=== PATIENT | female | born 1950 | race Caucasian/White ===

== ENCOUNTER 2023-05-02 12:32 | Outpatient (OUT) | payer MEDICARE, OTHER, SELFPAY ==
--- NOTE | 2023-05-02 13:10 | XR_ITS ---
[facility] [id number] Patient Name: KINDRA HUNTER MRN: [id number] date: 1950 Sex: F Assigned Patient Location: [facility] Current Patient Location: [facility] Accession/Order Number: [id number] Exam Date: 05/02/2023 12:55 Report Date: 05/02/2023 16:41 At the request of: NON-STAFF PHYSICIAN Procedure: XR lumbar spine min 4V EXAMINATION: XR lumbar spine min 4V HISTORY: M54.40 LUMBAGO WITH SCIATICA, UNSPECIFIED SIDE COMPARISON: No relevant comparison available. FINDINGS: BONES: Minimal grade 1 anterolisthesis of L3 on 4 and of L4 on 5. Developmental variant partial lumbarization of S1. Moderate degenerative facet arthropathy L3-4 through L5-S1. DISC SPACES: Moderate narrowing T10-11, T11 and T12, T12-L1 lung with sclerotic degenerative endplate changes. Mild narrowing L4-5. Moderate narrowing L5-S1. PARASPINOUS: Negative. No paraspinous abnormality is seen. OTHER: Negative. IMPRESSION: 1. Mild to moderate degenerative changes of lower thoracic and lower lumbar spine. Electronically authenticated by: HECTOR LING Date: 05/02/2023 16:41
--- NOTE | 2023-05-02 13:10 | XR_ITS ---
[address] [address] Patient Name: KINDRA HUNTER MRN: [id number] date: 1950 Sex: F Assigned Patient Location: [facility] Current Patient Location: Accession/Order Number: [id number] Exam Date: 05/02/2023 12:55 Report Date: 05/02/2023 16:38 At the request of: NON-STAFF PHYSICIAN Procedure: XR knee standing BI EXAMINATION: XR knee standing BI HISTORY: M25.561, M25.562 PAIN IN BILATERAL KNEES COMPARISON: No relevant comparison available. FINDINGS: RIGHT FINDINGS: BONES: Mild narrowing of the medial joint space and tiny periarticular degenerative osteophytes. SOFT TISSUES: No visible soft tissue swelling. OTHER: Negative. LEFT FINDINGS: BONES: Mild narrowing of the medial joint space and tiny periarticular degenerative osteophytes. SOFT TISSUES: No visible soft tissue swelling. OTHER: Negative. IMPRESSION: RIGHT CONCLUSION: Single frontal view of the right knee suggests mild degenerative joint disease. LEFT CONCLUSION: Single frontal view of the left knee suggests mild degenerative joint disease. Electronically authenticated by: HECTOR LING Date: 05/02/2023 16:38
== END 2023-05-02 12:33 ==
LOC: RAD 12:38
PROVIDERS: PCP Family Medicine
DX: M25.561 Pain in right knee (principal); M25.562 Pain in left knee; M54.40 Lumbago with sciatica, unspecified side; G89.29 Other chronic pain
CPT/HCPCS: 72110; 73565

== ENCOUNTER 2023-05-03 14:49 | Outpatient (RCR) | payer MEDICARE, OTHER, SELFPAY | END 2023-06-01 16:39 | disposition home or self-care (01) | LOC: PT 14:49 | PROVIDERS: PCP Family Medicine | DX: M25.551 Pain in right hip (principal); U09.9 Post COVID-19 condition, unspecified; M25.562 Pain in left knee; Z91.81 History of falling | CPT/HCPCS: 97110; 97112; 97161 ==

== ENCOUNTER 2023-09-05 16:47 | Outpatient (OUT) | payer MEDICARE, OTHER, SELFPAY ==
[2023-09-05 17:14] LABS: Bilirubin Urine NEGATIVE (NEGATIVE); Blood Urine NEGATIVE (NEGATIVE); Color Urine LT. YELLOW (YELLOW); Glucose Urine UA NEGATIVE (NEGATIVE); Ketones Urine NEGATIVE (NEGATIVE); Leukocyte Esterase Urine SMALL (NEGATIVE); Nitrite Urine POSITIVE (NEGATIVE); Protein Urine NEGATIVE (NEG/TRACE); Specific Gravity Urine 1.025 (1.005-1.025); Urobilinogen Urine 0.2 EU/dL (0.2-1.0)
[2023-09-05 17:19] LABS: Clarity Urine SLIGHTLY CLOUDY (CLEAR)
[2023-09-05 17:22] LABS: Bacteria Urine MODERATE #/HPF (NONE SEEN); Cast Seen? NONE SEEN #/LPF (NONE SEEN); Crystals Seen? None Seen #/HPF (None Seen); Mucus Urine NONE SEEN (NONE SEEN); RBC Urine 0-2 #/HPF (0-2); Squamous Epithelial Cell Urine RARE #/LPF (NONE/RARE)
== END 2023-09-05 16:48 | disposition home or self-care (01) ==
PROVIDERS: PCP Family Medicine; Visit Provider Family Medicine
DX: R30.0 Dysuria (principal)
CPT/HCPCS: 81001; 87086; 87150; 87186

== ENCOUNTER 2023-11-08 08:50 | Outpatient (OUT) | payer MEDICARE, OTHER, SELFPAY ==
--- OUTSIDE RECORDS SUMMARY | 2023-11-08 08:54 | XMS_ITS | CCD ---
Author Name Unknown Address [address] [place] [address] Organization [facility] Care Team Providers Care Bb Shot Packer Name Role Phone Dorita Bashir Primary Care Unavailable Amber Acharya Admitting Unavailable Amber Acharya Attending Unavailable Dorita Bsahir MD Primary Care Provider [phone] Amber Acharya MD Unavailable Dorita Bashir MD Primary Care Provider [phone] Amber Acharya MD Unavailable [phone] Bethany VELÁSQUEZ [facility] Unavailable [phone] DR DORITA BASHIR Admitting Unavailable KATHYY, DR KEVIN Attending Unavailable FRANK, DR KEVIN Primary Care Unavailable ACHARYA, DR AMBER Alonzo Referring Unavailable KATHYY, DR KEVIN Consulting Unavailable ASHLEY DAVIS Consulting Unavailable KATHYY, DR KEVIN Admitting Unavailable HOY, DR KEVIN Attending Unavailable HOMaría, DR KEVIN Primary Care Unavailable HOMaría, DR KEVIN Consulting Unavailable FRANK, DR KEVIN Admitting Unavailable FRANK, DR KEVIN Attending Unavailable FRANK, DR KEVIN Primary Care Unavailable KATHYY, DR KEVIN Consulting Unavailable FRANCI BUSTOS Consulting Unavailable KATHYY, DR KEVIN Admitting Unavailable HOY, DR KEVIN Attending Unavailable FRANK, DR KEVIN Primary Care Unavailable FRANK, DR KEVIN Consulting Unavailable SUSHIL, DR HECTOR Goldsmith Consulting Unavailable FRANK, DR KEVIN Admitting Unavailable FRANK, DR KEVIN Attending Unavailable FRANK, DR KEVIN Primary Care Unavailable HOY, DR KEVIN Consulting Unavailable VLAD, DR ASHLEY Grayson Consulting Unavailable FRANK, DR KEVIN Admitting Unavailable FRANK, DR KEVIN Attending Unavailable FRANK, DR KEVIN Primary Care Unavailable FRANK, DR KEVIN Consulting Unavailable ZIBERNA, DR HECTOR Goldsmith Consulting Unavailable KATHYYDR KEVIN Admitting Unavailable HOY, DR DORITA Attending Unavailable DR DORITA BASHIR Primary Care Unavailable FRANK, DR KEVIN Consulting Unavailable DR DORITA BASHIR Admitting Unavailable FRANK, DR KEVIN Attending Unavailable FRANK, DR KEVIN Primary Care Unavailable FRANK, DR KEVIN Consulting Unavailable Dorita Bashir MD Primary Care Provider [phone] Amber Acharya MD Unavailable Alfredito Young MD Unavailable IFRAH CHRISTIANSEN Attending Unavailable DORITA BASHIR MMini Primary Care Unavailable PROVIDER, UNKNOWN Admitting Unavailable ELSKHRISY, ALFREDITO Referring Unavailable PROVIDER, UNKNOWN Attending Unavailable PROVIDER, UNKNOWN Admitting Unavailable KEOY, ALFREDITO Referring Unavailable DORITA BASHIR MMini Primary Care Unavailable PROVIDER, UNKNOWN Attending Unavailable PROVIDER, UNKNOWN Admitting Unavailable DORITA BASHIR MMiin Primary Care Unavailable PROVIDER, UNKNOWN Attending Unavailable PROVIDER, UNKNOWN Admitting Unavailable DORITA BASHIR MMini Primary Care Unavailable PROVIDER, UNKNOWN Attending Unavailable PROVIDER, UNKNOWN Admitting Unavailable DORITA BASHIR MMini Primary Care Unavailable PROVIDER, UNKNOWN Attending Unavailable PROVIDER, UNKNOWN Attending Unavailable DORITA BASHIR MMini Primary Care Unavailable PROVIDER, UNKNOWN Admitting Unavailable AMBER ACHARYA Referring Unavailable PROVIDER, UNKNOWN Attending Unavailable DORITA BASHIR MMini Primary Care Unavailable PROVIDER, UNKNOWN Admitting Unavailable ELSVALARIEKASekouY, ALFREDITO Referring Unavailable DORITA BASHIR MMini Primary Care Unavailable PROVIDER, UNKNOWN Admitting Unavailable ELSRON, ALFREDITO Referring Unavailable PROVIDER, UNKNOWN Attending Unavailable Medications Current Medications Medication Drug Class(es) Dates Sig (Normalized) Sig (Original) amLODIPine 10 mg oral tablet (20 sources) Dihydropyridine Calcium Channel Con Start: 01-28-2020 amLODIPine (NORVASC) 10 MG tablet aspirin 81 mg delayed release oral tablet (20 sources) Platelet Aggregation Inhibitor, Nonsteroidal Anti-inflammatory Drug take 1 tablet by mouth once daily aspirin 81 MG enteric coated tablet Take 81 mg by mouth daily. 0 Active take 1 tablet by mouth once juju y aspirin 81 MG tablet Take 81 mg by mouth daily. 0 Active atorvastatin 80 mg oral tablet (20 sources) HMG-CoA Reductase Inhibitor Start: 01-28-2020 atorvastatin (LIPITOR) 80 mg tablet celecoxib 200 mg oral capsule (20 sources) Nonsteroidal Anti-inflammatory Drug Start: 03-02-2022 celecoxib (CeleBREX) 200 MG capsule cholecalciferol 0.025 mg oral capsule (20 sources) Vitamin D Start: 04-18-2017 take 1 capsule by mouth once daily Cholecalciferol (VITAMIN D3) 1000 UNITS CAPS Take 1 Capsule by mouth daily. 90 Capsule 1 04/18/2017 Active colestipol hydrochloride 1000 mg oral tablet (20 sources) Bile Acid Sequestrant Start: 05-10-2022 take 1 tablet by mouth once daily colestipol (COLESTID) 1 GM tablet colestipol 1 gram tablet Take 1 tablet every day by oral route for 90 days. 0 05/10/2022 Active Start: 09-07-2021 End: 06-07-2022 take 1 tablet by mouth twice daily as needed colestipol (COLESTID) 1 GM tablet Take 1 Tablet by mouth 2 times daily as needed. 180 Tablet 3 09/07/2021 06/07/2022 Discontinued hydroxychloroquine sulfate 200 mg oral tablet (20 sources) Antimalarial, Antirheumatic Agent Start: 06-03-2020 take 2 tablets by mouth once daily hydroxychloroquine (PLAQUENIL) 200 MG tablet TAKE 2 TABLETS BY MOUTH DAILY 180 Tablet 1 06/03/2020 Active levoFLOXacin 500 mg oral tablet (3 sources) Quinolone Antimicrobial Start: 01-02-2022 take 1 tablet by mouth once daily levoFLOXacin (LEVAQUIN) 500 MG tablet Take 500 mg by mouth daily. 0 01/02/2022 Active levothyroxine sodium 0.088 mg oral tablet (20 sources) l-Thyroxine Start: 05-16-2022 levothyroxine (SYNTHROID) 88 MCG tablet Start: 01-28-2020 take 1 tablet by rosa elena th once daily 30 minutes before breakfast Levothyroxine Sodium 88 MCG CAPS Take 1 Tablet by mouth daily (30 minutes before breakfast). 0 01/28/2020 Active liothyronine sodium 0.005 mg oral tablet (20 sources) l-Triiodothyronine Start: 02-28-2021 liothyronine (CYTOMEL) 5 MCG tablet 24 hr metoprolol succinate 100 mg extended release oral tablet (20 sources) beta-Adrenergic Con take 1 tablet by mouth twice daily metoprolol XL (TOPROL-XL) 100 MG XL tablet Take 100 mg by mouth 2 times daily. 0 Active Multiple Vitamins-Minerals (EYE VITAMINS ORAL) (5 sources) Multiple Vitamins-Minerals (EYE VITAMINS ORAL) Take by mouth. 0 Active pantoprazole 40 mg delayed release oral tablet (20 sources) Proton Pump Inhibitor take 1 tablet by mouth once daily pantoprazole (PROTONIX) 40 MG tablet Take 40 mg by mouth daily. 0 Active pregabalin 50 mg oral capsule (12 sources) Start: 09-06-2022 End: 10-06-2022 take 1 capsule by mouth twice daily pregabalin (Lyrica) 50 MG capsule Indications: Intercostal neuritis Take 1 Capsule by mouth 2 times daily for 30 days. 60 Capsule 0 09/06/2022 Active traMADol hydrochloride 50 mg oral tablet (20 sources) Opioid Agonist Start: 09-07-2021 take 1 tablet by mouth every eight hours as needed tramadol (ULTRAM) 50 MG tablet Indications: Fibromyalgia Take 1 Tablet by mouth every 8 hours as needed for up to 90 days. 30 Tablet 1 09/07/2021 Active Completed/Discontinued Medications Medication Drug Class(es) Dates Sig (Normalized) Sig (Original) alendronic acid 70 mg oral tablet (20 sources) Bisphosphonate Start: 03-08-2022 End: 04-30-2023 take 1 tablet by mouth every week alendronate (Fosamax) 70 MG tablet Take 1 Tablet by mouth once weekly. 4 Tablet 3 03/08/2022 04/30/2023 Discontinued (Therapy completed) 5 ml bupivacaine hydrochloride 5 mg/ml injection (6 sources) Amide Local Anesthetic Start: 08-09-2022 End: 08-09-2022 bupivacaine (MARCAINE) 0.5 % injection Start: 08-09-2022 End: 08-09-2022 bupivacaine (MARCAINE) 0.5 % injection Start: 08-09-2022 End: 08-09-2022 bupivacaine (MARCAINE) 0.5 % injection Start: 08-09-2022 End: 08-09-2022 bupivacaine (MARCAINE) 0.5 % injection Start: 08-09-2022 End: 08-09-2022 bupivacaine (MARCAINE) 0.5 % injection Start: 08-09-2022 End: 08-09-2022 bupivacaine (MARCAINE) 0.5 % injection 1 ml dexamethasone phosphate 10 mg/ml injection (6 sources) Corticosteroid Start: 08-09-2022 End: 08-09-2022 dexamethasone sod phosphate PF (DECADRON) 10 MG/ML injection Start: 08-09-2022 End: 08-09-2022 dexamethasone sod phosphate PF (DECADRON) 10 MG/ML injection Start: 08-09-2022 End: 08-09-2022 dexamethasone sod phosphate PF (DECADRON) 10 MG/ML injection Start: 08-09-2022 End: 08-09-2022 dexamethasone sod phosphate PF (DECADRON) 10 MG/ML injection Start: 08-09-2022 End: 08-09-2022 dexamethasone sod phosphate PF (DECADRON) 10 MG/ML injection Start: 08-09-2022 End: 08-09-2022 dexamethasone sod phosphate PF (DECADRON) 10 MG/ML injection furosemide 20 mg oral tablet (3 sources) Loop Diuretic Start: 03-29-2021 End: 06-07-2022 take 1 tablet by mouth once daily furosemide (LASIX) 20 MG tablet TAKE 1 TABLET BY MOUTH EVERY DAY 30 Tablet 0 03/29/2021 06/07/2022 Discontinued 10 ml lidocaine hydrochloride 10 mg/ml injection (6 sources) Antiarrhythmic, Amide Local Anesthetic Start: 08-09-2022 End: 08-09-2022 lidocaine (XYLOCAINE) 1 % injection Start: 08-09-2022 End: 08-09-2022 lidocaine (XYLOCAINE) 1 % in jection Start: 08-09-2022 End: 08-09-2022 lidocaine (XYLOCAINE) 1 % in jection Start: 08-09-2022 End: 08-09-2022 lidocaine (XYLOCAINE) 1 % in jection Start: 08-09-2022 End: 08-09-2022 lidocaine (XYLOCAINE) 1 % in jection Start: 08-09-2022 End: 08-09-2022 lidocaine (XYLOCAINE) 1 % in jection Problems Active Problems Problem Classification Problem Date Documented Da te Episodic/Chronic Acute bronchitis (4 sources) Acute bronchitis, unspecified; Translations: [ACUTE BRONCHITIS UNSPECIFIED] Onset: Episodic Adjustment disorders (1 source) Grief finding; Translations: [Adjustment disorder with depressed mood] 04-30-2023 Chronic Conditions associated with dizziness or vertigo (1 source) Dizziness; Translations: [Dizziness and giddiness] Episodic Congestive heart failure; nonhypertensive (1 source) Unspecified diastolic (congestive) heart failure; Translations: [UNSPECIFIED DIASTOLIC HEART FAILURE] Onset: 2 Chronic Coronary atherosclerosis and other heart disease (20 sources) Coronary atherosclerosis; Translations: [Atherosclerotic heart disease of [place] coronary artery without angina pectoris] Onset: 2 09-07-2021 Chronic Disorders of lipid metabolism (20 sources) Hyperlipidemia; Translations: [Hyperlipidemia, unspecified] Onset: 2 09-07-2021 Chronic Essential hypertension (20 sources) Essential hypertension; Translations: [Essential (primary) hypertension] Onset: 2 09-07-2021 Chronic Fever of unknown origin (4 sources) Fever, unspecified; Translations: [FEVER UNSPECIFIED] Onset: 2 Episodic Fracture of upper limb (1 source) Displaced fracture of distal phalanx of left index finger, initial encounter for closed fracture; Translations: [DSPL FX DIST PHAL LT IF INIT BARI FX] Onset: 2 Episodic Genitourinary symptoms and ill-defined conditions (1 source) Dysuria; Translations: [Dysuria] 04-30-2023 Episodic Hypertension with complications and secondary hypertension (1 source) Hypertensive heart disease with heart failure; Translations: [HTN HEART DISEASE W/HEART FAIL] Onset: 2 Chronic Nonspecific chest pain (1 source) Chest wall pain; Translations: [Other chest pain] Episodic Nutritional deficiencies (1 source) Vitamin D deficiency; Translations: [Vitamin D deficiency, unspecified] 04-25-2023 Chronic Nutritional deficiencies (1 source) Cobalamin deficiency; Translations: [Deficiency of other specified B group vitamins] 04-30-2023 Episodic Other connective tissue disease (4 sources) Pain in left hand; Translations: [PAIN IN LEFT HAND] Onset: 2 Episodic Other infections; including parasitic (1 source) Post-viral disorder; 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] 04-25-2023 Chronic Other nervous system disorders (20 sources) Inflammatory and toxic neuropathy; Translations: [Polyneuropathy due to other toxic agents] Onset: 2 09-07-2021 Chronic Other nervous system disorders (1 source) Intercostal neuralgia; 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 Other nervous system disorders (20 sources) Peripheral neuritis; Translations: [Other specified mononeuropathies] Onset: 2 07-28-2022 Chronic Other nervous system disorders (1 source) Other specified mononeuropathies; Translations: [Other specified mononeuropathies] Onset: 2 Chronic Other nervous system disorders (1 source) Carpopedal spasm; Translations: [Tetany] Episodic Other nervous system disorders (1 source) Numbness of lower limb ; Translations: [Anesthesia of skin] 04-25-2023 Episodic Other non-traumatic joint disorders (1 source) Pain in left wrist; Translations: [PAIN IN LEFT WRIST] Onset: 2 Episodic Other non-traumatic joint disorders (1 source) Pain in right knee; Translations: [Pain in joint, lower leg] 04-25-2023 Episodic Other nutritional; endocrine; and metabolic disorders (3 sources) Body mass index 30+ - obesity; Translations: [Body mass index (BMI) 33.0-33.9, adult] Chronic Other skin disorders (1 source) Localized swelling, mass and lump, left lower limb; Translations: [LOC SWELL MASS LUMP LT LOWER LIMB] Onset: 2 Episodic Phlebitis; thrombophlebitis and thromboembolism (1 source) Phlebitis and thrombophlebitis of superficial vessels of left lower extremity; Translations: [PHLEBITIS AND TP SUP VES LT LOW EXT] Onset: 2 Episodic Pulmonary heart disease (20 sources) Chronic cor pulmonale; Translations: [Pulmonary heart disease, unspecified] Onset: 3 09-07-2021 Chronic Residual codes; unclassified (4 sources) Edema, unspecified; Translations: [EDEMA UNSPECIFIED] Onset: 2 Episodic Residual codes; unclassified (1 source) Localized edema; Translations: [LOCALIZED EDEMA] Onset: 2 Episodic Spondylosis; intervertebral disc disorders; other back problems (20 sources) Degeneration of intervertebral disc; Translations: [Degeneration of intervertebral disc] Onset: 2 09-07-2021 Chronic Spondylosis; intervertebral disc disorders; other back problems (2 sources) Chronic low back pain; Translations: [Chronic midline low back pain without sciatica] 04-25-2023 Episodic Systemic lupus erythematosus and connective tissue disorders (20 sources) Disorder of connective tissue; Translations: [Systemic involvement of connective tissue, unspecified] Onset: 4 04-04-2014 Chronic Thyroid disorders (20 sources) Hypothyroidism; Translations: [Hypothyroidism, unspecified] Onset: 2 09-07-2021 Chronic Unclassified (3 sources) CONTACT W/AND (SUSP) EXPOS COVID-19; Translations: [CONTACT W/AND (SUSP) EXPOS COVID-19] Onset: 2 Unclassified (1 source) COUGH, UNSPECIFIED; Translations: [COUGH, UNSPECIFIED] Onset: 2 Viral infection (1 source) COVID-19; Translations: [COVID-19] Onset: 2 Past or Other Problems Problem Classification Problem Date Documented Da te Episodic/Chronic Abdominal pain (4 sources) Right upper quadrant pain; Translations: [RIGHT UPPER QUADRANT PAIN] Onset: 03-23-2022 Episodic Deficiency and other anemia (1 source) Anemia, unspecified; Translations: [ANEMIA UNSPECIFIED] Onset: 03-29-2022 Episodic Diabetes mellitus without complication (1 source) Other abnormal glucose; Translations: [OTHER ABNORMAL GLUCOSE] Onset: 03-29-2022 Episodic Other connective tissue disease (20 sources) Fibromyositis; Translations: [Fibromyalgia] Onset: 07-05-2012 09-07-2021 Episodic Other connective tissue disease (1 source) Fibromyalgia; Translations: [FIBROMYALGIA] Onset: 03-29-2022 Episodic Other non-traumatic joint disorders (1 source) Pain in unspecified hip; Translations: [Pain in unspecified hip] Onset: 08-04-2022 Episodic Other screening for suspected conditions (not mental disorders or infectious disease) (1 source) Encounter for screening for malignant neoplasm of rectum; Translations: [ENC SCREEN MALIG NEOPLASM RECTUM] Onset: 03-29-2022 Episodic Unclassified (1 source) CONTACT W/AND (SUSP) EXPOS COVID-19; Translations: [CONTACT W/AND (SUSP) EXPOS COVID-19] Onset: 08-22-2022 Results Test Name Value Interpretation Reference Range Facility Telephone Encounteron 2022 Bolting Machine Operator Authentication Interface Message Text [facility] external x-ray results added to media folder. Normal [facility] Telephone Encounteron 2022 Bolting Machine Operator Authentication Interface Message Text [facility] signed discharge form faxed to [phone]. Confirmation received. Normal [facility] Telephone Encounteron 2022 Bolting Machine Operator Authentication Interface Message Text [facility] discharge form, pending provider signature added to media folder. Copy also placed on provider desk. Normal [facility] Telephone Encounteron 2022 Bolting Machine Operator Authentication Interface Message Text [facility] Physical Therapy Initial Examination notes added to media folder. Normal [facility] Telephone Encounteron 2022 Bolting Machine Operator Authentication Interface Message Text From the [facility] XR of the knee Added to media folder. Normal [facility] ELECTROPHORESIS, SERUM PROTE INOrdered By: Dane Anaya on 04-27-2023 Albumin [Mass fraction] 53.8 % 52.0 - 72.0 % [facility] Work Phone: Albumin [Mass/Vol] 3.55 g/dL Low 3.90 - 5. 10 g/dL [facility] Work Phone: Alpha 1 globulin Elph (CSF) [Mass fraction] 0.29 g/dL 0.10 - 0.45 g/dL [facility] Work Phone: Alpha 1 globulin Unsp time Elph (U) [Mass fraction] 4.3 % 2.0 - 9.6 % [facility] Work Phone: Alpha 2 globulin Elph (CSF) [Mass fraction] 0.66 g/dL 0.40 - 0.90 g/dL [facility] Work Phone: Alpha 2 globulin Unsp time Elph (U) [Mass fraction] 10.0 % 5.0 - 16.0 % [facility] Work Phone: Beta globulin Elph (CSF) [Mass fraction] 1.23 g/dL High 0.50 - 1.00 g/dL [facility] Work Phone: Beta globulin Unsp time Elph (U) [Mass fraction] 18.6 % High 5.0 - 17.0 % [facility] Work Phone: Gamma globulin Elph (CSF) [Mass fraction] 0.88 g/dL 0.60 - 1.30 g/dL [facility] Work Phone: Gamma globulin Unsp time Elph (U) [Mass fraction] 13.3 % 8.0 - 21.0 % [facility] Work Phone: Interpretation Patient has increased beta-globulins and decreased albumin. No paraprotein band was observed in the serum. Maged Whiting, Ph.D [facility] Work Phone: Interpretation and review of laboratory results Abnormal [facility] Work Phone: Protein.monoclonal Elph [Mass fraction] 6.6 g/dL 5.7 - 8.1 g/dL [facility] Work Phone: . I certify that I personally conducted the diagnostic evaluation of the above specimen(s) and have rendered the final diagnosis(es). [facility] Work Phone: [facility] Work Phone: URINE CULTUREOrdered By: Rome Wynn on 04-26-2023 Bacteria identified Cx Nom (U) 1,000 - 10,000 CFU/ml Multiple bacteria present suggesting contamination. [facility] Interpretation and review of laboratory results Normal [facility] IF clinically indicated, suggest appropriate recollection with timely delivery to the laboratory. For additional information, call ext [phone]. [facility] VITAMIN B12 (CYANOCOBALAMIN) on 04-26-2023 Cobalamin (Vitamin B12) [Moles/Vol] 277 pg/mL Low 300 - PINF pg/mL [facility] Interpretation and review of laboratory results Abnormal [facility] <152 pg/mL - Deficient 152 - 300 pg/mL- Insufficient >300 pg/mL - Sufficient [facility] VITAMIN D, 25-HYDROXYon 04-12 25-hydroxyvitamin D IA [Mass/Vol] 24.7 ng/mL Low 30 - 100 ng/mL [facility] Interpretation and review of laboratory results Abnormal [facility] BASIC METABOLIC PANELon 06- Anion gap [Moles/Vol] 20 mmol/L Normal 10-20 [facility] Comment on above: Performed By: #### V ITB12, CH8, C3, C4 #### [facility] [address] [place] [address], Calcium [Mass/Vol] 9.3 mg/dL Normal 8.4-10.4 [facility] Comment on above: Performed By: #### V ITB12, CH8, C3, C4 #### [facility] [address] [place] [address], Chloride [Moles/Vol] 107 mmol/L Normal 97-111 [facility] Comment on above: Performed By: #### V ITB12, CH8, C3, C4 #### [facility] [address] [place] [address], CO2 [Moles/Vol] 22 mmol/L Normal 21-30 [facility] Comment on above: Performed By: #### V ITB12, CH8, C3, C4 #### [facility] [address] [place] [address], Creatinine [Mass/Vol] 1.09 mg/dL Normal 0.50-1.10 [facility] Comment on above: Performed By: #### V ITB12, CH8, C3, C4 #### [facility] [address] [place] [address], ESTIMATED GFR (CKD-EPI) 54 mL/min/1.73sqm Low >=60 [facility] Comment on above: Result Comment: 2020 CKD EPI Equation using Creatinine without Race Comment: Estimated glomerular filtration rate (eGFR) is calculated without a race coefficient. Values should be interpreted in the context of the patient's full clinical presentation. Reference: 1. Toi Durand, Nhi M, Lucio FRAZIER, et al.. A Unifying Approach for GFR Estimation: Recommendations of the NKF-ASN Task Force on Reassessing the Inclusion of Race in Diagnosing Kidney Disease. P[place] Journal of Kidney Diseases 2021;79(2):268-88.e1. 2. N Engl J Med 1 Vol. 385 Issue 19 Pages [phone] Performed By: #### V ITB12, CH8, C3, C4 #### [facility] [address], [place], Glucose [Mass/Vol] 90 mg/dL Normal 80-116 [facility] Comment on above: Performed By: #### V ITB12, CH8, C3, C4 #### [facility] [address], [place], Potassium [Moles/Vol] 4.7 mmol/L Normal 3.3-5.3 [facility] Comment on above: Performed By: #### V ITB12, CH8, C3, C4 #### [facility] [address], [place], Sodium [Moles/Vol] 144 mmol/L Normal 135-148 [facility] Comment on above: Performed By: #### V ITB12, CH8, C3, C4 #### [facility] [address], [place], Urea nitrogen [Mass/Vol] 16 mg/dL Normal 8-22 [facility] Comment on above: Performed By: #### V ITB12, CH8, C3, C4 #### [facility] [address], [place], Basic metabolic 2000 panelon 04-25-2023 Anion gap [Moles/Vol] 20 mmol/L 10 - 20 [facility] Calcium [Mass/Vol] 9.3 mg/dL 8.4 - 10. 4 mg/dL [facility] Chloride [Moles/Vol] 107 mmol/L 97 - 111 mmol/L [facility] CO2 [Moles/Vol] 22 mmol/L 21 - 30 mmol/L [facility] Creatinine [Mass/Vol] 1.09 mg/dL 0.50 - 1.10 mg/dL [facility] GFR/1.73 sq M.predicted MDRD (S/P/Bld) [Vol rate/Area] 54 mL/min/{1.73_m2} Low - PINF [facility] Comment on above: 2020 CKD EPI Equatio n using Creatinine without Race Comment: Estimated glomerular filtration rate (eGFR) is calculated without a race coefficient. Values should be interpreted in the context of the patient's full clinical presentation. Reference: 1. Toi Durand, Nhi M, Lucio FRAZIER, et al.. A Unifying Approach for GFR Estimation: Recommendations of the NKF-ASN Task Force on Reassessing the Inclusion of Race in Diagnosing Kidney Disease. Pry[place] Journal of Kidney Diseases 2021;79(2):268-88.e1. 2. N Engl J Med 2020 Vol. 385 Issue 19 Pages [id number] Glucose [Mass/Vol] 90 mg/dL 80 - 116 mg/dL [facility] Interpretation and review of laboratory results Abnormal [facility] Potassium [Moles/Vol] 4.7 mmol/L 3.3 - 5.3 mmol/L [facility] Sodium [Moles/Vol] 144 mmol/L 135 - 148 mmol/L [facility] Urea nitrogen [Mass/Vol] 16 mg/dL 8 - 22 mg/dL [facility] C3 COMPLEMENTon 04-25-2023 Complement C3 [Mass/Vol] 160 mg/dL 81 - 163 mg/dL [facility] C3 160 mg/dL Normal 81-163 [facility] Comment on above: Performed By: #### V ITB12, CH8, C3, C4 #### [facility] [address], [place], C4 COMPLEMENTon 04-25-2023 Complement C4 [Mass/Vol] 34 mg/dL 14 - 46 mg/dL [facility] C4 34 mg/dL Normal 14-46 [facility] Comment on above: Performed By: #### V ITB12, CH8, C3, C4 ####S PATHOLOGY [id number] [place], [place], CBC WITH DIFFERENTIALon 04-12 Basophils (Bld) [#/Vol] 0.03 10*3/uL 0.00 - 0.20 K/uL [facility] Basophils/100 WBC (Bld) 0.6 % NINF - 1.9 % [facility] Eosinophils (Bld) [#/Vol] 0.07 10*3/uL 0.00 - 0.70 K/uL [facility] Eosinophils/100 WBC (Bld) 1.5 % 0.1 - 4.0 % [facility] Erythrocyte distribution width (RBC) [Ratio] 13.2 % 11.5 - 14.5 % [facility] Hematocrit (Bld) [Volume fraction] 42.8 % 36.0 - 46.0 % [facility] Hemoglobin (Bld) [Mass/Vol] 14.5 g/dL 12.0 - 15.0 g/dL [facility] Lymphocytes (Bld) [#/Vol] 1.19 10*3/uL 1.00 - 4.80 K/uL [facility] Lymphocytes/100 WBC (Bld) 25.8 % 24.0 - 44.0 % [facility] MCH (RBC) [Entitic mass] 31.7 pg 26.0 - 34.0 pg [facility] MCHC (RBC) [Mass/Vol] 34.0 g/dL 32.0 - 35.9 g/dL [facility] MCV (RBC) [Entitic vol] 93 fL 80 - 100 fL [facility] Monocyte distribution width Auto (Bld) [Entitic vol] [facility] Monocytes (Bld) [#/Vol] 0.37 10*3/uL 0.20 - 1.00 K/uL [facility] Monocytes/100 WBC (Bld) 8.1 % 2.0 - 11.0 % [facility] Neutrophils (Bld) [#/Vol] 2.95 10*3/uL 1.50 - 8.00 K/uL [facility] Neutrophils/100 WBC (Bld) 64.1 % 31.0 - 76.0 % [facility] Platelet mean volume (Bld) [Entitic vol] 9.0 fL 7.5 - 11.2 fL [facility] Platelets (Bld) [#/Vol] 158 10*3/uL 150 - 400 K/uL [facility] RBC (Bld) [#/Vol] 4.60 10*6/uL [facility] WBC (Bld) [#/Vol] 4.6 10*3/uL 4.5 - 11.5 K/uL [facility] Basophils (Bld) [#/Vol] 0.03 10*3/uL Normal 0.00-0.20 The [facility] Comment on above: Performed By: #### C BCDSAT ####[facility] PATHOLOG[facility] [id number] [place], [place], Basophils/100 WBC (Bld) 0.6 % Normal <=1.9 [facility] Comment on above: Performed By: #### C BCDSAT ####[facility] PATH[facility]Y [id number] [place] [address], Eosinophils (Bld) [#/Vol] 0.07 10*3/uL Normal 0.00-0.70 [facility] Comment on above: Performed By: #### C BCDSAT ####[facility] PATH[facility]Y [id number] [place] [address], Eosinophils/100 WBC (Bld) 1.5 % Normal 0.1-4.0 [facility] Comment on above: Performed By: #### C BCDSAT ####[facility] PATHOLOGY [id number] [place] [address], Erythrocyte distribution width (RBC) [Ratio] 13.2 % Normal 11.5-14.5 [facility] Comment on above: Performed By: #### C BCDSAT ####[facility] PATHOLOGY [address] [place] [address], Hematocrit (Bld) [Volume fraction] 42.8 % Normal 36.0-46.0 The [facility] Comment on above: Performed By: #### C BCDSAT ####S PATHOLOGY [id number] [place] [address], Hemoglobin (Bld) [Mass/Vol] 14.5 g/dL Normal 12.0-15.0 The [facility] Comment on above: Performed By: #### C BCDSAT ####S PATHOLOGY SIDEZRYRNE[address] [place] [address], Lymphocytes (Bld) [#/Vol] 1.19 10*3/uL Normal 1.00-4.80 [facility] Comment on above: Performed By: #### C BCDSAT ####S PATHOLOGY JJOOUBUMKA[address] [place] [address], Lymphocytes/100 WBC (Bld) 25.8 % Normal 24.0-44.0 The [facility] Comment on above: Performed By: #### Kizzy PARSONSAT ####[facility] PATHOLOGY [id number] [place] [address], MCH (RBC) [Entitic mass] 31.7 pg Normal 26.0-34.0 [facility] Comment on above: Performed By: #### Kizzy PARSONSAT ####[facility] PATHOLOGY [id number] [place] [address], MCHC (RBC) [Mass/Vol] 34.0 g/dL Normal 32.0-35.9 The [facility] Comment on above: Performed By: #### Kizzy PARSONSAT ####[facility] PATHOLOGY [id number] [place] [address], MCV (RBC) [Entitic vol] 93 fL Normal 80-100 The [facility] Comment on above: Performed By: #### Kizzy PARSONSAT ####[facility] PATHOLOGY [id number] [place] [address], MONOCYTE DISTRIBUTION WIDTH Normal The [facility] Comment on above: Performed By: #### Kizzy PARSONSAT ####[facility] PATHOLOGY [id number] [place] [address], Monocytes (Bld) [#/Vol] 0.37 10*3/uL Normal 0.20-1.00 The [facility] Comment on above: Performed By: #### Kizzy PARSONSAT ####[facility] PATHOLOGY [id number] [place] [address], Monocytes/100 WBC (Bld) 8.1 % Normal 2.0-11.0 The [facility] Comment on above: Performed By: #### Kizzy PARSONSAT ####[facility] PATHOLOGY [id number] [place] [address], Neutrophils (Bld) [#/Vol] 2.95 10*3/uL Normal 1.50-8.00 The [facility] Comment on above: Performed By: #### Kizzy PARSONSAT ####[facility] PATHOLOGY [id number] [place] [address] [place], Neutrophils/100 WBC (Bld) 64.1 % Normal 31.0-76.0 The [facility] Comment on above: Performed By: #### C BCDSAT ####S PATHOLOGY [id number] [place], [place], Platelet mean volume (Bld) [Entitic vol] 9.0 fL Normal 7.5-11.2 The [facility] Comment on above: Performed By: #### C BCDSAT ####[facility] [id number] [place], [place], Platelets (Bld) [#/Vol] 158 10*3/uL Normal 150-400 The [facility] Comment on above: Performed By: #### C BCDSAT ####[facility] [id number] [place], [place], RBC (Bld) [#/Vol] 4.60 10*6/uL Normal 4.00-5.20 The [facility] Comment on above: Performed By: #### C BCDSAT ####[facility] [id number] [place], [place], WBC (Bld) [#/Vol] 4.6 10*3/uL Normal 4.5-11.5 The [facility] Comment on above: Performed By: #### C BCDSAT ####[facility] PATHOLOGY [id number] [place], [place], DS DNAon 04-25-2023 DNA double strand Ab Qn (S) Negative Negative [facility] DNA double strand Ab Qn (S) See Below [facility] ds DNA Reference Range: < or = to 4 IU/mL-Negative 5-9 IU/mL-Indeterminate > or = to 10 IU/mL-Positive [facility] DS DNA Negative Normal Negative The [facility] Comment on above: Order Comment: ds DNA Reference Range: < or = to 4 IU/mL-Negative 5-9 IU/mL-Indeterminate > or = to 10 IU/mL-Positive Performed By: #### d s DNA #### S PATHOLOGY LABORATORY [address] [place], [place], DS DNA ANTIBODY < 1 Normal See Below The [facility] Comment on above: Order Comment: ds DNA Reference Range: < or = to 4 IU/mL-Negative 5-9 IU/mL-Indeterminate > or = to 10 IU/mL-Positive Performed By: #### d s DNA #### [facility] LABORATORY [address] [place], [place], ELECTROPHORESIS, SERUM PROTE INon 04-25-2023 % ALBUMIN 53.8 % Normal 52.0-72.0 The [facility] Comment on above: Order Comment: Kyle biggs Signed Out by Dane Anaya MD on 04/27/2023.I certify that I personally conducted the diagnostic evaluation of the above specimen(s) and have rendered the final diagnosis(es). Performed By: #### E P PROT ####[facility] PATHOLOGY [id number] [place], [place], % ALPHA-1 GLOBULIN 4.3 % Normal 2.0-9.6 The [facility] Comment on above: Order Comment: Kyle biggs Signed Out by Dane Anaya MD on 04/27/2023.I certify that I personally conducted the diagnostic evaluation of the above specimen(s) and have rendered the final diagnosis(es). Performed By: #### E P PROT ####[facility] PATHOLOGY [id number] [place], [place], % ALPHA-2 GLOBULIN 10.0 % Normal 5.0-16.0 The [facility] Comment on above: Order Comment: Kyle biggs Signed Out by Dane Anaya MD on 04/27/2023.I certify that I personally conducted the diagnostic evaluation of the above specimen(s) and have rendered the final diagnosis(es). Performed By: #### E P PROT ####[facility] PATHOLOGY [id number] [place], [place], % BETA GLOBULIN 18.6 % High 5.0-17.0 The [facility] Comment on above: Order Comment: Kyle biggs Signed Out by Dane Anaya MD on 04/27/2023.I certify that I personally conducted the diagnostic evaluation of the above specimen(s) and have rendered the final diagnosis(es). Performed By: #### E P PROT ####[facility] PATHOLOGY [id number] [place], [place], % GAMMA GLOBULIN 13.3 % Normal 8.0-21.0 The [facility] Comment on above: Order Comment: Kyle biggs Signed Out by Dane Anaya MD on 04/27/2023.I certify that I personally conducted the diagnostic evaluation of the above specimen(s) and have rendered the final diagnosis(es). Performed By: #### E P PROT ####[facility] PATHOLOGY [id number] [place], [place], Albumin [Mass/Vol] 3.55 g/dL Low 3.90-5.10 The [facility] Comment on above: Order Comment: Kyle biggs Signed Out by Dane Anaya MD on 04/27/2023.I certify that I personally conducted the diagnostic evaluation of the above specimen(s) and have rendered the final diagnosis(es). Performed By: #### E P PROT ####[facility] PATHOLOGY [id number] [place], [place], ALPHA-1 GLOBULIN 0.29 g/dL Normal 0.10-0.45 The [facility] Comment on above: Order Comment: Kyle biggs Signed Out by Dane Anaya MD on 04/27/2023.I certify that I personally conducted the diagnostic evaluation of the above specimen(s) and have rendered the final diagnosis(es). Performed By: #### E P PROT ####[facility] PATHOLOGY [id number] [place], [place], ALPHA-2 GLOBULIN 0.66 g/dL Normal 0.40-0.90 The [facility] Comment on above: Order Comment: Kyle biggs Signed Out by Dane Anaya MD on 04/27/2023.I certify that I personally conducted the diagnostic evaluation of the above specimen(s) and have rendered the final diagnosis(es). Performed By: #### E P PROT ####[facility] PATHOLOGY [id number] [place], [place], BETA GLOBULIN 1.23 g/dL High 0.50-1.00 The [facility] Comment on above: Order Comment: Kyle biggs Signed Out by Dane Anaya MD on 04/27/2023.I certify that I personally conducted the diagnostic evaluation of the above specimen(s) and have rendered the final diagnosis(es). Performed By: #### E P PROT ####S PATHOLOGY [id number] [place], [place], GAMMA GLOBULIN 0.88 g/dL Normal 0.60-1.30 The [facility] Comment on above: Order Comment: Kyle biggs Signed Out by Dane Anaya MD on 04/27/2023.I certify that I personally conducted the diagnostic evaluation of the above specimen(s) and have rendered the final diagnosis(es). Performed By: #### E P PROT ####S PATHOLOGY [id number] [place], [place], INTERPRETATION Maged Whiting, Ph.D Normal The [facility] Comment on above: Order Comment: Kyle biggs Signed Out by Dane Anaya MD on 04/27/2023.I certify that I personally conducted the diagnostic evaluation of the above specimen(s) and have rendered the final diagnosis(es). Performed By: #### E P PROT ####S PATHOLOGY [id number] [place], [place], Protein [Mass/Vol] 6.6 g/dL Normal 5.7-8.1 The [facility] Comment on above: Order Comment: Kyle biggs Signed Out by Dane Anaya MD on 04/27/2023.I certify that I personally conducted the diagnostic evaluation of the above specimen(s) and have rendered the final diagnosis(es). Performed By: #### E P PROT ####[facility] [id number] [place], [place], No Panel Informationon 04-25 Interpretation and review of laboratory results Normal [facility] Patient Instructionson 04-25 Bolting Machine Operator Authentication Interface Message Text Please tell your frog or oyster farmworker that we would like an ECHO to estimate pulmonary pressures given possible Obstructive sleep apnea and history of lupus Normal [facility] Progress Noteson 04-25-2023 Bolting Machine Operator Authentication Interface Message Text Patient was identified by name and date of . Romelia Dunn Venipuncture performed patient tolerated well Romelia Dunn MPA Patient leaving urine sample Normal [facility] Bolting Machine Operator Authentication Interface Message Text CC h/o SLE HPI Linnea Culp is 72 year old with a h/o COVID in October, treated with Paxlovid. Having pain in her legs, has left knee giveway. Tearied today, had not cried before. Wonders if the racial rash is related to lupus. Needs to use sunscreen daily. No hair loss. Has some right arm numbness when sitting too long, predates covid, get myelopathic looking hand l>r. Not usually foot and hand at same time. Has cramps in legs. No chest pain or SOB. Per eye md has some dry eyes. Except face no rash, slightly pink on arms, got bumbes. No epistaxis or hemoptysis. Had green post nasal drip. Takes colestipol With COVID fever, headache, achy, did not lose smell or taste. Fatigue still persists. Sleep lies down no later 10 unless has meetings. Sometimes lays awake. Sometimes naps during the day. 2 PM. 1/2 -2 hours. Pretty much feels well rested in am. says she snores at night. 2 pillow orthopnea Brother Sep 01 Son almost after that, police man Sister in law 6 months before that Left adopted son in his 20's Outpatient Medications Marked as Taking for the 04/25/23 encounter (Office Visit) with Amber Acharya MD Medication Sig Dispense Refill colestipol (COLESTID) 1 GM tablet in the morning. colestipol (COLESTID) 1 GM tablet colestipol 1 gram tablet Take 1 tablet every day by oral route for 90 days. levothyroxine (SYNTHROID) 88 MCG tablet celecoxib (CeleBREX) 200 MG capsule liothyronine (CYTOMEL) 5 MCG tablet hydroxychloroquine (PLAQUENIL) 200 MG tablet TAKE 2 TABLETS BY MOUTH DAILY 180 Tablet 1 aspirin 81 MG enteric coated tablet Take 81 mg by mouth daily. atorvastatin (LIPITOR) 80 mg tablet amLODIPine (NORVASC) 10 MG tablet Cholecalciferol (VITAMIN D3) 1000 UNITS CAPS Take 1 Capsule by mouth daily. 90 Capsule 1 pantoprazole (PROTONIX) 40 MG tablet Take 40 mg by mouth daily. metoprolol XL (TOPROL-XL) 100 MG XL tablet Take 100 mg by mouth 2 times daily. BP 134/66 Pulse 59 Temp 98 ???F (36.7 ???C) (Temporal) Ht 5' 4.57 (1.64 m) Wt 211 lb 4.8 oz (95.8 kg) SpO2 97% BMI 35.64 kg/m??? Skin No rash HEENT Naso and oropharynx clear Neck No LAD Lungs CTA Breasts Not done Heart S1S2 RRR no m or g Abdomen Soft no HSM Musculoskeletal/Extr emities Neck ROM mildly reduced, shoulders, elbows, wrists, MCPs, PIPs, DIPs full ROM no synovitis, hips FROM, no irritability, knees no effusion, FROM, no warmth, ankles non-tender, FROM, achilles non-tender, metatarsal squeeze test negative Neurologic Alert and interactive Pelvic/Genital Not done Rectal Not done Component 04/25/2023 WBC 4.6 RBC 4.60 Hemoglobin 14.5 Hematocrit 42.8 MCV 93 MCH 31.7 MCHC 34.0 Platelet 158 RDW-CV% 13.2 MPV 9.0 Neutrophils 64.1 Neutrophil # 2.95 Lymphocytes 25.8 Lymph Absolute 1.19 Monocytes 8.1 Monocyte Absolute 0.37 Eosinophil 1.5 Eosinophil Absolute 0.07 Basophils 0.6 Basophil # 0.03 Color Yellow Appearance Clear pH 5.5 Spec [place] 1.019 Protein 30 (A) Blood Negative Bilirubin Negative Urobilinogen Negative Ketones Negative Leuk. Esterase Positive (A) Nitrite Negative Glucose Negative WBC 3-5 (A) RBC 0-2 Mucous Threads Present Squamous Epitheleal 0-2 Protein, Total 6.6 Albumin 3.55 (L) Alpha 1 Glob Fract 0.29 Alpha 2 Glob Fract 0.66 Beta Glob Frac, Tot 1.23 (H) Gamma Glob Frac, Tot 0.88 %ALBUMIN 53.8 %ALPHA1 4.3 %ALPHA2 10.0 %BETA 18.6 (H) %GAMMA 13.3 Interpretation Patient has increased beta-globulins and decreased albumin. No paraprotein band was observed in the serum. . . . Glucose 90 Sodium 144 Potassium 4.7 Carbon Dioxide 22 Chloride 107 BUN 16 Creatinine 1.09 Calcium 9.3 Anion Gap 20 Estimated GFR 54 (L) Anti-DNA Screen Negative ds DNA Antibody <1 C3 Complement 160 C4 Complement 34 Vitamin D, 25-OH 24.7 (L) Vitamin B12 277 (L) Culture 1,000 - 10,000 CFU/ml Multiple bacteria present suggesting contamination. 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 Plan: EXTERNAL SERVICE REQUEST FOR CARE OUTSIDE [facility] She is to see Physical therapy for endurance training. (I27.20) Pulmonary hypertension, mild (HCC) Comment: I reviewed the record and previously she did have some mild pulmonary hypertension noted on echo. Plan: ADULT SLEEP CLINIC (NOT LYLE/PSG) SERVICE REQUEST The patient should be evaluated in Sleep Clinic for sleep apnea. (M54.50, G89.29) Chronic midline low back pain without sciatica Comment: Plan: CANCELED: XR L-SPINE AP,LAT,FLEX,EXT 4 VIEWS (M32.9) History of systemic lupus erythematosus (HCC) Comment: Concurrently SLE does not appear to be clinically or serologically active. Plan: COMPLETE BLOOD COUNT W/DIFF, BASIC METABOLIC PANEL, C3 COMPLEMENT, C4 COMPLEMENT, ELECTROPHORESIS, SERUM PROTEIN, (more content not included)... Normal [facility] URINALYSIS WITH REFLEX CULTU RE PERFORMABLEon 04-25-2023 Appearance (U) Clear Clear [facility] Bilirubin Ql (U) Negative Negative [facility] Color (U) Yellow Colorless [facility] Epithelial cells.squamous LM.HPF (Urine sed) [#/Area] 0-2 [facility] Glucose Auto test strip (U) [Mass/Vol] Negative Negative mg/dL [facility] Hemoglobin Ql (U) Negative Negative [facility] Interpretation and review of laboratory results Abnormal [facility] Ketones Ql (U) Negative Negative mg/dL [facility] Leukocyte esterase Test strip Ql (U) Positive Abnormal Negative [facility] Comment on above: Normal urine specime ns will not produce a positive reaction. Small amounts of leukocyte esterase, causing a positive reaction should be repeated, using a fresh urine specimen, from the same patient. Positive results require further testing for pyuria. Mucus Ql (Urine sed) Present [facility] Nitrite [facility]l (U) [facility] 5.5 [pH] 5.0 - 8.0 [facility] Protein (U) [Mass/Vol] 30 mg/dL Abnormal Negative [facility] Specific gravity (U) [Rel density] 1.019 NINF - 1.030 [facility] Urobilinogen Qn (U) Negative Negative mg/dL [facility] WBC (U) [#/Vol] 0-2 [facility] WBC LM.HPF (Urine sed) [#/Area] 3-5 Abnormal [facility] A negative leukocyte esterase AND negative nitrite test or absence of pyuria (urine WBC count <= 5-10) make a UTI (urinary tract infection) very unlikely in a non-neutropenic adult (<=5% likelihood in many studies). A positive leukocyte esterase, nitrite and/or pyuria is a nonspecific result. This can be seen in conditions other than a UTI e.g. asymptomatic bacteriuria, gynecologic infections, sexually transmitted infections, and noninfectious conditions (positive predictive value for UTI around 50%) [facility] Glucose Ql (U) Negative Normal Negative [facility] Comment on above: Order Comment: A neg ative leukocyte esterase AND negative nitrite test or absence of pyuria (urine WBC count <= 5-10) make a UTI (urinary tract infection) very unlikely in a non-neutropenic adult (<=5% likelihood in many studies). A positive leukocyte esterase, nitrite and/or pyuria is a nonspecific result. This can be seen in conditions other than a UTI e.g. asymptomatic bacteriuria, gynecologic infections, sexually transmitted infections, and noninfectious conditions (positive predictive value for UTI around 50%) Performed By: #### C URINE #### [facility] [address] [place], [place] #### urinalysiswcul #### [facility]ORY [address] [place] [address], Protein (U) [Mass/Vol] 30 mg/dL Abnormal Negative [facility] Comment on above: Order Comment: A neg ative leukocyte esterase AND negative nitrite test or absence of pyuria (urine WBC count <= 5-10) make a UTI (urinary tract infection) very unlikely in a non-neutropenic adult (<=5% likelihood in many studies). A positive leukocyte esterase, nitrite and/or pyuria is a nonspecific result. This can be seen in conditions other than a UTI e.g. asymptomatic bacteriuria, gynecologic infections, sexually transmitted infections, and noninfectious conditions (positive predictive value for UTI around 50%) Performed By: #### C URINE #### [facility] [address] [place] [address] #### urinalysiswcul #### S PATHOLOGY LABORATORY [address] [place] [address], SQUAMOUS EPITHELIAL 0-2 Normal 0-10 The [facility] Comment on above: Order Comment: A neg ative leukocyte esterase AND negative nitrite test or absence of pyuria (urine WBC count <= 5-10) make a UTI (urinary tract infection) very unlikely in a non-neutropenic adult (<=5% likelihood in many studies). A positive leukocyte esterase, nitrite and/or pyuria is a nonspecific result. This can be seen in conditions other than a UTI e.g. asymptomatic bacteriuria, gynecologic infections, sexually transmitted infections, and noninfectious conditions (positive predictive value for UTI around 50%) Performed By: #### C URINE #### [facility] [address] [place] [address] #### urinalysiswcul #### S PATHOLOGY LABORATORY [address] [place] [address], U APPEAR Clear Normal Clear [facility] Comment on above: Order Comment: A neg ative leukocyte esterase AND negative nitrite test or absence of pyuria (urine WBC count <= 5-10) make a UTI (urinary tract infection) very unlikely in a non-neutropenic adult (<=5% likelihood in many studies). A positive leukocyte esterase, nitrite and/or pyuria is a nonspecific result. This can be seen in conditions other than a UTI e.g. asymptomatic bacteriuria, gynecologic infections, sexually transmitted infections, and noninfectious conditions (positive predictive value for UTI around 50%) Performed By: #### C URINE #### [facility] [address] [place] [address] #### urinalysiswcul #### [facility] [address] [place] [address], U BILI Negative Normal Negative [facility] Comment on above: Order Comment: A neg ative leukocyte esterase AND negative nitrite test or absence of pyuria (urine WBC count <= 5-10) make a UTI (urinary tract infection) very unlikely in a non-neutropenic adult (<=5% likelihood in many studies). A positive leukocyte esterase, nitrite and/or pyuria is a nonspecific result. This can be seen in conditions other than a UTI e.g. asymptomatic bacteriuria, gynecologic infections, sexually transmitted infections, and noninfectious conditions (positive predictive value for UTI around 50%) Performed By: #### C URINE #### [facility] Pathology [address] [place] [address] #### urinalysiswcul #### S PATHOLOGY LABORATORY [address] [place] [address], U BLOOD Negative Normal Negative [facility] Comment on above: Order Comment: A neg ative leukocyte esterase AND negative nitrite test or absence of pyuria (urine WBC count <= 5-10) make a UTI (urinary tract infection) very unlikely in a non-neutropenic adult (<=5% likelihood in many studies). A positive leukocyte esterase, nitrite and/or pyuria is a nonspecific result. This can be seen in conditions other than a UTI e.g. asymptomatic bacteriuria, gynecologic infections, sexually transmitted infections, and noninfectious conditions (positive predictive value for UTI around 50%) Performed By: #### C URINE #### [facility] [address] [place] [address] [place], [place] #### urinalysiswcul #### S PATHOLOGY LABORATORY [address] [place] [address], U COLOR Yellow Normal Colorless [facility] Comment on above: Order Comment: A neg ative leukocyte esterase AND negative nitrite test or absence of pyuria (urine WBC count <= 5-10) make a UTI (urinary tract infection) very unlikely in a non-neutropenic adult (<=5% likelihood in many studies). A positive leukocyte esterase, nitrite and/or pyuria is a nonspecific result. This can be seen in conditions other than a UTI e.g. asymptomatic bacteriuria, gynecologic infections, sexually transmitted infections, and noninfectious conditions (positive predictive value for UTI around 50%) Performed By: #### C URINE #### [facility] [address] [place] [address] #### urinalysiswcul #### [facility] [address] [place] [address], U KETONE Negative Normal Negative [facility] System Comment on above: Order Comment: A neg ative leukocyte esterase AND negative nitrite test or absence of pyuria (urine WBC count <= 5-10) make a UTI (urinary tract infection) very unlikely in a non-neutropenic adult (<=5% likelihood in many studies). A positive leukocyte esterase, nitrite and/or pyuria is a nonspecific result. This can be seen in conditions other than a UTI e.g. asymptomatic bacteriuria, gynecologic infections, sexually transmitted infections, and noninfectious conditions (positive predictive value for UTI around 50%) Performed By: #### C URINE #### [facility] [address] [place] [address] #### urinalysiswcul #### [facility] [address] [place] [address], U LEUK Positive Abnormal Negative [facility] Comment on above: Order Comment: A neg ative leukocyte esterase AND negative nitrite test or absence of pyuria (urine WBC count <= 5-10) make a UTI (urinary tract infection) very unlikely in a non-neutropenic adult (<=5% likelihood in many studies). A positive leukocyte esterase, nitrite and/or pyuria is a nonspecific result. This can be seen in conditions other than a UTI e.g. asymptomatic bacteriuria, gynecologic infections, sexually transmitted infections, and noninfectious conditions (positive predictive value for UTI around 50%) Result Comment: Norm al urine specimens will not produce a positive reaction. Small amounts of leukocyte esterase, causing a positive reaction should be repeated, using a fresh urine specimen, from the same patient. Positive results require further testing for pyuria. Performed By: #### C URINE #### [facility] [address] [place] [address] #### urinalysiswcul #### [facility] [address] [place] [address], U MUCOUS Present Normal [facility] Comment on above: Order Comment: A neg ative leukocyte esterase AND negative nitrite test or absence of pyuria (urine WBC count <= 5-10) make a UTI (urinary tract infection) very unlikely in a non-neutropenic adult (<=5% likelihood in many studies). A positive leukocyte esterase, nitrite and/or pyuria is a nonspecific result. This can be seen in conditions other than a UTI e.g. asymptomatic bacteriuria, gynecologic infections, sexually transmitted infections, and noninfectious conditions (positive predictive value for UTI around 50%) Performed By: #### C URINE #### [facility] [address] [place] [address] #### urinalysiswcul #### [facility] [address] [place] [address], U NITRITE Negative Normal Negative [facility] [facility] Comment on above: Order Comment: A neg ative leukocyte esterase AND negative nitrite test or absence of pyuria (urine WBC count <= 5-10) make a UTI (urinary tract infection) very unlikely in a non-neutropenic adult (<=5% likelihood in many studies). A positive leukocyte esterase, nitrite and/or pyuria is a nonspecific result. This can be seen in conditions other than a UTI e.g. asymptomatic bacteriuria, gynecologic infections, sexually transmitted infections, and noninfectious conditions (positive predictive value for UTI around 50%) Performed By: #### C URINE #### [facility] [address] [place] [address] #### urinalysiswcul #### [facility] [address] [place] [address], U PH 5.5 Normal 5.0-8.0 [facility] Comment on above: Order Comment: A neg ative leukocyte esterase AND negative nitrite test or absence of pyuria (urine WBC count <= 5-10) make a UTI (urinary tract infection) very unlikely in a non-neutropenic adult (<=5% likelihood in many studies). A positive leukocyte esterase, nitrite and/or pyuria is a nonspecific result. This can be seen in conditions other than a UTI e.g. asymptomatic bacteriuria, gynecologic infections, sexually transmitted infections, and noninfectious conditions (positive predictive value for UTI around 50%) Performed By: #### C URINE #### [facility] [address] [place] [address] [place], [place] #### urinalysiswcul #### [facility] [address] [place] [address], U RBC 0-2 Normal 0-2 [facility] Comment on above: Order Comment: A neg ative leukocyte esterase AND negative nitrite test or absence of pyuria (urine WBC count <= 5-10) make a UTI (urinary tract infection) very unlikely in a non-neutropenic adult (<=5% likelihood in many studies). A positive leukocyte esterase, nitrite and/or pyuria is a nonspecific result. This can be seen in conditions other than a UTI e.g. asymptomatic bacteriuria, gynecologic infections, sexually transmitted infections, and noninfectious conditions (positive predictive value for UTI around 50%) Performed By: #### C URINE #### [facility] [address] [place] [address] #### urinalysiswcul #### [facility] [address] [place] [address], U SG 1.019 Normal <=1.030 [facility] Comment on above: Order Comment: A neg ative leukocyte esterase AND negative nitrite test or absence of pyuria (urine WBC count <= 5-10) make a UTI (urinary tract infection) very unlikely in a non-neutropenic adult (<=5% likelihood in many studies). A positive leukocyte esterase, nitrite and/or pyuria is a nonspecific result. This can be seen in conditions other than a UTI e.g. asymptomatic bacteriuria, gynecologic infections, sexually transmitted infections, and noninfectious conditions (positive predictive value for UTI around 50%) Performed By: #### C URINE #### [facility] [address] [place] [address] [place], [place] #### urinalysiswcul #### [facility] [address] [place] [address] U UROBILI Negative Normal Negative [facility] Comment on above: Order Comment: A neg ative leukocyte esterase AND negative nitrite test or absence of pyuria (urine WBC count <= 5-10) make a UTI (urinary tract infection) very unlikely in a non-neutropenic adult (<=5% likelihood in many studies). A positive leukocyte esterase, nitrite and/or pyuria is a nonspecific result. This can be seen in conditions other than a UTI e.g. asymptomatic bacteriuria, gynecologic infections, sexually transmitted infections, and noninfectious conditions (positive predictive value for UTI around 50%) Performed By: #### C URINE #### [facility] [address] [place] [address] [place], [place] #### urinalysiswcul #### [facility] [address] [place] [address], U WBC 3-5 Abnormal 0-2 [facility] Comment on above: Order Comment: A neg ative leukocyte esterase AND negative nitrite test or absence of pyuria (urine WBC count <= 5-10) make a UTI (urinary tract infection) very unlikely in a non-neutropenic adult (<=5% likelihood in many studies). A positive leukocyte esterase, nitrite and/or pyuria is a nonspecific result. This can be seen in conditions other than a UTI e.g. asymptomatic bacteriuria, gynecologic infections, sexually transmitted infections, and noninfectious conditions (positive predictive value for UTI around 50%) Performed By: #### C URINE #### [facility] [address] [place] [address] [place], [place] #### urinalysiswcul #### [facility] [address] [place] [address], URINE CULTUREon 04-25-2023 Bacteria identified Cx Nom (U) C URINE: 1,000 - 10,000 CFU/ml Multiple bacteria present suggesting contamination. Normal [facility] Comment on above: Order Comment: IF cl inically indicated, suggest appropriate recollection with timely delivery to the laboratory. For additional information, call ext [phone]. Performed By: #### C URINE #### [facility] [address] [place] [address] [place], [place] #### urinalysiswcul #### [facility] [address], [place], VITAMIN B12 (CYANOCOBALAMIN) on 04-25-2023 Cobalamin (Vitamin B12) [Mass/Vol] 277 pg/mL Low >300 [facility] Comment on above: Order Comment: <152 pg/mL - [id number] - 300 pg/mL- Insufficient>300 pg/mL - Sufficient Performed By: #### V ITB12, CH8, C3, C4 ####[facility] [id number] [place], [place], VITAMIN D, 25-HYDROXYon 04-12 VITD25 24.7 ng/mL Low 30-100 [facility] Comment on above: Performed By: #### V ITD25 #### [facility] [address] [place], [place], Office Visiton 04-20-2023 Follow-up visit [id number] Linnea Culp 1950 F Date Provider Department Center 04/20/2023 IFRAH THAPA [facility] Family History Problem Relation Age of Onset Stroke Brother Stroke Paternal Grandmother Family Status - Relation Status Age at Brother Paternal Grandmother Level of Service:60833 DC OFFICE/OUTPATIENT ESTABLISHED MOD MDM 30-39 MIN Normal [facility] Covid-19 PCR (CVDTB)on SARS-CoV-2 (COVID-19) RNA CRISTIAN+probe Ql (Unsp spec) Detected Critically abnormal NOT DETECTED [facility] Comment on above: Result Comment: This test is not yet approved or cleared by the [place] FDA. When there are no FDA-approved or cleared tests available, and other criteria are met, FDA can make tests available under an emergency access mechanism called an Emergency Use Authorization (EUA). The EUA for this test is supported by the [employer] Operator of Health and Human Service's declaration that circumstances exist to justify the emergency use of in vitro diagnostics for the detection and/or diagnosis of the virus that causes COVID-19. This EUA will remain in effect for the duration of the COVID-19 declaration justifying emergency of IVDs, unless it is terminated or revoked by the FDA (after which the test may no longer be used). Performed By: #### C VDTBH #### [facility] [address] [place] [address] Dr. Ella Mathis INFLUENZA A AND B AGon 10-16 [facility] SEE BELOW Normal [facility] Comment on above: Result Comment: Nega tive for Flu A protein angiten. Infection due to Flu A cannot be ruled out. Flu A angiten in the sample may be below the detection limit of the test. Performed By: #### C VDTBH #### [facility] [address] [place] [address] Dr. Ella Mathis [facility] SEE BELOW Normal [facility] Comment on above: Result Comment: Nega tive for Flu B protein antigen. Infection due to Flu B cannot be ruled out. Flu B antigen in the sample may be below the detection limit of the test. Performed By: #### C VDTBH #### [facility] [address] [place] [address] Dr. Ella Mathis INFLUENZA A AG Negative Normal NEGATIVE SEE COMMENT [facility] Comment on above: Performed By: #### C VDTBH #### [facility] [address] [place] [address] Dr. Ella Mathis INFLUENZA B AG Negative Normal NEGATIVE SEE COMMENT [facility] Comment on above: Performed By: #### C VDTBH #### [facility] [address] [place] [address] Dr. Ella Mathis INTERNAL CONTROLS Within Normal Limits Normal Wi thin Normal Limits [facility] Comment on above: Performed By: #### C VDTBH #### [facility] [address] [place] [address] Dr. Ella Mathis PROF CHEM 8 (BAS METB)on Anion gap [Moles/Vol] 10.5 mmol/L Normal [facility] Comment on above: Performed By: #### B MP #### [facility] [address] [place] [address] Dr. Ella Mathis Calcium [Mass/Vol] 8.7 mg/dL Normal 8.5-10.1 The [facility] Comment on above: Performed By: #### B MP #### [facility] [address] [address] [address] Ella Mathis Chloride [Moles/Vol] 107 mmol/L Normal 98-107 [facility] Comment on above: Performed By: #### B MP #### [facility] [address] [address] [address] Ella Mathis CO2 [Moles/Vol] 29.9 mmol/L Normal 21.0-32.0 [facility] Comment on above: Performed By: #### B MP #### [facility] [address] [address] [address] Ella Mathis Creatinine [Mass/Vol] 1.02 mg/dL Normal 0.55-1.02 [facility] Comment on above: Performed By: #### B MP #### [facility] [address] [address] [address] Ella Mathis EGFR-AF FILIPINO >60 Normal >=60 [facility] Comment on above: Performed By: #### B MP #### [facility] [address] [address] [address] Ella Mathis EGFR-NON AF FILIPINO 54 mL/min/1.73m2 Critically low >=60 [facility] Comment on above: Performed By: #### B MP #### [facility] [address] [address] [address] Ella Mathis Glucose [Mass/Vol] 91 mg/dL Normal 74-106 [facility] Comment on above: Performed By: #### B MP #### [facility] [address] [address] [address] Ella Mathis Potassium [Moles/Vol] 4.4 mmol/L Normal 3.5-5.1 [facility] Comment on above: Performed By: #### B MP #### [facility] [address] [address] [address] Ella Mathis Sodium [Moles/Vol] 143 mmol/L Normal 136-145 The [facility] Comment on above: Performed By: #### B MP #### [facility] [address] [address] [address] Ella Mathis Urea nitrogen [Mass/Vol] 20.0 mg/dL Critically high 7.0-18.0 [facility] Comment on above: Performed By: #### B MP #### [facility] [address] [address] [address] Ella Mathis Urea nitrogen/Creatinine [Mass ratio] 19.6 mg/mg Normal [facility] Comment on above: Performed By: #### B MP #### [facility] [address] [address] [address] lEla Mathis US BOBBI DOP LEG LTon 10-03-20 US BOBBI DOP LEG LT EXAMINATION: US BOBBI DOP LEG LT HISTORY: Edema of left lower leg ; left calf swelling COMPARISON: Ultrasound venous Doppler leg left 09/08/2022 FINDINGS: REGION: Left lower extremity THROMBI: None in deep system. COMPRESSIBILITY: Normal compressibility of deep system. FLOW: Normal waveform and antegrade flow between 5 and 20 cm/s. OTHER: Short segment of thrombus within mid calf small saphenous vein. IMPRESSION: 1. No deep vein thrombus within the left lower extremity. 2. Small, short segment of superficial thrombophlebitis involving the mid calf small saphenous vein. Electronically authenticated by: HECTRO LING Date: 2022-10-03 10:59 Normal [facility] US BOBBI DOP LEG LTon 09-08-20 US BOBBI DOP LEG LT EXAMINATION: US BOBBI DOP LEG LT HISTORY: Edema COMPARISON: No relevant comparison available. TECHNIQUE: Grayscale, color and Doppler ultrasound FINDINGS: Region: Left leg Thrombus: None Flow: Normal Augmentation: Normal Compressibility: Normal Other: The peroneal veins are not visualized. Anechoic area in the popliteal fossa likely a popliteal cyst IMPRESSION: No deep or superficial vein thrombus in the left leg *Exam performed in accordance with [employer] practice guidelines- Peripheral venous ultrasound, February 05, 2010. Electronically authenticated by: ASHLEY CHU Date: 2022-09-08 17:28 Normal [facility] Progress Noteson 09-06-2022 [employer] Authentication Interface Message Text PAIN MANAGEMENT FOLLOW-UP Documentation: Mode: Telephone Patient Patient Work Phone: Patient Cell Preferred phone: [phone] Consent: I confirmed patient understanding of the risks and benefits of telehealth visits and obtained consent to proceed with the telehealth visit. Location of Patient: Home of patient SUBJECTIVE: We are seeing this patient in our pain management clinic for post procedure follow up. History was provided by patient. Since the visit for Intercostal neuritis, patient has had gradually improving course. Pain is currently described as shooting without radiation to arms, legs, or buttocks, and is made worse by walking and nothing. PRIOR MEDICAL HISTORY: Past Medical History: Diagnosis Date DJD (degenerative joint disease), cervical DJD (degenerative joint disease), lumbar Fibromyalgia HTN (hypertension) Hypercholesteremia Hypothyroid PRIOR SURGICAL HISTORY: Past Surgical History: Procedure Laterality Date APPENDECTOMY; choly DILATATION AND CURETTAGE right knee surgery arthrocopy repair meniscus SHOULDER SURGERY right vitamin d def MEDICATIONS: Current Outpatient Medications on File Prior to Visit Medication Sig Dispense Refill colestipol (COLESTID) 1 GM tablet colestipol 1 gram tablet Take 1 tablet every day by oral route for 90 days. levothyroxine (SYNTHROID) 88 MCG tablet alendronate (Fosamax) 70 MG tablet Take 1 Tablet by mouth once weekly. 4 Tablet 3 celecoxib (CeleBREX) 200 MG capsule tramadol (ULTRAM) 50 MG tablet Take 1 Tablet by mouth every 8 hours as needed for up to 90 days. 30 Tablet 1 liothyronine (CYTOMEL) 5 MCG tablet hydroxychloroquine (PLAQUENIL) 200 MG tablet TAKE 2 TABLETS BY MOUTH DAILY 180 Tablet 1 aspirin 81 MG enteric coated tablet Take 81 mg by mouth daily. atorvastatin (LIPITOR) 80 mg tablet amLODIPine (NORVASC) 10 MG tablet Cholecalciferol (VITAMIN D3) 1000 UNITS CAPS Take 1 Capsule by mouth daily. 90 Capsule 1 pantoprazole (PROTONIX) 40 MG tablet Take 40 mg by mouth daily. metoprolol XL (TOPROL-XL) 100 MG XL tablet Take 100 mg by mouth 2 times daily. No current facility-administere d medications on file prior to visit. SOCIAL HISTORY: Social History Tobacco Use Smoking status: Never Smokeless tobacco: Never Substance Use Topics Alcohol use: No Drug use: No REVIEW OF SYSTEMS: Respiratory: negative symptoms (no cough, hemoptysis, SOB, CHAPA, PND, wheezing) Cardiovascular: negative symptoms (No CP/Pressure/Tightnes s, palpitations, orthopnea, PND, SOB, CHAPA, edema, GOMEZ or vision change) Gastrointestinal: negative symptoms (no abdominal pain, anorexia, n/v, indigestion, constipation, or diarrhea) Neuro: Denies numbness or tingling in right hand, left hand, right foot, and left foot. Portions of record reviewed for pertinent issues: active problem list, medication list, allergies, family history, and notes from last encounter. OBJECTIVE: No physical exam, telemedicine visit today as follow up to recent procedure ASSESSMENT: Patient in for hospital follow up. Patient had Thoracic Paravertebral block at the T 6 level. on 08-09-[address] Young. Patient report 60% improvement from procedure. Patient states she still get the shooting stinging pain but less frequent. Fall on 09/02/22 after tripping over some brush causing injury to left hand with bruising and swelling, chest bruising. Patient states she did not seek medical treatment. Patient states she will call PCP today to get Xray due to symptoms not getting better. PLAN: 1) OARRS was reviewed today and, since last office visit, is appropriate 2) Follow up PRN 3) Started pain on Lyrica 50 mg BID, 30 day supply Jasiel Selby APRN-TANIA Normal [facility] BNPon 08-28-2022 Natriuretic peptide B (Bld) [Mass/Vol] 346.0 pg/mL Normal <=900.0 [facility] Comment on above: Performed By: #### P TT, PT #### [facility] [address] [place] [address] Dr. Ella Mathis CBC AUTO DIFFon 08-28-2022 BASO # 0.0 103/ul Normal 0.0-0.1 [facility] Comment on above: Performed By: #### C BC #### [facility] [address] [place] [address] Dr. Ella Mathis Basophils/100 WBC (Bld) 0.4 % Normal 0.2-2.0 [facility] Comment on above: Performed By: #### C BC #### [facility] [address] [place] [address] Dr. Ella Mathis EO # 0.0 103/ul Normal 0.0-0.7 [facility] Comment on above: Performed By: #### C BC #### [facility] [address] [place] [address] Dr. Ella Mathis Eosinophils/100 WBC (Bld) 0.6 % Critically low 0.9-7.0 [facility] Comment on above: Performed By: #### C BC #### [facility] [address] [place] [address] Dr. Ella Mathis Erythrocyte distribution width (RBC) [Ratio] 12.5 % Normal 11.0-15.0 [facility] Comment on above: Performed By: #### C BC #### [facility] [address] [place] [address] Dr. Ella Mathis Hematocrit (Bld) [Volume fraction] 38.9 % Normal 36.0-48.0 [facility] Comment on above: Performed By: #### C BC #### [facility] [address] [place] [address] Dr. Ella Mathis Hemoglobin (Bld) [Mass/Vol] 13.0 g/dL Normal 12.0-16.0 [facility] Comment on above: Performed By: #### C BC #### [facility] [address] [place] [address] Dr. Ella Mathis IG # 0.04 10e3/ul Critically high 0.00-0.03 [facility] Comment on above: Performed By: #### C BC #### [facility] [address] [place] [address] Dr. Ella Mathis IG % 0.6 % Critically high 0.0-0.5 [facility] Comment on above: Performed By: #### C BC #### [facility] [address] [place] [address] Dr. Ella Mathis LYMPH # 1.8 103/ul Normal 1.2-3.8 [facility] Comment on above: Performed By: #### C BC #### [facility] [address] [place] [address] Dr. Ella Mathis Lymphocytes/100 WBC (Bld) 25.2 % Normal 20.5-60.0 [facility] Comment on above: Performed By: #### C BC #### [facility] [address] [place] [address] Dr. Ella Mathis MANUAL DIFF REQ NO Normal [facility] Comment on above: Performed By: #### C BC #### [facility] [address] [place] [address] Dr. Ella Mathis MCH (RBC) [Entitic mass] 31.9 pg Normal 26.7-34.0 [facility] Comment on above: Performed By: #### C BC #### [facility] [address] [place] [address] Dr. Ella Mathis MCHC (RBC) [Mass/Vol] 33.4 g/dL Normal 29.9-35.2 [facility] Comment on above: Performed By: #### C BC #### [facility] [address] [place] [address] Dr. Ella Mathis MCV (RBC) [Entitic vol] 95.3 fL Normal 81.0-99.0 [facility] Comment on above: Performed By: #### C BC #### [facility] [address] [place] [address] Dr. Ella Mathis MONO # 0.8 103/ul Normal 0.3-0.8 [facility] Comment on above: Performed By: #### C BC #### [facility] [address] [place] [address] Dr. Ella Mathis Monocytes/100 WBC (Bld) 10.5 % Normal 1.7-12.0 [facility] Comment on above: Performed By: #### C BC #### [facility] [address] [place] [address] Dr. Ella Mathis NEUT # 4.5 103/ul Normal 1.4-6.5 [facility] Comment on above: Performed By: #### C BC #### [facility] [address] [place] [address] Dr. Ella Mathis Neutrophils/100 WBC (Bld) 62.7 % Normal 43.0-75.0 [facility] Comment on above: Performed By: #### C BC #### [facility] [address] [address] [address] Ella Mathis Platelet mean volume (Bld) [Entitic vol] 10.2 fL Normal 9.5-13.5 [facility] Comment on above: Performed By: #### C BC #### [facility] [address] [place] [address] Dr. Ella Mathis PLT 184 103/ul Normal 150-450 [facility] Comment on above: Performed By: #### C BC #### [facility] [address] [place] [address] Dr. Ella Mathis RBC 4.08 106/ul Critically low 4.20-5.40 [facility] Comment on above: Performed By: #### C BC #### [facility] Laboratory [address] [place] [address] Dr. Ella Mathis WBC 7.2 103/ul Normal 4.0-11.0 [facility] Comment on above: Performed By: #### C BC #### [facility] Laboratory [address] [place] [address] Dr. Ella Mathis PROF 14(COMP METB)on 08-28- 022 Albumin [Mass/Vol] 3.3 g/dL Critically low 3.4-5.0 [facility] Comment on above: Performed By: #### P TT, PT #### [facility] [address] [place] [address] Dr. Ella Mathis Albumin/Globulin [Mass ratio] 1.1 {ratio} Normal [facility] Comment on above: Performed By: #### P TT, PT #### [facility] [address] [place] [address] Dr. Ella Mathis ALP [Catalytic activity/Vol] 72 U/L Normal 46-116 [facility] Comment on above: Performed By: #### P TT, PT #### [facility] [address] [place] [address] Dr. Ella Mathis ALT [Catalytic activity/Vol] 20 U/L Normal 14-59 [facility] Comment on above: Performed By: #### P TT, PT #### [facility] [address] [address] [address] Ella Mathis Anion gap [Moles/Vol] 8.8 mmol/L Normal [facility] Comment on above: Performed By: #### P TT, PT #### [facility] [address] [address] [address] Ella Mathis AST [Catalytic activity/Vol] 11 U/L Critically low 15-37 [facility] Comment on above: Performed By: #### P TT, PT #### [facility] [address] [address] [address] Ella Mathis Bilirubin [Mass/Vol] 0.6 mg/dL Normal 0.2-1.0 [facility] Comment on above: Performed By: #### P TT, PT #### [facility] [address] [place] [address] Dr. Ella Mathis Calcium [Mass/Vol] 8.6 mg/dL Normal 8.5-10.1 [facility] Comment on above: Performed By: #### P TT, PT #### [facility] [address] [place] [address] Dr. Ella Mathis Chloride [Moles/Vol] 106 mmol/L Normal 98-107 [facility] Comment on above: Performed By: #### P TT, PT #### [facility] [address] [address] [address] Ella Mathis CO2 [Moles/Vol] 31.9 mmol/L Normal 21.0-32.0 [facility] Comment on above: Performed By: #### P TT, PT #### [facility] [address] [address] [address] Ella Mathis Creatinine [Mass/Vol] 1.03 mg/dL Critically high 0.55-1.02 [facility] Comment on above: Performed By: #### P TT, PT #### [facility] [address] [address] [address] Ella Mathis EGFR-AF FILIPINO >60 Normal >=60 [facility] Comment on above: Performed By: #### P TT, PT #### [facility] [address] [address] [address] Ella Mathis EGFR-NON AF FILIPINO 53 mL/min/1.73m2 Critically low >=60 [facility] Comment on above: Performed By: #### P TT, PT #### [facility] [address] [address] [address] Ella Mathis Globulin (S) [Mass/Vol] 3.0 g/dL Normal [facility] Comment on above: Performed By: #### P TT, PT #### [facility] [address] [address] [address] Ella Mathis Glucose [Mass/Vol] 85 mg/dL Normal 74-106 [facility] Comment on above: Performed By: #### P TT, PT #### [facility] [address] [address] [address] Ella Mathis Potassium [Moles/Vol] 3.7 mmol/L Normal 3.5-5.1 [facility] Comment on above: Performed By: #### P TT, PT #### [facility] [address] [address] [address] Ella Mathis Protein [Mass/Vol] 6.3 g/dL Critically low 6.4-8.2 [facility] Comment on above: Performed By: #### P TT, PT #### [facility] [address] [address] [address] Ella Mathis Sodium [Moles/Vol] 143 mmol/L Normal 136-145 [facility] Comment on above: Performed By: #### P TT, PT #### [facility] [address] [address] [address] Ella Mathis Urea nitrogen [Mass/Vol] 20.0 mg/dL Critically high 7.0-18.0 [facility] Comment on above: Performed By: #### P TT, PT #### [facility] [address] [address] [address] Ella Mathis Urea nitrogen/Creatinine [Mass ratio] 19.4 mg/mg Normal [facility] Comment on above: Performed By: #### P TT, PT #### [facility] [id number] Ella Mathis XR CHEST 2 Von 08-28-2022 XR CHEST 2 V EXAM: XR CHEST 2 V HISTORY: Acute bronchitis , chest pain and cough for 2 weeks. COMPARISON: 12/31/2019 TECHNIQUE: Upright PA and lateral chest x-ray FINDINGS: The study is bit limited by shallow inspiration. Slight chronic changes are suggested at the left lung base. No acute infiltrate, effusion or pneumothorax is readily identified. The heart is borderline enlarged without overt cardiac decompensation. The osseous structures are grossly intact. IMPRESSION: No apparent acute infiltrate or evidence of cardiac decompensation. Slight chronic changes are suggested the left lung base. The overall appearance of the chest is unchanged. Electronically authenticated by: FRANCI BUSTOS Date: 2022-08-28 20:20 Normal [facility] Covid-19 PCR (CVDTB)on 08-12 SARS-CoV-2 (COVID-19) RNA CRISTIAN+probe Ql (Unsp spec) Not detected Normal NOT DETECTED [facility] Comment on above: Result Comment: When diagnostic testing is negative, the possibility of a false negative should be considered in the context of a patient's recent exposures and the presence of clinical signs and symptoms consistent with SARS-CoV-2. This test is not yet approved or cleared by the [place] FDA. When there are no FDA-approved or cleared tests available, and other criteria are met, FDA can make tests available under an emergency access mechanism called an Emergency Use Authorization (EUA). The EUA for this test is supported by the B[employer] Operator of Health and Human Service's declaration that circumstances exist to justify the emergency use of in vitro diagnostics for the detection and/or diagnosis of the virus that causes COVID-19. This EUA will remain in effect for the duration of the COVID-19 declaration justifying emergency of IVDs, unless it is terminated or revoked by the FDA (after which the test may no longer be used). Performed By: #### C VDTBH #### [facility] [address], [place] [address] Dr. Ella Mathis Patient Instructionson 08-09 [employer] Authentication Interface Message Text Pain Management Post-Injection Discharge Instructions Activity: Rest at home today/tonight. Keep a responsible adult with you today/tonight if possible. Do not drive a car or operate machinery for the next 12 hours while your arms/legs may feel weak or numb. You may experience numbness and/or pain relief for up to 6 hours after the injection. Hygiene/Dressing: you may use an ice pack to the injection site (for 20 minutes every 1-2 hours) - do NOT use heating pad to the area for the first 24 hours after injection. You may remove your dressing when you get home - you may shower but do NOT submerge yourself in water for the first 24 hours (no tub baths, hot tubs, swimming). Watch for signs of infection: redness, swelling, pus-like drainage at injection site or fever and chills. Diet: Drink plenty of fluids and avoid any alcoholic beverages. Eat your regular diet. If you are diabetic, monitor your blood sugar levels. An increase may be seen if you received a steroid with your injection. Avoid carbohydrates and sugar for the next few days. Be alert to symptoms of increased blood sugars and notify your physician of significant increases. Medications: Continue all your prescribed medications. You may take your regular medications for pain following your injection. You may experience an increase in pain the following day after injection - do not get discouraged as the steroid medication (if received) can take 1-3 days to start working and for pain to subside. If you take aspirin and/or blood-thinning medications, restart as directed by your physician. Follow up: If not already scheduled, please make follow up appointment with your ordering physician as directed. Pain Management office: [phone] You may call [phone] and ask for the chronic pain fellow eviction specialist after office hours with any questions or concerns. Normal [facility] XR HIP RIGHT AP+LATon 2021 XR HIP RIGHT AP+LAT EXAMINATION: XR HIP RIGHT AP+LATPRO/RT 08/04/2022 01:17 PM CLINICAL HISTORY: Reason for Exam: Hip bursitis; Pain ASSOCIATED DIAGNOSIS: Hip pain ORDERING PROVIDER: [employer] NOTE: COMPARISON: 11/20/2018 FINDINGS: There is no evidence of acute fracture or dislocation. Small enthesophytes are noted involving the lesser and greater trochanters. Joint space is intact. Articular surfaces are smooth. No significant interval change. IMPRESSION: Small enthesophytes are noted involving the greater and lesser trochanters. Exam is otherwise unremarkable. Right hip MACRO: None Normal [facility] XR T-SPINE 2 VIEWSon 022 XR T-SPINE 2 VIEWS EXAMINATION: XR T-SPINE 2 VIEWS 08/04/2022 01:16 PM CLINICAL HISTORY: Reason for Exam: pain ASSOCIATED DIAGNOSIS: 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 ORDERING PROVIDER: [employer] NOTE: COMPARISON: 03/08/2022 FINDINGS: Mild to moderate degenerative changes are noted. No evidence of compression or malalignment. Small osteophytes are noted. No significant change. IMPRESSION: Mild to moderate degenerative changes involving the thoracic spine. No significant change. MACRO: None Normal [facility] Progress Noteson 07-28-2022 [employer] Authentication Interface Message Text Patient was identified by name and date of . Edwin Tabares Patient at risk for falls:No Falls Risk protocol implemented: No Normal [facility] [employer] Authentication Interface Message Text Office Note First Office Visit: None Today' Date: 07/27/2022 Last Office Visit: None Chief complaint: HPI: Pt is a pleasent 71 years old , who presents for evaluation. Referred by .Pt complains of neck pain right side for years worsen , burning radiate to he shoulder area Also Right upper thoracic area pain radiate to the lower anterior and upper abdominal area , sharp aching , no certain position No upper extremities or lower symptoms Righh lateral hip area pain sever shap can not sleep over it Imaging: L xray No compression deformity. Mild to moderate multilevel degenerative changes C X ray [id number] multilevel degenerative changes, slightly progressed from prior. Procedures: None Date of board of pharmacy review: None Date of opioid risk screening/ pain psych: None Date of opioid agreement and consent: None Date of urine drug screen: None Date of random pill count: None Prescribed medications: None Past Medical History: Diagnosis Date DJD (degenerative joint disease), cervical DJD (degenerative joint disease), lumbar Fibromyalgia HTN (hypertension) Hypercholesteremia Hypothyroid Past Surgical History: Procedure Laterality Date APPENDECTOMY; choly DILATATION AND CURETTAGE right knee surgery arthrocopy repair meniscus SHOULDER SURGERY right vitamin d def Family History Problem Relation Age of Onset Breast Cancer Mother Myocardial Infarction Father following incarcerated gb Arthritis Father ?RA Hypertension Father Other (no psoriasis [Other]) Unknown Other (bowl perf [Other]) Sister diverticulitis Diabetes Mellitus Father Diabetes Mellitus Sister x2 Stroke Brother Other (cerebral ane [Other]) Sister had mult tia Social History Socioeconomic History Marital status: Occupational History Occupation: speech path Employer: [employer] Tobacco Use Smoking status: Never Smokeless tobacco: Never Substance and Sexual Activity Alcohol use: No Drug use: No Sexual activity: Yes Partners: Male Social History Narrative Lives with , has one granddaughter and one grand child on the way. Speech pathologist. Current Outpatient Medications: colestipol (COLESTID) 1 GM tablet, colestipol 1 gram tablet Take 1 tablet every day by oral route for 90 days., Disp: , Rfl: levothyroxine (SYNTHROID) 88 MCG tablet, , Disp: , Rfl: alendronate (Fosamax) 70 MG tablet, Take 1 Tablet by mouth once weekly., Disp: 4 Tablet, Rfl: 3 celecoxib (CeleBREX) 200 MG capsule, , Disp: , Rfl: tramadol (ULTRAM) 50 MG tablet, Take 1 Tablet by mouth every 8 hours as needed for up to 90 days., Disp: 30 Tablet, Rfl: 1 liothyronine (CYTOMEL) 5 MCG tablet, , Disp: , Rfl: hydroxychloroquine (PLAQUENIL) 200 MG tablet, TAKE 2 TABLETS BY MOUTH DAILY, Disp: 180 Tablet, Rfl: 1 aspirin 81 MG enteric coated tablet, Take 81 mg by mouth daily., Disp: , Rfl: atorvastatin (LIPITOR) 80 mg tablet, , Disp: , Rfl: amLODIPine (NORVASC) 10 MG tablet, , Disp: , Rfl: Cholecalciferol (VITAMIN D3) 1000 UNITS CAPS, Take 1 Capsule by mouth daily., Disp: 90 Capsule, Rfl: 1 pantoprazole (PROTONIX) 40 MG tablet, Take 40 mg by mouth daily., Disp: , Rfl: metoprolol XL (TOPROL-XL) 100 MG XL tablet, Take 100 mg by mouth 2 times daily., Disp: , Rfl: No Known Allergies ROS: Positive for pain, weakness, numbness, balance Negative for Fever/ chills Changes in weight, energy No bleeding, changes in bruising No chest pain No changes in breathing No changes in mood No changes in vision No changes in appetite No changes in bowel No changes in bladder No changes is allergies PE: There were no vitals filed for this visit. General: Pleasant, no distress HEENT: NC/ AT. PERRLA CV: Radial pulses intact Pulm: No distress Ext: No edema Neuromusculoskeletal : Head: NC, AT. PERRLA. No occipital tenderness Neck: Limited Range of motions, extension, flexion, rotation. Right Pos Facet loading. Neg Spurling. Min Tenderness. 5/5 Strength, normal tone Shoulder: normal Range of motion. Min Bicep groove tenderness. 5/5 Strength Thoracic: sever Tenderness,around C 6 to T 6-7 areas no step off Lumbar: Limited Range of motion. Facet loading. Min Tenderness. Neg SL Hip ssver pain over trochenter Reflexes: normal Bicep. Brachiradialis. Knee. Ankles Strength: 5/5 globally except Sensory: Grossly intact Skin: No bruising, erythema Gait: Normal Impression: 71 years old with cervical facet pain , no clear radiculitis , thoracic neuritis and facet pain from C 6 to T 7 area Right Trochanteric pain H.O connective tissue disease Plan: 1. Discussed options OARRS reviewed T Spine X ray Right T 5 Thoracic paravertebral block May benefit form right Trochanteric injection Dicussed further options , RFA , PNS Prescribed medications: 1. None The impression and plan were discussed and explained in detail. All the questi (more content not included)... Normal [facility] INSULINon 03-24-2022 Insulin 10.0 uIU/mL Normal 2.6-24.9 [facility] Comment on above: Performed By: #### I NSULIN #### [facility] [address] [address] [address] Ella Mathis AMMONIAon 03-23-2022 Ammonia (P) [Moles/Vol] 18 umol/L Normal 11-32 [facility] Comment on above: Performed By: #### A MM #### [facility] [address] [address] [address] Ella Mathis AMYLASEon 03-23-2022 Amylase [Catalytic activity/Vol] 69 U/L Normal 25-115 [facility] Comment on above: Performed By: #### P TT, PT #### [facility] [address] [place] [address] Dr. Ella Mathis CBC AUTO DIFFon 03-23-2022 BASO # 0.0 103/ul Normal 0.0-0.1 [facility] Comment on above: Performed By: #### P TT, PT #### [facility] [address] [place] [address] Dr. Ella Mathis Basophils/100 WBC (Bld) 1.0 % Normal 0.2-2.0 [facility] Comment on above: Performed By: #### P TT, PT #### [facility] [address] [place] [address] Dr. Ella Mathis EO # 0.1 103/ul Normal 0.0-0.7 [facility] Comment on above: Performed By: #### P TT, PT #### [facility] [address] [place] [address] Dr. Ella Mathis Eosinophils/100 WBC (Bld) 1.4 % Normal 0.9-7.0 [facility] Comment on above: Performed By: #### P TT, PT #### [facility] [address] [place] [address] Dr. Ella Mathis Erythrocyte distribution width (RBC) [Ratio] 12.5 % Normal 11.0-15.0 [facility] Comment on above: Performed By: #### P TT, PT #### [facility] [address] [place] [address] Dr. Ella Mathis Hematocrit (Bld) [Volume fraction] 39.8 % Normal 36.0-48.0 [facility] Comment on above: Performed By: #### P TT, PT #### [facility] [address] [place] [address] Dr. Ella Mathis Hemoglobin (Bld) [Mass/Vol] 13.5 g/dL Normal 12.0-16.0 [facility] Comment on above: Performed By: #### P TT, PT #### [facility] [address] [place] [address] Dr. Ella Mathis IG # 0.01 10e3/ul Normal 0.00-0.03 [facility] Comment on above: Performed By: #### P TT, PT #### [facility] [address] [place] [address] Dr. Ella Mathis IG % 0.2 % Normal 0.0-0.5 [facility] Comment on above: Performed By: #### P TT, PT #### [facility] [address] [place] [address] Dr. Ella Mathis LYMPH # 1.1 103/ul Critically low 1.2-3.8 [facility] Comment on above: Performed By: #### P TT, PT #### [facility] [address] [place] [address] Dr. Ella Mathis Lymphocytes/100 WBC (Bld) 26.7 % Normal 20.5-60.0 [facility] Comment on above: Performed By: #### P TT, PT #### [facility] [address] [place] [address] Dr. Ella Mathis MANUAL DIFF REQ NO Normal [facility] Comment on above: Performed By: #### P TT, PT #### [facility] [address] [place] [address] Dr. Ella Mathis MCH (RBC) [Entitic mass] 32.4 pg Normal 26.7-34.0 [facility] Comment on above: Performed By: #### P TT, PT #### [facility] [address] [place] [address] Dr. Ella Mathis MCHC (RBC) [Mass/Vol] 33.9 g/dL Normal 29.9-35.2 [facility] Comment on above: Performed By: #### P TT, PT #### [facility] [address] [place] [address] Dr. Ella Mathis MCV (RBC) [Entitic vol] 95.4 fL Normal 81.0-99.0 [facility] Comment on above: Performed By: #### P TT, PT #### [facility] [address] [place] [address] Dr. Ella Mathis MONO # 0.3 103/ul Normal 0.3-0.8 [facility] Comment on above: Performed By: #### P TT, PT #### [facility] [address] [place] [address] Dr. Ella Mathis Monocytes/100 WBC (Bld) 8.2 % Normal 1.7-12.0 [facility] Comment on above: Performed By: #### P TT, PT #### [facility] [address] [place] [address] Dr. Ella Mathis NEUT # 2.6 103/ul Normal 1.4-6.5 [facility] Comment on above: Performed By: #### P TT, PT #### [facility] [address] [place] [address] Dr. Ella Mathis Neutrophils/100 WBC (Bld) 62.5 % Normal 43.0-75.0 [facility] Comment on above: Performed By: #### P TT, PT #### [facility] [address] [place] [address] Dr. Ella Mathis Platelet mean volume (Bld) [Entitic vol] 9.7 fL Normal 9.5-13.5 [facility] Comment on above: Performed By: #### P TT, PT #### [facility] [address] [place] [address] Dr. Ella Mathis PLT 166 103/ul Normal 150-450 [facility] Comment on above: Performed By: #### P TT, PT #### [facility] [address] [place] [address] Dr. Ella Mathis RBC 4.17 106/ul Critically low 4.20-5.40 [facility] Comment on above: Performed By: #### P TT, PT #### [facility] [address] [place] [address] Dr. Ella Mathis WBC 4.2 103/ul Normal 4.0-11.0 [facility] Comment on above: Performed By: #### P TT, PT #### [facility] [address] [place] [address] Dr. Ella Mathis FREE THYROXINE INDEX T7on 0 5-12-2022 FTI 2.42 Normal 1.30-4.50 [facility] Comment on above: Performed By: #### P TT, PT #### [facility] [address] [address] [address] Ella Mathis T3U 35.0 % Normal 30.0-39.0 [facility] Comment on above: Performed By: #### P TT, PT #### [facility] [address] [address] [address] Ella Mathis T4 [Mass/Vol] 6.90 ug/dL Normal 4.80-13.[address] [facility] Comment on above: Performed By: #### P TT, PT #### [facility] [address] [place] [address] Dr. Ella Mathis GLYCOHEMOGLOBIN A1Con 2021 ADA RECOMMENDATION SEE BELOW Normal [facility] Comment on above: Result Comment: ADA RECOMMENDED LIMIT 4.0 - 6.0 ADA THERAPEUTIC TARGET < 7.0 ACTION SUGGESTED > 7.0 Performed By: #### P TT, PT #### [facility] [address] [place] [address] Dr. Ella Mathis Glucose [Mass/Vol] 100 mg/dL Normal [facility] Comment on above: Performed By: #### P TT, PT #### [facility] [address] [place] [address] Dr. Ella Mathis HbA1c (Bld) [Mass fraction] 5.1 % Normal 4.5-6.2 [facility] Comment on above: Performed By: #### P TT, PT #### [facility] [address] [place] [address] Dr. Ella Mathis IRONon 03-23-2022 Iron [Mass/Vol] 97.0 ug/dL Normal 50.0-170.0 [facility] Comment on above: Performed By: #### I ABRAN #### [facility] [address] [place] [address] Dr. Ella Mathis LIPASEon 03-23-2022 Lipase [Catalytic activity/Vol] 132.0 U/L Normal 73.0-393.0 [facility] Comment on above: Performed By: #### P TT, PT #### [facility] [address] [address] [address] Ella Mathis LIPID PROFILEon 03-23-2022 CHOL-HDL RATIO NORM SEE BELOW Normal [facility] Comment on above: Result Comment: 3.3 - 4.4 LOW RISK 4.4 - 7.1 AVERAGE RISK 7.1 - 11.0 MODERATE RISK >11.0 HIGH RISK Performed By: #### P TT, PT #### [facility] [address] [address] [address] Ella Mathis Cholesterol [Mass/Vol] 125 mg/dL Normal <=200 [facility] Comment on above: Performed By: #### P TT, PT #### [facility] [address] [address] [address] Ella Mathis Cholesterol in HDL [Mass/Vol] 79 mg/dL Critically high 40-60 [facility] Comment on above: Performed By: #### P TT, PT #### [facility] [address] [address] [address] Ella Mathis Cholesterol in LDL [Mass/Vol] 33.8 mg/dL Normal [facility] Comment on above: Performed By: #### P TT, PT #### [facility] [address], [place] [address] Dr. Ella Mathis Cholesterol.total/C holesterol in HDL [Mass ratio] 1.6 {ratio} Normal [facility] Comment on above: Performed By: #### P TT, PT #### [facility] [address], [place] [address] Dr. Ella Mathis HDL NORMAL > or = 60 mg/dl - LOW CARDIOVASCULAR RISK <40 mg/dl - HIGH CARDIOVASCULAR RISK Normal [facility] Comment on above: Performed By: #### P TT, PT #### [facility] [facility] [address], [place] [address] Dr. Ella Mathis LDL CALC NORMAL SEE BELOW Normal [facility] Comment on above: Result Comment: <100 mg/dl OPTIMAL 100 - 129 mg/dl NEAR OR ABOVE OPTIMAL 130 - 159 mg/dl BORDERLINE HIGH 160 - 189 mg/dl HIGH >190 mg/dl VERY HIGH Performed By: #### P TT, PT #### [facility] [address] [place] [address] Dr. Ella Mathis Triglyceride [Mass/Vol] 61 mg/dL Normal <=150 [facility] Comment on above: Performed By: #### P TT, PT #### [facility] [address] [place] [address] Dr. Ella Mathis VLDL CALC 12.2 mg/dL Normal [facility] Comment on above: Performed By: #### P TT, PT #### [facility] [address] [place] [address] Dr. Ella Mathis PROF 14(COMP METB)on 022 Albumin [Mass/Vol] 3.4 g/dL Normal 3.4-5.0 [facility] Comment on above: Performed By: #### L IPID, TSH, LIPA, T7, CMP, KARRIE #### [facility] [address] [place] [address] Dr. Ella Mathis Albumin/Globulin [Mass ratio] 1.1 {ratio} Normal [facility] Comment on above: Performed By: #### L IPID, TSH, LIPA, T7, CMP, KARRIE #### [facility] [address] [place] [address] Dr. Ella Mathis ALP [Catalytic activity/Vol] 66 U/L Normal 46-116 [facility] Comment on above: Performed By: #### L IPID, TSH, LIPA, T7, CMP, KARRIE #### [facility] [address] [place] [address] Dr. Ella Mathis ALT [Catalytic activity/Vol] 27 U/L Normal 14-59 [facility] Comment on above: Performed By: #### L IPID, TSH, LIPA, T7, CMP, KARRIE #### [facility] [address] [place] [address] Dr. Ella Mathis Anion gap [Moles/Vol] 8.8 mmol/L Normal [facility] Comment on above: Performed By: #### L IPID, TSH, LIPA, T7, CMP, KARRIE #### [facility] [address] [place] [address] Dr. Ella Mathis AST [Catalytic activity/Vol] 19 U/L Normal 15-37 [facility] Comment on above: Performed By: #### L IPID, TSH, LIPA, T7, CMP, KARRIE #### [facility] [address] [place] [address] Dr. Ella Mathis Bilirubin [Mass/Vol] 0.8 mg/dL Normal 0.2-1.0 [facility] Comment on above: Performed By: #### L IPID, TSH, LIPA, T7, CMP, KARRIE #### [facility] [address] [place] [address] Dr. Ella Mathis Calcium [Mass/Vol] 8.4 mg/dL Critically low 8.5-10.1 [facility] e [facility] Comment on above: Performed By: #### L IPID, TSH, LIPA, T7, CMP, KARRIE #### [facility] [address] [place] [address] Dr. Ella Mathis Chloride [Moles/Vol] 107 mmol/L Normal 98-107 [facility] Comment on above: Performed By: #### L IPID, TSH, LIPA, T7, CMP, KARRIE #### [facility] [address] [place] [address] Dr. Ella Mathis CO2 [Moles/Vol] 28.0 mmol/L Normal 21.0-32.0 [facility] Comment on above: Performed By: #### L IPID, TSH, LIPA, T7, CMP, KARRIE #### [facility] [address] [place] [address] Dr. Ella Mathis Creatinine [Mass/Vol] 1.02 mg/dL Normal 0.55-1.02 [facility] Comment on above: Performed By: #### L IPID, TSH, LIPA, T7, CMP, KARRIE #### [facility] [address] [place] [address] Dr. Ella Mathis EGFR-AF FILIPINO >60 Normal >=60 [facility] Comment on above: Performed By: #### L IPID, TSH, LIPA, T7, CMP, KARRIE #### [facility] [address] [address] [address] Ella Mathis EGFR-NON AF FILIPINO 54 mL/min/1.73m2 Critically low >=60 [facility] Comment on above: Performed By: #### L IPID, TSH, LIPA, T7, CMP, KARRIE #### [facility] [address] [place] [address] Dr. Ella Mathis Globulin (S) [Mass/Vol] 3.0 g/dL Normal [facility] Comment on above: Performed By: #### L IPID, TSH, LIPA, T7, CMP, KARRIE #### [facility] [address] [place] [address] Dr. Ella Mathis Glucose [Mass/Vol] 86 mg/dL Normal 74-106 [facility] Comment on above: Performed By: #### L IPID, TSH, LIPA, T7, CMP, KARRIE #### [facility] [address] [place] [address] Dr. Ella Mathis Potassium [Moles/Vol] 3.8 mmol/L Normal 3.5-5.1 [facility] Comment on above: Performed By: #### L IPID, TSH, LIPA, T7, CMP, KARRIE #### [facility] [address] [place] [address] Dr. Ella Mathis Protein [Mass/Vol] 6.4 g/dL Normal 6.4-8.2 [facility] Comment on above: Performed By: #### L IPID, TSH, LIPA, T7, CMP, KARRIE #### [facility] [address] [place] [address] Dr. Ella Mathis Sodium [Moles/Vol] 140 mmol/L Normal 136-145 [facility] Comment on above: Performed By: #### L IPID, TSH, LIPA, T7, CMP, KARRIE #### [facility] [address] [place] [address] Dr. Ella Mathis Urea nitrogen [Mass/Vol] 21.0 mg/dL Critically high 7.0-18.0 [facility] Comment on above: Performed By: #### L IPID, TSH, LIPA, T7, CMP, KARRIE #### [facility] [address] [place] [address] Dr. Ella Mathis Urea nitrogen/Creatinine [Mass ratio] 20.6 mg/mg Normal [facility] Comment on above: Performed By: #### L IPID, TSH, LIPA, T7, CMP, KARRIE #### [facility] [address] [place] [address] Dr. Ella Mathis PROTIMEon 03-23-2022 INR Coag (PPP) [Relative time] 0.94 {INR} Normal [facility] Comment on above: Performed By: #### P TT, PT #### [facility] [address] [place] [address] Dr. Ella Mathis INR GUIDELINES SEE BELOW Normal [facility] Comment on above: Result Comment: BERNA RED INR: 2.0 - 3.0 CONDITIONS NOT LISTED BELOW 2.5 - 3.5 FOR PROSTHETIC HEART VALVE REPLACEMENT 2.5 - 3.5 RECURRENT THROMBOSIS Performed By: #### P TT, PT #### [facility] [address] [place] [address] Dr. Ella Mathis PT Coag (PPP) [Time] 10.2 s Normal 9.0-11.6 [facility] Comment on above: Performed By: #### P TT, PT #### [facility] [address] [place] [address] Dr. Ella Mathis PTTon 03-23-2022 aPTT Coag (Bld) [Time] 26.2 s Normal 22.3-36.2 [facility] Comment on above: Performed By: #### P TT, PT #### [facility] [address] [place] [address] Dr. Ella Mathis TSHon 03-23-2022 TSH 3.098 uIU/mL Normal 0.358-3.740 [facility] Comment on above: Performed By: #### P TT, PT #### [facility] [address] [place] [address] Dr. Ella Mathis TSH RANGE SEE BELOW Normal [facility] Comment on above: Result Comment: <0.3 4 UIU/ml HYPERTHYROID 0.34-5.60 UIU/ml EUTHYROID >5.60 UIU/ml HYPOTHYROID Performed By: #### P TT, PT #### [facility] [address], [place] [address] Dr. Ella Mathis US SINGLE QUAD RT UPPERon US SINGLE QUAD RT UPPER EXAM: US SINGLE QUAD RT UPPER HISTORY: . Right upper quadrant pain . COMPARISON: None. TECHNIQUE: Grayscale and color imaging was performed FINDINGS: The pancreas appears normal. The gallbladder is absent. The liver is normal in size. There is mild increased echogenicity of liver consistent with fatty infiltration of the liver. Color-flow is noted in the portal and hepatic veins. Right kidney measures 9.2 x 5.5 x 5.3 cm. Color-flow is noted. No solid renal cortical masses or hydronephrosis is noted. No fluid is noted in the right upper quadrant. IMPRESSION: 1 absent gallbladder. 2. Mild increased echogenicity of liver consistent with fatty infiltration of the liver. 3. The remainder the right upper quadrant was unremarkable. Electronically authenticated by: ASHLEY DAVIS Date: 2022-03-23 10:08 Normal [facility] COVID 19 IGG ANTIBODY, NUCLE OCAPSIDon 03-10-2022 SARS-CoV-2 (COVID-19) IgG IA Ql Negative [facility] Comment on above: Reference range: Negative This test is intended for use as an aid in identifying individuals with an adaptive immune response to SARS-CoV-2, indicating recent or prior infection. Results are for the detection of SARS-CoV-2 antibodies. IgG antibodies to SARS-CoV-2 are generally detectable in blood several days after initial infection, although the duration of time antibodies are present post-infection is not well characterized. At this time, it is unknown for how long antibodies persist following infection and if the presence of antibodies confers protective immunity. Individuals may have detectable virus by molecular testing present for several weeks following seroconversion. Negative results do not preclude acute SARS-CoV-2 infection. This test should not be used to diagnose acute SARS-CoV-2 infection. If acute infection is suspected, direct testing by molecular methods for SARS-CoV-2 is necessary. False positive results for the test may occur due to cross-reactivity from pre-existing antibodies or other possible causes. Please review the Fact Sheets available for health care providers and patients using the following websites: [employer]/home/Covid-19/HCP/antibody/fact-sheet2 [employer]/home/Covid-19/Patients/antibody/fact-sheet2 This test has been authorized by the FDA under an Emergency Use Authorization (EUA) for use by authorized laboratories. The FDA authorized labeling is available on the [employer] [facility] website: www.[employer]/Covid19. For additional information please refer to http://education.[employer]/faq/LJT442 (This link is being provided for informational/educational purposes only.) Resulting Agency Address Site ID: QPT Name: [facility] Address: [address] [place] [address], [address] [place] [id number] Director: Victor Manuel Lainez MD [facility] URINE CULTUREOrdered By: Olamide Whelan on 03-09-2022 Bacteria identified Cx Nom (U) 1,000 - 10,000 CFU/ml Multiple bacteria present suggesting contamination. [facility] Interpretation and review of laboratory results Normal [facility] IF clinically indicated, suggest appropriate recollection with timely delivery to the laboratory. For additional information, call ext [phone]. [facility] XR C-SPINE AP/LAT/OBLS/ODOon 03-09-2022 EXAMINATION: XR C-SPINE AP/LAT/OBLS/ODO CLINICAL HISTORY: Reason for Exam: having carpal pedal spasms ASSOCIATED DIAGNOSIS: Carpopedal spasm TECHNOLOGISTS NOTE: COMPARISON: 04/08/2014 FINDINGS: Note that the C7-T1 levels not well evaluated due to overlying soft tissue. Vertebral body heights are maintained. Normal alignment. Mild multilevel degenerative changes. Mild bilateral foraminal narrowing at C3-C4, mild bilateral foraminal narrowing at C4-C5, mild bilateral foraminal narrowing at C5-C6, moderate left and mild right foraminal narrowing at C6-C7; overall the degree of foraminal narrowing is slightly progressed compared to prior. IMPRESSION: [id number] multilevel degenerative changes, slightly progressed from prior. MACRO: None RADIOLOGY Jose Russ MD - 03/09/2022 EXAMINATION: XR C-SPINE AP/LAT/OBLS/ODO CLINICAL HISTORY: Reason for Exam: having carpal pedal spasms ASSOCIATED DIAGNOSIS: Carpopedal spasm TECHNOLOGISTS NOTE: COMPARISON: 04/08/2014 FINDINGS: Note that the C7-T1 levels not well evaluated due to overlying soft tissue. Vertebral body heights are maintained. Normal alignment. Mild multilevel degenerative changes. Mild bilateral foraminal narrowing at C3-C4, mild bilateral foraminal narrowing at C4-C5, mild bilateral foraminal narrowing at C5-C6, moderate left and mild right foraminal narrowing at C6-C7; overall the degree of foraminal narrowing is slightly progressed compared to prior. IMPRESSION: [id number] multilevel degenerative changes, slightly progressed from prior. MACRO: None [facility] XR CHEST 2 VIEW PA+LATon EXAMINATION: XR CHEST 2 VIEW PA+LAT CLINICAL HISTORY: Reason for Exam: RUQ pain ASSOCIATED DIAGNOSIS: Right-sided chest wall pain TECHNOLOGISTS NOTE: COMPARISON: None FINDINGS: Cardiomediastinal silhouette: Normal. Lungs/Pleura: No focal pulmonary consolidation, effusion or pneumothorax. Musculoskeletal: Degenerative spurring within the thoracic spine. IMPRESSION: No acute cardiopulmonary abnormality identified. MACRO: None RADIOLOGY Jose Russ MD - 03/09/2022 EXAMINATION: XR CHEST 2 VIEW PA+LAT CLINICAL HISTORY: Reason for Exam: RUQ pain ASSOCIATED DIAGNOSIS: Right-sided chest wall pain TECHNOLOGISTS NOTE: COMPARISON: None FINDINGS: Cardiomediastinal silhouette: Normal. Lungs/Pleura: No focal pulmonary consolidation, effusion or pneumothorax. Musculoskeletal: Degenerative spurring within the thoracic spine. IMPRESSION: No acute cardiopulmonary abnormality identified. MACRO: None [facility] XR CHEST 2 VIEW PA+LATOrdere d By: Jose Russ on 03-09-2022 [facility] Work Phone: XR L-SPINE AP+LAT+OBL+CDon 0 03-09-2022 EXAMINATION: XR L-SPINE AP+LAT+OBL+CD CLINICAL HISTORY: Reason for Exam: ? spinal stenosis versus facet joint arthritis ASSOCIATED DIAGNOSIS: Carpopedal spasm TECHNOLOGISTS NOTE: COMPARISON: None FINDINGS: Heights of the lumbar vertebral bodies are maintained. No acute fracture or aggressive osseous lesion. Grade 1 anterolisthesis of L4 on L5. There are mild to moderate multilevel degenerative changes. IMPRESSION: No compression deformity. Mild to moderate multilevel degenerative changes. MACRO: None RADIOLOGY Jose Russ MD - 03/09/2022 EXAMINATION: XR L-SPINE AP+LAT+OBL+CD CLINICAL HISTORY: Reason for Exam: ? spinal stenosis versus facet joint arthritis ASSOCIATED DIAGNOSIS: Carpopedal spasm TECHNOLOGISTS NOTE: COMPARISON: None FINDINGS: Heights of the lumbar vertebral bodies are maintained. No acute fracture or aggressive osseous lesion. Grade 1 anterolisthesis of L4 on L5. There are mild to moderate multilevel degenerative changes. IMPRESSION: No compression deformity. Mild to moderate multilevel degenerative changes. MACRO: None [facility] Basic metabolic 2000 panelon 03-08-2022 Anion gap [Moles/Vol] 14 mmol/L [facility] Calcium [Mass/Vol] 9.1 mg/dL 8.4 - 10. 4 mg/dL [facility] Chloride [Moles/Vol] 106 mmol/L 97 - 111 mmol/L [facility] CO2 [Moles/Vol] 26 mmol/L 21 - 30 mmol/L [facility] Creatinine [Mass/Vol] 1.18 mg/dL High 0.50 - 1.10 mg/dL [facility] GFR/1.73 sq M.predicted MDRD (S/P/Bld) [Vol rate/Area] 50 mL/min/{1.73_m2} Low >=60 mL/min/1.73sq m [facility] Comment on above: 2020 CKD EPI Equatio n using Creatinine without Race Comment: Estimated glomerular filtration rate (eGFR) is calculated without a race coefficient. Values should be interpreted in the context of the patient's full clinical presentation. Reference: 1. Toi C, Nhi M, Lucio DC, et al.. A Unifying Approach for GFR Estimation: Recommendations of the NKF-ASN Task Force on Reassessing the Inclusion of Race in Diagnosing Kidney Disease. [place] Journal of Kidney Diseases 202;79(2):268-88.e1. 2. N Engl J Med 2020 Vol. 385 Issue 19 Pages 6531-1211 Glucose [Mass/Vol] 82 mg/dL 80 - 116 mg/dL [facility] Interpretation and review of laboratory results Abnormal [facility] Potassium [Moles/Vol] 5.1 mmol/L 3.3 - 5.3 mmol/L [facility] Sodium [Moles/Vol] 141 mmol/L 135 - 148 mmol/L [facility] Urea nitrogen [Mass/Vol] 24 mg/dL High 8 - 22 mg/dL [facility] C3 COMPLEMENTon 03-08-2022 Complement C3 [Mass/Vol] 131 mg/dL 81 - 163 mg/dL [facility] C4 COMPLEMENTon 03-08-2022 Complement C4 [Mass/Vol] 35 mg/dL 14 - 46 mg/dL [facility] CBC WITH DIFFERENTIALon 02-11 Basophils (Bld) [#/Vol] 0.03 10*3/uL 0.00 - 0.20 K/uL [facility] Basophils/100 WBC (Bld) 0.6 % <=1.9 [facility] Eosinophils (Bld) [#/Vol] 0.07 10*3/uL 0.00 - 0.70 K/uL [facility] Eosinophils/100 WBC (Bld) 1.4 % 0.1 - 4.0 % [facility] Erythrocyte distribution width (RBC) [Ratio] 13.1 % 11.5 - 14.5 % [facility] Hematocrit (Bld) [Volume fraction] 42.0 % 36.0 - 46.0 % [facility] Hemoglobin (Bld) [Mass/Vol] 14.7 g/dL 12.0 - 15.0 g/dL [facility] Lymphocytes (Bld) [#/Vol] 1.21 10*3/uL 1.00 - 4.80 K/uL [facility] Lymphocytes/100 WBC (Bld) 25.8 % 24.0 - 44.0 % [facility] MCH (RBC) [Entitic mass] 32.5 pg 26.0 - 34.0 pg [facility] MCHC (RBC) [Mass/Vol] 34.9 g/dL 32.0 - 35.9 g/dL [facility] MCV (RBC) [Entitic vol] 93 fL 80 - 100 fL [facility] Monocyte distribution width Auto (Bld) [Entitic vol] [facility] Monocytes (Bld) [#/Vol] 0.38 10*3/uL 0.20 - 1.00 K/uL [facility] Monocytes/100 WBC (Bld) 8.1 % 2.0 - 11.0 % [facility] Neutrophils (Bld) [#/Vol] 3.00 10*3/uL 1.50 - 8.00 K/uL [facility] Neutrophils/100 WBC (Bld) 64.1 % 31.0 - 76.0 % [facility] Platelet mean volume (Bld) [Entitic vol] 8.7 fL 7.5 - 11.2 fL [facility] Platelets (Bld) [#/Vol] 159 10*3/uL 150 - 400 K/uL [facility] RBC (Bld) [#/Vol] 4.51 10*6/uL [facility] WBC (Bld) [#/Vol] 4.7 10*3/uL 4.5 - 11.5 K/uL [facility] DS DNAon 03-08-2022 DNA double strand Ab Qn (S) Negative Negative [facility] DNA double strand Ab Qn (S) [IU]/mL See Below [facility] ds DNA Reference Range: < or = to 4 IU/mL-Negative 5-9 IU/mL-Indeterminate > or = to 10 IU/mL-Positive [facility] HEPATIC FUNCTION PANELon Albumin [Mass/Vol] 3.7 g/dL 3.4 - 5.1 g/dL [facility] ALP [Catalytic activity/Vol] 62 U/L [facility] ALT [Catalytic activity/Vol] 22 U/L [facility] AST [Catalytic activity/Vol] 22 U/L [facility] Bilirubin [Mass/Vol] 1.4 mg/dL 0.1 - 1.5 mg/dL [facility] Bilirubin.direct [Mass/Vol] 0.20 mg/dL 0.10 - 0.30 mg/dL [facility] Interpretation and review of laboratory results Normal [facility] Protein [Mass/Vol] 6.0 g/dL 5.7 - 8.1 g/dL [facility] No Panel Informationon 03-08 Interpretation and review of laboratory results Normal [facility] TOTAL PROTEIN WITH CREATININ E, RANDOM URINEon 03-08-2022 Creatinine (U) [Mass/Vol] 74 mg/dL 10 - 300 mg/dL [facility] Interpretation and review of laboratory results Normal [facility] Protein (U) [Mass/Vol] mg/dL <=100 mg/dL [facility] Protein/Creatinine (U) [Mass ratio] mg/g <=164 mg/g [facility] TSHon 03-08-2022 Interpretation and review of laboratory results Normal [facility] TSH Qn 3.256 m[IU]/L [facility] Comment on above: Referance range for women as applicable: First Trimester: 0. 050 to 3.700 uIU/mL Second Trimester: 0. 310 to 4.350 uIU/mL Third Trimester: 0. 410 to 5.180 uIU/mL [facility] URINALYSIS WITH REFLEX CULTU RE PERFORMABLEon 03-08-2022 Appearance (U) Clear Clear [facility] Bacteria LM.HPF (Urine sed) [#/Area] Few /HPF [facility] Bilirubin Ql (U) Negative Negative [facility] Color (U) Light Yellow Yellow [facility] Epithelial cells.squamous LM.HPF (Urine sed) [#/Area] 0-2 0 - 10 /HPF [facility] Glucose Auto test strip (U) [Mass/Vol] Negative Negative mg/dL [facility] Hemoglobin Ql (U) Negative Negative [facility] Interpretation and review of laboratory results Abnormal [facility] Ketones Ql (U) Negative Negative mg/dL [facility] Leukocyte esterase Test strip Ql (U) Trace Abnormal Negative [facility] Nitrite Ql (U) Negative Negative [facility] pH (U) 6.0 [pH] [facility] Protein (U) [Mass/Vol] Negative Negative mg/dL [facility] Specific gravity (U) [Rel density] 1.025 [facility] Urobilinogen Qn (U) 0.2 mg/dL 0.2 - 1.0 [facility] WBC (U) [#/Vol] None Seen 0 - 2 /HPF [facility] WBC LM.HPF (Urine sed) [#/Area] 3-5 Abnormal 0 - 2 /HPF [facility] A negative leukocyte esterase AND negative nitrite test or absence of pyuria (urine WBC count <= 5-10) make a UTI (urinary tract infection) very unlikely in a non-neutropenic adult (<=5% likelihood in many studies). A positive leukocyte esterase, nitrite and/or pyuria is a nonspecific result. This can be seen in conditions other than a UTI e.g. asymptomatic bacteriuria, gynecologic infections, sexually transmitted infections, and noninfectious conditions (positive predictive value for UTI around 50%) [facility] X[facility] C-SPINE AP/LAT/OBLS/ODOon 03-08-2022 Radiology Study observation (narrative) [facility] XR CHEST 2 VIEW PA+LATon Radiology Study observation (narrative) [facility] XR L-SPINE AP+LAT+OBL+CDon 0 03-08-2022 Radiology Study observation (narrative) [facility] US venous duplex LE LTon US venous duplex LE LT [facility] [place] [address] [place] [address] Ultrasound Report Signed Patient: Linnea Culp MR#: [id number] : 1950 Acct:[id number] Age/Sex: 68 / F ADM Date: 02/19/19 Loc: Room: Type: [facility] Attending Dr: Amber Acharya MD Ordering Provider: Amber Acharya MD Date of Service: 02/19/19 US/US venous duplex LE LT: ,79.89 Copies to: Amber Acharya MD LEFT LOWER EXTREMITY VENOUS DUPLEX INDICATION: Left leg pain Unilateral left lower extremity venous duplex Doppler study was obtained utilizing B-mode, color- flow and spectral Doppler. FINDINGS: The left common femoral, femoral, and popliteal veins showed adequate compressibility, color-flow and augmentation. The left posterior tibial were compressible, the peroneal veins are not well visualized. The proximal greater saphenous vein compresses. The contralateral right common femoral vein was compressible with color-flow and augmentation. US/US venous duplex LE LT IMPRESSION: NO EVIDENCE OF DEEP VENOUS THROMBOSIS IN THE LEFT LOWER EXTREMITY. NO SUPERFICIAL THROMBOPHLEBITIS WAS NOTED. Impression dictated by: Jose Velazquez M.D.02/20/2019 11:34 AM Dictation Location: [place] [address] Tech: Cyn Guan Transcribed By: NÉSTOR 02/20/19 1134 Dictated By: Jose Velazquez MD 02/20/19 1133 Signed By: 02/20/19 1134 [facility] Vital Signs Date Time Vital Sign Value Performing Clinician Negini jignesh 04-25-2023 13:45-0400 Body height 164 cm Amber Acharya MD Work Phone: [facility] 04-25-2023 13:45-0400 Body mass index (BMI) [Ratio] 35.64 kg/m2 Amber Acharya MD Work Phone: [facility] 04-25-2023 13:45-0400 Body temperature 98.01 [degF] Amber Acharya MD Work Phone: [facility] 04-25-2023 13:45-0400 Body weight 95.84 kg Amber Acharya MD Work Phone: [facility] 04-25-2023 13:45-0400 Diastolic blood pressure 66 mm[Hg] Amber Acharya MD Work Phone: [facility] 04-25-2023 13:45-0400 Heart rate 59 /min Amber Acharya MD Work Phone: [facility] 04-25-2023 13:45-0400 SaO2% (BldA) [Mass fraction] 97 % Amber Acharya MD Work Phone: [facility] 04-25-2023 13:45-0400 Systolic blood pressure 134 mm[Hg] Amber Acharya MD Work Phone: [facility] 08-09-2022 16:37-0400 Diastolic blood pressure 63 mm[Hg] Alfredito Young MD Work Phone: [facility] 08-09-2022 16:37-0400 Heart rate 66 /min Alfredito Young MD Work Phone: [facility] 08-09-2022 16:37-0400 SaO2% (BldA) [Mass fraction] 99 % Alfredito Young MD Work Phone: [facility] 08-09-2022 16:37-0400 Systolic blood pressure 135 mm[Hg] Alfredito Young MD Work Phone: [facility] 08-09-2022 16:00-0400 Body height 167.6 cm Alfredito Young MD Work Phone: [facility] 08-09-2022 16:00-0400 Body mass index (BMI) [Ratio] 32.44 kg/m2 Alfredito Young MD Work Phone: [facility] 08-09-2022 16:00-0400 Body temperature 96.6 [degF] Alfredito Young MD Work Phone: [facility] 08-09-2022 16:00-0400 Body weight 91.17 kg Alfredito Young MD Work Phone: [facility] 06-07-2022 11:19-0400 Body mass index (BMI) [Ratio] 34.5 kg/m2 Amber Acharya MD Work Phone: [facility] 06-07-2022 11:19-0400 Body weight 94.03 kg Amber Acharya MD Work Phone: [facility] 06-07-2022 11:19-0400 Diastolic blood pressure 61 mm[Hg] Amber Acharya MD Work Phone: [facility] 06-07-2022 11:19-0400 Heart rate 61 /min Amber Acharya MD Work Phone: [facility] [facility] 06-07-2022 11:19-0400 Systolic blood pressure 124 mm[Hg] Amber Acharya MD Work Phone: [facility] 03-08-2022 13:41-0400 Diastolic blood pressure 68 mm[Hg] Amebr Acharya MD Work Phone: [facility] Comment on above: manual 03-08-2022 13:41-0400 Systolic blood pressure 111 mm[Hg] Amber Acharya MD Work Phone: [facility] Comment on above: manual 03-08-2022 13:01-0400 Body height 165.1 cm Amber Acharya MD Work Phone: [facility] 03-08-2022 13:01-0400 Body mass index (BMI) [Ratio] 33.45 kg/m2 Amber Acharya MD Work Phone: [facility] 03-08-2022 13:01-0400 Body weight 91.17 kg Amber Acharya MD Work Phone: [facility] 03-08-2022 13:01-0400 Heart rate 59 /min Amber Acharya MD Work Phone: [facility] Encounters Encounter Date Encounter Type Care Provider Facility Start: 06-04-2023 Telephone encounter Amber yanez MD Work Phone: [facility] Rheumatology (Arthritis) Start: 05-14-2023 Telephone encounter Amber yanez MD Work Phone: [facility] Rheumatology (Arthritis) Start: 05-03-2023 Telephone encounter Amber yanez MD Work Phone: [facility] Rheumatology (Arthritis) Start: 04-25-2023 ambulatory UNKNOWN PROVIDER Facili ty:[facility] Start: 04-25-2023 End: 04-27-2023 ambulatory UNKNOWN PROVIDER Facility:[facility] Start: 04-25-2023 End: 04-25-2023 Nursing evaluation of patient and report Romeliaalexa Hainesley [facility] Comment on above: Routine adult health maintenance (Primary Dx) Start: 04-25-2023 End: 04-25-2023 Patient encounter status Romelia Dunn [facility] Start: 04-25-2023 Letter encounter Dorita Joshi Work Phone: [facility]ology Start: 04-25-2023 End: 04-27-2023 Office outpatient visit 40 minutes Amber Acharya MD Work Phone: [facility] Comment on above: [id number] syndro me (Primary Dx); Pulmonary hypertension, mild (HCC); Chronic midline low back pain without sciatica; History of systemic lupus erythematosus (HCC); Dysuria; Numbness of legs; Vitamin D deficiency; Pain in both knees, unspecified chronicity; Chronic bilateral low back pain without sciatica; Grief reaction; B12 deficiency; Body mass index (BMI) 35.0-35.9, adult Start: 04-20-2023 End: 04-20-2023 ambulatory [facility] Start: 03-25-2023 Letter encounter Dorita Joshi Work Phone: [facility] Start: 10-16-2022 End: 10-16-[address] DORITA BASHIR Facility:[facility] Start: 10-11-2022 End: 10-12-[address] DORITA BASHIR Facility:[facility] Start: 10-03-2022 End: 10-04-[address] DORITA BASHIR Facility:[facility] Start: 09-08-2022 End: 09-09-[address] DORITA BASHIR Facility:[facility] Start: 09-06-2022 End: 09-07-[address] DORITA BASHIR Facility:[facility] Start: 09-06-2022 End: 09-06-2022 Phys/qhp telephone evaluation 21-30 min Jasiel Selby [employer] Work Phone: [facility] Comment on above: Intercostal neuritis (Primary Dx) Start: 09-06-2022 End: 09-11-2022 ambulatory UNKNOWN PROVIDER Facility:[facility] Start: 08-28-2022 End: 08-29-[address] DORITA BASHIR Facility:[facility] Start: 08-22-2022 End: 08-22-[address] DORITA BASHIR Facility:[facility] Start: 08-09-2022 End: 08-10-2022 ambulatory UNKNOWN PROVIDER Facility:[facility] Start: 08-09-2022 End: 08-09-2022 Patient encounter procedure Alfredito Yuong MD Work Phone: [facility] Procedure Room Comment on above: Intercostal neuritis (Primary Dx) Start: 08-09-2022 ambulatory DORITA BASHIR Facility :[facility] Start: 08-04-2022 End: 08-07-2022 ambulatory UNKNOWN PROVIDER Facility:[facility] Start: 07-29-2022 Letter encounter Dorita Joshi Work Phone: [facility] Patient Access Start: 07-28-2022 Letter encounter Dorita Joshi Work Phone: [facility] Start: 07-28-2022 End: 07-28-2022 ambulatory UNKNOWN PROVIDER Facility:[facility] Start: 06-07-2022 Letter encounter Dorita Joshi Work Phone: [facility] Start: 06-07-2022 End: 06-11-2022 Office outpatient visit 25 minutes Amber Acharya MD Work Phone: [facility] Comment on above: 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); Facet joint disease of lumbosacral region; Intercostal neuralgia; Body mass index (BMI) 34.0-34.9, adult Start: 03-23-2022 End: 03-24-[address] DORITA BASHIR Facility: Start: 03-19-2022 Letter encounter Dorita Joshi Work Phone: [facility] Start: 03-08-2022 Letter encounter Dorita Joshi Work Phone: [facility] Start: 03-08-2022 End: 03-15-2022 Office outpatient visit 25 minutes Amber Acharya MD Work Phone: [facility] Comment on above: Carpopedal spasm (Pr imary Dx); Dizziness; SLE (systemic lupus erythematosus related syndrome) (HCC); Hypothyroidism, unspecified type; Right-sided chest wall pain; Body mass index (BMI) 33.0-33.9, adult Start: 02-19-2019 End: 02-19-2019 Patient encounter procedure Dorita Bashir Facility:[facility] Procedures Date Procedure Procedure Detail Performing Clinician Start: 04-25-2023 25 hydroxy includes fractions if performed Amber Acharya MD Work Phone: Start: 04-25-2023 Complement antigen e ach component Amber Acharya MD Work Phone: Start: 04-25-2023 Urine culture Amber vides MD Work Phone: Start: 04-25-2023 Urnls dip stick/tabl et rgnt auto w/o microscopy Amber Acharya MD Work Phone: Start: 08-09-2022 Njx anes&/strd w/img tfrml edrl crv/thrc 1 lvl Alfredito Young MD Work Phone: Start: 08-09-2022 RECOVERY ROOM MINIMAL- [facility] Alfredito Young MD Work Phone: Start: 03-08-2022 Complement antigen e ach component Amber Acharya MD Work Phone: Start: 03-08-2022 Protein total xcpt refractometry urine Amber Acharya MD Work Phone: Start: 03-08-2022 Sars-cov-2 antibody Brit Acharya MD Work Phone: Start: 03-08-2022 Urine culture Amber vides MD Work Phone: Start: 03-08-2022 Urnls dip stick/tabl et rgnt auto w/o microscopy Amber Acharya MD Work Phone: Plan of Treatment Date Care Activity Detail Author Start: 03-23-2027 Cholesterol [Mass/volume] in Serum or Plasma Cholesterol [facility] Start: 04-25-2024 Basic metabolic 2000 panel - Serum or Plasma Basic Metabolic Panel [facility] Start: 08-12-2023 Influenza vaccination Influenza Vacc ine (#1) [facility] Start: 04-25-2023 End: 04-25-2024 XR Knee - bilateral AP and Lateral W standing XR KNEES RIGHT AND LEFT STANDING AP/LAT 2 VIEWS Imaging Routine Pain in both knees, unspecified chronicity Expected: 04/25/2023, Expires: 04/25/2024 [employer] Work Phone: Comment on above: Expected: 04/25/2023 , Expires: 04/25/2024 Start: 04-25-2023 End: 04-25-2023 Patient encounter procedure 04/25/2023 Office Visit Rheumatology Amber Acharya MD [address] [place] [id number] [facility] Start: 03-08-2023 Basic metabolic 2000 panel - Serum or Plasma Basic Metabolic Panel [facility] Start: 03-08-2023 Thyroid stimulating hormone measurement TSH [facility] Start: 10-25-2022 End: 10-25-2022 Patient encounter procedure 10/25/2022 Office Visit Rheumatology Amber Acharya MD [address] [place] [id number] [facility] Start: 09-06-2022 End: 09-06-2022 Telemedicine consultation with patient 09/06/2022 Tele[facility]icine Pain & Healing Jasiel Selby, [employer] ARCH[employer] [address] [place] [address] [place] [address] [facility] Start: 08-12-2022 Influenza vaccination Influenza Vacc ine (#1) [facility] Start: 08-09-2022 End: 08-09-2022 Patient encounter procedure 08/09/2022 Office Visit Outpatient [facility] Alfredito Young MD [address] [place] [address] [place] [address] [facility] Procedure Room Start: 06-12-2022 COVID-19 Vaccine (5 - Booster for Pfizer series) COVID-19 Vaccine (5 - Booster for Pfizer series) [facility] Start: 06-07-2022 End: 06-07-2022 Patient encounter procedure 06/07/2022 Office Visit Rheumatology Amber Acharya MD [address] [place] [id number] [facility] Start: 11-12-2017 Annual wellness visit Annual W ellness Visit ([id number]) [facility] Start: 11-24-2016 [facility] Start: 01-19-2016 Pneumococcal vaccination Pneumococcal Vaccine(s) (65+ yrs) (2 - PPSV23 if available, else PCV20) [facility] Start: 2001 Measurement of occul t blood in single stool specimen FIT [facility] Start: 2001 Screening for malign ant neoplasm of breast Mammography [facility] Start: 2001 Screening for malign ant neoplasm of colon CRC Screening [facility] Start: 2001 Shingles (RZV) Vacci ne (1 of 2) Shingles (RZV) Vaccine (1 of 2) [facility] Start: 1996 Cholesterol [Mass/volume] in Serum or Plasma Cholesterol [facility] Start: 1996 Screening for malign ant neoplasm of colon [facility] Start: 1991 Screening for malign ant neoplasm of breast [facility]amm[facility] Start: 1969 Hepatitis C screening Hepatitis C An tibody [facility] Start: 1969 Tetanus + diphtheria + acellular pertussis vaccine (product) Tdap Booster [facility] Start: 1951 Ejection Fraction Ejection Fraction [facility] Start: 1951 Screening for malign ant neoplasm of colon Colonoscopy [facility] Immunizations Immunization Date Immunization Notes Care Provider [facility] 10-11-2022 Influenza, seasonal vaccine, quadrivalent, adjuvanted, 0.5mL dose, preservative free (KNT=089) Dorita Bashir MD Work Phone: [facility] 10-11-2022 influenza virus vaccine, unspecified formulation Abmer Acharya MD Work Phone: [facility] 04-17-2022 Pfizer Monovalent (12+ yrs) SARS-COV-2 (COVID-19) vaccine, mRNA, spike protein, LNP, pres. free, 30 mcg/0.3mL dose, jordi-sucrose (MYP=111) Dorita Bashir MD Work Phone: [facility] 09-07-2021 Influenza, injectable, high-dose seasonal, quadrivalent, 0.7 mL, preservative free (TLU=046) Dorita Bashir MD Work Phone: [facility] 09-07-2021 influenza virus vaccine, unspecified formulation Dorita Bashir MD Work Phone: [facility] 01-13-2021 Pfizer SARS-COV-2 (COVID-19) vaccine, age 12+ yrs, mRNA, spike protein, LNP, preservative free, 30 mcg/0.3mL dose (QWE=997) Dorita Bashir MD Work Phone: [facility] 12-23-2020 Pfizer SARS-COV-2 (COVID-19) vaccine, age 12+ yrs, mRNA, spike protein, LNP, preservative free, 30 mcg/0.3mL dose (OKT=481) Dorita Bashir MD Work Phone: [facility] 08-25-2020 Seasonal trivalent influenza vaccine, adjuvanted, preservative free Dorita Bashir MD Work Phone: [facility] 08-29-2017 influenza virus vaccine, unspecified formulation Dorita Bashir MD Work Phone: [facility] 12-07-2016 tetanus and diphtheria toxoids, adsorbed, preservative free, for adult use (5 Lf of tetanus toxoid and 2 Lf of diphtheria toxoid) Dorita Bashir MD Work Phone: [facility] 11-24-2015 influenza, injectable, quadrivalent, preservative free Dorita Bashir MD Work Phone: [facility] Work Phone: 11-24-2015 pneumococcal conjugate vaccine, 13 valent Dorita Bashir MD Work Phone: [facility] NEGATED: Highlighted row has not occurred!11-27-2018 Seasonal trivalent influenza vaccine, adjuvanted, preservative free Dorita Bashir MD Work Phone: [facility] Work Phone: Comment on above: Deferred: Patient De cision - ptto get it at her PCP Payers Date Payer Category Payer Self-pay 2016 Medicare MEDICARE MEDICAR E PART A & B [id number] 2016-Present [address] [place] [address] Medicare [id number] 2016 Unknown COMMERCIAL INSUR ANCE - OTHER COMMERCIAL INSURANCE OTHER [id number] 2016-Present [phone] [address] [place] [address] Indemnity [id number] 1959 Medicare [id number] 1959 Unknown [id number] 1951 Unknown [id number] 1951 Unknown [id number] [id number] 1951 Unknown [id number] [id number] 1951 Unknown [id number] [id number] 1951 Unknown [id number] 2.16.840.1.214676.3.579.2.593 1951 Unknown [id number] 2.16.840.1.838037.3.579.2.593 1951 Unknown [id number] 2.16.840.1.726019.3.579.2.593 1951 Unknown [id number] 2.16.840.1.543217.3.579.2.593 1951 Unknown [id number] [id number] 1951 Unknown [id number] [id number] 1951 Unknown [id number] [id number] 1951 Unknown [id number] [id number] 1951 Unknown [id number] [id number] 1951 Unknown [id number] [id number] 1951 Unknown [id number] [id number] 1951 Unknown [id number] [id number] Unknown [id number] [id number] Social History Date Type Detail Facility Start: 02-23-2016 Tobacco smoking status CTIS Never sm oked tobacco [facility] Start: 02-23-2016 Tobacco use and exposure Smokeless t obacco non-user [facility] Start: 03-08-2022 End: 04-25-2023 Alcohol intake Current non-drinker of alcohol (finding) [facility] Start: 1950 [facility] Start: 04-14-2020 Gender identity Identifies as female gender (finding) [facility] Start: 04-14-2020 Sexual orientation Bisexual (finding ) [facility] 03-08-2022 to 06-04-2023 Telephone Encounter - Letty Cardoza - 06/04/2023 9:40 AM EDTTelephone Encounter - Letty Cardoza - 06/04/2023 9:40 AM EDTTelephone Encounter - Letty Cardoza - 05/14/2023 10:52 AM EDT Note Date & Type Note Facility 06-04-2023 Telephone encounter Note [facility] Services discharge form, pending provider signature added to media folder. Copy also placed on provider desk. [facility] 06-04-2023 Miscellaneous Notes The [facility] discharge form, pending provider signature added to media folder. Copy also placed on provider desk. documented in this encounter [facility] 06-01-2023 Note [facility] Physical Therapy Discharge summary added to media folder. [facility] 05-14-2023 Telephone encounter [facility] Initial Examination notes added to media folder. [facility] 05-14-2023 Miscellaneous Notes [facility] Initial Examination notes added to media folder. documented in this encounter [facility] 05-03-2023 Telephone encounter Note From the [facility] XR of the knee Added to media folder. [facility] 05-03-2023 Miscellaneous Notes From the [facility] XR of the knee Added to media folder. documented in this encounter [facility] 04-25-2023 History of Present illness Narrative Patient was identified by name and date of . Romelia Dunn Venipuncture performed patient tolerated well Romelia Dunn MPA Patient leaving urine sample documented in this encounter [facility] 04-25-2023 Instructions Amber Acharya MD - 04/25/2023 2:07 PM EDT Please tell your frog or oyster farmworker that we would like an ECHO to estimate pulmonary pressures given possible Obstructive sleep apnea and history of lupus documented in this encounter [facility] 04-25-2023 History of Present illness Narrative CC h/o SLE HPI Linnea Culp is 72 year old with a h/o COVID in October, treated with Paxlovid. Having pain in her legs, has left knee giveway. Tearied today, had not cried before. Wonders if the racial rash is related to lupus. Needs to use sunscreen daily. No hair loss. Has some right arm numbness when sitting too long, predates covid, get myelopathic looking hand l>r. Not usually foot and hand at same time. Has cramps in legs. No chest pain or SOB. Per eye md has some dry eyes. Except face no rash, slightly pink on arms, got bumbes. No epistaxis or hemoptysis. Had green post nasal drip. Takes colestipol With COVID fever, headache, achy, did not lose smell or taste. Fatigue still persists. Sleep lies down no later 10 unless has meetings. Sometimes lays awake. Sometimes naps during the day. 2 PM. 1/2 -2 hours. Pretty much feels well rested in am. says she snores at night. 2 pillow orthopnea Brother Sep 01 Son almost after that, police man Sister in law 6 months before that Left adopted son in his 20's Outpatient Medications Marked as Taking for the 04/25/23 encounter (Office Visit) with Amber Acharya MD Medication Sig Dispense Refill colestipol (COLESTID) 1 GM tablet in the morning. colestipol (COLESTID) 1 GM tablet colestipol 1 gram tablet Take 1 tablet every day by oral route for 90 days. levothyroxine (SYNTHROID) 88 MCG tablet celecoxib (CeleBREX) 200 MG capsule liothyronine (CYTOMEL) 5 MCG tablet hydroxychloroquine (PLAQUENIL) 200 MG tablet TAKE 2 TABLETS BY MOUTH DAILY 180 Tablet 1 aspirin 81 MG enteric coated tablet Take 81 mg by mouth daily. atorvastatin (LIPITOR) 80 mg tablet amLODIPine (NORVASC) 10 MG tablet Cholecalciferol (VITAMIN D3) 1000 UNITS CAPS Take 1 Capsule by mouth daily. 90 Capsule 1 pantoprazole (PROTONIX) 40 MG tablet Take 40 mg by mouth daily. metoprolol XL (TOPROL-XL) 100 MG XL tablet Take 100 mg by mouth 2 times daily. BP 134/66 Pulse 59 Temp 98 F (36.7 C) (Temporal) Ht 5' 4.57 (1.64 m) Wt 211 lb 4.8 oz (95.8 kg) SpO2 97% BMI 35.64 kg/m Skin No rash HEENT Naso and oropharynx clear Neck No LAD Lungs CTA Breasts Not done Heart S1S2 RRR no m or g Abdomen Soft no HSM Musculoskeletal/Extremities Neck ROM mildly reduced, shoulders, elbows, wrists, MCPs, PIPs, DIPs full ROM no synovitis, hips FROM, no irritability, knees no effusion, FROM, no warmth, ankles non-tender, FROM, achilles non-tender, metatarsal squeeze test negative Neurologic Alert and interactive Pelvic/Genital Not done Rectal Not done Component 04/25/2023 WBC 4.6 RBC 4.60 Hemoglobin 14.5 Hematocrit 42.8 MCV 93 MCH 31.7 MCHC 34.0 Platelet 158 RDW-CV% 13.2 MPV 9.0 Neutrophils 64.1 Neutrophil # 2.95 Lymphocytes 25.8 Lymph Absolute 1.19 Monocytes 8.1 Monocyte Absolute 0.37 Eosinophil 1.5 Eosinophil Absolute 0.07 Basophils 0.6 Basophil # 0.03 Color Yellow Appearance Clear pH 5.5 Spec [place] 1.019 Protein 30 (A) Blood Negative Bilirubin Negative Urobilinogen Negative Ketones Negative Leuk. Esterase Positive (A) Nitrite Negative Glucose Negative WBC 3-5 (A) RBC 0-2 Mucous Threads Present Squamous Epitheleal 0-2 Protein, Total 6.6 Albumin 3.55 (L) Alpha 1 Glob Fract 0.29 Alpha 2 Glob Fract 0.66 Beta Glob Frac, Tot 1.23 (H) Gamma Glob Frac, Tot 0.88 %ALBUMIN 53.8 %ALPHA1 4.3 %ALPHA2 10.0 %BETA 18.6 (H) %GAMMA 13.3 Interpretation Patient has increased beta-globulins and decreased albumin. No paraprotein band was observed in the serum. . . . Glucose 90 Sodium 144 Potassium 4.7 Carbon Dioxide 22 Chloride 107 BUN 16 Creatinine 1.09 Calcium 9.3 Anion Gap 20 Estimated GFR 54 (L) Anti-DNA Screen Negative ds DNA Antibody <1 C3 Complement 160 C4 Complement 34 Vitamin D, 25-OH 24.7 (L) Vitamin B12 277 (L) Culture 1,000 - 10,000 CFU/ml Multiple bacteria present suggesting contamination. 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 Plan: [facility] She is to see Physical therapy for endurance training. (I27.20) Pulmonary hypertension, mild (HCC) Comment: I reviewed the record and previously she did have some mild pulmonary hypertension noted on echo. Plan: ADULT SLEEP CLINIC (NOT LYLE/PSG) SERVICE REQUEST The patient should be evaluated in Sleep Clinic for sleep apnea. (M54.50, G89.29) Chronic midline low back pain without sciatica Comment: Plan: CANCELED: XR L-SPINE AP,LAT,FLEX,EXT 4 VIEWS (M32.9) History of systemic lupus erythematosus (HCC) Comment: Concurrently SLE does not appear to be clinically or serologically active. Plan: COMPLETE BLOOD COUNT W/DIFF, BASIC METABOLIC PANEL, C3 COMPLEMENT, C4 COMPLEMENT, ELECTROPHORESIS, SERUM PROTEIN, DS DNA (R30.0) Dysuria Comment: Plan: URINALYSIS W/REFLEX CULTURE, URINE CULTURE Urine was not particularly suspicious for infection and culture did not show infection. (R20.0) Numbness of legs Comment: The patient has B12 deficiency Plan: VITAMIN B12 (CYANOCOBALAMIN) The patient should begin on a 1000 units of B12 orally on a daily basis and be rechecked by her primary care physician in 1-2 months to see if she needs parental B12.. (E55.9) Vitamin D deficiency Comment: The patient has evidence of vitamin-D deficiency. Plan: VITAMIN D, 25-HYDROXY Mrs. Taken should be taking at least 2000 IU of vitamin-D per day as well as getting 10 minutes of sun exposure without sunscreen on (M25.561, M25.562) Pain in both knees, unspecified chronicity Comment: Plan: XR KNEES RIGHT AND LEFT STANDING AP/LAT 2 VIEWS The patient plans to complete these closer to home and get them on a disc for me (M54.50, G89.29) Chronic bilateral low back pain without sciatica Comment: Plan: CANCELED: XR L-SPINE AP,LAT,FLEX,EXT 4 VIEWS The patient plans to complete this closer to home and get them on a disc for me to review. (F43.21) Grief reaction Comment: The patient has lost a brother and a [id number] in almost lost her son her brother and her son both had COVID. Plan: The patient herself is vaccinated against COVID. I have recommended that she ask Dr. Bashir about a grief group (E53.8) B12 deficiency Comment: The patient is B12 deficient. Plan: She should be supplemented with a 1000 units of B12 per day and have Dr. Bashir recheck her level in 1-2 months Revisit in 4 months. Amber Acharya MD documented in this encounter [facility] 04-20-2023 Note Patient here for 1 y ear follow up CAD, hypertension, and hyperlipidemia. Had labs and LE venous doppler back in Sep 2022. Denies chest pain and SOB. Doing great from a cardiac standpoint she says. Review of Systems Cardiovascular: Positive for leg swelling (intermittent). Musculoskeletal: Positive for arthritis, joint pain and myalgias. Neurological: Positive for light-headedness. All other systems reviewed and are negative. [facility] 04-20-2023 Note Cardiology Clinic No te Subjective Linnea Culp is a 72 y.o. year old female patient with mild pulmonary hypertension, nonobstructive coronary artery disease, hypothyroidism, hypertension, and systemic lupus erythematosus seen in follow-up. 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 She has history of coronary artery disease diagnosed by cardiac catheterization in May 2012 which was done due to chest pain and a stress test that was positive for anterior wall ischemia. At that time that showed evidence of a 20 to 30% plaque disease in the LAD and a 40 to 50% eccentric lesion in the circumflex. The left main and the right coronary artery were within normal limits. In 2012 she was having shortness of breath and lower extremity edema. Right heart catheterization was performed that showed mildly elevated right and left filling pressures with mild pulmonary hypertension. She was started on Lasix 20 mg every other day. She has hypertension and hyperlipidemia on treatment. Update: 04/26/2021 In December 2020 she was evaluated at the [facility] due to chest pain. Stress test and echocardiogram were nonrevealing. She is currently maintained on aspirin 81 mg daily, atorvastatin 80 mg daily, amlodipine 10 mg daily, furosemide 20 mg every other day PRN, metoprolol succinate 100 mg once daily. She reports no significant shortness of breath. She has mild lower extremity edema. No angina. No palpitations. Additional prior testing: Update: 04/20/2023 She has been doing well no recurrence of chest pain Stable dyspnea on exertion, sedentary lifestyle-thinks may be contributing to her symptoms No palpitations Following rheumatology every 3 months for SLE Taking Lasix PRN, has not taken it in a long time Review of Systems Cardiovascular: Positive for dyspnea on exertion. Negative for chest pain, claudication, irregular heartbeat, leg swelling, near-syncope, orthopnea, palpitations, paroxysmal nocturnal dyspnea and syncope. Objective Visit Vitals BP 122/76 (BP Location: Left arm, Patient Position: Sitting) Pulse 68 Ht 1.676 m (5' 6 ) Wt 97.1 kg (214 lb) SpO2 98% BMI 34.54 kg/m??? Smoking Status Never BSA 2.13 m??? Physical Exam General: Awake, alert, NAD Pulm: Breath sounds clear to ascultation bilaterally with no wheeze, crackles or rhonchi Cards: Regular rate and rhythm, S1, S2. No S3 or S4 gallop. Murmur: none Abd: Soft, Nontender, physiologic bowel sounds are present Extr: Lower extremity edema: Non. DP pulses:2+ Skin: warm, dry, well perfused Neuro: A&Ox3, No gross deficits Allergies No Known Allergies Medications Current Outpatient Medications: amLODIPine (Norvasc) 10 mg tablet, Take by mouth in the morning., Disp: , Rfl: aspirin 81 mg EC tablet, in the morning., Disp: , Rfl: atorvastatin (Lipitor) 80 mg tablet, Take 80 mg by mouth at bedtime., Disp: , Rfl: celecoxib (CeleBREX) 200 mg capsule, celecoxib 200 mg capsule, Disp: , Rfl: colestipol (Colestid) 1 gram tablet, in the morning., Disp: , Rfl: hydroxychloroquine (Plaquenil) 200 mg tablet, hydroxychloroquine 200 mg tablet, Disp: , Rfl: levothyroxine (Synthroid, Levoxyl) 88 mcg tablet, levothyroxine 88 mcg tablet, Disp: , Rfl: liothyronine (Cytomel) 5 mcg tablet, liothyronine 5 mcg tablet, Disp: , Rfl: metoprolol succinate XL (Toprol-XL) 100 mg 24 hr tablet, Take 100 mg by mouth in the morning and at bedtime., Disp: , Rfl: pantoprazole (ProtoNix) 40 mg EC tablet, Take 40 mg by mouth before breakfast., Disp: , Rfl: Recent Labs 08/28/2021 CBC: WBC 7.6, hematocrit 38.9, hemoglobin 13, platelets 184 Sodium 143, potassium 3.7, chloride 106, CO2 31.9, BUN 20, creatinine 1.03, GFR 53% Blood testing 04/25/2021: Potassium 4.1, BUN 15, creatinine 1.07, LFTs normal, hemoglobin 13.2. Imaging and other tests Stress test 01/05/2021: No reversible ischemia, normal exercise stress test. Myocardial perfusion imaging study is normal. Echocardiogram 12/29/2020: Global left ventricular systolic function is normal, ejection fraction is 55- 60%, moderate diastolic dysfunction, biatrial enlargement, right ventricle is normal in size and systolic function, mildly elevated right-sided pressures. No significant valvular abnormalities. Atrial pericardial effusion is seen. Assessment Diagnoses and all orders for this visit: Atherosclerosis of (more content not included)... [facility] 09-07-2022 Note PROCEDURE: XR HAND L T MIN 3V, XR WRIST LT MIN 3 V HISTORY: Pain of left hand and wrist after falling; numbness and tingling left third through fifth digits COMPARISON: None. FINDINGS: BONES:Narrowing and sclerosis of the contiguous articular surfaces of the first carpal-metacarpal joint. Multifocal mild degenerative joint disease. There is suggestion of avulsion fracture at base of first proximal phalanx on image 2 of the hand,. SOFT TISSUES:No visible soft tissue swelling. EFFUSION:None visible. OTHER: Negative. IMPRESSION: 1. Acute versus remote proximal corner fracture of first digit distal phalanx. Correlate for pain in this area. 2. Moderate marked degenerative changes of the first carpal-metacarpal joint. 3. Unremarkable third through fifth digits were patient describes pain. Electronically authenticated by: HECTOR LING Date: 2022-09-07 06:48 [facility] 09-07-2022 Note PROCEDURE: XR HAND L T MIN 3V, XR WRIST LT MIN 3 V HISTORY: Pain of left hand and wrist after falling; numbness and tingling left third through fifth digits COMPARISON: None. FINDINGS: BONES:Narrowing and sclerosis of the contiguous articular surfaces of the first carpal-metacarpal joint. Multifocal mild degenerative joint disease. There is suggestion of avulsion fracture at base of first proximal phalanx on image 2 of the hand,. SOFT TISSUES:No visible soft tissue swelling. EFFUSION:None visible. OTHER: Negative. IMPRESSION: 1. Acute versus remote proximal corner fracture of first digit distal phalanx. Correlate for pain in this area. 2. Moderate marked degenerative changes of the first carpal-metacarpal joint. 3. Unremarkable third through fifth digits were patient describes pain. Electronically authenticated by: HECTOR LING Date: 2022-09-07 06:48 [facility] 09-06-2022 History of Present illness Narrative PAIN MANAGEMENT FOLLOW-UP Documentation: Mode: Telephone Patient Patient Work Phone: Patient Cell Preferred phone: [phone] Consent: I confirmed patient understanding of the risks and benefits of telehealth visits and obtained consent to proceed with the telehealth visit. Location of Patient: Home of patient SUBJECTIVE: We are seeing this patient in our pain management clinic for post procedure follow up. History was provided by patient. Since the visit for Intercostal neuritis, patient has had gradually improving course. Pain is currently described as shooting without radiation to arms, legs, or buttocks, and is made worse by walking and nothing. PRIOR MEDICAL HISTORY: Past Medical History: Diagnosis Date DJD (degenerative joint disease), cervical DJD (degenerative joint disease), lumbar Fibromyalgia HTN (hypertension) Hypercholesteremia Hypothyroid PRIOR SURGICAL HISTORY: Past Surgical History: Procedure Laterality Date APPENDECTOMY; choly DILATATION AND CURETTAGE right knee surgery arthrocopy repair meniscus SHOULDER SURGERY right vitamin d def MEDICATIONS: Current Outpatient Medications on File Prior to Visit Medication Sig Dispense Refill colestipol (COLESTID) 1 GM tablet colestipol 1 gram tablet Take 1 tablet every day by oral route for 90 days. levothyroxine (SYNTHROID) 88 MCG tablet alendronate (Fosamax) 70 MG tablet Take 1 Tablet by mouth once weekly. 4 Tablet 3 celecoxib (CeleBREX) 200 MG capsule tramadol (ULTRAM) 50 MG tablet Take 1 Tablet by mouth every 8 hours as needed for up to 90 days. 30 Tablet 1 liothyronine (CYTOMEL) 5 MCG tablet hydroxychloroquine (PLAQUENIL) 200 MG tablet TAKE 2 TABLETS BY MOUTH DAILY 180 Tablet 1 aspirin 81 MG enteric coated tablet Take 81 mg by mouth daily. atorvastatin (LIPITOR) 80 mg tablet amLODIPine (NORVASC) 10 MG tablet Cholecalciferol (VITAMIN D3) 1000 UNITS CAPS Take 1 Capsule by mouth daily. 90 Capsule 1 pantoprazole (PROTONIX) 40 MG tablet Take 40 mg by mouth daily. metoprolol XL (TOPROL-XL) 100 MG XL tablet Take 100 mg by mouth 2 times daily. No current facility-administered medications on file prior to visit. SOCIAL HISTORY: Social History Tobacco Use Smoking status: Never Smokeless tobacco: Never Substance Use Topics Alcohol use: No Drug use: No REVIEW OF SYSTEMS: Respiratory: negative symptoms (no cough, hemoptysis, SOB, CHAPA, PND, wheezing) Cardiovascular: negative symptoms (No CP/Pressure/Tightness, palpitations, orthopnea, PND, SOB, CHAPA, edema, GOMEZ or vision change) Gastrointestinal: negative symptoms (no abdominal pain, anorexia, n/v, indigestion, constipation, or diarrhea) Neuro: Denies numbness or tingling in right hand, left hand, right foot, and left foot. Portions of record reviewed for pertinent issues: active problem list, medication list, allergies, family history, and notes from last encounter. OBJECTIVE: No physical exam, telemedicine visit today as follow up to recent procedure ASSESSMENT: Patient in for hospital follow up. Patient had Thoracic Paravertebral block at the T 6 level. on 08-09-[address] Young. Patient report 60% improvement from procedure. Patient states she still get the shooting stinging pain but less frequent. Fall on 09/02/22 after tripping over some brush causing injury to left hand with bruising and swelling, chest bruising. Patient states she did not seek medical treatment. Patient states she will call PCP today to get Xray due to symptoms not getting better. PLAN: 1) OARRS was reviewed today and, since last office visit, is appropriate 2) Follow up PRN 3) Started pain on Lyrica 50 mg BID, 30 day supply ALYSSA Ward documented in this encounter [facility] 08-09-2022 Note PROCEDURE: Thoracic Paravertebral block at the T 6 level. SURGEON: Alfredito Young MD TWO PATIENT IDENTIFIERS USED: Name and Medical Record number INDICATION(S): Chest all Neuropathic Pain CONSENT: -METHOD OF CONSENT: written/given verbally by the patient. RISKS DISCUSSED WITH CONSENTING PERSON: The risks including, but not limited to pneumothorax, permanent numbness or tingling, infection, increased pain, no pain relief, bleeding, side effects of steroids were all explained to the patient. The benefits, and alternatives were also explained to the patient and the patient expressed understanding of all this and wishes to proceed. ANTISEPTIC PREPARATION: 2% chlorhexidine (chloraprep) ANESTHESIA: Local COMPLICATIONS: Apparently none. OPERATIVE NOTE: After informed consent was obtained, the patient was brought to the fluoroscopy, placed in the prone. The thoracic area was prepped and draped in usual sterile fashion using chlorhexidine scrub and sterile towels. Using fluoroscopic guidance, the skin and subcutaneous tissues overlying needle trajectory to the T 6 TP was anesthetized with 0.5% lidocaine via a 25 gauge 1 1/2 inch needle. The the rest of the procedure ultrasound used. Then the 22-gauge 3 inch Pajunk needle was then introduced and advanced superficial to the T transverse process Real time ultrasound short axis out of plane , , X ray helped localization , After negative aspiration for blood or air in aliquots of 2mL, a total of 10 mL of 0.5% bupivacaine and 20 mg of dexamethasone were injected. The parietal pleura pushed anteriorly The needle was removed, a bandage was applied. The patient tolerated the procedure well. FOLLOW UP: The patient will participate in physical therapy, continue to take their medication, and update me on their response to this injection. Alfredito Young MD,CHANO [facility] 08-09-2022 History of Present illness Narrative PROCEDURE: Thoracic Paravertebral block at the T 6 level. SURGEON: Alfredito Young MD TWO PATIENT IDENTIFIERS USED: Name and Medical Record number INDICATION(S): Chest all Neuropathic Pain CONSENT: -METHOD OF CONSENT: written/given verbally by the patient. RISKS DISCUSSED WITH CONSENTING PERSON: The risks including, but not limited to pneumothorax, permanent numbness or tingling, infection, increased pain, no pain relief, bleeding, side effects of steroids were all explained to the patient. The benefits, and alternatives were also explained to the patient and the patient expressed understanding of all this and wishes to proceed. ANTISEPTIC PREPARATION: 2% chlorhexidine (chloraprep) ANESTHESIA: Local COMPLICATIONS: Apparently none. OPERATIVE NOTE: After informed consent was obtained, the patient was brought to the fluoroscopy, placed in the prone. The thoracic area was prepped and draped in usual sterile fashion using chlorhexidine scrub and sterile towels. Using fluoroscopic guidance, the skin and subcutaneous tissues overlying needle trajectory to the T 6 TP was anesthetized with 0.5% lidocaine via a 25 gauge 1 1/2 inch needle. The the rest of the procedure ultrasound used. Then the 22-gauge 3 inch Pajunk needle was then introduced and advanced superficial to the T transverse process Real time ultrasound short axis out of plane , , X ray helped localization , After negative aspiration for blood or air in aliquots of 2mL, a total of 10 mL of 0.5% bupivacaine and 20 mg of dexamethasone were injected. The parietal pleura pushed anteriorly The needle was removed, a bandage was applied. The patient tolerated the procedure well. FOLLOW UP: The patient will participate in physical therapy, continue to take their medication, and update me on their response to this injection. Alfredito Young MD,CHANO documented in this encounter [facility] 08-09-2022 Instructions Rose Duff RN - 08/09/2022 4:17 PM EDT Pain Management Post-Injection Discharge Instructions Activity: Rest at home today/tonight. Keep a responsible adult with you today/tonight if possible. Do not drive a car or operate machinery for the next 12 hours while your arms/legs may feel weak or numb. You may experience numbness and/or pain relief for up to 6 hours after the injection. Hygiene/Dressing: you may use an ice pack to the injection site (for 20 minutes every 1-2 hours) - do NOT use heating pad to the area for the first 24 hours after injection. You may remove your dressing when you get home - you may shower but do NOT submerge yourself in water for the first 24 hours (no tub baths, hot tubs, swimming). Watch for signs of infection: redness, swelling, pus-like drainage at injection site or fever and chills. Diet: Drink plenty of fluids and avoid any alcoholic beverages. Eat your regular diet. If you are diabetic, monitor your blood sugar levels. An increase may be seen if you received a steroid with your injection. Avoid carbohydrates and sugar for the next few days. Be alert to symptoms of increased blood sugars and notify your physician of significant increases. Medications: Continue all your prescribed medications. You may take your regular medications for pain following your injection. You may experience an increase in pain the following day after injection - do not get discouraged as the steroid medication (if received) can take 1-3 days to start working and for pain to subside. If you take aspirin and/or blood-thinning medications, restart as directed by your physician. Follow up: If not already scheduled, please make follow up appointment with your ordering physician as directed. Pain Management office: [phone] You may call [phone] and ask for the chronic pain fellow eviction specialist after office hours with any questions or concerns. documented in this encounter [facility] 06-07-2022 Instructions Amber Acharya MD - 06/07/2022 11:55 AM EDT Please fax ultrasound results [phone] Revisit with me in 4 months See pain management documented in this encounter [facility] 06-07-2022 History of Present illness Narrative CC abdominal wall discomfort HPI Linnea Culp is a 71 year old with a h/o SLE Just on vacation Has tingling at base of neck No loss of bowel or bladder When walks get night gets cramping Outpatient Medications Marked as Taking for the 06/07/22 encounter (Office Visit) with Amber Acharya MD Medication Sig Dispense Refill colestipol (COLESTID) 1 GM tablet colestipol 1 gram tablet Take 1 tablet every day by oral route for 90 days. levothyroxine (SYNTHROID) 88 MCG tablet celecoxib (CeleBREX) 200 MG capsule tramadol (ULTRAM) 50 MG tablet Take 1 Tablet by mouth every 8 hours as needed for up to 90 days. 30 Tablet 1 liothyronine (CYTOMEL) 5 MCG tablet hydroxychloroquine (PLAQUENIL) 200 MG tablet TAKE 2 TABLETS BY MOUTH DAILY 180 Tablet 1 aspirin 81 MG enteric coated tablet Take 81 mg by mouth daily. atorvastatin (LIPITOR) 80 mg tablet amLODIPine (NORVASC) 10 MG tablet Cholecalciferol (VITAMIN D3) 1000 UNITS CAPS Take 1 Capsule by mouth daily. 90 Capsule 1 pantoprazole (PROTONIX) 40 MG tablet Take 40 mg by mouth daily. metoprolol XL (TOPROL-XL) 100 MG XL tablet Take 100 mg by mouth 2 times daily. BP 124/61 Pulse 61 Wt 207 lb 4.8 oz (94 kg) BMI 34.50 kg/m Skin No rash HEENT Naso and oropharynx clear Neck No LAD Lungs CTA Breasts Not done Heart S1S2 RRR no m or g Abdomen Soft no HSM,right sided pain pver inferior ribs Musculoskeletal/Extremities No synovitis, neck reduced lat rot and lat flexion, has fat pad base occiput Neurologic Alert and interactive, strength 5/5 all 4 E including EHL, reflexes absent KJ and AJ, biceps 1+ abbey, down going plantars Pelvic/Genital Not done Rectal Not done Imp/Plan: (M4.812) Arthritis of facet joint of cervical spine (primary encounter diagnosis) Comment: Plan: [facility] (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 Amber Acharya MD Patient identified by name and birthdate. Patient informed of blood labs ordered by physician. Blood drawn from Left ac . Patient tolerated well without swelling or bleeding from venipucture site. Labs sent to lab. CC SLE HPI Linnea Culp is 71 year old with SLE Recently she c/o right abdomen tenderness When puts arm up On left gets numb Neck always arm soreness No rash or hair loss No Raynaud's No fevers or chills No SOB or chest pain Lets feel weak going up steps Bowel loose sometimes comes out No sicca Left elbow Some xerostomia BP 111/68 Comment: manual Pulse 59 Ht 5' 5 (1.651 m) Wt 201 lb (91.2 kg) BMI 33.45 kg/m Skin Rash r>l forearm ?SSLE rash from sun HEENT Naso and oropharynx clear, Right disc slightly less sharp than left Neck No LAD Lungs CTA Breasts Not done Heart S1S2 RRR no m or g Abdomen Soft no HSM Musculoskeletal/Extremities Neck reduced lateral ROM and lateral flexion, shoulders, elbows, wrists, MCPs, PIPs, DIPs full ROM no synovitis, hips FROM, no irritability, knees no effusion, FROM, no warmth, ankles non-tender, FROM, achilles non-tender, metatarsal squeeze test negative Neurologic Alert and interactive, No KJ, biceps and triceps 2+ abbey Pelvic/Genital Not done Rectal Not done Component 03/08/2022 WBC 4.7 RBC 4.51 Hemoglobin 14.7 Hematocrit 42.0 MCV 93 MCH 32.5 MCHC 34.9 Platelet 159 RDW-CV% 13.1 MPV 8.7 Neutrophils 64.1 Neutrophil # 3.00 Lymphocytes 25.8 Lymph Absolute 1.21 Monocytes 8.1 Monocyte Absolute 0.38 Eosinophil 1.4 Eosinophil Absolute 0.07 Basophils 0.6 Basophil # 0.03 Color Light Yellow Appearance Clear pH 6.0 Spec [place] 1.025 Protein Negative Blood Negative Bilirubin Negative Urobilinogen 0.2 Ketones Negative Leuk. Esterase Trace (A) Nitrite Negative Glucose Negative WBC 3-5 (A) RBC None Seen Bacteria Few Squamous Epitheleal 0-2 Glucose 82 Sodium 141 Potassium 5.1 Carbon Dioxide 26 Chloride 106 BUN 24 (H) Creatinine 1.18 (H) Calcium 9.1 Anion Gap 14 Estimated GFR 50 (L) Albumin 3.7 Bilirubin, Direct 0.20 Bilirubin, Total 1.4 Alkaline Phosphatase 62 ALT (SGPT) 22 AST (SGOT) 22 Protein, Total 6.0 Total Protein, Urine <6 Creatinine, Urine 74 TP:CR RU <81 Anti-DNA Screen Negative ds DNA Antibody <1 C3 Complement 131 C4 Complement 35 COVID 19 IGG, NUCLEOCAPSID NEGATIVE TSH (high sens.) 3.256 Culture 1,000 - 10,000 CFU/ml Multiple bacteria present suggesting contamination. Imp/Plan: (R29.0) Carpopedal spasm (primary encounter diagnosis) Comment: reviewed on epic viewer Plan: XR C-SPINE AP/LAT/OBLS/ODO, XR L-SPINE AP+LAT+OBL+CD (R42) Dizziness Comment: lab negative Plan: COVID 19 IGG ANTIBODY, NUCLEOCAPSID (M32.9) SLE (systemic lupus erythematosus related syndrome) ([facility]) Comment: labs ok Plan: COMPLETE BLOOD COUNT W/DIFF, BASIC METABOLIC PANEL, HEPATIC FUNCTION PANEL, C3 COMPLEMENT, C4 COMPLEMENT, URINALYSIS W/REFLEX CULTURE, TOTAL PROTEIN WITH CREATININE, RANDOM URINE, DS DNA, URINE CULTURE, CANCELED: URINALYSIS, CANCELED: CREATININE, RANDOM URINE (E03.9) Hypothyroidism, unspecified type Comment: TSH ok Plan: TSH (R07.89) Right-sided chest wall pain Comment: Plan: XR CHEST 2 VIEW PA+LAT Amber Acharya MD Patient was identified by name and date of . Cristopher Muse documented in this encounter [facility] 03-08-2022 Instructions Amber Acharya MD - 03/08/2022 1:05 PM EDT Please talk with Dr. Bashir about imaging for right abdomen tenderness documented in this encounter [facility] Evaluation note Diagnosis Carpopedal spasm- Primary [place] Dizziness Dizziness and giddiness SLE (systemic lupus erythematosus related syndrome) ([facility]) Systemic lupus erythematosus Hypothyroidism, unspecified type Right-sided chest wall pain Painful respiration Body mass index (BMI) 33.0-33.9, adult Right-sided chest wall pain Painful respiration Carpopedal spasm [place] Carpopedal spasm [place] [facility] Diagnosis Arthritis of facet joint of cervical spine- Primary Facet joint disease of lumbosacral 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 Body mass index (BMI) 34.0-34.9, adult [facility] Diagnosis Intercostal neuritis- Primary Other nerve root and plexus disorders [facility] Diagnosis Intercostal neuritis- Primary Other nerve root and plexus disorders [facility]* Diagnosis Routine adult health maintenance- Primary Routine general medical examination at a health care facility [facility]* Diagnosis [id number] syndrome- Primary Pulmonary hypertension, mild (HCC) Other chronic pulmonary heart diseases Chronic midline low back pain without sciatica History of systemic lupus erythematosus (HCC) Personal history of other endocrine, metabolic, and immunity disorders Dysuria Numbness of legs Disturbance of skin sensation Vitamin D deficiency Unspecified vitamin D deficiency Pain in both knees, unspecified chronicity Chronic bilateral low back pain without sciatica Grief reaction Adjustment disorder with depressed mood B12 deficiency Other B-complex deficiencies Body mass index (BMI) 35.0-35.9, adult documented in this encounter [facility] Summary Purpose Family History No Family History Records FoundNo Family History Records FoundNo Family History Records FoundNo Family History Records Found Advance Directives No Advanced Directives Records FoundNo Advanced Directives Records FoundNo Advanced Directives Records FoundNo Advanced Directives Records Found Reason for Referral Specialty Diagnoses / Procedures Referred By Contac t Referred To Contact Radiology Diagnoses Right-sided chest wall pain Procedures XR CHEST 2 VIEW PA+LAT Amber Acharya MD [address] [place] [address] [facility] [address] [place] [address] [place] [address] Referral ID Status Reason Start Date Expiration Date Visits Re quested Visits Authorized [id number] Closed 03/08/2022 03/08/2023 1 1 Specialty Diagnoses / Procedures Referred By Contac t Referred To Contact Radiology Diagnoses Carpopedal spasm Procedures XR L-SPINE AP+LAT+OBL+CD Amber Acharya MD [address] [place] [address] [facility] [address] [place] [address] [place] [address] Referral ID Status Reason Start Date Expiration Date Visits Re quested Visits Authorized [id number] Closed 03/08/2022 03/08/2023 1 1 Specialty Diagnoses / Procedures Referred By Contac t Referred To Contact Radiology Diagnoses Carpopedal spasm Procedures XR C-SPINE AP/LAT/OBLS/ODO Amber Acharya MD [address] [place] [address] [facility] [address] [place] [address] [place] [address] Referral ID Status Reason Start Date Expiration Date Visits Re quested Visits Authorized [id number] Closed 03/08/2022 03/08/2023 1 1 Specialty Diagnoses / Procedures Referred By Contac t Referred To Contact Diagnoses 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 You will be contacted to schedule your appointment within 24 - 48 hours. If you are not contacted within this time frame please call the [facility] at [phone] to schedule your appointment. Question Answer Reason for Referral: Other [26] Comments Has neck and lumbar facet jt arthritis and ? 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, prefers [address] ?procedure helpful for facet joints and intercostal nervew Specialty Diagnoses / Procedures Referred By Contac t Referred To Contact Radiology Diagnoses Pain in both knees, unspecified chronicity Procedures XR KNEES RIGHT AND LEFT STANDING AP/LAT 2 VIEWS Amber Ahcarya MD [address] [place] [address] [facility] [address] [place] [address] [place] [address] Referral ID Status Reason Start Date Expiration Date V isits Requested Visits Authorized [id number] Authorized 04/25/2023 04/24/2024 1 1 Specialty Diagnoses / Procedures Referred By Contac t Referred To Contact Pulmonary Medicine Diagnoses Pulmonary hypertension, mild (HCC) Amber Acharya MD [address] [place] [address] [facility] [address] [place], [place] [id number] Referral ID Status Reason Start Date Expiration Date V isits Requested Visits Authorized [id number] Authorized 04/25/2023 10/22/2023 3 3 Scheduling Instructions Please call sleep medicine at to schedule an appointment with a sleep medicine provider. Comments Indicate patient symptoms:insomnia and other -and snoring Specialty Diagnoses / Procedures Referred By Carrie mock Referred To Contact Diagnoses [id number] syndrome Amber Acharya MD [address] [place] [address] Referral ID Status Reason Start Date Expiration Date Visits Requested Visits Authorized [id number] Authorized Patient Preference 04/25/2023 04/25/2024 3 3 Additional Source Comments INFORMATION SOURCE (unrecogn ized section and content) DATE CREATED AUTHOR 02/21/2019 [facility] DATE CREATED AUTHOR AUTHOR'S ORGANIZ ATION 10/21/2022 [facility] DATE CREATED AUTHOR AUTHOR'S ORGANIZ ATION 04/23/2023 [facility] DATE CREATED AUTHOR AUTHOR'S ORGANIZ ATION 07/13/2023 [facility] Care Teams (unrecognized sec tion and content) Bb Shot Packer Relationship Specialty Start Date End Date Dorita Bashir MD [address] [place] [address] PCP - General Family Medicine 03/30/14 Amber Acharya MD [address] [place], [place] [id number] Physician Rheumatology 08/17/20 Bb Shot Packer Relationship Specialty Start Date End Date Dorita Bashir MD [address] [place] [address] PCP - General Family Medicine 03/30/14 Amber Acharya MD [address] [place] [address] Physician Rheumatology 08/17/20 Bb Shot Packer Relationship Specialty Start Date End Date Dorita Bashir MD [address] [place] [address] PCP - General Family Medicine 03/30/14 Amber Acharya MD [address] [place] [address] Physician Rheumatology 08/17/20 Bb Shot Packer Relationship Specialty [place] [address] [place] [address] PCP - General Family Medicine 03/30/14 Amber Acharya MD [address] [place] [address] Physician Rheumatology 08/17/20 Bb Shot Packer Relationship Specialty [place] [address] [place] [address] PCP - General Family Medicine 03/30/14 Amber Acharya MD [address] [place] [address] Physician Rheumatology 08/17/20 Bb Shot Packer Relationship Specialty Start Date End Date Dorita Bashir MD [address] [place] [address] PCP - General Family Medicine 03/30/14 Amber Acharya MD [address] [place] [address] Physician Rheumatology 08/17/20 Bb Shot Packer Relationship Specialty Start Date End Date Dorita Bashir MD [address] [place] [address] PCP - General Family Medicine 03/30/14 Amber Acharya MD [address] [place] [address] Physician Rheumatology 08/17/20 Alfredito Young MD [address] [place] [address] [place] [address] Physician Anesthesiology 08/12/22 Bb Shot Packer Relationship Specialty Start Date End Date Dorita Bashir MD [address] [place] [id number] PCP - General Family Medicine 03/30/14 Amber Acharya MD [address] [place] [address] Physician Rheumatology 08/17/20 Alfredito Young MD [address] [place] [address] [place] [address] Physician Anesthesiology 08/12/22 Bb Shot Packer Relationship Specialty [place] [address] [place], [place] [phone] PCP - General Family Medicine 03/30/14 Amber Acharya MD [address] [place] [address] Physician Rheumatology 08/17/20 Alfredito Young MD [address] [place] [address] [place] [address] Physician Anesthesiology 08/12/22 Bb Shot Packer Relationship Specialty Start Date End Date Dorita Bashir MD [address] [place] [phone] PCP - General Family Medicine 03/30/14 Amber Acharya MD [address] [place] [address] Physician Rheumatology 08/17/20 Alfredito Young MD [address] [place] [address] [place] [address] Physician Anesthesiology 08/12/22 Bb Shot Packer Relationship Specialty Start Date End Date Dorita Bashir MD [address] [place] [address] PCP - General Family Medicine 03/30/14 Amber Acharya MD [address] [place] [address] Physician Rheumatology 08/17/20 Alfredito Young MD [address] [place] [address] [place] [address] Physician Anesthesiology 08/12/22 Bb Shot Packer Relationship Specialty Start Date End Date Dorita Bashir MD [address] [place], [place] [phone] PCP - General Family Medicine 03/30/14 Amber Acharya MD [address] [place], [place] [phone] Physician Rheumatology 08/17/20 Alfredito Young MD [address] [place] [address] [place] [address] Physician Anesthesiology 08/12/22 Reason for Visit (unrecogniz ed section and content) Reason Comments Monitoring/follow-up Reason Comments Monitoring/follow-up Reason Comments Procedure Specialty Diagnoses / Procedures Referred By Contac t Referred To Contact Pain Management Diagnoses 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 Procedures PVB THORACIC SINGLE INJ SITE Right T 5 Thoracic paravertebral block Alfredito Young MD [address] [place] [address] [facility] [address] [place] [address] Referral ID Status Reason Start Date Expiration Date V isits Requested Visits Authorized [id number] Closed Transfer of Care-[facility] 07/28/2022 10/27/2022 1 1 Reason Comments Discuss results test/procedures Medication Management Reason Comments Blood test Reason Comments Pain In multiple sites Numbness/tingling FOR RECORDS PERTAINING TO PATIENTS WHO ARE OR HAVE BEEN ENROLLED IN A CHEMICAL DEPENDENCY/SUBSTANCEABUSE PROGRAM, SOME INFORMATION MAY BE OMITTED. This clinical summary was aggregated from multiple sources. Caution should be exercised in using it in the provision of clinical care. This summary normalizes information from multiple sources, and as a consequence, information in this document may materially change the coding, format and clinical context of patient data. In addition, data may be omitted in some cases. CLINICAL DECISIONS SHOULD BE BASED ON THE PRIMARY CLINICAL RECORDS. [employer] provides no warranty or guarantee of the accuracy or completeness of information in this document.
--- NOTE | 2023-11-08 08:58 | XR_ITS ---
The [address] [address] Patient Name: KINDRA HUNTER MRN: [id number] date: 1950 Sex: F Assigned Patient Location: [facility] Current Patient Location: Accession/Order Number: [id number] Exam Date: 11/08/2023 09:00 Report Date: 11/09/2023 07:45 At the request of: DORITA MARIE Procedure: XR hand RT min 3V PROCEDURE: XR hand RT min 3V HISTORY: De Quervain Disease M65.4 COMPARISON: None. FINDINGS: BONES:Mild degenerative changes of the interphalangeal joint of the first digit and the distal interphalangeal joints of the second through 5th digits. SOFT TISSUES:No visible soft tissue swelling. EFFUSION:None visible. OTHER: Negative. XR/XR hand RT min 3V IMPRESSION: 1. Multifocal mild degenerative joint disease. No acute or suspicious findings. Electronically authenticated by: HECTOR LING Date: 11/09/2023 07:45
== END 2023-11-08 08:51 | disposition home or self-care (01) ==
LOC: RAD 08:51
PROVIDERS: PCP Family Medicine; Visit Provider Family Medicine
DX: M65.4 Radial styloid tenosynovitis [de Quervain] (principal); M19.041 Primary osteoarthritis, right hand
CPT/HCPCS: 73130

== ENCOUNTER 2024-02-08 08:51 | Outpatient (RCR) | payer MEDICARE, OTHER, SELFPAY | END 2024-03-04 13:56 | disposition home or self-care (01) | LOC: PT 08:51 | PROVIDERS: PCP Family Medicine | DX: R26.89 Other abnormalities of gait and mobility (principal) | CPT/HCPCS: 97110; 97112; 97162 ==

== ENCOUNTER 2024-05-30 10:31 | Outpatient (OUT) | payer MEDICARE, OTHER, SELFPAY ==
--- OUTSIDE RECORDS SUMMARY | 2024-05-30 10:44 | XMS_ITS | CCD ---
Author Organization [facility] CliniSyhi Care Team Providers Care Institutional Commodity Analyst Name Role Phone Dorita Bashir Primary Care Unavailable Amber Acharya Admitting Unavailable Amber Acharya Attending Unavailable Dorita Bashir MD Primary Care Provider [phone] Amber Acharya MD Unavailable Dorita Bashir MD Primary Care Provider [phone] Amber Acharya MD Unavailable [phone] Bethany VELÁSQUEZ, [facility] Unavailable DR DORITA BASHIR Admitting Unavailable HOY, DR KEVIN Attending Unavailable HOMaría, DR KEVIN Primary Care Unavailable ACHARYA, DR AMBER Alonzo Referring Unavailable FRANK, DR KEVIN Consulting Unavailable ASHLEY DAVIS Consulting Unavailable HOY, DR KEVIN Admitting Unavailable HOY, DR KEVIN Attending Unavailable HOY, DR KEVIN Primary Care Unavailable HOY, DR KEVIN Consulting Unavailable FRANK, DR KEVIN Admitting Unavailable HOMaría, DR KEVIN Attending Unavailable FRANK, DR KEVIN Primary Care Unavailable HOY, DR KEVIN Consulting Unavailable FRANCI BUSTOS Consulting Unavailable KATHYY, DR KEVIN Admitting Unavailable HOY, DR KEVIN Attending Unavailable HOY, DR KEVIN Primary Care Unavailable HOY, DR KEVIN Consulting Unavailable ZIBERNA, DR HECTOR Goldsmith Consulting Unavailable FRANK, DR KEVIN Admitting Unavailable HOY, DR KEVIN Attending Unavailable KATHYY, DR KEVIN Primary Care Unavailable HOY, DR KEVIN Consulting Unavailable VLAD, DR ASHLEY Grayson Consulting Unavailable FRANK, DR KEVIN Admitting Unavailable FRANK, DR KEVIN Attending Unavailable FRANK, DR KEVIN Primary Care Unavailable HOY, DR KEVIN Consulting Unavailable ZIEBKWAKU, DR HECTOR Goldsmith Consulting Unavailable HOMaría, DR KEVIN Admitting Unavailable HOY, DR KEVIN Attending Unavailable HOY, DR KEVIN Primary Care Unavailable FRANK, DR KEVIN Consulting Unavailable FRANK, DR KEVIN Admitting Unavailable FRANK, DR KEVIN Attending Unavailable FRANK, DR KEVIN Primary Care Unavailable FRANK, DR KEVIN Consulting Unavailable Dorita Bashir MD Primary Care Provider [phone] Amber Acharya MD Unavailable [phone] Alfredito Sims MD Unavailable IFRAH CHRISTIANSEN Attending Unavailable PROVIDER, UNKNOWN Admitting Unavailable DORITA BASHIR Primary Care Unavailable AMBER ACHARYA Referring Unavailable PROVIDER, UNKNOWN Attending Unavailable DORITA BASHIR Primary Care Unavailable AMBER ACHARYA Attending Unavailable PROVIDER, UNKNOWN Admitting Unavailable PROVIDER, UNKNOWN Attending Unavailable DORITA BASHIR Primary Care Unavailable PROVIDER, UNKNOWN Admitting Unavailable PROVIDER, UNKNOWN Attending Unavailable DORITA BASHIR Primary Care Unavailable AMBER ACHARYA Referring Unavailable PROVIDER, UNKNOWN Admitting Unavailable PROVIDER, UNKNOWN Admitting Unavailable DORITA BASHIR Primary Care Unavailable AMBER ACHAYRA Referring Unavailable PROVIDER, UNKNOWN Attending Unavailable Medications Current Medications Medication Drug Class(es) Dates Sig (Normalized) Sig (Original) amLODIPine 10 mg oral tablet (20 sources) Dihydropyridine Calcium Channel Con Start: 01-28-2020 take 1 tablet by mouth once daily amLODIPine (NORVASC) 10 MG tablet Take 10 mg by mouth daily. 01/28/2020 Active aspirin 81 mg delayed release oral tablet (20 sources) Platelet Aggregation Inhibitor, Nonsteroidal Anti-inflammatory Drug take 1 tablet by mouth once daily aspirin 81 MG enteric coated tablet Take 81 mg by mouth daily. Active take 1 tablet by mouth once juju y aspirin 81 MG tablet Take 81 mg by mouth daily. 0 Active atorvastatin 80 mg oral tablet (20 sources) HMG-CoA Reductase Inhibitor Start: 01-28-2020 atorvastatin (LIPITOR) 80 mg tablet 01/28/2020 Active celecoxib 200 mg oral capsule (20 sources) Nonsteroidal Anti-inflammatory Drug Start: 03-02-2022 celecoxib (CeleBREX) 200 MG capsule 200 mg 2 times daily. 03/02/2022 Active cholecalciferol 0.025 mg oral capsule (20 sources) Vitamin D Start: 04-18-2017 take 1 capsule by mouth once daily Cholecalciferol (VITAMIN D3) 1000 UNITS CAPS Take 1 Capsule by mouth daily. 90 Capsule 1 04/18/2017 Active colestipol hydrochloride 1000 mg oral tablet (20 sources) Bile Acid Sequestrant Start: 05-28-2024 take 1 tablet by mouth twice daily colestipol (COLESTID) 1 GM tablet Take 1 Tablet by mouth 2 times daily. 180 Tablet 3 05/28/2024 Active Start: 05-10-2022 take 1 tablet by rosa elena once daily colestipol (COLESTID) 1 GM tablet colestipol 1 gram tablet Take 1 tablet every day by oral route for 90 days. 05/10/2022 Active Start: 09-07-2021 End: 06-07-2022 take 1 tablet by mouth twice daily as needed colestipol (COLESTID) 1 GM tablet Take 1 Tablet by mouth 2 times daily as needed. 180 Tablet 3 09/07/2021 06/07/2022 Discontinued cranberry preparation 500 mg oral capsule (6 sources) Non-Standardized Food Allergenic Extract, Non-Standardized Plant Allergenic Extract take 1 capsule by mouth once daily Cranberry 500 MG CAPS Take 500 mg by mouth daily. Active gabapentin 100 mg oral capsule (6 sources) Anti-epileptic Agent Start: 05-28-20 End: 05-23-20 25 take 2 capsules by mouth once daily gabapentin (NEURONTIN) 100 MG capsule Take 2 Capsules by mouth daily for 360 days. 180 Capsule 3 05/28/2024 05/23/2025 Active Start: 01-30-2024 End: 04-29-2024 take 1 capsule by mouth once daily, then take 1 capsule by mouth twice daily gabapentin (NEURONTIN) 100 MG capsule Take 1 capsule by mouth daily for 7 days, then 1 capsule 2 times daily for 83 days. 90 Capsule 01/30/2024 04/29/2024 Active hydroxychloroquine sulfate 200 mg oral tablet (20 [...] Start: 05-16-2022 levothyroxine (SYNTHROID) 88 MCG tablet 05/16/2022 Active Start: 01-28-2020 take 1 tablet by rosa elena th once daily 30 minutes before breakfast Levothyroxine Sodium 88 MCG CAPS Take 1 Tablet by mouth daily (30 minutes before breakfast). 0 01/28/2020 Active liothyronine sodium 0.005 mg oral tablet (20 sources) l-Triiodothyronine Start: 02-28-2021 liothyronine (CYTOMEL) 5 MCG tablet 02/28/2021 Active 24 hr metoprolol succinate 100 mg extended release oral tablet (20 sources) beta-Adrenergic Con take 1 tablet by mouth twice daily metoprolol XL (TOPROL-XL) 100 MG XL tablet Take 100 mg by mouth 2 times daily. Active Multiple Vitamins-Minerals (EYE VITAMINS ORAL) (5 sources) Multiple Vitamins-Minerals (EYE VITAMINS ORAL) Take by mouth. 0 Active pantoprazole 40 mg delayed release oral tablet (20 sources) Proton Pump Inhibitor pantoprazo le (PROTONIX) 40 MG tablet Take 40 mg by mouth. Active pregabalin 50 mg oral capsule (16 sources) Start: 09-06-2022 End: 10-06-2022 take 1 capsule by mouth twice daily pregabalin (Lyrica) 50 MG capsule Indications: Intercostal neuritis Take 1 Capsule by mouth 2 times daily for 30 days. 60 Capsule 09/06/2022 Active traMADol hydrochloride 50 mg oral tablet (20 sources) Opioid Agonist Start: 05-28-2024 End: 08-26-2024 take 1 tablet by mouth every eight hours as needed tramadol (ULTRAM) 50 MG tablet Indications: Fibromyalgia Take 1 Tablet by mouth every 8 hours as needed for up to 90 days. 30 Tablet 1 05/28/2024 08/26/2024 Active Start: 09-07-2021 take 1 tablet by rosa elena th every eight hours as needed tramadol (ULTRAM) 50 MG tablet Indications: Fibromyalgia Take 1 Tablet by mouth every 8 hours as needed for up to 90 days. 30 Tablet 1 09/07/2021 Active triamcinolone acetonide 1 mg/ml topical cream (2 sources) Corticosteroid Start: 03-27-2024 triamcinolone 0.1 % cream 1 Application. 03/27/2024 Active vitamin b12 5 mg oral capsule (6 sources) Vitamin B12 take 1 capsule by mouth once daily Cyanocobalamin (B-12) 5000 MCG CAPS Take 5,000 mcg by mouth daily. Active vitamin e 180 mg oral capsule (6 sources) take 1 capsule by mouth once daily vitamin E 180 MG (400 UNIT) CAPS capsule Take 180 mg by mouth daily. Active Completed/Discontinued Medications Medication Drug Class(es) Dates [...] bronchitis, unspecified; Translations: [ACUTE BRONCHITIS UNSPECIFIED] Onset: 2 Episodic Adjustment disorders (1 source) Grief finding; Translations: [Adjustment disorder with depressed mood] 04-30-2023 Chronic Allergic reactions (2 sources) Contact dermatitis; Translations: [Unspecified contact dermatitis, unspecified cause] Onset: 4 05-28-2024 Episodic Conditions associated with dizziness or vertigo (1 source) Dizziness; Translations: [Dizziness and giddiness] Episodic Congestive heart failure; nonhypertensive (1 source) Unspecified diastolic (congestive) heart failure; Translations: [UNSPECIFIED DIASTOLIC HEART FAILURE] Onset: 2 Chronic Coronary atherosclerosis and other heart disease (20 sources) Coronary atherosclerosis; Translations: [Atherosclerotic heart disease of [place] coronary artery without angina pectoris] Onset: 2 [...] including parasitic (1 source) Post-viral disorder; 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 Other nervous system disorders [...] Translations: [Anesthesia of skin] 04-25-2023 Episodic Other nervous system disorders (1 source) Paresthesia of lower extremity; Translations: [Anesthesia of skin] 02-27-2024 Episodic Other nervous system disorders (1 source) Anesthesia of skin; Translations: [Anesthesia of skin] Onset: 4 Episodic Other nervous system disorders (1 source) Paresthesia of skin; Translations: [Paresthesia of skin] Onset: 4 Episodic Other non-traumatic joint disorders (1 source) [...] Fibromyalgia; Translations: [FIBROMYALGIA] Onset: 03-29-2022 Episodic Other screening for suspected conditions (not mental disorders or infectious disease) (1 source) Encounter for screening for malignant neoplasm of rectum; Translations: [ENC SCREEN MALIG NEOPLASM RECTUM] Onset: 03-29-2022 Episodic Unclassified (1 source) CONTACT W/AND (SUSP) EXPOS COVID-19; Translations: [CONTACT W/AND (SUSP) EXPOS COVID-19] Onset: 08-22-2022 Results Test Name Value Interpretation Reference Range Facility Telephone Encounteron 2023 Chemical Unit Operator Authentication Interface Message Text Faxed completed physical therapy forms to [facility] #[phone]. Confirmation received. Added a copy of forms to media folder. Normal [facility] Progress Noteson 03-05-2024 Chemical Unit Operator Authentication Interface Message Text There was a possible minor abnormally in a nerve that causes numbness and tingling in the foot. We can see next time if you have a Razo's cyst that is irritating the nerve that goes to the foot Amber Acharya MD Normal [facility] EMGon 02-27-2024 [facility] observation (narrative) [facility] Notes[facility] 02-04-2024 Chemical Unit Operator Authentication Interface Message Text This is ok Amber Acharya MD Normal [facility] BASIC METABOLIC PANELon 03-2 Anion gap [Moles/Vol] 12 mmol/L Normal 10-20 [facility] Comment on above: Performed By: #### V ITB12, CH8, HEPATIC, C4, C3 #### [facility] [address] [place] [address], Calcium [Mass/Vol] 8.8 mg/dL Normal 8.6-10.3 [facility] Comment on above: Performed By: #### V ITB12, CH8, HEPATIC, C4, C3 #### [facility] [address] [place] [address], Chloride [Moles/Vol] 108 mmol/L High 98-107 [facility] Comment on above: Performed By: #### V ITB12, CH8, HEPATIC, C4, C3 #### [facility] [address] [place] [address], CO2 [Moles/Vol] 27 mmol/L Normal 21-31 [facility] Comment on above: Performed By: #### V ITB12, CH8, HEPATIC, C4, C3 #### [facility] [address] [place] [address], Creatinine [Mass/Vol] 1.08 mg/dL Normal 0.60-1.20 [facility] Comment on above: Performed By: #### V ITB12, CH8, HEPATIC, C4, C3 #### [facility] [address] [place] [address], ESTIMATED GFR (CKD-EPI) 55 mL/min/1.73sqm Low >=60 [facility] Comment on above: Result Comment: 2020 CKD EPI Equation using Creatinine without Race Comment: Estimated glomerular filtration rate (eGFR) is calculated without a race coefficient. Values should be interpreted in the context of the patient's full clinical presentation. Reference: 1. Toi C, Nhi M, Lucio FRAZIER, et al.. A Unifying Approach for GFR Estimation: Recommendations of the NKF-ASN Task Force on Reassessing the Inclusion of Race in Diagnosing Kidney Disease. [place] Journal of Kidney Diseases 202;79(2):268-88.e1. 2. N Engl J Med 2020 Vol. 385 Issue 19 Pages 3780-0760 Performed By: #### V ITB12, CH8, HEPATIC, C4, C3 #### [facility] [address] [place] [address], Glucose [Mass/Vol] 89 mg/dL Normal 74-109 [facility] Comment on above: Performed By: #### V ITB12, CH8, HEPATIC, C4, C3 #### [facility] [address] [place] [address], Potassium [Moles/Vol] 4.3 mmol/L Normal 3.5-5.0 [facility] Comment on above: Performed By: #### V ITB12, CH8, HEPATIC, C4, C3 #### [facility] [address] [place] [address], Sodium [Moles/Vol] 143 mmol/L Normal 136-145 [facility] Comment on above: Performed By: #### V ITB12, CH8, HEPATIC, C4, C3 #### [facility] [address] [place] [address], Urea nitrogen [Mass/Vol] 15 mg/dL Normal 7-25 [facility] Comment on above: Performed By: #### V ITB12, CH8, HEPATIC, C4, C3 #### [facility] [address] [place] [address], C3 COMPLEMENTon 01-30-2024 C3 133 mg/dL Normal 81-163 [facility] Comment on above: Performed By: #### V ITB12, CH8, HEPATIC, C4, C3 #### [facility] [address] [place], [place], C4 COMPLEMENTon 01-30-2024 C4 36 mg/dL Normal 14-46 [facility] Comment on above: Performed By: #### V ITB12, CH8, HEPATIC, C4, C3 ####[facility] [id number] [place], [place], CBC WITH DIFFERENTIALon 01-11 Basophils (Bld) [#/Vol] 0.03 10*3/uL Normal 0.00-0.20 [facility] Comment on above: Performed By: #### C BCDSAT #### [facility] [address] [place], [place], Basophils/100 WBC (Bld) 0.8 % Normal <=1.9 [facility] Comment on above: Performed By: #### C BCDSAT #### [facility] [address] [place], [place], Eosinophils (Bld) [#/Vol] 0.05 10*3/uL Normal 0.00-0.70 [facility] Comment on above: Performed By: #### C BCDSAT #### [facility] [address] [place], [place], Eosinophils/100 WBC (Bld) 1.1 % Normal 0.1-4.0 [facility] Comment on above: Performed By: #### C BCDSAT #### [facility] [address] [place], [place], Erythrocyte distribution width (RBC) [Ratio] 13.2 % Normal 11.5-14.5 [facility] Comment on above: Performed By: #### C BCDSAT #### [facility] [address] [place], [place], Hematocrit (Bld) [Volume fraction] 42.2 % Normal 36.0-46.0 [facility] Comment on above: Performed By: #### C BCDSAT #### [facility] [address] [place], [place], Hemoglobin (Bld) [Mass/Vol] 14.2 g/dL Normal 12.0-15.0 [facility] Comment on above: Performed By: #### C BCDSAT #### [facility] [address] [place] [address], Lymphocytes (Bld) [#/Vol] 1.23 10*3/uL Normal 1.00-4.80 [facility] Comment on above: Performed By: #### C BCDSAT #### [facility] [address] [place] [address], Lymphocytes/100 WBC (Bld) 28.9 % Normal 24.0-44.0 [facility] Comment on above: Performed By: #### C BCDSAT #### [facility] [address] [place] [address], MCH (RBC) [Entitic mass] 32.1 pg Normal 26.0-34.0 [facility] Comment on above: Performed By: #### C BCDSAT #### [facility] [address] [place] [address], MCHC (RBC) [Mass/Vol] 33.7 g/dL Normal 32.0-35.9 [facility] Comment on above: Performed By: #### C BCDSAT #### [facility] [address] [place] [address], MCV (RBC) [Entitic vol] 95 fL Normal 80-100 [facility] Comment on above: Performed By: #### C BCDSAT #### [facility] [address] [place] [address], Monocytes (Bld) [#/Vol] 0.41 10*3/uL Normal 0.20-1.00 [facility] Comment on above: Performed By: #### C BCDSAT #### [facility] [address] [place] [address], Monocytes/100 WBC (Bld) 9.7 % Normal 2.0-11.0 [facility] Comment on above: Performed By: #### C BCDSAT #### [facility] [address] [place] [address], Neutrophils (Bld) [#/Vol] 2.54 10*3/uL Normal 1.50-8.00 [facility] Comment on above: Performed By: #### Kizzy PARSONSAT #### [facility] [address] [place], [place], Neutrophils/100 WBC (Bld) 59.6 % Normal 31.0-76.0 [facility] Comment on above: Performed By: #### Kizzy PARSONSAT #### [facility] [address] [place], [place], Platelet mean volume (Bld) [Entitic vol] 9.2 fL Normal 7.5-11.2 [facility] Comment on above: Performed By: #### Kizzy PARSONSAT #### [facility] [address] [place], [place], Platelets (Bld) [#/Vol] 158 10*3/uL Normal 150-400 [facility] Comment on above: Performed By: #### Kizzy PARSONSAT #### [facility] [address] [place], [place], RBC (Bld) [#/Vol] 4.43 10*6/uL Normal 4.00-5.20 [facility] Comment on above: Performed By: #### Kizzy PARSONSAT #### [facility] [address] [place], [place], WBC (Bld) [#/Vol] 4.3 10*3/uL Low 4.5-11.5 [facility] Comment on above: Performed By: #### Kizzy PARSONSAT #### [facility] [address] [place], [place], HEMOGLOBIN A1Con 01-30-2024 Glucose [Mass/Vol] 97 mg/dL Normal [facility] Comment on above: Performed By: #### H B A1C ####[facility] [address] [place], [address] HbA1c (Bld) [Mass fraction] 5.0 % Normal 4.0-5.6 [facility] Comment on above: Performed By: #### H B A1C ####[facility] [address] [place], [address] HEPATIC FUNCTION PANELon Albumin [Mass/Vol] 4.0 g/dL Normal 3.5-5.7 [facility] Comment on above: Order Comment: Note updated reference ranges. Performed By: #### V ITB12, CH8, HEPATIC, C4, C3 #### [facility] [address] [place] [address], ALK 71 IU/L Normal 34-104 [facility] Comment on above: Order Comment: Note updated reference ranges. Performed By: #### V ITB12, CH8, HEPATIC, C4, C3 #### [facility] [address] [place] [address], ALT [Catalytic activity/Vol] 26 U/L Normal 7-52 [facility] Comment on above: Order Comment: Note updated reference ranges. Performed By: #### V ITB12, CH8, HEPATIC, C4, C3 #### [facility] [address] [place] [address], AST [Catalytic activity/Vol] 32 U/L Normal 13-39 [facility] Comment on above: Order Comment: Note updated reference ranges. Performed By: #### V ITB12, CH8, HEPATIC, C4, C3 #### [facility] [address] [place] [address], Bilirubin [Mass/Vol] 0.9 mg/dL Normal 0.3-1.0 [facility] Comment on above: Order Comment: Note updated reference ranges. Performed By: #### V ITB12, CH8, HEPATIC, C4, C3 #### [facility] [address] [place], [place], Bilirubin.direct [Mass/Vol] 0.25 mg/dL High 0.03-0.18 [facility] Comment on above: Order Comment: Note updated reference ranges. Performed By: #### V ITB12, CH8, HEPATIC, C4, C3 #### [facility] [address] [place] [address], Protein [Mass/Vol] 6.2 g/dL Normal 6.0-8.3 [facility] Comment on above: Order Comment: Note updated reference ranges. Performed By: #### V ITB12, CH8, HEPATIC, C4, C3 #### [facility] [address] [place], [address] Patient Instructionson 01-29 Chemical Unit Operator Authentication Interface Message Text Take folic acid supplemental over the counter Normal [facility] Progress Noteson 01-30-2024 Chemical Unit Operator Authentication Interface Message Text Patient was identified by name and date of . Romelia Dunn Venipuncture performed patient tolerated well Romelia Dunn MPA Patient leaving urine sample Normal [facility] Chemical Unit Operator Authentication Interface Message Text CC h/o SLE HPI Linnea Culp is 73 year old with had left arm tingling. No DM Tingling across shoulders Drops things, hard ot grask Feet and ankles numb, unsteady Tends to veer to right No recent hair loss, Has intermittent numbness in hands Ache hurt Sleeps well until pain and burning No covid recently, had it 18 months ago, not related to COVID No rash Handsget cold but no color change No mouth or nose sores Has used canes Outpatient Medications Marked as Taking for the 01/30/24 encounter (Office Visit) with Amber Acharya MD Medication Sig Dispense Refill gabapentin (NEURONTIN) 100 MG capsule Take 1 capsule by mouth daily for 7 days, then 1 capsule 2 times daily for 83 days. 90 Capsule 0 Cyanocobalamin (B-12) 5000 MCG CAPS Take 5,000 mcg by mouth daily. Cranberry 500 MG CAPS Take 500 mg by mouth daily. vitamin E 180 MG (400 UNIT) CAPS capsule Take 180 mg by mouth daily. aspirin EC 81 MG tablet in the morning. colestipol (COLESTID) 1 GM tablet in the morning. colestipol (COLESTID) 1 GM tablet colestipol 1 gram tablet Take 1 tablet every day by oral route for 90 days. levothyroxine (SYNTHROID) 88 MCG tablet celecoxib (CeleBREX) 200 MG capsule liothyronine (CYTOMEL) 5 MCG tablet hydroxychloroquine (PLAQUENIL) 200 MG tablet TAKE 2 TABLETS BY MOUTH DAILY 180 Tablet 1 atorvastatin (LIPITOR) 80 mg tablet amLODIPine (NORVASC) 10 MG tablet Cholecalciferol (VITAMIN D3) 1000 UNITS CAPS Take 1 Capsule by mouth daily. 90 Capsule 1 metoprolol XL (TOPROL-XL) 100 MG XL tablet Take 100 mg by mouth 2 times daily. BP 135/69 (BP Location: right arm, BP position: sitting) Pulse 61 Ht 5' 5 (1.651 m) Wt 207 lb 6.4 oz (94.1 kg) SpO2 100% BMI 34.51 kg/m??? Skin No rash HEENT Naso and oropharynx clear Neck No LAD Lungs CTA Breasts Not done Heart S1S2 RRR no m or g Abdomen Soft no HSM Musculoskeletal/Extr emities TMJ 4 FB opening, no crepitus, Neck reduced lateral rotation and lateral flexion ROM, shoulders, elbows, wrists, MCPs, PIPs, DIPs full ROM no synovitis, hips FROM, no irritability, knees no effusion, FROM, no warmth, ankles non-tender, FROM, achilles non-tender, metatarsal squeeze test negative Neurologic Alert and interactive, face symmetric, CN 2-7 and 9-12 intact grossly, strength 5/5 including EHL, plantars withdrawal not upgonig Pelvic/Genital Not done Rectal Not done 01/30/2024 11:56 AM WBC 4.3 (L) RBC 4.43 Hemoglobin 14.2 Hematocrit 42.2 MCV 95 MCH 32.1 MCHC 33.7 Platelet 158 RDW-CV% 13.2 MPV 9.2 Neutrophils 59.6 Neutrophil # 2.54 Lymphocytes 28.9 Lymph Absolute 1.23 Monocytes 9.7 Monocyte Absolute 0.41 Eosinophil 1.1 Eosinophil Absolute 0.05 Basophils 0.8 Basophil # 0.03 Color Yellow Appearance Turbid pH 5.5 Spec [place] 1.016 Protein 30 ! Blood Negative Bilirubin Negative Urobilinogen Negative Ketones Negative Leuk. Esterase Positive ! Nitrite Positive ! Glucose Negative WBC 11-30 ! RBC 0-2 Bacteria Few Mucous Threads Present Squamous Epitheleal 6-10 Hyaline Cast 0-2 Glucose 89 Sodium 143 Potassium 4.3 Carbon Dioxide 27 Chloride 108 (H) BUN 15 Creatinine 1.08 Calcium 8.8 Anion Gap 12 Estimated GFR 55 (L) Albumin 4.0 Bilirubin, Direct 0.25 (H) Bilirubin, Total 0.9 Alkaline Phosphatase 71 ALT (SGPT) 26 AST (SGOT) 32 Protein, Total 6.2 Total Protein, Urine 11 Creatinine, Urine 148 TP:CR RU 74 Hemoglobin A1c 5.0 Estimated Avg Glucose 97 Vitamin B12 3,617 C3 Complement 133 C4 Complement 36 Legend: (L) Low ! 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 SANG Sanders Normal [facility] TOTAL PROTEIN WITH CREATININ E, RANDOM URINEon 01-30-2024 CREATININE, URINE 148 mg/dL Normal 10-300 [facility] [employer] Comment on above: Performed By: #### T P RU #### S PATHOLOGY LABORATORY [address] [place] [address], Protein (U) [Mass/Vol] 11 mg/dL Normal <=100 [facility] Comment on above: Performed By: #### T P RU #### [facility] [address] [place], [place], TP/CREAT RATIO 74 mg/g Normal <=164 [facility] Comment on above: Performed By: #### T P RU #### [facility] [address] [place] [address], URINALYSISon 01-30-2024 Glucose Ql (U) Negative Normal Negative The [facility] Comment on above: Order Comment: A [...] for UTI around 50%) Performed By: #### u rinalysis ####S PATHOLOGY [id number] [place], [place], Protein (U) [Mass/Vol] 30 mg/dL Abnormal Negative The [facility] Comment on above: Order Comment: A [...] for UTI around 50%) Performed By: #### u rinalysis ####S PATHOLOGY [id number] [place], [place], SQUAMOUS EPITHELIAL 6-10 Normal 0-10 The [facility] Comment on above: Order Comment: A [...] for UTI around 50%) Performed By: #### u rinalysis ####S PATHOLOGY [id number] [place], [place], [place] APPEAR Turbid Normal Clear [facility] Comment on above: [...] for UTI around 50%) Performed By: #### u rinalysis ####[facility] [id number] [place], [place], [place] BACTERIA Few Normal [facility] Comment on [...] for UTI around 50%) Performed By: #### u rinalysis ####S PATHOLOGY [id number] [place], [place] BILI Negative Normal Negative [facility] [...] for UTI around 50%) Performed By: #### u rinalysis ####S PATHOLOGY [id number] [place], [place] BLOOD Negative Normal Negative [facility] [...] for UTI around 50%) Performed By: #### u rinalysis ####[facility] PATHOLOGY [id number] [place], [place] COLOR Yellow Normal Colorless [facility] [...] for UTI around 50%) Performed By: #### u rinalysis ####[facility] PATHOLOGY [id number] [place], [place] HY CAST 0-2 Normal [facility] Comment on [...] for UTI around 50%) Performed By: #### u rinalysis ####[facility] PATHOLOGY [id number] [place], [place] KETONE Negative Normal Negative [facility] [...] for UTI around 50%) Performed By: #### u rinalysis ####S PATHOLOGY [id number] [place], [place] LEUK Positive Abnormal Negative [facility] [employer] [facility] Comment on above: Order Comment: [...] further testing for pyuria. Performed By: #### u rinalysis ####S PATHOLOGY [id number] [place], [place] MUCOUS Present Normal [facility] [employer] [facility] [facility] Comment on above: Order Comment: [...] for UTI around 50%) Performed By: #### u rinalysis ####S PATHOLOGY [id number] [place], [place] NITRITE Positive Abnormal Negative [facility] Comment on [...] for UTI around 50%) Performed By: #### u rinalysis ####[facility] PATHOLOGY [id number] [place], [place] PH 5.5 Normal 5.0-8.0 The [facility] [employer] [facility] Comment on above: Order Comment: A [...] for UTI around 50%) Performed By: #### u rinalysis ####S PATHOLOGY [id number] [place], [place] RBC 0-2 Normal 0-2 [facility] Comment on above: Order Comment: A [...] for UTI around 50%) Performed By: #### u rinalysis ####S PATHOLOGY [id number] [place], [place] SG 1.016 Normal <=1.030 The [employer] [facility] Comment on above: Order Comment: A [...] for UTI around 50%) Performed By: #### u rinalysis ####[facility] PATHOLOGY [id number] [place], [place] UROBILI Negative Normal Negative The [employer] [facility] Comment on above: Order Comment: A [...] for UTI around 50%) Performed By: #### u rinalysis ####[facility] PATHOLOGY [id number] [place], [place] WBC 11-30 Abnormal 0-2 The [employer] [facility] Comment on above: Order Comment: A [...] for UTI around 50%) Performed By: #### u rinalysis ####S PATHOLOGY [id number] [place], VITAMIN B12 (CYANOCOBALAMIN) on 01-30-2024 Cobalamin (Vitamin B12) [Mass/Vol] 3617 pg/mL Normal >300 [facility] Comment on above: Order Comment: <152 pg/mL - [id number] - 300 pg/mL- Insufficient>300 pg/mL - Sufficient Performed By: #### V ITB12, CH8, HEPATIC, C4, C3 ####[facility] [id number] [facility] [place], [address] XR ARTHRITIS SURVEY HAND/WRI STon 01-30-2024 XR ARTHRITIS SURVEY HAND/WRIST EXAMINATION: XR ARTHRITIS SURVEY HAND/WRIST 01/30/2024 12:42 PM CLINICAL HISTORY: pain hands ?OA ASSOCIATED DIAGNOSIS: Numbness and tingling of both legs below knees Numbness and tingling of both legs below knees ORDERING PROVIDER: AMBER ACHARYA TECHNVERONICA NOTE: COMPARISON: 09/07/2021 FINDINGS: There is evidence of degenerative osteoarthritis of first carpometacarpal joints bilaterally more marked on the left side. Narrowing of joint space is noted with osteophytes. Mild degenerative change noted involving the distal interphalangeal joints. No significant interval change. IMPRESSION: Degenerative osteoarthritis without significant interval change. MACRO: None Normal [facility] XR C-SPINE AP+LATERAL 2 VIEW Son 01-30-2024 XR C-SPINE AP+LATERAL 2 VIEWS EXAMINATION: XR C-SPINE AP+LATERAL 2 VIEWS 01/30/2024 12:42 PM CLINICAL HISTORY: Pain ASSOCIATED DIAGNOSIS: Numbness and tingling of both legs below knees Numbness and tingling of both legs below knees ORDERING PROVIDER: AMBER ACHARYA TECHNVERONICA NOTE: COMPARISON: 03/08/2022 FINDINGS: On the lateral view the C-spine is visible to the C6 level. On the AP view, the tip of the dens, C1 and the atlantooccipital joints are not entirely visible because of overlying bone. Mild degenerative changes are noted with small anterior and posterior osteophytes. Slightly prominent osteophyte at C5 level. No significant interval change. Vascular carotid calcifications noted in relationship to sella turcica. IMPRESSION: Mild cervical spondylosis. No significant interval change. MACRO: None Normal [facility] Number Telephone Encounteron 2023 Chemical Unit Operator Authentication Interface Message Text The [facility] external XR results added to media folder. Normal [facility] Number Telephone Encounteron 2022 Chemical Unit Operator Authentication Interface Message Text The [facility] external x-ray results added to media folder. Normal [facility] Telephone Encounteron 2022 Chemical Unit Operator Authentication Interface Message Text [facility] Rehabilitation Services signed discharge form faxed to [phone]. Confirmation received. Normal [facility] Telephone Encounteron 2022 Chemical Unit Operator Authentication Interface Message Text The [facility] Rehabilitation Services discharge form, pending provider signature added to media folder. Copy also placed on provider desk. Normal [facility] Telephone Encounteron 2022 Chemical Unit Operator Authentication Interface Message Text The [facility] Rehab Services Physical Therapy Initial Examination notes added to media folder. Normal [facility] Telephone Encounteron 2022 Chemical Unit Operator Authentication Interface Message Text From the [facility] XR of the knee Added to media folder. Normal [facility] ELECTROPHORESIS, SERUM PROTE INOrdered By: Dane Anaya on 04-27-2023 Albumin [Mass fraction] 53.8 % 52.0 - 72.0 % [facility] Work Phone: Albumin [Mass/Vol] 3.55 g/dL Low 3.90 - 5. 10 g/dL [facility] Work Phone: Alpha 1 globulin Elph (CSF) [Mass fraction] 0.29 g/dL 0.10 - 0.45 g/dL [facility] Work Phone: Alpha 1 globulin Unsp time Elph (U) [Mass fraction] 4.3 % 2.0 - 9.6 % [facility] Work Phone: Alpha 2 globulin Elph (CSF) [Mass fraction] 0.66 g/dL 0.40 - 0.90 g/dL [facility] Work Phone: Alpha 2 globulin Unsp time Elph (U) [Mass fraction] 10.0 % 5.0 - 16.0 % [facility] Work Phone: Beta globulin Elph (CSF) [Mass fraction] 1.23 g/dL High 0.50 - 1.00 g/dL [facility] Work Phone: Beta globulin Unsp time Elph (U) [Mass fraction] 18.6 % High 5.0 - 17.0 % [facility] Work Phone: Gamma globulin Elph (CSF) [Mass fraction] 0.88 g/dL 0.60 - 1.30 g/dL [facility] Work Phone: Gamma globulin Unsp time Elph (U) [Mass fraction] 13.3 % 8.0 - 21.0 % [employer] [employer] Work Phone: Interpretation Patient has increased beta-globulins and decreased albumin. No paraprotein band was observed in the serum. Maged Whiting, Ph.D [facility] Work Phone: Interpretation and review of laboratory results Abnormal [employer] Work Phone: Protein.monoclonal Elph [Mass fraction] 6.6 g/dL 5.7 - 8.1 g/dL [facility] Work Phone: . I certify that I personally conducted the diagnostic evaluation of the above specimen(s) and have rendered the final diagnosis(es). [employer] Work Phone: [employer] Work Phone: URINE CULTUREOrdered By: Rome Wynn on 04-26-2023 Bacteria identified Cx Nom (U) 1,000 - 10,000 CFU/ml Multiple bacteria present suggesting contamination. [facility] Interpretation and review of laboratory results Normal [facility] IF clinically indicated, suggest appropriate recollection with timely delivery to the laboratory. For additional information, call ext [phone]. [facility] VITAMIN B12 (CYANOCOBALAMIN) on 04-26-2023 Cobalamin (Vitamin B12) [Moles/Vol] 277 pg/mL Low 300 - PINF pg/mL [facility] Interpretation and review of laboratory results Abnormal [facility] <152 pg/mL - Deficient 152 - 300 pg/mL- Insufficient >300 pg/mL - Sufficient [facility] VITAMIN D, 25-HYDROXYon 04-12 25-hydroxyvitamin D IA [Mass/Vol] 24.7 ng/mL Low 30 - 100 ng/mL [facility] Interpretation and review of laboratory results Abnormal [facility] Basic metabolic 2000 panelon 04-25-2023 Anion gap [...] full clinical presentation. Reference: 1. Toi C, Bamindija M, Lucio DC, et al.. A Unifying Approach for GFR Estimation: Recommendations of the NKF-ASN Task Force on Reassessing the Inclusion of Race in Diagnosing Kidney Disease. [place] Journal of Kidney Diseases 202;79(2):268-88.e1. 2. N Engl J Med 2020 Vol. 385 Issue 19 Pages [phone] Glucose [Mass/Vol] 90 mg/dL 80 - 116 mg/dL [facility] Interpretation and review of laboratory results Abnormal [facility] Potassium [Moles/Vol] 4.7 mmol/L 3.3 - 5.3 mmol/L [facility] Sodium [Moles/Vol] 144 mmol/L 135 - 148 mmol/L [facility] Urea nitrogen [Mass/Vol] 16 mg/dL 8 - 22 mg/dL [facility] C3 COMPLEMENTon 04-25-2023 Complement C3 [Mass/Vol] 160 mg/dL 81 - 163 mg/dL [facility] C4 COMPLEMENTon 04-25-2023 Complement C4 [Mass/Vol] 34 mg/dL 14 - 46 mg/dL [facility] CBC WITH DIFFERENTIALon 04-12 Basophils (Bld) [#/Vol] [...] 10*3/uL 4.5 - 11.5 K/uL [facility] DS DNAon 04-25-2023 DNA double strand Ab Qn (S) Negative Negative [facility] DNA double strand Ab Qn (S) See Below [facility] ds DNA Reference Range: < or = to 4 IU/mL-Negative 5-9 IU/mL-Indeterminate > or = to 10 IU/mL-Positive [facility] No Panel Informationon 04-25 Interpretation and review of laboratory results Normal [facility] URINALYSIS WITH REFLEX CULTU RE PERFORMABLEon 04-25-2023 [...] Present [facility] Nitrite Ql (U) Negative Negative [facility] pH (U) 5.5 [pH] 5.0 - [...] (positive predictive value for UTI around 50%) [facility]iton [facility]-20-2023 Follow-up visit [id number] Linnea Culp 1950 F Date Provider Department Center 04/20/2023 [id number] CHRISTIANSEN CARD [facility] Family History Problem Relation Age of Onset Stroke Brother Stroke Paternal Grandmother Family Status - Relation Status Age at Brother Paternal Grandmother Level of Service:79858 [place] OFFICE/OUTPATIENT ESTABLISHED MOD MDM 30-39 MIN Normal [facility] Covid-19 PCR ([facility])on SARS-CoV-2 (COVID-19) RNA CRISTIAN+probe Ql (Unsp spec) Detected Critically abnormal NOT DETECTED The [facility] Comment on above: Result Comment: This test is not yet approved or cleared by the [place] FDA. When there are no FDA-approved or cleared tests available, and other criteria are met, FDA can make tests available under an emergency access mechanism called an Emergency Use Authorization (EUA). The EUA for this test is supported by the [place] of Health and Human Service's declaration that [...] longer be used). Performed By: #### C [facility] #### [facility] Laboratory [address] [place] [address] Dr. Ella Mathis INFLUENZA A AND B AGon 10-16 INFLUANEGH SEE BELOW Normal The [facility] Comment on above: Result Comment: Nega tive for Flu A protein angiten. Infection due to Flu A cannot be ruled out. Flu A angiten in the sample may be below the detection limit of the test. Performed By: #### C VDTBH #### [facility] [address] [place] [address] Dr. Ella Mathis [facility] SEE BELOW Normal [facility] Comment on above: Result Comment: Nega tive for Flu B protein antigen. Infection due to Flu B cannot be ruled out. Flu B antigen in the sample may be below the detection limit of the test. Performed By: #### C VDTBH #### [facility] [address] [place] [address] Dr. Ella Mathis INFLUENZA A AG Negative Normal NEGATIVE SEE COMMENT [facility] Comment on above: Performed By: #### C VDTBH #### [facility] [address] [place] [address] Dr. Ella Mathis INFLUENZA B AG Negative Normal NEGATIVE SEE COMMENT [facility] Comment on above: Performed By: #### C VDTBH #### [facility] [address] [place] [address] Dr. Ella Mathis INTERNAL CONTROLS Within Normal Limits Normal Wi thin Normal Limits [facility] Comment on above: Performed By: #### C VDTBH #### [facility] [address] [place] [address] Dr. Ella Mathis PROF CHEM 8 (BAS METB)on Anion gap [Moles/Vol] 10.5 mmol/L Normal [facility] Comment on above: Performed By: #### B MP #### [facility] [address] [place] [address] Dr. Ella Mathis Calcium [Mass/Vol] 8.7 mg/dL Normal 8.5-10.1 The [facility] Comment on above: Performed By: #### B MP #### [facility] [address] [place] [address] Dr. Ella Mathis Chloride [Moles/Vol] 107 mmol/L Normal 98-107 [facility] Comment on above: Performed By: #### B MP #### [facility] [address] [place] [address] Dr. Ella Mathis CO2 [Moles/Vol] 29.9 mmol/L Normal 21.0-32.0 The [facility] Comment on above: Performed By: #### B MP #### [facility] [address] [address] [address] Ella Mathis Creatinine [Mass/Vol] 1.02 mg/dL Normal 0.55-1.02 [facility] Comment on above: Performed By: #### B MP #### [facility] [address] [address] [address] Ella Mathis EGFR-AF DANISH >60 Normal >=60 The [facility] Comment on above: Performed By: #### B MP #### [facility] [address] [address] [address] Ella Mathis EGFR-NON AF DANISH 54 mL/min/1.73m2 Critically low >=60 [facility] Comment on above: Performed By: #### B MP #### [facility] [address] [address] [address] Ella Mathis Glucose [Mass/Vol] 91 mg/dL Normal 74-106 [facility] Comment on above: Performed By: #### B MP #### [facility] [address] [address] [address] Ella Mathis Potassium [Moles/Vol] 4.4 mmol/L Normal 3.5-5.1 [facility] Comment on above: Performed By: #### B MP #### [facility] [address] [address] [address] Ella Mathis Sodium [Moles/Vol] 143 mmol/L Normal 136-145 The [facility] Comment on above: Performed By: #### B MP #### [facility] [address] [address] [address] Ella Mathis Urea nitrogen [Mass/Vol] 20.0 mg/dL Critically high 7.0-18.0 [facility] Comment on above: Performed By: #### B MP #### [facility] [address] [address] [address] Ella Mathis Urea nitrogen/Creatinine [Mass ratio] 19.6 mg/mg Normal [facility] Comment on above: Performed By: #### B MP #### [facility] [address] [place] [address] Dr. Ella Mathis US BOBBI DOP LEG LTon 10-03-20 [...] calf small saphenous vein. Electronically authenticated by: HECTOR LING Date: 2022-10-03 10:59 Normal [facility] US BOBBI DOP LEG LTon 09-08-20 [...] by: ASHLEY CHU Date: 2022-09-08 17:28 Normal [facility] BNPon 08-28-2022 Natriuretic peptide B (Bld) [Mass/Vol] 346.0 pg/mL Normal <=900.0 [facility] Comment on above: Performed By: #### P TT, PT #### [facility] [address] [place] [address] Dr. Ella Mathis CBC AUTO DIFFon 08-28-2022 BASO # 0.0 103/ul Normal 0.0-0.1 [facility] Comment on above: Performed By: #### C BC #### [facility] [address] [place] [address] Dr. Ella Mathis Basophils/100 WBC (Bld) 0.4 % Normal 0.2-2.0 [facility] Comment on above: Performed By: #### C BC #### [facility] [address] [place] [address] Dr. Ella Mathis EO # 0.0 103/ul Normal 0.0-0.7 [facility] Comment on above: Performed By: #### C BC #### [facility] [address] [place] [address] Dr. Ella Mathis Eosinophils/100 WBC (Bld) 0.6 % Critically low 0.9-7.0 [facility] Comment on above: Performed By: #### C BC #### [facility] [address] [place] [address] Dr. Ella Mathis Erythrocyte distribution width (RBC) [Ratio] 12.5 % Normal 11.0-15.0 [facility] Comment on above: Performed By: #### C BC #### [facility] [address] [place] [address] Dr. Ella Mathis Hematocrit (Bld) [Volume fraction] 38.9 % Normal 36.0-48.0 [facility] Comment on above: Performed By: #### C BC #### [facility] [address] [place] [address] Dr. Ella Mathis Hemoglobin (Bld) [Mass/Vol] 13.0 g/dL Normal 12.0-16.0 [facility] Comment on above: Performed By: #### C BC #### [facility] [address] [place] [address] Dr. Ella Mathis IG # 0.04 10e3/ul Critically high 0.00-0.03 [facility] Comment on above: Performed By: #### C BC #### [facility] [address] [place] [address] Dr. Ella Mathis IG % 0.6 % Critically high 0.0-0.5 [facility] Comment on above: Performed By: #### C BC #### [facility] [address] [place] [address] Dr. Ella Mathis LYMPH # 1.8 103/ul Normal 1.2-3.8 [facility] Comment on above: Performed By: #### C BC #### [facility] [address] [place] [address] Dr. Ella Mathis Lymphocytes/100 WBC (Bld) 25.2 % Normal 20.5-60.0 [facility] Comment on above: Performed By: #### C BC #### [facility] [address] [place] [address] Dr. Ella Mathis MANUAL DIFF REQ NO Normal [facility] Comment on above: Performed By: #### C BC #### [facility] [address] [place] [address] Dr. Ella Mathis MCH (RBC) [Entitic mass] 31.9 pg Normal 26.7-34.0 [facility] Comment on above: Performed By: #### C BC #### [facility] [address] [place] [address] Dr. Ella Mathis MCHC (RBC) [Mass/Vol] 33.4 g/dL Normal 29.9-35.2 [facility] Comment on above: Performed By: #### C BC #### [facility] [address] [place] [address] Dr. Ella Mathis MCV (RBC) [Entitic vol] 95.3 fL Normal 81.0-99.0 [facility] Comment on above: Performed By: #### C BC #### [facility] [address] [place] [address] Dr. Ella Mathis MONO # 0.8 103/ul Normal 0.3-0.8 [facility] Comment on above: Performed By: #### C BC #### [facility] [address] [place] [address] Dr. Ella Mathis Monocytes/100 WBC (Bld) 10.5 % Normal 1.7-12.0 [facility] Comment on above: Performed By: #### C BC #### [facility] [address] [place] [address] Dr. Ella Mathis NEUT # 4.5 103/ul Normal 1.4-6.5 [facility] Comment on above: Performed By: #### C BC #### [facility] [address] [address] [address] Ella Mathis Neutrophils/100 WBC (Bld) 62.7 % Normal 43.0-75.0 [facility] Comment on above: Performed By: #### C BC #### [facility] [address] [address] [address] Ella Mathis Platelet mean volume (Bld) [Entitic vol] 10.2 fL Normal 9.5-13.5 [facility] Comment on above: Performed By: #### C BC #### [facility] [address] [place] [address] Dr. Ella Mathis PLT 184 103/ul Normal 150-450 [facility] Comment on above: Performed By: #### C BC #### [facility] [address] [place] [address] Dr. Ella Mathis RBC 4.08 106/ul Critically low 4.20-5.40 [facility] Comment on above: Performed By: #### C BC #### [facility] [address] [place] [address] Dr. Ella Mathis WBC 7.2 103/ul Normal 4.0-11.0 [facility] Comment on above: Performed By: #### C BC #### [facility] [address] [place] [address] Dr. Ella Mathis PROF 14(COMP METB)on 022 Albumin [Mass/Vol] 3.3 g/dL Critically low 3.4-5.0 [facility] Comment on above: Performed By: #### P TT, PT #### [facility] [address] [place] [address] Dr. Ella Mathis Albumin/Globulin [Mass ratio] 1.1 {ratio} Normal [facility] Comment on above: Performed By: #### P TT, PT #### [facility] [facility] [address] [place] [address] Dr. Ella Mathis ALP [Catalytic activity/Vol] 72 U/L Normal 46-116 [facility] Comment on above: Performed By: #### P TT, PT #### [facility] [address] [address] [address] Ella Mathis ALT [Catalytic activity/Vol] 20 U/L Normal 14-59 [facility] Comment on above: Performed By: #### P TT, PT #### [facility] [address] [address] [address] Ella Mathis Anion gap [Moles/Vol] 8.8 mmol/L Normal [facility] Comment on above: Performed By: #### P TT, PT #### [facility] [address] [address] [address] Ella Mathis AST [Catalytic activity/Vol] 11 U/L Critically low 15-37 [facility] Comment on above: Performed By: #### P TT, PT #### [facility] [address] [address] [address] Ella Mathis Bilirubin [Mass/Vol] 0.6 mg/dL Normal 0.2-1.0 [facility] Comment on above: Performed By: #### P TT, PT #### [facility] [address] [address] [address] Ella Mathis Calcium [Mass/Vol] 8.6 mg/dL Normal 8.5-10.1 [facility] Comment on above: Performed By: #### P TT, PT #### [facility] [address] [address] [address] Ella Mathis Chloride [Moles/Vol] 106 mmol/L Normal 98-107 [facility] Comment on above: Performed By: #### P TT, PT #### [facility] [address] [address] [address] Ella Mathis CO2 [Moles/Vol] 31.9 mmol/L Normal 21.0-32.0 [facility] Comment on above: Performed By: #### P TT, PT #### [facility] [address] [address] [address] Ella Mathis Creatinine [Mass/Vol] 1.03 mg/dL Critically high 0.55-1.02 [facility] Comment on above: Performed By: #### P TT, PT #### [facility] [address] [address] [address] Ella Mathis EGFR-AF DANISH >60 Normal >=60 [facility] Comment on above: Performed By: #### P TT, PT #### [facility] [address] [address] [address] Ella Mathis EGFR-NON AF DANISH 53 mL/min/1.73m2 Critically low >=60 [facility] Comment on above: Performed By: #### P TT, PT #### [facility] [address] [address] [address] Ella Mathis Globulin (S) [Mass/Vol] 3.0 g/dL Normal [facility] Comment on above: Performed By: #### P TT, PT #### [facility] [address] [place] [address] Dr. Ella Mathis Glucose [Mass/Vol] 85 mg/dL Normal 74-106 [facility] Comment on above: Performed By: #### P TT, PT #### [facility] [address] [address] [address] Ella Mathis Potassium [Moles/Vol] 3.7 mmol/L Normal 3.5-5.1 [facility] Comment on above: Performed By: #### P TT, PT #### [facility] [address] [address] [address] Ella Mathis Protein [Mass/Vol] 6.3 g/dL Critically low 6.4-8.2 [facility] Comment on above: Performed By: #### P TT, PT #### [facility] [address] [address] [address] Ella Mathis Sodium [Moles/Vol] 143 mmol/L Normal 136-145 [facility] Comment on above: Performed By: #### P TT, PT #### [facility] [address] [address] [address] Ella Mathis Urea nitrogen [Mass/Vol] 20.0 mg/dL Critically high 7.0-18.0 [facility] Comment on above: Performed By: #### P TT, PT #### [facility] [address] [place], [place] [address] Dr. Ella Mathis Urea nitrogen/Creatinine [Mass ratio] 19.4 mg/mg Normal [facility] Comment on above: Performed By: #### P TT, PT #### [facility] [address] [place], [place] [address] Dr. Ella Mathis XR CHEST 2 Von [...] FRANCI BUSTOS Date: 2022-08-28 20:20 Normal [facility]12 SARS-CoV-2 (COVID-19) RNA CRISTIAN+probe Ql (Unsp spec) Not detected Normal NOT DETECTED [facility] Comment on above: Result Comment: When [...] for this test is supported by the Voice Coach of Health and Human Service's declaration that [...] used). Performed By: #### C VDTBH #### [facility] [address] [place] [address] Dr. Ella Mathis INSULINon 03-24-2022 Insulin 10.0 uIU/mL Normal 2.6-24.9 [facility] Comment on above: Performed By: #### I NSULIN #### [facility] [address] [place] [address] Dr. Ella Mathis AMMONIAon 03-23-2022 Ammonia (P) [Moles/Vol] 18 umol/L Normal 11-32 [facility] Comment on above: Performed By: #### A MM #### [facility] [address] [place] [address] Dr. Ella Mathis AMYLASEon 03-23-2022 Amylase [Catalytic activity/Vol] 69 U/L Normal 25-115 [facility] Comment on above: Performed By: #### P TT, PT #### [facility] [address] [place] [address] Dr. Ella Mathis CBC AUTO DIFFon 03-23-2022 BASO # 0.0 103/ul Normal 0.0-0.1 [facility] Comment on above: Performed By: #### P TT, PT #### [facility] [address] [place] [address] Dr. Ella Mathis Basophils/100 WBC (Bld) 1.0 % Normal 0.2-2.0 [facility] Comment on above: Performed By: #### P TT, PT #### [facility] [address] [place] [address] Dr. Ella Mathis EO # 0.1 103/ul Normal 0.0-0.7 [facility] Comment on above: Performed By: #### P TT, PT #### [facility] [address] [place] [address] Dr. Ella Mathis Eosinophils/100 WBC (Bld) 1.4 % Normal 0.9-7.0 [facility] Comment on above: Performed By: #### P TT, PT #### [facility] [address] [place] [address] Dr. Ella Mathis Erythrocyte distribution width (RBC) [Ratio] 12.5 % Normal 11.0-15.0 [facility] Comment on above: Performed By: #### P TT, PT #### [facility] [address] [place] [address] Dr. Ella Mathis Hematocrit (Bld) [Volume fraction] 39.8 % Normal 36.0-48.0 [facility] Comment on above: Performed By: #### P TT, PT #### [facility] [address] [place] [address] Dr. Ella Mathis Hemoglobin (Bld) [Mass/Vol] 13.5 g/dL Normal 12.0-16.0 [facility] Comment on above: Performed By: #### P TT, PT #### [facility] [address] [place] [address] Dr. Ella Mathis IG # 0.01 10e3/ul Normal 0.00-0.03 [facility] Comment on above: Performed By: #### P TT, PT #### [facility] [address] [place] [address] Dr. Ella Mathis IG % 0.2 % Normal 0.0-0.5 [facility] Comment on above: Performed By: #### P TT, PT #### [facility] [address] [place] [address] Dr. Ella Mathis LYMPH # 1.1 103/ul Critically low 1.2-3.8 [facility] Comment on above: Performed By: #### P TT, PT #### [facility] [address] [place] [address] Dr. Ella Mathis Lymphocytes/100 WBC (Bld) 26.7 % Normal 20.5-60.0 [facility] Comment on above: Performed By: #### P TT, PT #### [facility] [address] [place] [address] Dr. Ella Mathis MANUAL DIFF REQ NO Normal [facility] Comment on above: Performed By: #### P TT, PT #### [facility] [address] [place] [address] Dr. Ella Mathis MCH (RBC) [Entitic mass] 32.4 pg Normal 26.7-34.0 [facility] Comment on above: Performed By: #### P TT, PT #### [facility] [address] [place] [address] Dr. Ella Mathis MCHC (RBC) [Mass/Vol] 33.9 g/dL Normal 29.9-35.2 [facility] Comment on above: Performed By: #### P TT, PT #### [facility] [address] [place] [address] Dr. Ella Mathis MCV (RBC) [Entitic vol] 95.4 fL Normal 81.0-99.0 [facility] Comment on above: Performed By: #### P TT, PT #### [facility] [address] [place] [address] Dr. Ella Mathis MONO # 0.3 103/ul Normal 0.3-0.8 [facility] Comment on above: Performed By: #### P TT, PT #### [facility] [address] [place] [address] Dr. Ella Mathis Monocytes/100 WBC (Bld) 8.2 % Normal 1.7-12.0 [facility] Comment on above: Performed By: #### P TT, PT #### [facility] [address] [place] [address] Dr. Ella Mathis NEUT # 2.6 103/ul Normal 1.4-6.5 [facility] Comment on above: Performed By: #### P TT, PT #### [facility] [address] [place] [address] Dr. Ella Mathis Neutrophils/100 WBC (Bld) 62.5 % Normal 43.0-75.0 [facility] Comment on above: Performed By: #### P TT, PT #### [facility] [address] [place] [address] Dr. Ella Mathis Platelet mean volume (Bld) [Entitic vol] 9.7 fL Normal 9.5-13.5 [facility] Comment on above: Performed By: #### P TT, PT #### [facility] [address] [address] [address] Ella Mathis PLT 166 103/ul Normal 150-450 [facility] Comment on above: Performed By: #### P TT, PT #### [facility] [address] [address] [address] Ella Mathis RBC 4.17 106/ul Critically low 4.20-5.40 [facility] Comment on above: Performed By: #### P TT, PT #### [facility] [address] [address] [address] Ella Mathis WBC 4.2 103/ul Normal 4.0-11.0 [facility] Comment on above: Performed By: #### P TT, PT #### [facility] [address] [place] [address] Dr. Ella Mathis FREE THYROXINE INDEX T7on FTI 2.42 Normal 1.30-4.50 [facility] Comment on above: Performed By: #### P TT, PT #### [facility] [address] [address] [address] Ella Mathis T3U 35.0 % Normal 30.0-39.0 [facility] Comment on above: Performed By: #### P TT, PT #### [facility] [address] [place] [address] Dr. Ella Mathis T4 [Mass/Vol] 6.90 ug/dL Normal 4.80-13.90 [facility] Comment on above: Performed By: #### P TT, PT #### [facility] [address] [address] [address] Ella Mathis GLYCOHEMOGLOBIN A1Con 2021 ADA RECOMMENDATION SEE BELOW Normal [facility] Comment on above: Result Comment: ADA RECOMMENDED LIMIT 4.0 - 6.0 ADA THERAPEUTIC TARGET < 7.0 ACTION SUGGESTED > 7.0 Performed By: #### P TT, PT #### [facility] [address] [place] [address] Dr. Ella Mathis Glucose [Mass/Vol] 100 mg/dL Normal [facility] Comment on above: Performed By: #### P TT, PT #### [facility] [address] [place] [address] Dr. Ella Mathis HbA1c (Bld) [Mass fraction] 5.1 % Normal 4.5-6.2 [facility] Comment on above: Performed By: #### P TT, PT #### [facility] [address] [place] [address] Dr. Ella Mathis IRONon 03-23-2022 Iron [Mass/Vol] 97.0 ug/dL Normal 50.0-170.0 [facility] Comment on above: Performed By: #### I ABRAN #### [facility] [address] [place] [address] Dr. Ella Mathis LIPASEon 03-23-2022 Lipase [Catalytic activity/Vol] 132.0 U/L Normal 73.0-393.0 [facility] Comment on above: Performed By: #### P TT, PT #### [facility] [address] [place] [address] Dr. Ella Mathis LIPID PROFILEon 03-23-2022 CHOL-HDL RATIO NORM SEE BELOW Normal [facility] Comment on above: Result Comment: 3.3 - 4.4 LOW RISK 4.4 - 7.1 AVERAGE RISK 7.1 - 11.0 MODERATE RISK >11.0 HIGH RISK Performed By: #### P TT, PT #### [facility] [address] [place] [address] Dr. Ella Mathis Cholesterol [Mass/Vol] 125 mg/dL Normal <=200 [facility] Comment on above: Performed By: #### P TT, PT #### [facility] [address] [place] [address] Dr. Ella Mathis Cholesterol in HDL [Mass/Vol] 79 mg/dL Critically high 40-60 [facility] Comment on above: Performed By: #### P TT, PT #### [facility] [address] [place] [address] Dr. Ella Mathis Cholesterol in LDL [Mass/Vol] 33.8 mg/dL Normal [facility] Comment on above: Performed By: #### P TT, PT #### [facility] [address] [address] [address] Ella Mathis Cholesterol.total/C holesterol in HDL [Mass ratio] 1.6 {ratio} Normal [facility] Comment on above: Performed By: #### P TT, PT #### [facility] [address] [address] [address] Ella Mathis HDL NORMAL > or = 60 mg/dl - LOW CARDIOVASCULAR RISK <40 mg/dl - HIGH CARDIOVASCULAR RISK Normal [facility] Comment on above: Performed By: #### P TT, PT #### [facility] [address] [address] [address] Ella Mathis LDL CALC NORMAL SEE BELOW Normal [facility] Comment on above: Result Comment: <100 mg/dl OPTIMAL 100 - 129 mg/dl NEAR OR ABOVE OPTIMAL 130 - 159 mg/dl BORDERLINE HIGH 160 - 189 mg/dl HIGH >190 mg/dl VERY HIGH Performed By: #### P TT, PT #### [facility] [address] [address] [address] Ella Mathis Triglyceride [Mass/Vol] 61 mg/dL Normal <=150 [facility] Comment on above: Performed By: #### P TT, PT #### [facility] [address] [place] [address] Dr. Ella Mathis VLDL CALC 12.2 mg/dL Normal [facility] Comment on above: Performed By: #### P TT, PT #### [facility] [address] [address] [address] Ella Mathis PROF 14(COMP METB)on 022 Albumin [Mass/Vol] 3.4 g/dL Normal 3.4-5.0 [facility] Comment on above: Performed By: #### L IPID, TSH, LIPA, T7, CMP, KARRIE #### [facility] [address] [address] [address] Ella Mathis Albumin/Globulin [Mass ratio] 1.1 {ratio} Normal [facility] Comment on above: Performed By: #### L IPID, TSH, LIPA, T7, CMP, KARRIE #### [facility] [address] [place] [address] Dr. Ella Mathis ALP [Catalytic activity/Vol] 66 U/L Normal 46-116 [facility] Comment on above: Performed By: #### L IPID, TSH, LIPA, T7, CMP, KARRIE #### [facility] [address] [place] [address] Dr. Ella Mathis ALT [Catalytic activity/Vol] 27 U/L Normal 14-59 [facility] Comment on above: Performed By: #### L IPID, TSH, LIPA, T7, CMP, KARRIE #### [facility] [address] [place] [address] Dr. Ella Mathis Anion gap [Moles/Vol] 8.8 mmol/L Normal [facility] Comment on above: Performed By: #### L IPID, TSH, LIPA, T7, CMP, KARRIE #### [facility] [address] [place] [address] Dr. Ella Mathis AST [Catalytic activity/Vol] 19 U/L Normal 15-37 [facility] Comment on above: Performed By: #### L IPID, TSH, LIPA, T7, CMP, KARRIE #### [facility] [address] [place] [address] Dr. Ella Mathis Bilirubin [Mass/Vol] 0.8 mg/dL Normal 0.2-1.0 [facility] Comment on above: Performed By: #### L IPID, TSH, LIPA, T7, CMP, KARRIE #### [facility] [address] [place] [address] Dr. Ella Mathis Calcium [Mass/Vol] 8.4 mg/dL Critically low 8.5-10.1 Th [facility] Comment on above: Performed By: #### L IPID, TSH, LIPA, T7, CMP, KARRIE #### [facility] [address] [place] [address] Dr. Ella Mathis Chloride [Moles/Vol] 107 mmol/L Normal 98-107 [facility] Comment on above: Performed By: #### L IPID, TSH, LIPA, T7, CMP, KARRIE #### [facility] [address] [place] [address] Dr. lEla Mathis CO2 [Moles/Vol] 28.0 mmol/L Normal 21.0-32.0 [facility] Comment on above: Performed By: #### L IPID, TSH, LIPA, T7, CMP, KARRIE #### [facility] [address] [address] [address] Ella Mathis Creatinine [Mass/Vol] 1.02 mg/dL Normal 0.55-1.02 [facility] Comment on above: Performed By: #### L IPID, TSH, LIPA, T7, CMP, KARRIE #### [facility] [address] [place] [address] Dr. Ella Mathis EGFR-AF DANISH >60 Normal >=60 [facility] Comment on above: Performed By: #### L IPID, TSH, LIPA, T7, CMP, KARRIE #### [facility] [address] [place] [address] Dr. Ella Mathis EGFR-NON AF DANISH 54 mL/min/1.73m2 Critically low >=60 [facility] Comment on above: Performed By: #### L IPID, TSH, LIPA, T7, CMP, KARRIE #### [facility] [address] [place] [address] Dr. Ella Mathis Globulin (S) [Mass/Vol] 3.0 g/dL Normal [facility] Comment on above: Performed By: #### L IPID, TSH, LIPA, T7, CMP, KARRIE #### [facility] [address] [address] [address] Ella Mathis Glucose [Mass/Vol] 86 mg/dL Normal 74-106 [facility] Comment on above: Performed By: #### L IPID, TSH, LIPA, T7, CMP, KARRIE #### [facility] [address] [address] [address] Ella Mathis Potassium [Moles/Vol] 3.8 mmol/L Normal 3.5-5.1 [facility] Comment on above: Performed By: #### L IPID, TSH, LIPA, T7, CMP, KARRIE #### [facility] [address] [place] [address] Dr. Elal Mathis Protein [Mass/Vol] 6.4 g/dL Normal 6.4-8.2 [facility] Comment on above: Performed By: #### L IPID, TSH, LIPA, T7, CMP, KARRIE #### [facility] [address] [place] [address] Dr. Ella Mathis Sodium [Moles/Vol] 140 mmol/L Normal 136-145 [facility] Comment on above: Performed By: #### L IPID, TSH, LIPA, T7, CMP, KARRIE #### [facility] [address] [place] [address] Dr. Ella Mathis Urea nitrogen [Mass/Vol] 21.0 mg/dL Critically high 7.0-18.0 [facility] Comment on above: Performed By: #### L IPID, TSH, LIPA, T7, CMP, KARRIE #### [facility] [address] [place] [address] Dr. Ella Mathis Urea nitrogen/Creatinine [Mass ratio] 20.6 mg/mg Normal [facility] Comment on above: Performed By: #### L IPID, TSH, LIPA, T7, CMP, KARRIE #### [facility] [address] [place] [address] Dr. Ella Mathis PROTIMEon 03-23-2022 INR Coag (PPP) [Relative time] 0.94 {INR} Normal [facility] Comment on above: Performed By: #### P TT, PT #### [facility] [address] [place] [address] Dr. Ella Mathis INR GUIDELINES SEE BELOW Normal [facility] Comment on above: Result Comment: BERNA RED INR: 2.0 - 3.0 CONDITIONS NOT LISTED BELOW 2.5 - 3.5 FOR PROSTHETIC HEART VALVE REPLACEMENT 2.5 - 3.5 RECURRENT THROMBOSIS Performed By: #### P TT, PT #### [facility] [address] [place] [address] Dr. Ella Mathis PT Coag (PPP) [Time] 10.2 s Normal 9.0-11.6 [facility] Comment on above: Performed By: #### P TT, PT #### [facility] [address] [place] [address] Dr. Ella Mathis PTTon 03-23-2022 aPTT Coag (Bld) [Time] 26.2 s Normal 22.3-36.2 [facility] Comment on above: Performed By: #### P TT, PT #### [facility] [address] [place] [address] Dr. Ella Mathis TSHon 03-23-2022 TSH 3.098 uIU/mL Normal 0.358-3.740 [facility] Comment on above: Performed By: #### P TT, PT #### [facility] [address] [place] [address] Dr. Ella Mathis TSH RANGE SEE BELOW Normal [facility] Comment on above: Result Comment: <0.3 4 UIU/ml HYPERTHYROID 0.34-5.60 UIU/ml EUTHYROID >5.60 UIU/ml HYPOTHYROID Performed By: #### P TT, PT #### [facility] [address] [place] [address] Dr. Ella Mathis US SINGLE QUAD RT [...] by: ASHLEY DAVIS Date: 2022-03-23 10:08 Normal [facility] COVID 19 IGG ANTIBODY, NUCLE OCAPSIDon 03-10-2022 SARS-CoV-2 (COVID-19) IgG IA Ql Negative [facility] Comment on above: Reference range: Negative This [...] providers and patients using the following websites: [employer]/home/Covid-19/HCP/antibody/fact-sheet2 [employer]/home/Covid-19/Patients/antibody/fact-sheet2 This test has been authorized by the FDA under an Emergency Use Authorization (EUA) for use by authorized laboratories. The FDA authorized labeling is available on the [employer] website: www.[employer]/Covid19. For additional information please refer to http://education.[employer]/faq/NWM054 (This link is being provided for informational/educational purposes only.) Resulting Agency Address Site ID: QPT Name: [facility] Address: [address] [place] [address], [address] [place] [id number] Director: Victor Manuel Lainez MD [facility] URINE CULTUREOrdered By: Olamide Whelan on 03-09-2022 Bacteria identified Cx Nom (U) 1,000 - 10,000 CFU/ml Multiple bacteria present suggesting contamination. [facility] Interpretation and review of laboratory results Normal [facility] IF clinically indicated, suggest appropriate recollection with timely delivery to the laboratory. For additional information, call ext [phone]. [facility] XR C-SPINE AP/LAT/OBLS/ODOon 03-09-2022 EXAMINATION: XR C-SPINE [...] is slightly progressed compared to prior. IMPRESSION: Xgqo-nz-olfysbox multilevel degenerative changes, slightly progressed from prior. [...] is slightly progressed compared to prior. IMPRESSION: Dgfu-vm-mgwnpeig multilevel degenerative changes, slightly progressed from prior. MACRO: None [facility] XR CHEST 2 VIEW PA+LATon EXAMINATION: XR [...] No acute cardiopulmonary abnormality identified. MACRO: None [employer] XR CHEST 2 VIEW PA+LATOrdere d By: Jose Russ on 03-09-2022 [employer] Work Phone: XR L-SPINE AP+LAT+OBL+CDon 0 03-09-2022 [...] to moderate multilevel degenerative changes. MACRO: None [employer] Basic metabolic 2000 panelon 03-08-2022 Anion gap [...] Inclusion of Race in Diagnosing Kidney Disease. [place] Journal of Kidney Diseases 202;79(2):268-88.e1. 2. N Engl J Med 2020 Vol. 385 Issue 19 Pages 2921-1237 Glucose [Mass/Vol] 82 mg/dL 80 - 116 [...] [#/Vol] 4.7 10*3/uL 4.5 - 11.5 K/uL [facility] DS DNAon 03-08-2022 DNA double strand Ab Qn (S) Negative Negative [facility] DNA double strand Ab Qn (S) [IU]/mL See Below [facility] ds DNA Reference Range: < or = to 4 IU/mL-Negative 5-9 IU/mL-Indeterminate > or = to 10 IU/mL-Positive [facility] HEPATIC FUNCTION PANELon Albumin [Mass/Vol] 3.7 g/dL 3.4 - 5.1 g/dL [facility] ALP [Catalytic activity/Vol] 62 U/L [facility] ALT [Catalytic activity/Vol] 22 U/L [facility] AST [Catalytic activity/Vol] 22 U/L [facility] Bilirubin [Mass/Vol] 1.4 mg/dL 0.1 - 1.5 mg/dL [facility] Bilirubin.direct [Mass/Vol] 0.20 mg/dL 0.10 - 0.30 mg/dL [facility] Interpretation and review of laboratory results Normal [facility] Protein [Mass/Vol] 6.0 g/dL 5.7 - 8.1 g/dL [facility] No Panel Informationon 03-08 Interpretation and review of laboratory results Normal [facility] TOTAL PROTEIN WITH CREATININ E, RANDOM URINEon 03-08-2022 Creatinine (U) [Mass/Vol] 74 mg/dL 10 - 300 mg/dL [facility] Interpretation and review of laboratory results Normal [facility] Protein (U) [Mass/Vol] mg/dL <=100 mg/dL [facility] Protein/Creatinine (U) [Mass ratio] mg/g <=164 mg/g [facility] TSHon 03-08-2022 Interpretation and review of laboratory results Normal [facility] TSH Qn 3.256 m[IU]/L [facility] Comment on above: Referance range for women as applicable: First Trimester: 0. 050 to 3.700 uIU/mL Second Trimester: 0. 310 to 4.350 uIU/mL Third Trimester: 0. 410 to 5.180 uIU/mL [facility] URINALYSIS WITH REFLEX CULTU RE PERFORMABLEon 03-08-2022 [...] LE LTon US venous duplex LE LT [facility] [place] [address] Ultrasound Report Signed Patient: Linnea Culp MR#: [id number] : 1950 Acct:[id number] Age/Sex: 68 / F ADM Date: 02/19/19 Loc: Room: Type: [facility] Attending Dr: Amber Acharya MD Ordering Provider: [...] Jose Velazquez M.D.02/20/2019 11:34 AM Dictation Location: [place] [address] Tech: Cyn Guan Transcribed By: NÉSTOR 02/20/19 1134 Dictated By: Jose Velazquez MD 02/20/19 1133 Signed By: 02/20/19 1134 [facility] Vital Signs Date Time Vital Sign Value Performing Clinician Faci carmitay 04-25-2023 13:45-0400 Body height 164 cm Amber [facility] MD [facility] 04-25-2023 13:45-0400 Body mass index (BMI) [Ratio] 35.64 kg/m2 Amber Acharya MD [facility] 04-25-2023 13:45-0400 Body temperature 98.01 [degF] Amber Acharya MD [facility] 04-25-2023 13:45-0400 Body weight 95.84 kg Amber Acharya MD Work Phone: [employer] 04-25-2023 13:45-0400 Diastolic blood pressure 66 mm[Hg] Amber Acharya MD [facility] 04-25-2023 13:45-0400 Heart rate 59 /min Amber Acharya MD Work [facility]: [facility] 04-25-2023 13:45-0400 SaO2% (BldA) [Mass fraction] 97 % Amber Acharya MD Work Phone: [employer] 04-25-2023 13:45-0400 Systolic blood pressure 134 mm[Hg] Amber Acharya MD Work Phone: [employer] 08-09-2022 16:37-0400 Diastolic blood pressure 63 mm[Hg] Alfredito Sims MD Work Phone: [employer] 08-09-2022 16:37-0400 Heart rate 66 /min Alfredito Sims MD Work Phone: [employer] 08-09-2022 16:37-0400 SaO2% (BldA) [Mass fraction] 99 % Alfredito Sims MD Work Phone: [employer] 08-09-2022 16:37-0400 Systolic blood pressure 135 mm[Hg] Alfredito Sims MD Work Phone: [employer] 08-09-2022 16:00-0400 Body height 167.6 cm Alfredito Sims MD Work Phone: [employer] 08-09-2022 16:00-0400 Body mass index (BMI) [Ratio] 32.44 kg/m2 Alfredito Sims MD Work Phone: [employer] 08-09-2022 16:00-0400 Body temperature 96.6 [degF] Alfredito Sims MD Work Phone: [employer] 08-09-2022 16:00-0400 Body weight 91.17 kg Alfredito Sims MD Work Phone: [employer] 06-07-2022 11:19-0400 Body mass index (BMI) [Ratio] 34.5 kg/m2 Amber Acharya MD Work Phone: [employer] 06-07-2022 11:19-0400 Body weight 94.03 kg Amber Acharya MD Work Phone: [employer] 06-07-2022 11:19-0400 Diastolic blood pressure 61 mm[Hg] Amber Acharya MD Work Phone: [facility] 06-07-2022 11:19-0400 Heart rate 61 /min Amber Acharya MD Work Phone: [facility] 06-07-2022 11:19-0400 Systolic blood pressure 124 mm[Hg] Amber Acharya MD Work Phone: [employer] 03-08-2022 13:41-0400 Diastolic blood pressure 68 mm[Hg] Amber Acharya MD Work Phone: [employer] Comment on above: manual 03-08-2022 13:41-0400 Systolic blood pressure 111 mm[Hg] Amber Acharya MD Work Phone: [employer] Comment on above: manual 03-08-2022 13:01-0400 Body height 165.1 cm Amber Acharya MD Work Phone: [employer] 03-08-2022 13:01-0400 Body mass index (BMI) [Ratio] 33.45 kg/m2 Amber Acharya MD Work Phone: [employer] 03-08-2022 13:01-0400 Body weight 91.17 kg Amber Acharya MD Work Phone: [employer] 03-08-2022 13:01-0400 Heart rate 59 /min Amber Acharya MD Work Phone: [employer] Encounters Encounter Date Encounter Type Care Provider Facility Start: 05-28-2024 End: 05-28-2024 Clinical Support Romelia Dunn [facility] Comment on above: Arrived Start: 03-16-2024 Letter encounter Dorita Joshi [facility] Phone[facility] Start: 03-05-2024 End: 03-06-2024 Telephone encounter Amber Acharya MD Work Phone: [facility] (Arthritis) Start: 02-27-2024 End: 02-27-2024 Patient encounter procedure Phe Emg Pmr Provider [facility] Comment on above: Numbness and tinglin g of both legs below knees (Primary Dx) Start: 02-27-2024 End: 02-27-2024 ambulatory UNKNOWN PROVIDER Facility:[facility] Start: 01-30-2024 End: 01-31-2024 ambulatory UNKNOWN PROVIDER Facility:[facility] Start: 01-30-2024 End: 02-09-2024 ambulatory DORITA BASHIR Facility:[facility] Start: 06-04-2023 Telephone encounter Amber yanez MD Work Phone: [facility] (Arthritis) Start: 05-14-2023 Telephone encounter Amber yanez MD Work Phone: [facility] (Arthritis) Start: 05-03-2023 Telephone encounter Amber yanez MD Work Phone: [facility] (Arthritis) Start: 04-25-2023 End: 04-25-2023 Nursing evaluation of patient and report Romelia Mona [facility] Comment on above: Routine adult health maintenance (Primary Dx) Start: 04-25-2023 End: 04-25-2023 Patient encounter status Romelia [facility] Start: 04-25-2023 Letter encounter Dorita Joshi Work Phone: [facility] Rheumatology Start: 04-25-2023 End: 04-27-2023 Office outpatient visit 40 minutes Amber Acharya MD Work Phone: [facility] Comment on above: [id number] syndro me (Primary Dx); Pulmonary hypertension, mild (HCC); Chronic midline low back pain without sciatica; History of systemic lupus erythematosus (HCC); Dysuria; Numbness of legs; Vitamin D deficiency; Pain in both knees, unspecified chronicity; Chronic bilateral low back pain without sciatica; Grief reaction; B12 deficiency; Body mass index (BMI) 35.0-35.9, adult Start: 04-20-2023 End: 04-20-2023 ambulatory [facility] Start: 03-25-2023 Letter encounter Dorita Joshi Work Phone: [facility] Start: 10-16-2022 End: 10-16-[address] DORITA BASHIR Facility:[facility] Start: 10-11-2022 End: 10-12-[address] DORITA BASHIR Facility:[facility] Start: 10-03-2022 End: 10-04-[address] DORITA BASHIR Facility:[facility] Start: 09-08-2022 End: 09-09-[address] DORITA BASHIR Facility:[facility] Start: 09-06-2022 End: 09-07-[address] DORITA BASHIR Facility:[facility] Start: 09-06-2022 End: 09-06-2022 Phys/qhp telephone evaluation 21-30 min Jasiel Selby RADIOGRAPHER ANGIOGRAM-AUTOMATIC TIRE TESTER Work Phone: [address] [facility] Comment on above: Intercostal neuritis (Primary Dx) Start: 08-28-2022 End: 08-29-[address] DORITA BASHIR Facility:[facility] Start: 08-22-2022 End: 08-22-[address] DOIRTA BASHIR Facility:[facility] Start: 08-09-2022 End: 08-09-2022 Patient encounter procedure Alfredito Sims MD Work Phone: [facility] Comment on above: Intercostal neuritis (Primary Dx) Start: 07-29-2022 Letter encounter Dorita Joshi Work Phone: [facility] Start: 07-28-2022 Letter encounter Dorita Joshi Work Phone: [facility] Start: 06-07-2022 Letter encounter Dorita Joshi Work Phone: [facility] Start: 06-07-2022 End: 06-11-2022 Office outpatient visit 25 minutes Amber Acharya MD Work Phone: [facility] Comment on above: 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); Facet joint disease of lumbosacral region; Intercostal neuralgia; Body mass index (BMI) 34.0-34.9, adult Start: 03-23-2022 End: 03-24-[address] DORITA BASHIR Facility: Start: 03-19-2022 Letter encounter Dorita Joshi Work Phone: [facility] Start: 03-08-2022 Letter encounter Dorita Joshi Work Phone: [facility] Start: 03-08-2022 End: 03-15-2022 Office outpatient visit 25 minutes Amber Acharya MD Work Phone: [facility] Comment on above: Carpopedal spasm (Pr imary Dx); Dizziness; SLE (systemic lupus erythematosus related syndrome) (HCC); Hypothyroidism, unspecified type; Right-sided chest wall pain; Body mass index (BMI) 33.0-33.9, adult Start: 02-19-2019 End: 02-19-2019 Patient encounter procedure Dorita Bashir Facility:[facility] Procedures Date Procedure Procedure Detail Performing Clinician Start: 02-27-2024 Needle emg ea extrem ty w/paraspinl area complete King Najma VELÁSQUEZ Work Phone: Start: 02-27-2024 Electromyography Amber Acharya MD Work Phone: Start: 04-25-2023 25 hydroxy includes fractions if performed Amber Acharya MD Work Phone: Start: 04-25-2023 Complement antigen e ach component Amber Acharya MD Work Phone: Start: 04-25-2023 Urine culture Amber vides MD Work Phone: Start: 04-25-2023 Urnls dip stick/tabl et rgnt auto w/o microscopy Amber Acharya MD Work Phone: Start: 08-09-2022 Njx anes&/strd w/img tfrml edrl crv/thrc 1 lvl Alfredito Sims MD Work Phone: Start: 08-09-2022 RECOVERY ROOM MINIMAL- [facility] Alfredito Sims MD Work Phone: Start: 03-08-2022 Complement antigen [...] Cholesterol [Mass/volume] in Serum or Plasma [facility] Start: 01-29-2025 Creatinine measurement Basic Metabol ic Panel [facility] Start: 09-17-2024 End: 09-17-2024 Patient encounter procedure 09/17/2024 11:00 AM EST Office Visit [facility] [address] [place] [address] Amber Acharya MD [address] [place], [place] [id number] [facility] Start: 08-12-2024 Influenza vaccination Influenza Vacc ine (#1) [facility] Start: 05-28-2024 End: 05-28-2024 Patient encounter procedure 05/28/2024 9:40 AM EDT Office Visit [facility] [address] [place] [id number] Amber Acharya MD [address] [place] [address] [facility] Start: 04-25-2024 Basic metabolic 2000 panel - Serum or Plasma Basic Metabolic Panel [facility] Start: 03-01-2024 COVID Vaccine 2022-2 024 Additional Dose (65+ years) COVID Vaccine 4916-0259 Additional Dose (65+ years) [facility] Start: 03-01-2024 COVID-19 Vaccine (2022- season) COVID-19 Vaccine ( season) [facility] Start: 08-12-2023 Influenza vaccination Influenza Vacc ine (#1) [facility] Start: 04-25-2023 End: 04-25-2024 XR Knee - bilateral AP and Lateral W standing XR KNEES RIGHT AND LEFT STANDING AP/LAT 2 VIEWS Imaging Routine Pain in both knees, unspecified chronicity Expected: 04/25/2023, Expires: 04/25/2024 [facility] Work Phone: Comment on above: Expected: 04/25/2023 , Expires: 04/25/2024 Start: 04-25-2023 End: 04-25-2023 Patient encounter procedure 04/25/2023 Office Visit Rheumatology Amber Acharya MD [address] [place] [address] [facility] Start: 03-08-2023 Basic metabolic 2000 panel - Serum or Plasma Basic Metabolic Panel [facility] Start: 03-08-2023 Thyroid stimulating hormone measurement TSH [facility] Start: 10-25-2022 End: 10-25-2022 Patient encounter procedure 10/25/2022 Office Visit Rheumatology Amber Acharya MD [address] [place] [address] [facility] Start: 09-06-2022 End: 09-06-2022 Telemedicine consultation with patient 09/06/2022 Tele[facility] Jasiel Selby, RADIOGRAPHER ANGIOGRAM-AUTOMATIC TIRE TESTER [address] [facility] [place] [place] [address] [facility] Start: 08-12-2022 Influenza vaccination Influenza Vacc ine (#1) [facility] Start: 08-09-2022 End: 08-09-2022 Patient encounter procedure 08/09/2022 Office Visit Outpatient [facility] Alfredito Sims MD [address] [place] [address] [facility] Start: 06-12-2022 COVID-19 Vaccine (5 - Booster for Pfizer series) COVID-19 Vaccine (5 - Booster for Pfizer series) [facility] Start: 06-07-2022 End: 06-07-2022 Patient encounter procedure 06/07/2022 Office Visit Rheumatology Amber Acharya MD [address] [facility] [place] [address] [facility] Start: 11-12-2017 Annual wellness visit Annual W ellness Visit ([id number]) [facility] Start: 11-24-2016 [facility]neumococcal [facility] Start: 01-19-2016 Pneumococcal vaccination [facility] Start: 2011 Hepatitis B (HBV) Vaccine (optional start 60+ years) Hepatitis B (HBV) Vaccine (optional start 60+ years) [facility] Start: 2011 RSV vaccine (optiona l 60+ years) RSV vaccine (optional 60+ years) [facility] Start: 2001 Measurement of occul t blood in single stool specimen FIT [facility] Start: 2001 Screening for malign ant neoplasm of breast Mammography [facility] Start: 2001 Screening for malign ant neoplasm of colon CRC Screening [facility] Start: 2001 Shingles (RZV) Vacci ne (1 of 2) Shingles (RZV) Vaccine (1 of 2) [facility] Start: 1996 Cholesterol [Mass/volume] in Serum or Plasma Cholesterol [facility] Start: 1996 Screening for malign ant neoplasm of colon [facility] Start: 1991 Screening for malign ant neoplasm of breast Mammography [facility] Start: 1970 Hepatitis A (HAV) Vaccine (optional start 19+ years) Hepatitis A (HAV) Vaccine (optional start 19+ years) [facility] Start: 1969 Hepatitis C screening Hepatitis C An [facility] Start: 1969 Tetanus + diphtheria + acellular pertussis vaccine (product) Tdap Booster [facility] Start: 1950 Ejection Fraction Ejection Fraction [facility] Start: 1950 Screening for malign ant neoplasm of colon Colonoscopy [facility] Immunizations Immunization Date Immunization Notes Care Provider Fa [facility] 10-11-2022 Influenza, seasonal vaccine, quadrivalent, adjuvanted, 0.5mL dose, preservative free (ZOP=841) Dorita Bashir MD Work Phone: [facility] 10-11-2022 influenza virus vaccine, unspecified formulation Amber Acharya MD Work Phone: [facility] 04-17-2022 Pfizer Monovalent (12+ yrs) SARS-COV-2 (COVID-19) vaccine, mRNA, spike protein, LNP, pres. free, 30 mcg/0.3mL dose, jordi-sucrose (TIJ=853) Dorita Bashir MD Work Phone: [facility] 09-07-2021 Influenza, injectable, high-dose seasonal, quadrivalent, 0.7 mL, preservative free (AUG=921) Dorita Bashir MD Work Phone: [facility] 09-07-2021 influenza virus vaccine, unspecified formulation Dorita Bashir MD Work Phone: [facility] 01-13-2021 Pfizer SARS-COV-2 (COVID-19) vaccine, age 12+ yrs, mRNA, spike protein, LNP, preservative free, 30 mcg/0.3mL dose (HZP=331) Dorita Bashir MD Work Phone: [facility] 12-23-2020 Pfizer SARS-COV-2 (COVID-19) vaccine, age 12+ yrs, mRNA, spike protein, LNP, preservative free, 30 mcg/0.3mL dose (HGG=090) Dorita Bashir MD Work Phone: [facility] 08-25-2020 Seasonal trivalent influenza vaccine, adjuvanted, preservative free Dorita Bashir MD [facility] 08-29-2017 influenza virus vaccine, unspecified formulation Dorita Bashir MD Work Phone: [facility] 12-07-2016 tetanus and diphtheria toxoids, adsorbed, preservative free, for adult use (5 Lf of tetanus toxoid and 2 Lf of diphtheria toxoid) Dorita Bashir MD Work Phone: [facility] 11-24-2015 influenza, injectable, quadrivalent, preservative free Dorita Bashir MD Work Phone: [facility] Work Phone: 11-24-2015 pneumococcal conjugate vaccine, 13 valent Dorita Bashir MD Work Phone: [facility] NEGATED: Highlighted row has not occurred!11-27-2018 Seasonal trivalent influenza vaccine, adjuvanted, preservative free Dorita Bashir MD Work Phone: [facility] Work Phone: Comment on above: Deferred: Patient De nisreen - ptto get it at her PCP Payers Date Payer Category Payer Self-pay 2016 Medicare MEDICARE MEDICAR E PART A & B [id number] 2016-Present [address] [place] [address] Medicare [id number] 2016 Unknown COMMERCIAL INSUR ANCE - OTHER COMMERCIAL INSURANCE OTHER [id number] 2016-Present [phone] [address] [place] [address] Indemnity [id number] 1959 Medicare [id number] 1959 Unknown [id number] 1950 Unknown [id number] 1950 Unknown [id number] [id number] 1950 Unknown [id number] [id number] 1951 Unknown [id number] [id number] 1951 Unknown [id number] [id number] 1951 Unknown [id number] [id number] 1951 Unknown [id number] [id number] 1951 Unknown [id number] [id number] 1951 Unknown [id number] [id number] 1950 Unknown [id number] [id number] 1950 Unknown [id number] [id number] 1950 Unknown [id number] [id number] 1950 Unknown [id number] Unknown [id number] Social History Date Type Detail Facility Start: 02-23-2016 Tobacco smoking status KYIS Never sm oked tobacco [facility] Start: 02-23-2016 Tobacco use and exposure Smokeless t obacco non-user [facility] Start: 03-08-2022 End: 05-28-2024 Alcohol intake Current non-drinker of alcohol (finding) [facility] Start: 1950 [facility] Start: 04-14-2020 Gender identity Identifies as female gender (finding) [facility] Start: 04-14-2020 Sexual orientation Bisexual (finding ) [facility] Start: 03-08-2022 End: 04-18-2023 History of Social function [facility] Start: 03-08-2022 End: 04-18-2023 Humiliation, Afraid, Rape, and Kick questionnaire [HARK] [facility] Within the last year , have you been afraid of your partner or ex-partner? No [facility] Do you belong to any clubs or organizations such as sikhism groups, [employer], [employer] or athletic groups, or school groups? Yes [facility] Are you now , , , , never or living with a partner? [facility] How hard is it for y ou to pay for the very basics like food, housing, medical care, and heating Not hard at all [facility] Do you feel stress - tense, restless, nervous, or anxious, or unable to sleep at night because your mind is troubled all the time - these days [OSQ] Not at all [facility] (I/We) worried wheth er (my/our) food would run out before (I/we) got money to buy more. Never true [facility] Start: 04-18-2023 Education 17 [facility] 03-08-2022 to 05-28-2024 Juana Barrios - 05/28/2024 10:35 AM EDTTelephone Encounter - Letty Cardoza - 04/28/2024 4:58 PM EDTTelephone Encounter - Letty Cardoza - 04/28/2024 4:58 PM EDTPatient Instructions Note Date & Type Note Facility 05-28-2024 History of Present illness Narrative Patient was identified by name and date of . Juana Barrios Vein puncture preformed patient tolerated well. Juana Barrios [facility] Patient left urine sample. Urine was drawn up and sent to the lab. Juana Barrios MPA documented in this encounter [facility] 04-28-2024 Telephone encounter Note Faxed completed physical therapy forms to [facility] #[phone]. Confirmation received. Added a copy of forms to media folder. [facility] 04-28-2024 Miscellaneous Notes Faxed completed physical therapy forms to [facility] #[phone]. Confirmation received. Added a copy of forms to media folder. Outpatient physical therapy discharge summary Added to media folder documented in this encounter [facility] 03-05-2024 Note Outpatient physical therapy discharge summary Added to media folder [facility] 03-05-2024 Telephone encounter Note Outpatient physical therapy discharge summary Added to media folder [facility] 03-05-2024 Miscellaneous Notes Outpatient physical therapy discharge summary Added to media folder documented in this encounter [facility] 02-27-2024 Note Procedure: Nerve con duction study and Electromyography of Bilateral Lower Extremities Linnea Culp was explained about both the benefits and risks of the above procedure. After acknowledging an understanding of the risks and benefits, Linnea Culp gave consent to proceed. Time out was preformed with Davida Nixon Name, , MRN, Referring Doctor and Procedure was verified. No heat sources No antibiotics Study was completed without complication. Good hemostasis was achieved prior to completion. See the EMG results in imaging. Brief Conclusion: Relatively normal study Full report and data to be scanned to the record [facility] 02-27-2024 History of Present illness Narrative Procedure: Nerve conduction study and Electromyography of Bilateral Lower Extremities Linnea Culp was explained about both the benefits and risks of the above procedure. After acknowledging an understanding of the risks and benefits, Linnea Culp gave consent to proceed. Time out was preformed with Davida Nixon Name, , MRN, Referring Doctor and Procedure was verified. No heat sources No antibiotics Study was completed without complication. Good hemostasis was achieved prior to completion. See the EMG results in imaging. Brief Conclusion: Relatively normal study Full report and data to be scanned to the record documented in this encounter [facility] 06-04-2023 Telephone encounter Note The [facility] discharge form, pending provider signature added to media folder. Copy also placed on provider desk. [facility] 06-04-2023 Miscellaneous Notes The [facility] discharge form, pending provider signature added to media folder. Copy also placed on provider desk. documented in this encounter [facility] 06-01-2023 Note The [facility] Therapy Discharge summary added to media folder. [facility] 05-14-2023 Telephone encounter [facility] Initial Examination notes added to media folder. [facility] 05-14-2023 Miscellaneous Notes The [facility] Physical Therapy Initial Examination notes added to media folder. documented in this encounter [facility] 05-03-2023 Telephone encounter Note From the [facility] XR of the knee Added to media folder. [facility] 05-03-2023 Miscellaneous Notes From the [facility] [place] [facility] XR of the knee Added to media folder. documented in this encounter [facility] 04-25-2023 History of Present illness Narrative Patient was identified by name and date of . Romelia Dunn Venipuncture performed patient tolerated well Romelia Dunn MPA Patient leaving urine sample documented in this encounter [facility] 04-25-2023 Instructions Amber Acharya MD - 04/25/2023 2:07 PM EDT Please tell your child protective services specialist that we would like an ECHO to estimate pulmonary pressures given possible Obstructive sleep apnea and history of lupus documented in this encounter [facility] 04-25-2023 History of Present illness Narrative CC [...] Color Yellow Appearance Clear pH 5.5 Spec [place] 1.019 Protein 30 (A) Blood Negative Bilirubin [...] Multiple bacteria present suggesting contamination. 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 Plan: [facility] She is to see Physical therapy [...] patient has lost a brother and a [id number] in almost lost her son her brother [...] Amber Acharya MD documented in this encounter [facility] 04-20-2023 Note Patient here for 1 y [...] All other systems reviewed and are negative. [facility] 04-20-2023 Note Cardiology Clinic No te Subjective [...] December 2020 she was evaluated at the [facility] [place] [facility] due to chest pain. Stress test [...] visit: Atherosclerosis of (more content not included)... [facility] 09-07-2022 Note PROCEDURE: XR HAND L [...] authenticated by: HECTOR LING Date: 2022-09-07 06:48 [facility] 09-07-2022 Note PROCEDURE: XR HAND L [...] by: HECTOR LING Date: 2022-09-07 06:48 [facility] [place] [facility] 09-06-2022 History of Present illness Narrative PAIN MANAGEMENT FOLLOW-UP Documentation: Mode: Telephone Patient Patient Work Phone: Patient Cell Preferred phone: [phone] Consent: I confirmed patient understanding of the [...] T 6 level. on 08-09-[address] Sims. Patient report 60% improvement from procedure. Patient [...] supply ALYSSA Ward documented in this encounter [facility] 08-09-2022 History of Present illness Narrative PROCEDURE: Thoracic Paravertebral block at the T 6 level. SURGEON: Alfredito Sims MD TWO PATIENT IDENTIFIERS USED: Name and [...] on their response to this injection. Alfredito Sims MD,CHANO documented in this encounter [facility] 08-09-2022 Instructions Rose Duff RN - 08/09/2022 [...] ordering physician as directed. Pain Management office: [phone] You may call [phone] and ask for the chronic pain fellow livestock auctioneer after office hours with any questions or concerns. 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 Cristopher Muse documented in this encounter [facility] 03-08-2022 Instructions Amber Acharya MD - 03/08/2022 1:05 PM EDT Please talk with Dr. Bashir about imaging for right abdomen tenderness documented in this encounter [facility] Evaluation note Diagnosis Carpopedal spasm- Primary [place] Dizziness Dizziness and giddiness SLE (systemic lupus erythematosus related syndrome) (HCC) Systemic lupus erythematosus Hypothyroidism, unspecified type Right-sided [...] [facility] [id number] syndrome- Primary Pulmonary hypertension, mild (HCC) Other [...] (BMI) 35.0-35.9, adult [facility] Diagnosis Numbness and tingling of both legs below knees- Primary documented in this encounter [facility] Summary Purpose Family History No Family History [...] CHEST 2 VIEW PA+LAT Amber Acharya MD [address] [place] [address] [facility] DI[facility]NOSTIC RADIOLOGY [address] [place] [address] [place] [address] Referral ID Status Reason Start Date Expiration Date Visits Re quested Visits Authorized [id number] Closed 03/08/2022 03/08/2023 1 1 Specialty Diagnoses / Procedures Referred By Contac t Referred To Contact Radiology Diagnoses Carpopedal spasm Procedures XR L-SPINE AP+LAT+OBL+CD Amber Acharya MD [address] [place] [address] [facility] [address] [place] [address] [place] [address] Referral ID Status Reason Start Date Expiration Date Visits Re quested Visits Authorized [id number] Closed 03/08/2022 03/08/2023 1 1 Specialty Diagnoses / Procedures Referred By Contac t Referred To Contact Radiology Diagnoses Carpopedal spasm Procedures XR C-SPINE AP/LAT/OBLS/ODO Amber Acharya MD [address] [place] [address] [facility] [address] [place] [address] [place] [address] Referral ID Status Reason Start Date Expiration Date Visits Re quested Visits Authorized [id number] Closed 03/08/2022 03/08/2023 1 1 Specialty Diagnoses / Procedures Referred By Contac t Referred To Contact Diagnoses Arthritis of facet joint of cervical spine Facet joint disease of lumbosacral region Intercostal neuralgia Amber Acharya MD [address] [place] [address] Referral ID Status Reason Start Date Expiration Date Visits Requested Visits Authorized [id number] Authorized Consultatio n-[facility] 06/07/2022 06/07/2023 1 1 Scheduling Instructions You have been [facility] to [facility]. You will be contacted to schedule your appointment within 24 - 48 hours. If you are not contacted within this time frame please call the [facility] at [phone] to schedule your appointment. Question Answer Reason [...] AND LEFT STANDING AP/LAT 2 VIEWS Amber Acharya MD [address] [place] [address] [facility] DI[facility]NO[facility]IOLOG[facility] [address] [place] [address] Referral ID Status Reason Start Date Expiration Date V isits Requested Visits Authorized [id number] Authorized 04/25/2023 04/24/2024 1 1 Specialty Diagnoses / Procedures Referred By Contac t Referred To Contact Pulmonary Medicine Diagnoses Pulmonary hypertension, mild (HCC) Amber Acharya MD [address] [place] [address] [facility] PULMON[facility] [address] [place] [address] Referral ID Status Reason Start Date Expiration Date V isits Requested Visits Authorized [id number] Authorized 04/25/2023 10/22/2023 3 3 Scheduling Instructions Please call sleep medicine at to schedule an appointment with a sleep medicine provider. 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 DATE CREATED AUTHOR AUTHOR'S ORGANIZ ATION 04/30/2024 [facility] Care Teams (unrecognized sec tion and content) Institutional Commodity Analyst Relationship Specialty Start Date End Date Dorita Bashir MD [address] [place] [address] PCP - General Family Medicine 03/30/14 Amber Acharya MD [address] [place] [address] Physician Rheumatology 08/17/20 Institutional Commodity Analyst Relationship Specialty Start Date End Date Dorita Bashir MD [address] [place], [place] [id number] PCP - General Family Medicine 03/30/14 Amber Acharya MD [address] [place] [address] Physician Rheumatology 08/17/20 Institutional Commodity Analyst Relationship Specialty Start Date End Date Dorita Bashir MD [address] [place], [place] [id number] PCP - General Family Medicine 03/30/14 Amber Acharya MD [address] [place] [address] Physician Rheumatology 08/17/20 Institutional Commodity Analyst Relationship Specialty Start Date End Date Dorita Bashir MD [address] [place], [place] [id number] PCP - General Family Medicine 03/30/14 Amber Acharya MD [address] [place] [address] Physician Rheumatology 08/17/20 Institutional Commodity Analyst Relationship Specialty Start Date End Date Dorita Bashir MD [address] [place] [address] PCP - General Family Medicine 03/30/14 Amber Acharya MD [address] [place] [address] Physician Rheumatology 08/17/20 Institutional Commodity Analyst Relationship Specialty [place] [address] [place] [address] PCP - General Family Medicine 03/30/14 Amber Acharya MD [address] [place] [address] Physician Rheumatology 08/17/20 Institutional Commodity Analyst Relationship Specialty [place] [address] [place] [address] PCP - General Family Medicine 03/30/14 Amber Acharya MD [address] [place] [address] Physician Rheumatology 08/17/20 Alfredito Sims MD [address] [place] [address] Physician Anesthesiology 08/12/22 Institutional Commodity Analyst Relationship Specialty Start Date End Date Dorita Bashir MD [address] [place] [address] PCP - General Family Medicine 03/30/14 Amber Acharya MD [address] [place] [address] Physician Rheumatology 08/17/20 Alfredito Sims MD [address] [place] [address] [place] [address] Physician Anesthesiology 08/12/22 Institutional Commodity Analyst Relationship Specialty Start Date End Date Dorita Bashir MD [address] [place] [address] PCP - General Family Medicine 03/30/14 Amber Acharya MD [address] [place] [address] Physician Rheumatology 08/17/20 Alfredito Sims MD [address] [place] [address] [address] [place] [id number] Physician Anesthesiology 08/12/22 Institutional Commodity Analyst Relationship Specialty Start Date End Date Dorita Bashir MD [address] [place] [address] PCP - General Family Medicine 03/30/14 Amber Acharya MD [address] [place], [place] [id number] Physician Rheumatology 08/17/20 Alfredito Sims MD [address] [place] [address] [place] [address] Physician Anesthesiology 08/12/22 Institutional Commodity Analyst Relationship Specialty Start Date End Date Dorita Bashir MD [address] [place], [place] [id number] PCP - General Family Medicine 03/30/14 Amber Acharya MD [address] [place] [address] Physician Rheumatology 08/17/20 Alfredito Sims MD [address] [place] [address] [place] [address] Physician Anesthesiology 08/12/22 Institutional Commodity Analyst Relationship Specialty Start Date End Date Dorita Bashir MD [address] [place] [address] PCP - General Family Medicine 03/30/14 Amber Acharya MD [address] [place] [address] Physician Rheumatology 08/17/20 Alfredito Sims MD [address] [place] [address] [place] [address] Physician Anesthesiology 08/12/22 Institutional Commodity Analyst Relationship Specialty Start Date End Date Dorita Bashir MD [address] [place] [address] PCP - General Family Medicine 03/30/14 Amber Acharya MD [address] [place] [address] Physician Rheumatology 08/17/20 Alfredito Sims MD [address] [place] [address] [place] [address] Physician Anesthesiology 08/12/22 Institutional Commodity Analyst Relationship Specialty Start Date End Date Dorita Bashir MD [address] [place], [place] [id number] PCP - General Family Medicine 03/30/14 Amber Acharya MD [address] [place] [address] Physician Rheumatology 08/17/20 Alfredito Sims MD [address] [place] [address] [place] [address] Physician Anesthesiology 08/12/22 Institutional Commodity Analyst Relationship Specialty Start Date End Date Dorita Bashir MD [address] [place] [address] PCP - General Family Medicine 03/30/14 Amber Acharya MD [address] [place], [place] [address] Physician Rheumatology 08/17/20 Alfredito Sims MD [address] [place] [address] [place] [address] Physician Anesthesiology 08/12/22 Institutional Commodity Analyst Relationship Specialty Start Date End Date Dorita Bashir MD [address] [place], [place] [id number] PCP - General Family Medicine 03/30/14 Amber Acharya MD [address] [place] [address] Physician Rheumatology 08/17/20 Alfredito Sims MD [address] [place] [address] [place] [address] Physician Anesthesiology 08/12/22 Reason for Visit (unrecogniz ed section and content) Reason Comments Monitoring/follow-up Reason Comments Monitoring/follow-up Reason Comments Procedure Specialty Diagnoses / Procedures Referred By Contac t Referred To Contact Pain Management Diagnoses 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 Procedures PVB THORACIC SINGLE INJ SITE Right T 5 Thoracic paravertebral block Alfredito Sims MD [address] [place] [address] [facility] [address] [place] [address] Referral ID Status Reason Start Date Expiration Date V isits Requested Visits Authorized [id number] Closed Transfer of Care-[facility] 07/28/2022 10/27/2022 1 1 Reason Comments Discuss results test/procedures Medication Management Reason Comments Blood test Reason Comments Pain In multiple sites Numbness/tingling Specialty Diagnoses / Procedures Referred By Contac t Referred To Contact Neurology Diagnoses Numbness and tingling of both legs below knees Procedures EMG Amber Acharya MD [address] [place] [address] Referral ID Status Reason Start Date Expiration Date V isits Requested Visits Authorized [id number] Pending Review 01/30/2024 01/29/2025 3 3 FOR RECORDS PERTAINING TO PATIENTS WHO ARE [...] BE BASED ON THE PRIMARY CLINICAL RECORDS. [employer] provides no warranty or guarantee of the accuracy or completeness of information in this document.
[2024-05-30 11:56] LABS: Chol HDL Ratio 1.6; Cholesterol 129 mg/dL (<=200); HDL Cholesterol 82 mg/dL (40-60); Triglycerides 71 mg/dL (<=150); VLDL CHOLESTEROL 14.2 mg/dL
== END 2024-05-30 10:32 | disposition home or self-care (01) ==
LOC: LAB 10:33
PROVIDERS: PCP Family Medicine; Visit Provider Nurse Practitioner Acute Care
DX: I25.10 Atherosclerotic heart disease of native coronary artery without angina pectoris (principal)
CPT/HCPCS: 36415; 80061

== ENCOUNTER 2024-06-09 08:28 | Outpatient (OUT) | payer MEDICARE, OTHER, SELFPAY ==
--- NOTE | 2024-06-09 | PCN_ITS ---
CARDIAC STRESS TEST Requesting Physician: Asher Peralta M.D. Procedure Date: 06/09/2024 PERFORMING PROVIDER: Alfredo Sultana M.D. INDICATION: Dyspnea on exertion. STRESS TEST PROTOCOL: Lexiscan myocardial perfusion imaging. Resting heart rate: 60 Max heart rate: 82 Resting blood pressure: 118/66 Maximum blood pressure: 118/66 CONCLUSION: 1. Resting EKG demonstrates normal sinus rhythm. 2. There were no definite EKG changes meeting the criteria of ischemia post Lexiscan infusion. 3. Please refer to separately interpreted and reported nuclear myocardial perfusion imaging. MTDD
--- NOTE | 2024-06-09 | NM_ITS ---
Patient Name: KINDRA HUNTER MR#: [id number] : 1950 Exam Date: 06/09/2024 Ordering Doctor: DR KULWANT RANKIN M.D. RADIOLOGY REPORT PROCEDURE: NM ADITYA PERF SPECT REST STR COMPARISON: None. INDICATIONS: CORONARY ARTERY DISEASE INVOLVING UPPER [place] HEART TECHNIQUE: Exam Description: Stress/Rest one day protocol gated SPECT Rest Imagin.7 mCi Tc-99m Cardiolite IV on 06/09/2024 Stress Imaging 31.9 mCi Tc-99m Cardiolite IV on 06/09/2024 Exercise Protocol: 0.4 mg Lexiscan given IV Heart Rate (bpm): Rest: 60 Max: 82 PMHR: 55 Blood Pressure: Rest: 118/66 Max: 118/66 Symptoms: Rest and peak stress ECG findings were pending and the exercise portion of the study was pending per attending physician Dr. BETANCOURT . For more details please see separate cardiac stress test report. FINDINGS: QUALITY OF STUDY: Excellent. PERFUSION DEFECT: None. LOCATION: N/A SIZE: N/A. SEVERITY: N/A. TYPE: N/A. WALL MOTION: Normal. LV SIZE: Normal. 57 mL. TID / TCD: None; 1.0 LVEF: Normal. Calculated EF 74%. SUMMARY: Myocardial perfusion imaging study is NORMAL. CONCLUSION: 1. Normal nuclear medicine myocardial perfusion scan. Dictated by: Darrin Nicholas M.D. on 06/09/2024 at 16:41 Approved by: Darrin Nicholas M.D. on 06/09/2024 at 16:42
--- NOTE | 2024-06-09 08:25 | CA_ITS ---
Patient Name: KINDRA HUNTER MR#: [id number] : 1950 Exam Date: 06/09/2024 Ordering Doctor: DR KULWANT RANKIN M.D. ECHOCARDIOGRAM REPORT PROCEDURE: CA ECHO DOPPLER COMPLETE INDICATIONS: Shortness of breath COMPARISON: None. DESCRIPTION: COMPLETE ECHOCARDIOGRAM Real-time transthoracic echocardiography with 2D, M-mode, spectral and color flow Doppler performed. QUALITY: Technical quality was good. LEFT VENTRICLE: Normal chamber size. Borderline left ventricular hypertrophy. LV EF: Global left ventricular systolic function is normal. Calculated left ventricular ejection fraction is 62%. No wall motion abnormalities. DIASTOLIC: Diastolic function is indeterminate. ATRIAL SEPTUM: Inadequately seen. LEFT ATRIUM: Normal chamber size. RIGHT ATRIUM: Mild dilatation. RIGHT VENTRICLE: Normal chamber size. Normal right ventricular systolic function. TRICUSPID VALVE: Normal mobility and thickness. No stenosis with mild to moderate regurgitation. Mild pulmonary hypertension. RVSP 37mmHg MITRAL VALVE: Normal mobility and thickness. No evidence of mitral valve stenosis. There is no mitral annular calcification. Trivial mitral regurgitation. AORTIC VALVE: Normal trileaflet appearance. No visible sclerosis. Normal leaflet mobility. No evidence of aortic valve stenosis. Trivial aortic regurgitation. AORTIC ROOT: Normal diameter and appearance. PULMONIC VALVE: Normal thickness and mobility. No stenosis. Trivial regurgitation. PERICARDIUM: Small, circumferential pericardial effusion is seen. Echo dense appearance anteriorly suggests clotted material. IVC: Collapses with inspirations. Normal size CONCLUSION: 1. Global left ventricular systolic function is normal; visually estimated ejection fraction is 60 to 65% 2. The right ventricle is normal in size and systolic function 3. The right atrium is mildly dilated 4. Mild to moderate tricuspid regurgitation 5. Mildly elevated right ventricular systolic pressure; RVSP 57 mmHg 6. A small, circumferential pericardial effusion is seen; echodense appearance anteriorly suggests clotted material Adult Echocardiography Procedure Report Left Ventricle LVEDD (3.7 - 5.6 cm): 3.94 cm LVESD (2.2 - 4.0 cm): 2.82 cm LVIVS thickness (0.6 - 1.2 cm): 1.06 cm LVPW thickness (0.5 - 1.0 cm): 0.93 cm e': 0.07 m/s E - e': 9.97 LVOT Max Gradient: 2.25 mm[Hg] LVOT Area (cm2): 0.75 m/s Peak Velocity (LVOT): 0.75 m/s Mean Velocity (LVOT): 0.47 m/s LVOT Diameter 2.08 cm Left Ventricular Ejection Fraction: 61.99 % Left Atrium LA Volume Index (2D A2C): 29.73 ml/m2 Left Atrium Systolic Dimension: 3.37 cm Mitral Valve MV E to A Ratio: 0.91 Mitral Valve A-Wave Peak Velocity: 0.80 m/s Mitral Valve E-Wave Peak Velocity: 0.72 m/s Right Ventricle RV Internal Diastolic Dimension: 3.14 cm Aorta AO Root Diam: 2.83 cm Ascending Ao Diam: 2.73 cm Aortic Valve AoV Area (Peak Jaren): 1.91 cm2, 1.91 cm2 AoV Area (VTI): 1.72 cm2, 1.61 cm2 Peak Velocity(Antegrade Flow): 1.33 m/s, 1.33 m/s Peak Gradient(Antegrade Flow): 7.08 mm[Hg], 7.08 mm[Hg] Mean Velocity(Antegrade Flow): 0.88 m/s, 0.96 m/s Mean Gradient(Antegrade Flow): 3.63 mm[Hg], 4.03 mm[Hg] Velocity Time Integral: 35.82 cm, 31.29 cm Tricuspid Valve Peak Velocity (Regurgitant Flow): 2.88 m/s, 2.66 m/s, 2.91 m/s Pulmonic Valve Mean Gradient: 1.58 mm[Hg], 2.12 mm[Hg] Mean Velocity: 0.59 m/s, 0.69 m/s Peak Velocity: 0.91 m/s Peak Gradient: 2.90 mm[Hg], 3.81 mm[Hg] Right Atrium Right Atrium Systolic Pressure: 37.83 ml, 37.83 ml Dictated by: Khushi Sawyer M.D. on 06/09/2024 at 17:26 Approved by: Khushi Sawyer M.D. on 06/09/2024 at 17:31
--- OUTSIDE RECORDS SUMMARY | 2024-06-09 08:38 | XMS_ITS | CCD ---
Author Organization [facility] Team Providers Care Supervisor [employer] Name Role Phone Dorita Bashir Primary Care Unavailable Amber Acharya Admitting Unavailable Amber Acharya Attending Unavailable Dorita Bashir MD Primary Care Provider [phone] Amber Acharya MD Unavailable [phone] Dorita Bashir MD Primary Care Provider [phone] Amber Acharya MD Unavailable Bethany VELÁSQUEZ, [facility] Unavailable [phone] DR DORITA BASHIR Admitting Unavailable HOY, DR KEVIN Attending Unavailable HOMaría, DR KEVIN Primary Care Unavailable ACHARYA, DR AMBER Alonzo Referring Unavailable MCKAY, DR KEVIN Consulting Unavailable ASHLEY DAVIS Consulting Unavailable HOY, DR KEVIN Admitting Unavailable HOY, DR KEVIN Attending Unavailable HOY, DR KEVIN Primary Care Unavailable HOY, DR KEVIN Consulting Unavailable MCKAY, DR KEVIN Admitting Unavailable HOMaría, DR KEVIN Attending Unavailable MCKAY, DR KEVIN Primary Care Unavailable HOY, DR KEVIN Consulting Unavailable FRANCI BUSTOS Consulting Unavailable KATHYY, DR KEVIN Admitting Unavailable HOY, DR KEVIN Attending Unavailable HOY, DR KEVIN Primary Care Unavailable HOY, DR KEVIN Consulting Unavailable ZIBERNA, DR HECTOR Goldsmith Consulting Unavailable MCKAY, DR KEVIN Admitting Unavailable HOY, DR KEVIN Attending Unavailable KATHYY, DR KEVIN Primary Care Unavailable HOY, DR KEVIN Consulting Unavailable VLAD, DR ASHLEY Grayson Consulting Unavailable MCKAY, DR KEVIN Admitting Unavailable MCKAY, DR KEVIN Attending Unavailable MCKAY, DR KEVIN Primary Care Unavailable HOY, DR KEVIN Consulting Unavailable ZIEBKWAKU, DR HECTOR Goldsmith Consulting Unavailable HOMaría, DR KEVIN Admitting Unavailable HOY, DR KEVIN Attending Unavailable HOY, DR KEVIN Primary Care Unavailable MCKAY, DR KEVIN Consulting Unavailable MCKAY, DR KEVIN Admitting Unavailable MCKAY, DR KEVIN Attending Unavailable MCKAY, DR KEVIN Primary Care Unavailable MCKAY, DR KEVIN Consulting Unavailable Dorita Bashir MD Primary Care Provider [phone] Amber Acharya MD Unavailable [phone] Alfredito Sims MD Unavailable [phone] KULWANT RANKIN Attending Unavailable DORITA BASHIR Primary Care Unavailable PROVIDER, UNKNOWN Admitting Unavailable AMBER ACHARYA Attending Unavailable PROVIDER, UNKNOWN Attending Unavailable PROVIDER, UNKNOWN Admitting Unavailable DORITA BASHIR Primary Care Unavailable PROVIDER, UNKNOWN Admitting Unavailable DORITA BASHIR Primary Care Unavailable AMBER ACHARYA Attending Unavailable AMBER ACHARYA GMini Referring Unavailable DORITA BASHIR MMini Primary Care Unavailable PROVIDER, UNKNOWN Attending Unavailable PROVIDER, UNKNOWN Admitting Unavailable AMBER ACHARYA Referring Unavailable DORITA BASHIR Primary Care Unavailable PROVIDER, UNKNOWN Attending Unavailable PROVIDER, UNKNOWN Admitting Unavailable AMBER ACHARYA GMini Referring Unavailable DORITA BASHIR Primary Care Unavailable PROVIDER, UNKNOWN Attending Unavailable PROVIDER, UNKNOWN Admitting Unavailable DORITA BASHIR Primary Care Unavailable PROVIDER, UNKNOWN Admitting Unavailable PROVIDER, UNKNOWN Attending Unavailable Medications Current [...] sources) Platelet Aggregation Inhibitor, Nonsteroidal Anti-inflammatory Drug End: 05-28-2024 take 1 tablet by mouth once daily [...] capsule (20 sources) Nonsteroidal Anti-inflammatory Drug Start: 04-21-2022 celecoxib (CeleBREX) 200 MG capsule 200 mg 2 times daily. 03/02/2022 Active cholecalciferol 0.025 mg oral capsule (20 sources) Vitamin D Start: 04-18-2017 take 1 capsule by mouth once daily Cholecalciferol (VITAMIN D3) 1000 UNITS CAPS Take 1 Capsule by mouth daily. 90 Capsule 1 04/18/2017 Active colestipol hydrochloride 1000 mg oral tablet (20 sources) Bile Acid Sequestrant Start: 05-10-2022 End: 05-28-2024 take 1 tablet by mouth once daily colestipol (COLESTID) 1 GM tablet colestipol 1 gram tablet Take 1 tablet every day by oral route for 90 days. 05/10/2022 05/28/2024 Discontinued (Reorder (*won't e-cancel)) Start: 09-07-2021 End: 05-28-2024 take 1 tablet by mouth twice daily colestipol (COLESTID) 1 GM tablet Take 1 Tablet by mouth 2 times daily. 180 Tablet 3 05/28/2024 Active cranberry preparation 500 mg oral capsule (7 sources) Non-Standardized Food Allergenic Extract, Non-Standardized Plant Allergenic Extract take 1 capsule by mouth once daily Cranberry 500 MG CAPS Take 500 mg by mouth daily. Active gabapentin 100 mg oral capsule (8 sources) Anti-epileptic Agent Start: 05-28-20 24 End: 05-23-20 25 take 2 capsules by mouth once daily gabapentin (NEURONTIN) 100 MG capsule Take 2 Capsules by mouth daily for 360 days. 180 Capsule 3 05/28/2024 05/23/2025 Active Start: 01-30-2024 End: 05-28-2024 take 1 capsule by mouth once daily, then take 1 capsule by mouth twice daily gabapentin (NEURONTIN) 100 MG capsule Take 1 capsule by mouth daily for 7 days, then 1 capsule 2 times daily for 83 days. 90 Capsule 01/30/2024 05/28/2024 Discontinued (Reorder (*won't e-cancel)) hydroxychloroquine sulfate 200 mg oral tablet (20 [...] 01-28-2020 take 1 tablet by rosa elena once daily 30 minutes before breakfast Levothyroxine [...] tablet Take 40 mg by mouth. Active traMADol hydrochloride 50 mg oral tablet (20 sources) Opioid Agonist Start: 09-07-2021 End: 08-26-2024 take 1 tablet by mouth every eight hours as needed tramadol (ULTRAM) 50 MG tablet Indications: Fibromyalgia Take 1 Tablet by mouth every 8 hours as needed for up to 90 days. 30 Tablet 1 05/28/2024 08/26/2024 Active triamcinolone acetonide 1 mg/ml topical cream (3 sources) Corticosteroid Start: 03-27-2024 triamcinolone 0.1 % cream 1 Application. 03/27/2024 Active vitamin b12 5 mg oral capsule (7 sources) Vitamin B12 take 1 capsule by mouth once daily Cyanocobalamin (B-12) 5000 MCG CAPS Take 5,000 mcg by mouth daily. Active vitamin e 180 mg oral capsule (7 sources) take 1 capsule by mouth once [...] 08-09-2022 lidocaine (XYLOCAINE) 1 % in jection pregabalin 50 mg oral capsule (17 sources) Start: 09-06-2022 End: 05-28-2024 take 1 capsule by mouth twice daily pregabalin (Lyrica) 50 MG capsule Indications: Intercostal neuritis Take 1 Capsule by mouth 2 times daily for 30 days. 60 Capsule 09/06/2022 05/28/2024 Discontinued Problems Active Problems Problem Classification Problem Date Documented Da te Episodic/Chronic Acute bronchitis (4 sources) Acute bronchitis, unspecified; Translations: [ACUTE BRONCHITIS UNSPECIFIED] Onset: 2 Episodic Adjustment disorders (1 source) Grief finding; Translations: [Adjustment disorder with depressed mood] 04-30-2023 Chronic Allergic reactions (3 sources) Contact dermatitis; Translations: [Unspecified contact dermatitis, unspecified cause] Onset: 4 05-28-2024 Episodic Conditions associated with dizziness or vertigo (1 source) Dizziness; Translations: [Dizziness and giddiness] Episodic Congestive heart failure; nonhypertensive (3 sources) Unspecified diastolic (congestive) heart failure; Translations: [Chronic diastolic (congestive) heart failure] Onset: 2 Chronic Coronary atherosclerosis and other heart disease (20 sources) Coronary atherosclerosis; Translations: [Atherosclerotic heart disease of hoh coronary artery without angina pectoris] Onset: 2 [...] HEART DISEASE W/HEART FAIL] Onset: 2 Chronic Menopausal disorders (1 source) Disorder associated with menstruation AND/OR menopause; Translations: [Other specified menopausal and perimenopausal disorders] 05-28-2024 Chronic Nonspecific chest pain (1 source) Chest wall pain; Translations: [Other chest pain] Episodic Nutritional deficiencies (1 source) Vitamin D deficiency; Translations: [Vitamin D deficiency, unspecified] 04-25-2023 Chronic Nutritional deficiencies (1 source) Cobalamin deficiency; Translations: [Deficiency of other specified B group vitamins] 04-30-2023 Episodic Other connective tissue disease (4 sources) Pain in left hand; Translations: [PAIN IN LEFT HAND] Onset: 2 Episodic Other connective tissue disease (1 source) Fibromyalgia; Translations: [Fibromyalgia] 05-28-2024 Episodic Other infections; including parasitic (1 source) Post-viral disorder; 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] Fibromyalgia; Translations: [FIBROMYALGIA] Onset: 03-29-2022 Episodic Other nervous system disorders (1 source) Anesthesia of skin; Translations: [Anesthesia of skin] Onset: 02-27-2024 Episodic Other nervous system disorders (1 source) Paresthesia of skin; Translations: [Paresthesia of skin] Onset: 02-27-2024 Episodic Other screening for suspected conditions (not mental disorders or infectious disease) (1 source) Encounter for screening for malignant neoplasm of rectum; Translations: [ENC SCREEN MALIG NEOPLASM RECTUM] Onset: 03-29-2022 Episodic Unclassified (1 source) CONTACT W/AND (SUSP) EXPOS COVID-19; Translations: [CONTACT W/AND (SUSP) EXPOS COVID-19] Onset: 08-22-2022 Results Test Name Value Interpretation Reference Range Facility Office Visiton 06-02-2024 Follow-up visit [id number] Linnea Culp 1950 F Date Provider Department Center 06/02/2024 KULWANT LOBO LIBRADO Root Silvio Family History Problem Relation Age of Onset Stroke Brother Stroke Paternal Grandmother Family Status - Relation Status Age at Brother Paternal Grandmother Level of Service:30157 [place] OFFICE/OUTPATIENT ESTABLISHED MOD MDM 30 MIN Normal [facility] Progress Noteson 05-30-2024 Retail Visual Merchandiser Authentication Interface Message Text Potassium just a tad up and kidney function a tad down Please stay hydrated. Please discuss with Dr. Mckay Acharya MD Normal [facility] BASIC METABOLIC PANELon 05-12 Anion gap [Moles/Vol] 15 mmol/L Normal 10-20 [facility] Comment on above: Performed By: #### C 4, C3, HEPATIC, CH8 #### [facility] [address] [place] [address], Calcium [Mass/Vol] 9.5 mg/dL Normal 8.6-10.3 The [facility] Comment on above: Performed By: #### C 4, C3, HEPATIC, CH8 #### [facility] [address] [place] [address], Chloride [Moles/Vol] 107 mmol/L Normal 98-107 [facility] Comment on above: Performed By: #### C 4, C3, HEPATIC, CH8 #### [facility] [address] [place] [address], CO2 [Moles/Vol] 27 mmol/L Normal 21-31 The [facility] Comment on above: Performed By: #### C 4, C3, HEPATIC, CH8 #### [facility] [address] [place] [address], Creatinine [Mass/Vol] 1.17 mg/dL Normal 0.60-1.20 [facility] Comment on above: Performed By: #### C 4, C3, HEPATIC, CH8 #### [facility] [address] [place] [address], ESTIMATED GFR (CKD-EPI) 50 mL/min/1.73sqm Low >=60 [facility] Comment on above: Result Comment: 2020 [...] Inclusion of Race in Diagnosing Kidney Disease. [place] Journal of Kidney Diseases 202;79(2):268-88.e1. 2. N Engl J Med 1 Vol. 385 Issue 19 Pages [id number] Performed By: #### C 4, C3, HEPATIC, CH8 #### [facility] [address] [place] [address], Glucose [Mass/Vol] 94 mg/dL Normal 74-109 The [facility] Comment on above: Performed By: #### C 4, C3, HEPATIC, CH8 #### [facility] [address] [place] [address], Potassium [Moles/Vol] 5.2 mmol/L High 3.5-5.0 [facility] Comment on above: Performed By: #### C 4, C3, HEPATIC, CH8 #### [facility] [address] [place] [address], Sodium [Moles/Vol] 144 mmol/L Normal 136-145 [facility] Comment on above: Performed By: #### C 4, C3, HEPATIC, CH8 #### [facility] [address], [place], Urea nitrogen [Mass/Vol] 16 mg/dL Normal 7-25 [facility] Comment on above: Performed By: #### C 4, C3, HEPATIC, CH8 #### [facility] [address] [place] [address], Basic metabolic 2000 panelon 05-28-2024 Anion gap [Moles/Vol] 15 mmol/L 10 - 20 [facility] Calcium [Mass/Vol] 9.5 mg/dL 8.6 - 10. 3 mg/dL [facility] Chloride [Moles/Vol] 107 mmol/L 98 - 107 mmol/L [facility] CO2 [Moles/Vol] 27 mmol/L 21 - 31 mmol/L [facility] Creatinine [Mass/Vol] 1.17 mg/dL 0.60 - 1.20 mg/dL [facility] GFR/1.73 sq M.predicted CKD-EPI (S/P/Bld) [Vol rate/Area] 50 Low - PINF [facility] Comment on above: [...] Inclusion of Race in Diagnosing Kidney Disease. [place] Journal of Kidney Diseases 2021;79(2):268-88.e1. 2. N Engl J Med 1 Vol. 385 Issue 19 Pages 1506-7409 Glucose [Mass/Vol] 94 mg/dL 74 - 109 mg/dL [facility] Potassium [Moles/Vol] 5.2 mmol/L High 3.5 - 5.0 mmol/L [facility] Sodium [Moles/Vol] 144 mmol/L 136 - 145 mmol/L [facility] Urea nitrogen [Mass/Vol] 16 mg/dL 7 - 25 mg/dL [facility] C3 COMPLEMENTon 05-28-2024 Complement C3 [Mass/Vol] 138 mg/dL 87 - 200 mg/dL [facility] C3 138 mg/dL Normal 87-200 [facility] Comment on above: Order Comment: Note: Reference Range Updated 04/21/2024 Performed By: #### C 4, C3, HEPATIC, CH8 #### [facility] [address] [place] [address], [id number] C4 COMPLEMENTon 05-28-2024 Complement C4 [Mass/Vol] 35 mg/dL 19 - 52 mg/dL [facility] C4 35 mg/dL Normal 19-52 [facility] Comment on above: Order Comment: Note: Reference Range Updated 04/21/2024 Performed By: #### C 4, C3, HEPATIC, CH8 #### [facility] [address] [place] [address], [id number] CBC WITH DIFFERENTIALon 05-12 Basophils (Bld) [#/Vol] 0.02 10*3/uL 0.00 - 0.20 K/uL [facility] Basophils/100 WBC (Bld) 0.5 % NINF - 1.9 % [facility] Eosinophils (Bld) [#/Vol] 0.08 10*3/uL 0.00 - 0.70 K/uL [facility] Eosinophils/100 WBC (Bld) 1.8 % 0.1 - 4.0 % [facility] Erythrocyte distribution width (RBC) [Ratio] 13.2 % 11.5 - 14.5 % [facility] Hematocrit (Bld) [Volume fraction] 43.6 % 36.0 - 46.0 % [facility] Hemoglobin (Bld) [Mass/Vol] 14.6 g/dL 12.0 - 15.0 g/dL [facility] Interpretation and review of laboratory results Abnormal [facility] Lymphocytes (Bld) [#/Vol] 1.13 10*3/uL 1.00 - 4.80 K/uL [facility] Lymphocytes/100 WBC (Bld) 26.5 % 24.0 - 44.0 % [facility] MCH (RBC) [Entitic mass] 31.5 pg 26.0 - 34.0 pg [facility] MCHC (RBC) [Mass/Vol] 33.5 g/dL 32.0 - 35.9 g/dL [facility] MCV (RBC) [Entitic vol] 94 fL 80 - 100 fL [facility] Monocytes (Bld) [#/Vol] 0.45 10*3/uL 0.20 - 1.00 K/uL [facility] Monocytes/100 WBC (Bld) 10.7 % 2.0 - 11.0 % [facility] Neutrophils (Bld) [#/Vol] 2.58 10*3/uL 1.50 - 8.00 K/uL [facility] Neutrophils/100 WBC (Bld) 60.5 % 31.0 - 76.0 % [facility] Platelet mean volume (Bld) [Entitic vol] 8.8 fL 7.5 - 11.2 fL [facility] Platelets (Bld) [#/Vol] 148 10*3/uL Low 150 - 400 K/uL [facility] RBC (Bld) [#/Vol] 4.64 10*6/uL [facility] WBC (Bld) [#/Vol] 4.3 10*3/uL Low 4.5 - 11.5 K/uL [facility] Basophils (Bld) [#/Vol] 0.02 10*3/uL Normal 0.00-0.20 The [facility] Comment on above: Performed By: #### C BCDSAT #### [facility] [address] [place] [address], Basophils/100 WBC (Bld) 0.5 % Normal <=1.9 [facility] Comment on above: Performed By: #### C BCDSAT #### [facility] [address] [place] [address], Eosinophils (Bld) [#/Vol] 0.08 10*3/uL Normal 0.00-0.70 [facility] Comment on above: Performed By: #### C BCDSAT #### [facility] [address] [place] [address], Eosinophils/100 WBC (Bld) 1.8 % Normal 0.1-4.0 [facility] Comment on above: Performed By: #### C BCDSAT #### [facility] [address] [place] [address], Erythrocyte distribution width (RBC) [Ratio] 13.2 % Normal 11.5-14.5 [facility] Comment on above: Performed By: #### C BCDSAT #### [facility] [address] [place] [address], Hematocrit (Bld) [Volume fraction] 43.6 % Normal 36.0-46.0 The [facility] Comment on above: Performed By: #### C BCDSAT #### [facility] [address] [place] [address], Hemoglobin (Bld) [Mass/Vol] 14.6 g/dL Normal 12.0-15.0 The [facility] Comment on above: Performed By: #### C BCDSAT #### [facility] [address], [place], Lymphocytes (Bld) [#/Vol] 1.13 10*3/uL Normal 1.00-4.80 [facility] Comment on above: Performed By: #### C BCDSAT #### [facility] [address], [place], Lymphocytes/100 WBC (Bld) 26.5 % Normal 24.0-44.0 [facility] Comment on above: Performed By: #### C BCDSAT #### [facility] [address], [place], MCH (RBC) [Entitic mass] 31.5 pg Normal 26.0-34.0 [facility] Comment on above: Performed By: #### C BCDSAT #### [facility] [address], [place], MCHC (RBC) [Mass/Vol] 33.5 g/dL Normal 32.0-35.9 [facility] Comment on above: Performed By: #### C BCDSAT #### [facility] [address], [place], MCV (RBC) [Entitic vol] 94 fL Normal 80-100 [facility] Comment on above: Performed By: #### C BCDSAT #### [facility] [address], [place], Monocytes (Bld) [#/Vol] 0.45 10*3/uL Normal 0.20-1.00 [facility] Comment on above: Performed By: #### C BCDSAT #### [facility] [address], [place], Monocytes/100 WBC (Bld) 10.7 % Normal 2.0-11.0 [facility] Comment on above: Performed By: #### C BCDSAT #### [facility] [address], [place], Neutrophils (Bld) [#/Vol] 2.58 10*3/uL Normal 1.50-8.00 [facility] Comment on above: Performed By: #### C BCDSAT #### [facility] [address], [place], Neutrophils/100 WBC (Bld) 60.5 % Normal 31.0-76.0 [facility] Comment on above: Performed By: #### C BCDSAT #### [facility] [address], [place], Platelet mean volume (Bld) [Entitic vol] 8.8 fL Normal 7.5-11.2 [facility] Comment on above: Performed By: #### C BCDSAT #### [facility] [address], [place], Platelets (Bld) [#/Vol] 148 10*3/uL Low 150-400 [facility] Comment on above: Performed By: #### C BCDSAT #### [facility] [address] [place] [address], RBC (Bld) [#/Vol] 4.64 10*6/uL Normal 4.00-5.20 [facility] Comment on above: Performed By: #### C BCDSAT #### [facility] [address], [place], WBC (Bld) [#/Vol] 4.3 10*3/uL Low 4.5-11.5 [facility] Comment on above: Performed By: #### C BCDSAT #### [facility] [address], [place], DS DNAon 05-28-2024 DNA double strand Ab Qn (S) Negative Negative [facility] DNA double strand Ab Qn (S) See Below [facility] ds DNA Reference Range: < or = to 4 IU/mL-Negative 5-9 IU/mL-Indeterminate > or = to 10 IU/mL-Positive [facility] DS DNA Negative Normal Negative [facility] Comment on above: Order Comment: ds DNA Reference Range: < or = to 4 IU/mL-Negative 5-9 IU/mL-Indeterminate > or = to 10 IU/mL-Positive Performed By: #### d s DNA #### [facility] [address], [place], DS DNA ANTIBODY < 1 Normal See Below [facility] Comment on above: Order Comment: ds DNA Reference Range: < or = to 4 IU/mL-Negative 5-9 IU/mL-Indeterminate > or = to 10 IU/mL-Positive Performed By: #### d s DNA #### [facility] [address], [place], HEPATIC FUNCTION PANELon Albumin [Mass/Vol] 4.2 g/dL 3.5 - 5.7 g/dL [facility] ALP [Catalytic activity/Vol] 60 U/L [facility] ALT [Catalytic activity/Vol] 17 U/L [facility] AST [Catalytic activity/Vol] 22 U/L [facility] Bilirubin [Mass/Vol] 0.9 mg/dL 0.3 - 1.0 mg/dL [facility] Bilirubin.direct [Mass/Vol] 0.21 mg/dL High 0.03 - 0.18 mg/dL [facility] Protein [Mass/Vol] 6.3 g/dL 6.0 - 8.3 g/dL [facility] Albumin [Mass/Vol] 4.2 g/dL Normal 3.5-5.7 [facility] Comment on above: Performed By: #### C 4, C3, HEPATIC, CH8 #### [facility] [address], [place], ALK 60 IU/L Normal 34-104 [facility] Comment on above: Performed By: #### C 4, C3, HEPATIC, CH8 #### [facility] [address], [place], ALT [Catalytic activity/Vol] 17 U/L Normal 7-52 [facility] Comment on above: Performed By: #### C 4, C3, HEPATIC, CH8 #### [facility] [address], [place], AST [Catalytic activity/Vol] 22 U/L Normal 13-39 [facility] Comment on above: Performed By: #### C 4, C3, HEPATIC, CH8 #### [facility] [address], [place], Bilirubin [Mass/Vol] 0.9 mg/dL Normal 0.3-1.0 [facility] Comment on above: Performed By: #### C 4, C3, HEPATIC, CH8 #### [facility] [address], [place], Bilirubin.direct [Mass/Vol] 0.21 mg/dL High 0.03-0.18 [facility] Comment on above: Performed By: #### C 4, C3, HEPATIC, CH8 #### [facility] [address], [place], Protein [Mass/Vol] 6.3 g/dL Normal 6.0-8.3 [facility] Comment on above: Performed By: #### C 4, C3, HEPATIC, CH8 #### [facility] [address], [place], No Panel Informationon 05-28 Interpretation and review of laboratory results Normal [facility] Note: Reference Range Updated 04/21/2024 [facility] Interpretation and review of laboratory results Abnormal [facility] Patient Instructionson 05-28 Retail Visual Merchandiser Authentication Interface Message Text Please ask Dr. Bashir about a right upper quadrant ultrasound because of the pain you are having If it is normal schedule with pain and healing to see if this is intercostal neuritis (also see if beeter on the gabapentin) Normal [facility] Progress Noteson 05-28-2024 [employer] Visual Merchandiser Authentication Interface Message Text Patient was identified by name and date of . Juana Barrios Vein puncture preformed patient tolerated well. Juana Barrios [facility] Patient left urine sample. Urine was drawn up and sent to the lab. Juana Barrios [facility] Normal [facility] Retail Visual Merchandiser Authentication Interface Message Text CC SLE and low back pain and LE neuropathy HPI and ROS Linnea Culp is 73 year old with SLE who had a little rash on her arms despite sun screen. Drove to [place] over 5 days. Went to [place]. Saw [employer] horse in [place]. No Raynaud's No alopecia No nose or mouth sores No SOB except when climbing stairs or chest pain No joint swelling Joint pain mainly hands and back Has pain right side AM stiffness hads winter 30 mintues Outpatient Medications Marked as Taking for the 05/28/24 encounter (Office Visit) with Amber Acharya MD Medication Sig Dispense Refill tramadol (ULTRAM) 50 MG tablet Take 1 Tablet by mouth every 8 hours as needed for up to 90 days. 30 Tablet 1 colestipol (COLESTID) 1 GM tablet Take 1 Tablet by mouth 2 times daily. 180 Tablet 3 gabapentin (NEURONTIN) 100 MG capsule Take 2 Capsules by mouth daily for 360 days. 180 Capsule 3 triamcinolone 0.1 % cream 1 Application. Cyanocobalamin (B-12) 5000 MCG CAPS Take 5,000 mcg by mouth daily. Cranberry 500 MG CAPS Take 500 mg by mouth daily. vitamin E 180 MG (400 UNIT) CAPS capsule Take 180 mg by mouth daily. pantoprazole (PROTONIX) 40 MG tablet Take 40 mg by mouth. levothyroxine (SYNTHROID) 88 MCG tablet celecoxib (CeleBREX) 200 MG capsule 200 mg 2 times daily. liothyronine (CYTOMEL) 5 MCG tablet hydroxychloroquine (PLAQUENIL) 200 MG tablet TAKE 2 TABLETS BY MOUTH DAILY 180 Tablet 1 aspirin 81 MG enteric coated tablet Take 81 mg by mouth daily. atorvastatin (LIPITOR) 80 mg tablet amLODIPine (NORVASC) 10 MG tablet Take 10 mg by mouth daily. Cholecalciferol (VITAMIN D3) 1000 UNITS CAPS Take 1 Capsule by mouth daily. 90 Capsule 1 metoprolol XL (TOPROL-XL) 100 MG XL tablet Take 100 mg by mouth 2 times daily. Has had recent eye exam BP 136/64 (BP Location: left arm, BP position: sitting, Cuff Size: adult) Pulse 58 Resp 21 Ht 5' 4.5 (1.638 m) Wt 211 lb (95.7 kg) SpO2 99% BMI 35.66 kg/m??? Skin No rash HEENT Naso and oropharynx clear Neck No LAD Lungs CTA Breasts Not done Heart S1S2 RRR no m or g Abdomen Soft no HSM Musculoskeletal/Extr emities Neck reduced lateral ROM and lateral flexion, shoulders, elbows, wrists, MCPs, PIPs, DIPs full ROM no synovitis, hips FROM, no irritability, knees no effusion, FROM, no warmth, some mild PF crepitus ankles non-tender, FROM, achilles non-tender, metatarsal squeeze test negative Neurologic Alert and interactive Pelvic/Genital Not done Rectal Not done 05/28/2024 10:41 AM WBC 4.3 (L) RBC 4.64 Hemoglobin 14.6 Hematocrit 43.6 MCV 94 MCH 31.5 MCHC 33.5 Platelet 148 (L) RDW-CV% 13.2 MPV 8.8 Neutrophils 60.5 Neutrophil # 2.58 Lymphocytes 26.5 Lymph Absolute 1.13 Monocytes 10.7 Monocyte Absolute 0.45 Eosinophil 1.8 Eosinophil Absolute 0.08 Basophils 0.5 Basophil # 0.02 Color Colorless Appearance Clear pH 6.0 Spec Mallory 1.009 Protein Negative Blood Negative Bilirubin Negative Urobilinogen Negative Ketones Negative Leuk. Esterase Negative Nitrite Negative Glucose Negative Glucose 94 Sodium 144 Potassium 5.2 (H) Carbon Dioxide 27 Chloride 107 BUN 16 Creatinine 1.17 Calcium 9.5 Anion Gap 15 Estimated GFR 50 (L) Albumin 4.2 Bilirubin, Direct 0.21 (H) Bilirubin, Total 0.9 Alkaline Phosphatase 60 ALT (SGPT) 17 AST (SGOT) 22 Protein, Total 6.3 Anti-DNA Screen Negative ds DNA Antibody <1 C3 Complement 138 C4 Complement 35 Legend: (L) Low (H) High Imp/Plan: (M32.9) SLE (systemic lupus erythematosus related syndrome) (HCC) (primary encounter diagnosis) Comment: Plan: COMPLETE BLOOD COUNT W/DIFF, BASIC METABOLIC PANEL, HEPATIC FUNCTION PANEL, C3 COMPLEMENT, C4 COMPLEMENT, URINALYSIS W/REFLEX CULTURE, TOTAL PROTEIN WITH CREATININE, RANDOM URINE, DS DNA, CANCELED: CREATININE, RANDOM URINE (M79.7) Fibromyalgia Comment: has amplified pain syndrome Plan: tramadol (ULTRAM) 50 MG tablet (N95.8) Other specified menopausal and perimenopausal disorders Comment: not yet performed Plan: BD BONE DENSITY SURVEY (G58.8) 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 Normal The [facility] URINALYSIS WITH REFLEX CULTU RE PERFORMABLEon 05-28-2024 Appearance (U) Clear Clear [facility] Bilirubin Ql (U) Negative Negative [facility] Color (U) Colorless Colorless [facility] Glucose Auto test strip (U) [Mass/Vol] Negative Negative mg/dL [facility] Hemoglobin Ql (U) Negative Negative [facility] Ketones Ql (U) Negative Negative mg/dL [facility] Leukocyte esterase Test strip Ql (U) Negative Negative [facility] Nitrite Ql (U) Negative Negative [facility] pH (U) 6.0 [pH] 5.0 - 8.0 [facility] Protein (U) [Mass/Vol] Negative Negative mg/dL [facility] Specific gravity (U) [Rel density] 1.009 NINF - 1.030 [facility] Urobilinogen Qn (U) Negative Negative mg/dL [facility] A negative leukocyte esterase AND negative [...] Glucose Ql (U) Negative Normal Negative [facility] Comment on above: Order Comment: [...] UTI around 50%) Performed By: #### u rinalysiswcul #### [facility] [address] [place] [address], [id number] U APPEAR Clear Normal Clear [facility] Comment [...] UTI around 50%) Performed By: #### u rinalysiswcul #### [facility] [address] [place] [address], U BILI Negative Normal Negative [facility] Comment on above: Order Comment: [...] UTI around 50%) Performed By: #### u rinalysiswcul #### [facility] [address] [place] [address], U BLOOD Negative Normal Negative The [employer] [facility] Comment on above: Order Comment: A [...] UTI around 50%) Performed By: #### u rinalysiswcul #### [facility] [address] [place] [address], U COLOR Colorless Normal Colorless The [facility] Comment on above: Order Comment: [...] UTI around 50%) Performed By: #### u rinalysiswcul #### [facility] [address] [place] [address], U KETONE Negative Normal Negative [facility] [...] UTI around 50%) Performed By: #### u rinalysiswcul #### [facility] [address] [place] [address], U LEUK Negative Normal Negative [facility] [...] UTI around 50%) Performed By: #### u rinalysiswcul #### [facility] [address] [place], [place], U NITRITE Negative Normal Negative [facility] [...] UTI around 50%) Performed By: #### u rinalysiswcul #### [facility] [address] [place] [address], U PH 6.0 Normal 5.0-8.0 The [facility] [employer] [facility] Comment on above: Order Comment: A [...] UTI around 50%) Performed By: #### u rinalysiswcul #### [facility] [address] [place] [address], U PROTEIN Negative Normal Negative The [facility] Comment on above: Order Comment: A [...] UTI around 50%) Performed By: #### u rinalysiswcul #### [facility] [address] [place], [place], U SG 1.009 Normal <=1.030 The [facility] Comment on above: Order Comment: A [...] UTI around 50%) Performed By: #### u rinalysiswcul #### [facility] [address] [place], [id number] U UROBILI Negative Normal Negative The [facility] [facility] Comment on above: Order Comment: A [...] UTI around 50%) Performed By: #### u rinalysiswcul #### [facility] [address] [place], [id number] Telephone Encounteron 2023 Retail Visual Merchandiser Authentication Interface Message Text Faxed completed physical therapy forms to [facility] #[phone]. Confirmation received. Added a copy of forms to media folder. Normal The [facility] Progress Noteson 03-05-2024 Retail Visual Merchandiser Authentication Interface Message Text There was a possible minor abnormally in a nerve that causes numbness and tingling in the foot. We can see next time if you have a Razo's cyst that is irritating the nerve that goes to the foot Amber Acharya MD Normal The [facility] EMGon 02-27-2024 [facility] observation (narrative) [facility] Progress Noteson 02-04-2024 Retail Visual Merchandiser Authentication Interface Message Text This is ok Amber Acharya MD Normal The [facility] BASIC METABOLIC PANELon 03-2 Anion gap [Moles/Vol] 12 mmol/L Normal 10-20 The [facility] Comment on above: Performed By: #### C BCDSAT #### [facility] [address] [place], [place], Calcium [Mass/Vol] 8.8 mg/dL Normal 8.6-10.3 The [facility] Comment on above: Performed By: #### C BCDSAT #### [facility] [address] [place], [place], Chloride [Moles/Vol] 108 mmol/L High 98-107 The [facility] Comment on above: Performed By: #### C BCDSAT #### [facility] [address] [place], [place], CO2 [Moles/Vol] 27 mmol/L Normal 21-31 The [facility] Comment on above: Performed By: #### C BCDSAT #### [facility] [address] [place], [place], Creatinine [Mass/Vol] 1.08 mg/dL Normal 0.60-1.20 The [facility] Comment on above: Performed By: #### C BCDSAT #### [facility] [address] [place], [place], ESTIMATED GFR (CKD-EPI) 55 mL/min/1.73sqm Low >=60 The [facility] Comment on above: Result Comment: 2020 [...] Inclusion of Race in Diagnosing Kidney Disease. [place] Journal of Kidney Diseases 2021;79(2):268-88.e1. 2. N Engl J Med 1 Vol. 385 Issue 19 Pages [id number] Performed By: #### C BCDSAT #### [facility] [address] [place], [place], Glucose [Mass/Vol] 89 mg/dL Normal 74-109 The [facility] Comment on above: Performed By: #### C BCDSAT #### [facility] [address] [place], [place], Potassium [Moles/Vol] 4.3 mmol/L Normal 3.5-5.0 The [facility] Comment on above: Performed By: #### C ISSAAT #### [facility] [address] [place] [address], Sodium [Moles/Vol] 143 mmol/L Normal 136-145 The [facility] Comment on above: Performed By: #### C ISSAAT #### [facility] [address] [place] [address], Urea nitrogen [Mass/Vol] 15 mg/dL Normal 7-25 The [facility] Comment on above: Performed By: #### C ISSAAT #### [facility] [address] [place] [address], C3 COMPLEMENTon 01-30-2024 C3 133 mg/dL Normal 81-163 The [facility] Comment on above: Performed By: #### C ISSAAT #### [facility] [address] [place] [address], C4 COMPLEMENTon 01-30-2024 C4 36 mg/dL Normal 14-46 The [facility] Comment on above: Performed By: #### C ISSAAT #### [facility] [address] [place] [address], CBC WITH DIFFERENTIALon 01-11 Basophils (Bld) [#/Vol] 0.03 10*3/uL Normal 0.00-0.20 The [facility] Comment on above: Performed By: #### C ISSAAT #### [facility] [address] [place] [address], Basophils/100 WBC (Bld) 0.8 % Normal <=1.9 The [facility] Comment on above: Performed By: #### Kizzy PARSONSAT #### [facility] [address] [place] [address], Eosinophils (Bld) [#/Vol] 0.05 10*3/uL Normal 0.00-0.70 The [facility] Comment on above: Performed By: #### Kizzy PARSONSAT #### [facility] [address] [place], [place], Eosinophils/100 WBC (Bld) 1.1 % Normal 0.1-4.0 The [facility] Comment on above: Performed By: #### C BCDSAT #### [facility] [address] [place], [place], Erythrocyte distribution width (RBC) [Ratio] 13.2 % Normal 11.5-14.5 The [facility] Comment on above: Performed By: #### C BCDSAT #### [facility] [address] [place], [place], Hematocrit (Bld) [Volume fraction] 42.2 % Normal 36.0-46.0 The [facility] Comment on above: Performed By: #### C BCDSAT #### [facility] [address] [place], [place], Hemoglobin (Bld) [Mass/Vol] 14.2 g/dL Normal 12.0-15.0 The [facility] Comment on above: Performed By: #### C BCDSAT #### [facility] [address] [place], [place], Lymphocytes (Bld) [#/Vol] 1.23 10*3/uL Normal 1.00-4.80 The [facility] Comment on above: Performed By: #### C BCDSAT #### [facility] [address] [place], [place], Lymphocytes/100 WBC (Bld) 28.9 % Normal 24.0-44.0 The [facility] Comment on above: Performed By: #### C BCDSAT #### [facility] [address] [place], [place], MCH (RBC) [Entitic mass] 32.1 pg Normal 26.0-34.0 The [facility] Comment on above: Performed By: #### C BCDSAT #### [facility] [address] [place], [place], MCHC (RBC) [Mass/Vol] 33.7 g/dL Normal 32.0-35.9 The [facility] Comment on above: Performed By: #### C BCDSAT #### [facility] [address] [place], [place], MCV (RBC) [Entitic vol] 95 fL Normal 80-100 The [facility] Comment on above: Performed By: #### C BCDSAT #### [facility] [address] [place], [place], Monocytes (Bld) [#/Vol] 0.41 10*3/uL Normal 0.20-1.00 The [facility] Comment on above: Performed By: #### C BCDSAT #### [facility] [address] [place], [place], Monocytes/100 WBC (Bld) 9.7 % Normal 2.0-11.0 The [facility] Comment on above: Performed By: #### C BCDSAT #### [facility] [address] [place], [place], Neutrophils (Bld) [#/Vol] 2.54 10*3/uL Normal 1.50-8.00 The [facility] Comment on above: Performed By: #### C BCDSAT #### [facility] [address] [place], [place], Neutrophils/100 WBC (Bld) 59.6 % Normal 31.0-76.0 The [facility] Comment on above: Performed By: #### C BCDSAT #### [facility] [address] [place], [place], Platelet mean volume (Bld) [Entitic vol] 9.2 fL Normal 7.5-11.2 The [facility] Comment on above: Performed By: #### C BCDSAT #### [facility] [address] [place], [place], Platelets (Bld) [#/Vol] 158 10*3/uL Normal 150-400 The [facility] Comment on above: Performed By: #### C BCDSAT #### [facility] [address] [place], [place], RBC (Bld) [#/Vol] 4.43 10*6/uL Normal 4.00-5.20 The [facility] Comment on above: Performed By: #### C BCDSAT #### [facility] [address] [place] [address], WBC (Bld) [#/Vol] 4.3 10*3/uL Low 4.5-11.5 The [facility] Comment on above: Performed By: #### C BCDSAT #### [facility] [address] [place] [address], HEMOGLOBIN A1Con 01-30-2024 Glucose [Mass/Vol] 97 mg/dL Normal The [facility] Comment on above: Performed By: #### C BCDSAT #### [facility] [address] [place] [address], HbA1c (Bld) [Mass fraction] 5.0 % Normal 4.0-5.6 The [facility] Comment on above: Performed By: #### C BCDSAT #### [facility] [address] [place] [address], HEPATIC FUNCTION PANELon Albumin [Mass/Vol] 4.0 g/dL Normal 3.5-5.7 The [facility] Comment on above: Order Comment: Note updated reference ranges. Performed By: #### C BCDSAT #### [facility] [address] [place] [address], ALK 71 IU/L Normal 34-104 The [facility] Comment on above: Order Comment: Note updated reference ranges. Performed By: #### C BCDSAT #### [facility] [address] [place] [address], ALT [Catalytic activity/Vol] 26 U/L Normal 7-52 The [facility] Comment on above: Order Comment: Note updated reference ranges. Performed By: #### C BCDSAT #### [facility] [address] [place] [address], AST [Catalytic activity/Vol] 32 U/L Normal 13-39 The [facility] Comment on above: Order Comment: Note updated reference ranges. Performed By: #### C BCDSAT #### [facility] [place], [place], Bilirubin [Mass/Vol] 0.9 mg/dL Normal 0.3-1.0 The [facility] Comment on above: Order Comment: Note updated reference ranges. Performed By: #### C BCDSAT #### [facility] [address] [place], [place], Bilirubin.direct [Mass/Vol] 0.25 mg/dL High 0.03-0.18 The [facility] Comment on above: Order Comment: Note updated reference ranges. Performed By: #### C BCDSAT #### [facility] [address] [place], [place], Protein [Mass/Vol] 6.2 g/dL Normal 6.0-8.3 The [facility] Comment on above: Order Comment: Note updated reference ranges. Performed By: #### C BCDSAT #### [facility] [address] [place], [place], Patient Instructionson 01-29 Retail Visual Merchandiser Authentication Interface Message Text Take folic acid supplemental over the counter Normal The [facility] Progress Noteson 01-30-2024 Retail Visual Merchandiser Authentication Interface Message Text Patient was identified by name and date of . Romelia Dunn Venipuncture performed patient tolerated well Romelia Dunn MPA Patient leaving urine sample Normal The [facility] Retail Visual Merchandiser Authentication Interface Message Text CC h/o SLE [...] Color Yellow Appearance Turbid pH 5.5 Spec Mallory 1.016 Protein 30 ! Blood Negative Bilirubin [...] EXTERNAL SERVICE REQUEST FOR CARE OUTSIDE THE [employer] SYSTEM Helped previously Amber Acharya MD Normal The [facility] Retail Visual Merchandiser Authentication Interface Message Text Patient was identified by name and date of . SANG Sanders Normal The [facility] TOTAL PROTEIN WITH CREATININ E, RANDOM URINEon 01-30-2024 CREATININE, URINE 148 mg/dL Normal 10-300 The [employer] [facility] Comment on above: Performed By: #### T P RU #### [facility] [address] [place], [place], Protein (U) [Mass/Vol] 11 mg/dL Normal <=100 The [facility] Comment on above: Performed By: #### T P RU #### [facility] [address] [place], [place], TP/CREAT RATIO 74 mg/g Normal <=164 The [facility]GIS[facility] Comment on above: Performed By: #### T P RU #### [facility] [address] [place], [place], URINALYSISon 01-30-2024 Glucose Ql (U) Negative Normal Negative The [facility] Center[facility] System Comment on above: Order Comment: A [...] UTI around 50%) Performed By: #### C BCDSAT #### [facility] [address] [place], [place], Protein (U) [Mass/Vol] 30 mg/dL Abnormal Negative The [facility] Comment on above: Order Comment: A [...] UTI around 50%) Performed By: #### C BCDSAT #### [facility] [address] [place] [address], SQUAMOUS EPITHELIAL 6-10 Normal 0-10 The [facility] Comment on above: Order Comment: A [...] UTI around 50%) Performed By: #### C BCDSAT #### [facility] [address] [place] [address], U APPEAR Turbid Normal Clear The [employer] [facility] Comment on above: Order Comment: A [...] UTI around 50%) Performed By: #### C BCDSAT #### [facility] [address] [place] [address], U BACTERIA Few Normal The [employer] [facility] Comment on above: Order Comment: A [...] UTI around 50%) Performed By: #### C BCDSAT #### [facility] [address] [place] [address], U BILI Negative Normal Negative The [employer] [facility] Comment on above: Order Comment: A [...] UTI around 50%) Performed By: #### C BCDSAT #### [facility] [address] [place] [address], U BLOOD Negative Normal Negative The [facility] Comment on above: Order Comment: [...] UTI around 50%) Performed By: #### C BCDSAT #### [facility] [address] [place] [address], U COLOR Yellow Normal Colorless The [facility] [...] UTI around 50%) Performed By: #### C BCDSAT #### [facility] [address] [place] [address], U HY CAST 0-2 Normal The [facility] [...] UTI around 50%) Performed By: #### C BCDSAT #### [facility] [address] [place] [address], U KETONE Negative Normal Negative The [employer] [facility] Comment on above: Order Comment: A [...] UTI around 50%) Performed By: #### C BCDSAT #### [facility] [address] [place] [address], U LEUK Positive Abnormal Negative The [facility] System Comment on above: Order Comment: [...] testing for pyuria. Performed By: #### C BCDSAT #### [facility] [address] [place] [address], U MUCOUS Present Normal [facility] [...] UTI around 50%) Performed By: #### C BCDSAT #### [facility] [address] [place] [address], U NITRITE Positive Abnormal Negative The [facility] [employer] [facility] Comment on above: Order Comment: A [...] UTI around 50%) Performed By: #### C BCDSAT #### [facility] [address] [place] [address], U PH 5.5 Normal 5.0-8.0 The [employer] [facility] Comment on above: Order Comment: A [...] UTI around 50%) Performed By: #### C BCDSAT #### [facility] [address] [place] [address], U RBC 0-2 Normal 0-2 The [facility] [employer] [facility] Comment on above: Order Comment: A [...] UTI around 50%) Performed By: #### C BCDSAT #### [facility] [address] [place] [address], U SG 1.016 Normal <=1.030 The [employer] [facility] Comment on above: Order Comment: A [...] UTI around 50%) Performed By: #### C BCDSAT #### [facility] [address] [place] [address], U UROBILI Negative Normal Negative The [employer] [facility] Comment on above: Order Comment: A [...] UTI around 50%) Performed By: #### C BCDSAT #### [facility] [address] [place], [place], U WBC 11-30 Abnormal 0-2 The [employer] System Comment on above: Order Comment: A [...] UTI around 50%) Performed By: #### C BCDSAT #### [facility] [address] [place], [place], VITAMIN B12 (CYANOCOBALAMIN) on 01-30-2024 Cobalamin (Vitamin B12) [Mass/Vol] 3617 pg/mL Normal >300 The [facility] Comment on above: Order Comment: <152 pg/mL - [id number] - 300 pg/mL- Insufficient>300 pg/mL - Sufficient Performed By: #### C BCDSAT #### [facility] [address] [place], [place], XR ARTHRITIS SURVEY HAND/WRI STon 01-30-2024 XR ARTHRITIS SURVEY HAND/WRIST EXAMINATION: XR ARTHRITIS SURVEY HAND/WRIST 01/30/2024 12:42 PM CLINICAL HISTORY: pain hands ?OA ASSOCIATED DIAGNOSIS: Numbness and tingling of both legs below knees Numbness and tingling of both legs below knees ORDERING PROVIDER: AMBER KRAUSE NOTE: COMPARISON: 09/07/2021 FINDINGS: There is evidence of degenerative osteoarthritis of first carpometacarpal joints bilaterally more marked on the left side. Narrowing of joint space is noted with osteophytes. Mild degenerative change noted involving the distal interphalangeal joints. No significant interval change. IMPRESSION: Degenerative osteoarthritis without significant interval change. MACRO: None Normal The [facility] XR C-SPINE AP+LATERAL 2 VIEW Son 01-30-2024 XR C-SPINE AP+LATERAL 2 VIEWS EXAMINATION: XR C-SPINE AP+LATERAL 2 VIEWS 01/30/2024 12:42 PM CLINICAL HISTORY: Pain ASSOCIATED DIAGNOSIS: Numbness and tingling of both legs below knees Numbness and tingling of both legs below knees ORDERING PROVIDER: AMBER KRAUSE NOTE: COMPARISON: 03/08/2022 FINDINGS: On the lateral [...] significant interval change. MACRO: None Normal [facility] Telephone Encounteron 2023 [employer] Visual [employer]chandiser Authentication Interface Message Text The [facility] external XR results added to media folder. Normal The [facility] Telephone Encounteron 2022 [employer] Visual Merchandiser Authentication Interface Message Text The [facility] external x-ray results added to media folder. Normal [facility] ELECTROPHORESIS, SERUM PROTE INOrdered By: Dane Anaya on 04-27-2023 Albumin [Mass fraction] 53.8 % 52.0 - 72.0 % [facility] Work Phone: Albumin [Mass/Vol] 3.55 g/dL Low 3.90 - 5. 10 g/dL [facility] Work Phone: Alpha 1 globulin Elph (CSF) [Mass fraction] 0.29 g/dL 0.10 - 0.45 g/dL [facility] Work Phone: Alpha 1 globulin Unsp time Elph (U) [Mass fraction] 4.3 % 2.0 - 9.6 % [facility] Work Phone: Alpha 2 globulin Elph (CSF) [Mass fraction] 0.66 g/dL 0.40 - 0.90 g/dL [facility] Work Phone: Alpha 2 globulin Unsp time Elph (U) [Mass fraction] 10.0 % 5.0 - 16.0 % [facility] Work Phone: Beta globulin Elph (CSF) [Mass fraction] 1.23 g/dL High 0.50 - 1.00 g/dL [facility] Work Phone: Beta globulin Unsp time Elph [...] observed in the serum. Maged Whiting, Ph.D [facility] Work Phone: Interpretation and review of laboratory results Abnormal [facility] Work Phone: Protein.monoclonal Elph [Mass fraction] 6.6 g/dL 5.7 - 8.1 g/dL [facility] Work Phone: . I certify that I personally conducted the diagnostic evaluation of the above specimen(s) and have rendered the final diagnosis(es). [facility] Work Phone: [facility] Work Phone: URINE CULTUREOrdered By: Rome Wynn on 04-26-2023 Bacteria identified Cx Nom (U) 1,000 - 10,000 CFU/ml Multiple bacteria present suggesting contamination. [facility] Interpretation and review of laboratory results Normal [facility] IF clinically indicated, suggest appropriate recollection with timely delivery to the laboratory. For additional information, call ext [phone]. [facility] VITAMIN B12 (CYANOCOBALAMIN) on 04-26-2023 [...] Inclusion of Race in Diagnosing Kidney Disease. [place] Journal of Kidney Diseases 202;79(2):268-88.e1. 2. N Engl J Med 2020 Vol. 385 Issue 19 Pages [id number] Glucose [Mass/Vol] 90 mg/dL 80 - 116 [...] (positive predictive value for UTI around 50%) [facility]on SARS-CoV-2 (COVID-19) RNA CRISTIAN+probe Ql (Unsp spec) Detected Critically abnormal NOT DETECTED [facility] Comment on above: Result Comment: This test is not yet approved or cleared by the [place] FDA. When there are no FDA-approved or cleared tests available, and other criteria are met, FDA can make tests available under an emergency access mechanism called an Emergency Use Authorization (EUA). The EUA for this test is supported by the [place] of Health and Human Service's declaration that [...] used). Performed By: #### C VDTBH #### [facility] [address] [place] [address] Dr. Ella Mathis INFLUENZA A AND B AGon 10-16 [facility] SEE BELOW Normal [facility] Comment on above: Result Comment: Nega tive for Flu A protein angiten. Infection due to Flu A cannot be ruled out. Flu A angiten in the sample may be below the detection limit of the test. Performed By: #### C VDTBH #### [facility] [address] [place] [address] Dr. Ella Math[facility] Normal [facility] Comment on above: Result Comment: Nega tive for Flu B protein antigen. Infection due to Flu B cannot be ruled out. Flu B antigen in the sample may be below the detection limit of the test. Performed By: #### C VDTBH #### [facility] [address] [place] [address] Dr. Ella Mathis INFLUENZA A AG Negative Normal NEGATIVE SEE COMMENT [facility] Comment on above: Performed By: #### C VDTBH #### [facility] [address] [address] [address] Ella Mathis INFLUENZA B AG Negative Normal NEGATIVE SEE COMMENT [facility] Comment on above: Performed By: #### C VDTBH #### [facility] [address] [address] [address] Ella Mathis INTERNAL CONTROLS Within Normal Limits Normal Wi thin Normal Limits [facility] Comment on above: Performed By: #### C VDTBH #### [facility] [address] [place] [address] Dr. Ella Mathis PROF CHEM 8 (BAS METB)on Anion gap [Moles/Vol] 10.5 mmol/L Normal [facility] Comment on above: Performed By: #### B MP #### [facility] [address] [place] [address] Dr. Ella Mathis Calcium [Mass/Vol] 8.7 mg/dL Normal 8.5-10.1 [facility] Comment on above: Performed By: #### B MP #### [facility] [address] [place] [address] Dr. Ella Mathis Chloride [Moles/Vol] 107 mmol/L Normal 98-107 [facility] Comment on above: Performed By: #### B MP #### [facility] [address] [place] [address] Dr. Ella Mathis CO2 [Moles/Vol] 29.9 mmol/L Normal 21.0-32.0 [facility] Comment on above: Performed By: #### B MP #### [facility] [address] [place] [address] Dr. Ella Mathis Creatinine [Mass/Vol] 1.02 mg/dL Normal 0.55-1.02 [facility] Comment on above: Performed By: #### B MP #### [facility] [address] [place] [address] Dr. Ella Mathis EGFR-AF ARMENIAN >60 Normal >=60 [facility] Comment on above: Performed By: #### B MP #### [facility] [address] [address] [address] Ella Mathis EGFR-NON AF ARMENIAN 54 mL/min/1.73m2 Critically low >=60 [facility] Comment on above: Performed By: #### B MP #### [facility] [address] [address] [address] Ella Mathis Glucose [Mass/Vol] 91 mg/dL Normal 74-106 [facility] Comment on above: Performed By: #### B MP #### [facility] [address] [address] [address] Ella Mathis Potassium [Moles/Vol] 4.4 mmol/L Normal 3.5-5.1 [facility] Comment on above: Performed By: #### B MP #### [facility] [address] [address] [address] Ella Mathis Sodium [Moles/Vol] 143 mmol/L Normal 136-145 [facility] Comment on above: Performed By: #### B MP #### [facility] [address] [address] [address] Ella Mathis Urea nitrogen [Mass/Vol] 20.0 mg/dL Critically high 7.0-18.0 [facility] Comment on above: Performed By: #### B MP #### [facility] [address] [address] [address] Ella Mathis Urea nitrogen/Creatinine [Mass ratio] 19.6 mg/mg Normal [facility] Comment on above: Performed By: #### B MP #### [facility] [address] [address] [address] Ella Mathis US BOBBI DOP LEG [...] by: HECTOR LING Date: 2022-10-03 10:59 Normal [facility] US BOBBI DOP LEG LTon 09-08-20 US [...] left leg *Exam performed in accordance with [facility] practice guidelines- Peripheral venous ultrasound, February 05, 2010. Electronically authenticated by: ASHLEY CHU Date: 2022-09-08 17:28 Normal [facility] BNPon 08-28-2022 Natriuretic peptide B (Bld) [Mass/Vol] 346.0 pg/mL Normal <=900.0 [facility] Comment on above: Performed By: #### P TT, PT #### [facility] [address] [place] [address] Dr. Ella Mathis CBC AUTO DIFFon 08-28-2022 BASO # 0.0 103/ul Normal 0.0-0.1 [facility] Comment on above: Performed By: #### C BC #### [facility] [address] [place] [address] Dr. Ella Mathis Basophils/100 WBC (Bld) 0.4 % Normal 0.2-2.0 [facility] Comment on above: Performed By: #### C BC #### [facility] [address] [place] [address] Dr. Ella Mathis EO # 0.0 103/ul Normal 0.0-0.7 [facility] Comment on above: Performed By: #### C BC #### [facility] [address] [place] [address] Dr. Ella Mathis Eosinophils/100 WBC (Bld) 0.6 % Critically low 0.9-7.0 [facility] Comment on above: Performed By: #### C BC #### [facility] [address] [place] [address] Dr. Ella Mathis Erythrocyte distribution width (RBC) [Ratio] 12.5 % Normal 11.0-15.0 [facility] Comment on above: Performed By: #### C BC #### [facility] [address] [place] [address] Dr. Ella Mathis Hematocrit (Bld) [Volume fraction] 38.9 % Normal 36.0-48.0 [facility] Comment on above: Performed By: #### C BC #### [facility] [address] [place] [address] Dr. Ella Mathis Hemoglobin (Bld) [Mass/Vol] 13.0 g/dL Normal 12.0-16.0 [facility] Comment on above: Performed By: #### C BC #### [facility] [address] [place] [address] Dr. Ella Mathis IG # 0.04 10e3/ul Critically high 0.00-0.03 [facility] Comment on above: Performed By: #### C BC #### [facility] [address] [place] [address] Dr. Ella Mathis IG % 0.6 % Critically high 0.0-0.5 [facility] Comment on above: Performed By: #### C BC #### [facility] [address] [place] [address] Dr. Ella Mathis LYMPH # 1.8 103/ul Normal 1.2-3.8 [facility] Comment on above: Performed By: #### C BC #### [facility] [address] [place] [address] Dr. Ella Mathis Lymphocytes/100 WBC (Bld) 25.2 % Normal 20.5-60.0 [facility] Comment on above: Performed By: #### C BC #### [facility] [address] [place] [address] Dr. Ella Mathis MANUAL DIFF REQ NO Normal [facility] Comment on above: Performed By: #### C BC #### [facility] [address] [place] [address] Dr. Ella Mathis MCH (RBC) [Entitic mass] 31.9 pg Normal 26.7-34.0 [facility] Comment on above: Performed By: #### C BC #### [facility] [address] [place] [address] Dr. Ella Mathis MCHC (RBC) [Mass/Vol] 33.4 g/dL Normal 29.9-35.2 [facility] Comment on above: Performed By: #### C BC #### [facility] [address] [place] [address] Dr. Ella Mathis MCV (RBC) [Entitic vol] 95.3 fL Normal 81.0-99.0 [facility] Comment on above: Performed By: #### C BC #### [facility] [address] [place] [address] Dr. Ella Mathis MONO # 0.8 103/ul Normal 0.3-0.8 [facility] Comment on above: Performed By: #### C BC #### [facility] [address] [place] [address] Dr. Ella Mathis Monocytes/100 WBC (Bld) 10.5 % Normal 1.7-12.0 [facility] Comment on above: Performed By: #### C BC #### [facility] [address] [place] [address] Dr. Ella Mathis NEUT # 4.5 103/ul Normal 1.4-6.5 [facility] Comment on above: Performed By: #### C BC #### [facility] [address] [place] [address] Dr. Ella Mathis Neutrophils/100 WBC (Bld) 62.7 % Normal 43.0-75.0 [facility] Comment on above: Performed By: #### C BC #### [facility] [address] [place] [address] Dr. Ella Mathis Platelet mean volume (Bld) [Entitic vol] 10.2 fL Normal 9.5-13.5 [facility] Comment on above: Performed By: #### C BC #### [facility] [address] [address] [address] Ella Mathis PLT 184 103/ul Normal 150-450 [facility] Comment on above: Performed By: #### C BC #### [facility] [address] [address] [address] Ella Mathis RBC 4.08 106/ul Critically low 4.20-5.40 [facility] Comment on above: Performed By: #### C BC #### [facility] [address] [address] [address] Ella Mathis WBC 7.2 103/ul Normal 4.0-11.0 [facility] Comment on above: Performed By: #### C BC #### [facility] [address] [place] [address] Dr. Ella Mathis PROF 14(COMP METB)on 08-28- 022 Albumin [Mass/Vol] 3.3 g/dL Critically low 3.4-5.0 [facility] Comment on above: Performed By: #### P TT, PT #### [facility] [address] [place] [address] Dr. Ella Mathis Albumin/Globulin [Mass ratio] 1.1 {ratio} [facility] Comment on above: Performed By: #### P TT, PT #### [facility] [address] [place] [address] Dr. Ella Mathis ALP [Catalytic activity/Vol] 72 U/L Normal 46-116 [facility] Comment on above: Performed By: #### P TT, PT #### [facility] [address] [place] [address] Dr. Ella Mathis ALT [Catalytic activity/Vol] 20 U/L Normal 14-59 [facility] Comment on above: Performed By: #### P TT, PT #### [facility] [address] [place] [address] Dr. Ella Mathis Anion gap [Moles/Vol] 8.8 mmol/L Normal [facility] Comment on above: Performed By: #### P TT, PT #### [facility] [address] [address] [address] Ella Mathis AST [Catalytic activity/Vol] 11 U/L Critically low 15-37 [facility] Comment on above: Performed By: #### P TT, PT #### [facility] [address] [address] [address] Ella Mathis Bilirubin [Mass/Vol] 0.6 mg/dL Normal 0.2-1.0 [facility] Comment on above: Performed By: #### P TT, PT #### [facility] [address] [address] [address] Ella Mathis Calcium [Mass/Vol] 8.6 mg/dL Normal 8.5-10.1 [facility] Comment on above: Performed By: #### P TT, PT #### [facility] [address] [place] [address] Dr. Ella Mathis Chloride [Moles/Vol] 106 mmol/L Normal 98-107 [facility] Comment on above: Performed By: #### P TT, PT #### [facility] [address] [address] [address] Ella Mathis CO2 [Moles/Vol] 31.9 mmol/L Normal 21.0-32.0 [facility] Comment on above: Performed By: #### P TT, PT #### [facility] [address] [place] [address] Dr. Ella Mathis Creatinine [Mass/Vol] 1.03 mg/dL Critically high 0.55-1.02 [facility] Comment on above: Performed By: #### P TT, PT #### [facility] [address] [address] [address] Elal Mathis EGFR-AF ARMENIAN >60 Normal >=60 [facility] Comment on above: Performed By: #### P TT, PT #### [facility] [address] [address] [address] Ella Mathis EGFR-NON AF ARMENIAN 53 mL/min/1.73m2 Critically low >=60 [facility] Comment on above: Performed By: #### P TT, PT #### [facility] [address] [address] [address] Ella Mathis Globulin (S) [Mass/Vol] 3.0 g/dL Normal [facility] Comment on above: Performed By: #### P TT, PT #### [facility] [address] [address] [address] Ella Mathis Glucose [Mass/Vol] 85 mg/dL Normal 74-106 [facility] Comment on above: Performed By: #### P TT, PT #### [facility] [address] [address] [address] Ella Mathis Potassium [Moles/Vol] 3.7 mmol/L Normal 3.5-5.1 [facility] Comment on above: Performed By: #### P TT, PT #### [facility] [address] [place] [address] Dr. Ella Mathis Protein [Mass/Vol] 6.3 g/dL Critically low 6.4-8.2 [facility] Comment on above: Performed By: #### P TT, PT #### [facility] [address] [address] [address] Ella Mathis Sodium [Moles/Vol] 143 mmol/L Normal 136-145 [facility] Comment on above: Performed By: #### P TT, PT #### [facility] [address] [address] [address] Ella Mathis Urea nitrogen [Mass/Vol] 20.0 mg/dL Critically high 7.0-18.0 [facility] Comment on above: Performed By: #### P TT, PT #### [facility] [address] [address] [address] Ella Mathis Urea nitrogen/Creatinine [Mass ratio] 19.4 mg/mg Normal [facility] Comment on above: Performed By: #### P TT, PT #### [facility] [address] [address] [address] Ella Mathis XR CHEST 2 Von [...] FRANCI BUSTOS Date: 2022-08-28 20:20 Normal [facility] Covid-19 PCR (CVDTBH)on 08-12 SARS-CoV-2 (COVID-19) RNA CRISTIAN+probe Ql (Unsp spec) Not detected Normal NOT DETECTED [facility] Comment on above: Result Comment: When [...] for this test is supported by the [place] of Health and Human Service's declaration that [...] used). Performed By: #### C VDTBH #### [facility] [address] [address] [address] Ella Mathis INSULINon 03-24-2022 Insulin 10.0 uIU/mL Normal 2.6-24.9 [facility] Comment on above: Performed By: #### I NSULIN #### [facility] [address] [address] [address] Ella Mathis AMMONIAon 03-23-2022 Ammonia (P) [Moles/Vol] 18 umol/L Normal 11-32 [facility] Comment on above: Performed By: #### A MM #### [facility] [address] [place] [address] Dr. Ella Mathis AMYLASEon 03-23-2022 Amylase [Catalytic activity/Vol] 69 U/L Normal 25-115 [facility] Comment on above: Performed By: #### P TT, PT #### [facility] [address] [place] [address] Dr. Ella Mathis CBC AUTO DIFFon 03-23-2022 BASO # 0.0 103/ul Normal 0.0-0.1 [facility] Comment on above: Performed By: #### P TT, PT #### [facility] [address] [place] [address] Dr. Ella Mathis Basophils/100 WBC (Bld) 1.0 % Normal 0.2-2.0 [facility] Comment on above: Performed By: #### P TT, PT #### [facility] [address] [place] [address] Dr. Ella Mathis EO # 0.1 103/ul Normal 0.0-0.7 [facility] Comment on above: Performed By: #### P TT, PT #### [facility] [address] [place] [address] Dr. Ella Mathis Eosinophils/100 WBC (Bld) 1.4 % Normal 0.9-7.0 [facility] Comment on above: Performed By: #### P TT, PT #### [facility] [address] [place] [address] Dr. Ella Mathis Erythrocyte distribution width (RBC) [Ratio] 12.5 % Normal 11.0-15.0 [facility] Comment on above: Performed By: #### P TT, PT #### [facility] [address] [place] [address] Dr. Ella Mathis Hematocrit (Bld) [Volume fraction] 39.8 % Normal 36.0-48.0 [facility] Comment on above: Performed By: #### P TT, PT #### [facility] [address] [address] [address] Ella Mathis Hemoglobin (Bld) [Mass/Vol] 13.5 g/dL Normal 12.0-16.0 [facility] Comment on above: Performed By: #### P TT, PT #### [facility] [address] [place] [address] Dr. Ella Mathis IG # 0.01 10e3/ul Normal 0.00-0.03 [facility] Comment on above: Performed By: #### P TT, PT #### [facility] [address] [place] [address] Dr. Ella Mathis IG % 0.2 % Normal 0.0-0.5 [facility] Comment on above: Performed By: #### P TT, PT #### [facility] [address] [place] [address] Dr. Ella Mathis LYMPH # 1.1 103/ul Critically low 1.2-3.8 [facility] Comment on above: Performed By: #### P TT, PT #### [facility] [address] [place] [address] Dr. Ella Mathis Lymphocytes/100 WBC (Bld) 26.7 % Normal 20.5-60.0 [facility] Comment on above: Performed By: #### P TT, PT #### [facility] [address] [place] [address] Dr. Ella Mathis MANUAL DIFF REQ NO Normal [facility] Comment on above: Performed By: #### P TT, PT #### [facility] [address] [place] [address] Dr. Ella Mathis MCH (RBC) [Entitic mass] 32.4 pg Normal 26.7-34.0 [facility] Comment on above: Performed By: #### P TT, PT #### [facility] [address] [place] [address] Dr. Ella Mathis MCHC (RBC) [Mass/Vol] 33.9 g/dL Normal 29.9-35.2 [facility] Comment on above: Performed By: #### P TT, PT #### [facility] [address] [address] [address] Ella Mathis MCV (RBC) [Entitic vol] 95.4 fL Normal 81.0-99.0 [facility] Comment on above: Performed By: #### P TT, PT #### [facility] [address] [address] [address] Ella Mathis MONO # 0.3 103/ul Normal 0.3-0.8 [facility] Comment on above: Performed By: #### P TT, PT #### [facility] [address] [place] [address] Dr. Ella Mathis Monocytes/100 WBC (Bld) 8.2 % Normal 1.7-12.0 [facility] Comment on above: Performed By: #### P TT, PT #### [facility] [address] [place] [address] Dr. Ella Mathis NEUT # 2.6 103/ul Normal 1.4-6.5 [facility] Comment on above: Performed By: #### P TT, PT #### [facility] [address] [place] [address] Dr. Ella Mathis Neutrophils/100 WBC (Bld) 62.5 % Normal 43.0-75.0 [facility] Comment on above: Performed By: #### P TT, PT #### [facility] [address] [place] [address] Dr. Ella Mathis Platelet mean volume (Bld) [Entitic vol] 9.7 fL Normal 9.5-13.5 [facility] Comment on above: Performed By: #### P TT, PT #### [facility] [address] [place] [address] Dr. Ella Mathis PLT 166 103/ul Normal 150-450 [facility] Comment on above: Performed By: #### P TT, PT #### [facility] [address] [place] [address] Dr. Ella Mathis RBC 4.17 106/ul Critically low 4.20-5.40 [facility] Comment on above: Performed By: #### P TT, PT #### [facility] [address] [address] [address] Ella Mathis WBC 4.2 103/ul Normal 4.0-11.0 [facility] Comment on above: Performed By: #### P TT, PT #### [facility] [address] [place] [address] Dr. Ella Mathis FREE THYROXINE INDEX T7on FTI 2.42 Normal 1.30-4.50 [facility] Comment on above: Performed By: #### P TT, PT #### [facility] [address] [address] [address] Ella Mathis T3U 35.0 % Normal 30.0-39.0 [facility] Comment on above: Performed By: #### P TT, PT #### [facility] [address] [place] [address] Dr. Ella Mathis T4 [Mass/Vol] 6.90 ug/dL Normal 4.80-13.90 [facility] Comment on above: Performed By: #### P TT, PT #### [facility] [address] [place] [address] Dr. Ella Mathis GLYCOHEMOGLOBIN A1Con 2021 ADA RECOMMENDATION SEE BELOW Normal [facility] Comment on above: Result Comment: ADA RECOMMENDED LIMIT 4.0 - 6.0 ADA THERAPEUTIC TARGET < 7.0 ACTION SUGGESTED > 7.0 Performed By: #### P TT, PT #### [facility] [address] [place] [address] Dr. Ella Mathis Glucose [Mass/Vol] 100 mg/dL Normal [facility] Comment on above: Performed By: #### P TT, PT #### [facility] [address] [place] [address] Dr. Ella Mathis HbA1c (Bld) [Mass fraction] 5.1 % Normal 4.5-6.2 [facility] Comment on above: Performed By: #### P TT, PT #### [facility] [address] [place] [address] Dr. Ella Mathis IRONon 03-23-2022 Iron [Mass/Vol] 97.0 ug/dL Normal 50.0-170.0 [facility] Comment on above: Performed By: #### I ABRAN #### [facility] [address] [address] [address] Ella Mathis LIPASEon 03-23-2022 Lipase [Catalytic activity/Vol] 132.0 U/L Normal 73.0-393.0 [facility] Comment on above: Performed By: #### P TT, PT #### [facility] [address] [address] [address] Ella Mathis LIPID PROFILEon 03-23-2022 CHOL-HDL RATIO NORM SEE BELOW Normal [facility] Comment on above: Result Comment: 3.3 - 4.4 LOW RISK 4.4 - 7.1 AVERAGE RISK 7.1 - 11.0 MODERATE RISK >11.0 HIGH RISK Performed By: #### P TT, PT #### [facility] [address] [place] [address] Dr. Ella Mathis Cholesterol [Mass/Vol] 125 mg/dL Normal <=200 [facility] Comment on above: Performed By: #### P TT, PT #### [facility] [address] [place] [address] Dr. Ella Mathis Cholesterol in HDL [Mass/Vol] 79 mg/dL Critically high 40-60 [facility] Comment on above: Performed By: #### P TT, PT #### [facility] [address] [address] [address] Ella Mathis Cholesterol in LDL [Mass/Vol] 33.8 mg/dL Normal [facility] Comment on above: Performed By: #### P TT, PT #### [facility] [address] [address] [address] Ella Mathis Cholesterol.total/C holesterol in HDL [Mass ratio] 1.6 {ratio} Normal [facility] Comment on above: Performed By: #### P TT, PT #### [facility] [address] [place] [address] Dr. Ella Mathis HDL NORMAL > or = 60 mg/dl - LOW CARDIOVASCULAR RISK <40 mg/dl - HIGH CARDIOVASCULAR RISK Normal [facility] Comment on above: Performed By: #### P TT, PT #### [facility] [address] [address] [address] Ella Mathis LDL CALC NORMAL SEE BELOW Normal [facility] Comment on above: Result Comment: <100 mg/dl OPTIMAL 100 - 129 mg/dl NEAR OR ABOVE OPTIMAL 130 - 159 mg/dl BORDERLINE HIGH 160 - 189 mg/dl HIGH >190 mg/dl VERY HIGH Performed By: #### P TT, PT #### [facility] [address] [place] [address] Dr. Elal Mathis Triglyceride [Mass/Vol] 61 mg/dL Normal <=150 [facility] Comment on above: Performed By: #### P TT, PT #### [facility] [address] [place] [address] Dr. Ella Mathis VLDL CALC 12.2 mg/dL Normal [facility] Comment on above: Performed By: #### P TT, PT #### [facility] [address] [place] [address] Dr. Ella Mathis PROF 14(COMP METB)on 022 Albumin [Mass/Vol] 3.4 g/dL Normal 3.4-5.0 [facility] Comment on above: Performed By: #### L IPID, TSH, LIPA, T7, CMP, KARRIE #### [facility] [address] [place] [address] Dr. Ella Mathis Albumin/Globulin [Mass ratio] 1.1 {ratio} Normal [facility] Comment on above: Performed By: #### L IPID, TSH, LIPA, T7, CMP, KARRIE #### [facility] [address] [place] [address] Dr. Ella Mathis ALP [Catalytic activity/Vol] 66 U/L Normal 46-116 [facility] Comment on above: Performed By: #### L IPID, TSH, LIPA, T7, CMP, KARRIE #### [facility] [address] [place] [address] Dr. Ella Mathis ALT [Catalytic activity/Vol] 27 U/L Normal 14-59 [facility] Comment on above: Performed By: #### L IPID, TSH, LIPA, T7, CMP, KARRIE #### [facility] [address] [address] [address] Ella Mathis Anion gap [Moles/Vol] 8.8 mmol/L Normal [facility] Comment on above: Performed By: #### L IPID, TSH, LIPA, T7, CMP, KARRIE #### [facility] [address] [place] [address] Dr. Ella Mathis AST [Catalytic activity/Vol] 19 U/L Normal 15-37 [facility] Comment on above: Performed By: #### L IPID, TSH, LIPA, T7, CMP, KARRIE #### [facility] [address] [place] [address] Dr. Ella Mathis Bilirubin [Mass/Vol] 0.8 mg/dL Normal 0.2-1.0 [facility] Comment on above: Performed By: #### L IPID, TSH, LIPA, T7, CMP, KARRIE #### [facility] [address] [place] [address] Dr. Ella Mathis Calcium [Mass/Vol] 8.4 mg/dL Critically low 8.5-10.1 [facility] Comment on above: Performed By: #### L IPID, TSH, LIPA, T7, CMP, KARRIE #### [facility] [address] [place] [address] Dr. Ella Mathis Chloride [Moles/Vol] 107 mmol/L Normal 98-107 [facility] Comment on above: Performed By: #### L IPID, TSH, LIPA, T7, CMP, KARRIE #### [facility] [address] [place] [address] Dr. Ella Mathis CO2 [Moles/Vol] 28.0 mmol/L Normal 21.0-32.0 [facility] Comment on above: Performed By: #### L IPID, TSH, LIPA, T7, CMP, KARRIE #### [facility] [address] [place] [address] Dr. Ella Mathis Creatinine [Mass/Vol] 1.02 mg/dL Normal 0.55-1.02 [facility] Comment on above: Performed By: #### L IPID, TSH, LIPA, T7, CMP, KARRIE #### [facility] [address] [place] [address] Dr. Ella Mathis EGFR-AF ARMENIAN >60 Normal >=60 [facility] Comment on above: Performed By: #### L IPID, TSH, LIPA, T7, CMP, KARRIE #### [facility] [address] [address] [address] Ella Mathis EGFR-NON AF ARMENIAN 54 mL/min/1.73m2 Critically low >=60 [facility] Comment on above: Performed By: #### L IPID, TSH, LIPA, T7, CMP, KARRIE #### [facility] [address] [place] [address] Dr. Ella Mathis Globulin (S) [Mass/Vol] 3.0 g/dL Normal [facility] Comment on above: Performed By: #### L IPID, TSH, LIPA, T7, CMP, KARRIE #### [facility] [address] [place] [address] Dr. Ella Mathis Glucose [Mass/Vol] 86 mg/dL Normal 74-106 [facility] Comment on above: Performed By: #### L IPID, TSH, LIPA, T7, CMP, KARRIE #### [facility] [address] [place] [address] Dr. Ella Mathis Potassium [Moles/Vol] 3.8 mmol/L Normal 3.5-5.1 [facility] Comment on above: Performed By: #### L IPID, TSH, LIPA, T7, CMP, KARRIE #### [facility] [address] [place] [address] Dr. Ella Mathis Protein [Mass/Vol] 6.4 g/dL Normal 6.4-8.2 [facility] Comment on above: Performed By: #### L IPID, TSH, LIPA, T7, CMP, KARRIE #### [facility] [address] [place] [address] Dr. Ella Mathis Sodium [Moles/Vol] 140 mmol/L Normal 136-145 [facility] [place] [facility] Comment on above: Performed By: #### L IPID, TSH, LIPA, T7, CMP, KARRIE #### [facility] [address] [place] [address] Dr. Ella Mathis Urea nitrogen [Mass/Vol] 21.0 mg/dL Critically high 7.0-18.0 [facility] Comment on above: Performed By: #### L IPID, TSH, LIPA, T7, CMP, KARRIE #### [facility] [address] [place] [address] Dr. Ella Mathis Urea nitrogen/Creatinine [Mass ratio] 20.6 mg/mg Normal [facility] Comment on above: Performed By: #### L IPID, TSH, LIPA, T7, CMP, KARRIE #### [facility] [address] [place] [address] Dr. Ella Mathis PROTIMEon 03-23-2022 INR Coag (PPP) [Relative time] 0.94 {INR} Normal [facility] Comment on above: Performed By: #### P TT, PT #### [facility] [address] [place] [address] Dr. Ella Mathis INR GUIDELINES SEE BELOW Normal [facility] Comment on above: Result Comment: BERNA RED INR: 2.0 - 3.0 CONDITIONS NOT LISTED BELOW 2.5 - 3.5 FOR PROSTHETIC HEART VALVE REPLACEMENT 2.5 - 3.5 RECURRENT THROMBOSIS Performed By: #### P TT, PT #### [facility] [address] [place] [address] Dr. Ella Mathis PT Coag (PPP) [Time] 10.2 s Normal 9.0-11.6 [facility] Comment on above: Performed By: #### P TT, PT #### [facility] [address] [place] [address] Dr. Ella Mathis PTTon 03-23-2022 aPTT Coag (Bld) [Time] 26.2 s Normal 22.3-36.2 [facility] Comment on above: Performed By: #### P TT, PT #### [facility] [address] [place], [place] [address] Dr. Ella Mathis TSHon 03-23-2022 TSH 3.098 uIU/mL Normal 0.358-3.740 [facility] Comment on above: Performed By: #### P TT, PT #### [facility] [address] [place], [place] [address] Dr. Ella Mathis TSH RANGE SEE BELOW Normal [facility] Comment on above: Result Comment: <0.3 4 UIU/ml HYPERTHYROID 0.34-5.60 UIU/ml EUTHYROID >5.60 UIU/ml HYPOTHYROID Performed By: #### P TT, PT #### [facility] [address] [address] [address] Ella Mathis US SINGLE QUAD RT [...] ASHLEY DAVIS Date: 2022-03-23 10:08 Normal [facility] COVID 19 IGG ANTIBODY, NUCLE OCAPSIDon 03-10-2022 SARS-CoV-2 (COVID-19) IgG IA Ql Negative [facility] Comment on above: Reference range: Negative [...] providers and patients using the following websites: Cloopen/home/Covid-19/HCP/antibody/fact-sheet2 Cloopen/home/Covid-19/Patients/antibody/fact-sheet2 This test has been authorized by the FDA under an Emergency Use Authorization (EUA) for use by authorized laboratories. The FDA authorized labeling is available on the [employer] website: www.[employer]/Covid19. For additional information please refer to http://education.[employer]/faq/DIC495 (This link is being provided for informational/educational purposes only.) Resulting Agency Address Site ID: QPT Name: [employer] [facility] Address: [address] [place] [address], [address] [place] [id number] Director: Victor Manuel Lainez MD [facility] URINE CULTUREOrdered By: Olamide Whelan on 03-09-2022 Bacteria identified Cx Nom (U) 1,000 - 10,000 CFU/ml Multiple bacteria present suggesting contamination. [facility] Interpretation and review of laboratory results Normal [facility] IF clinically indicated, suggest appropriate recollection with timely delivery to the laboratory. For additional information, call ext [phone]. [facility] XR C-SPINE AP/LAT/OBLS/ODOon 03-09-2022 EXAMINATION: XR C-SPINE [...] is slightly progressed compared to prior. IMPRESSION: Bqnz-[id number] multilevel degenerative changes, slightly progressed from prior. MACRO: None Jose Ivan MD - 03/09/2022 EXAMINATION: XR C-SPINE AP/LAT/OBLS/ODO [...] is slightly progressed compared to prior. IMPRESSION: Yheh-[id number] multilevel degenerative changes, slightly progressed from prior. MACRO: None [employer] XR CHEST 2 VIEW PA+LATon EXAMINATION: XR CHEST 2 VIEW PA+LAT CLINICAL HISTORY: Reason for Exam: RUQ pain ASSOCIATED DIAGNOSIS: Right-sided chest wall pain TECHNOLOGISTS NOTE: COMPARISON: None FINDINGS: Cardiomediastinal silhouette: Normal. Lungs/Pleura: No focal pulmonary consolidation, effusion or pneumothorax. Musculoskeletal: Degenerative spurring within the thoracic spine. IMPRESSION: No acute cardiopulmonary abnormality identified. MACRO: None Jose Ivan MD - 03/09/2022 EXAMINATION: XR CHEST 2 VIEW PA+LAT CLINICAL HISTORY: Reason for Exam: RUQ pain ASSOCIATED DIAGNOSIS: Right-sided chest wall pain TECHNOLOGISTS NOTE: COMPARISON: None FINDINGS: Cardiomediastinal silhouette: Normal. Lungs/Pleura: No focal pulmonary consolidation, effusion or pneumothorax. Musculoskeletal: Degenerative spurring within the thoracic spine. IMPRESSION: No acute cardiopulmonary abnormality identified. MACRO: None [facility] XR CHEST 2 VIEW PA+LATOrdere d By: Jose Russ on 03-09-2022 [employer] Work Phone: XR L-SPINE AP+LAT+OBL+CDon 0 03-09-2022 [...] moderate multilevel degenerative changes. MACRO: None [facility] Basic metabolic 2000 panelon 03-08-2022 Anion gap [...] presentation. Reference: 1. Toi C, Nhi M, Crews DC, et al.. A Unifying Approach for GFR Estimation: Recommendations of the NKF-ASN Task Force on Reassessing the Inclusion of Race in Diagnosing Kidney Disease. [place] Journal of Kidney Diseases 202;79(2):268-88.e1. 2. N Engl J Med 1 Vol. 385 Issue 19 Pages 0870-8205 Glucose [Mass/Vol] 82 mg/dL 80 - 116 [...] (Bld) 64.1 % 31.0 - 76.0 % [facility] Platelet mean volume (Bld) [Entitic vol] 8.7 fL 7.5 - 11.2 fL [facility] Platelets (Bld) [#/Vol] 159 10*3/uL 150 - 400 K/uL [facility] RBC (Bld) [#/Vol] 4.51 10*6/uL [facility] WBC (Bld) [#/Vol] 4.7 10*3/uL 4.5 - 11.5 K/uL [facility] DS DNAon 03-08-2022 DNA double strand Ab Qn (S) Negative Negative [facility] DNA double strand Ab Qn (S) [IU]/mL See Below [facility] Reference Range: < or = to 4 IU/mL-Negative 5-9 IU/mL-Indeterminate > or = to 10 IU/mL-Positive [facility] HEPATIC FUNCTION PANELon Albumin [Mass/Vol] 3.7 g/dL 3.4 - 5.1 g/dL [facility] ALP [Catalytic activity/Vol] 62 U/L [facility] ALT [Catalytic activity/Vol] 22 U/L [facility] AST [Catalytic activity/Vol] 22 U/L [facility] Bilirubin [Mass/Vol] 1.4 mg/dL 0.1 - 1.5 mg/dL [facility] Bilirubin.direct [Mass/Vol] 0.20 mg/dL 0.10 - 0.30 mg/dL [facility] Interpretation and review of laboratory results Normal [facility] Protein [Mass/Vol] 6.0 g/dL 5.7 - 8.1 g/dL [facility] No Panel Informationon 03-08 Interpretation and review of laboratory results Normal [facility] TOTAL PROTEIN WITH CREATININ E, RANDOM URINEon 03-08-2022 Creatinine (U) [Mass/Vol] 74 mg/dL 10 - 300 mg/dL [facility] Interpretation and review of laboratory results Normal [facility] Protein (U) [Mass/Vol] mg/dL <=100 mg/dL [facility] Protein/Creatinine (U) [Mass ratio] mg/g <=164 mg/g [facility] TSHon 03-08-2022 Interpretation and review of laboratory results [facility] TSH Qn 3.256 m[IU]/L [facility] Comment on above: Referance range for women as applicable: First Trimester: 0. 050 to 3.700 uIU/mL Second Trimester: 0. 310 to 4.350 uIU/mL Third Trimester: 0. 410 to 5.180 uIU/mL [facility] URINALYSIS WITH REFLEX CULTU RE PERFORMABLEon 03-08-2022 Appearance (U) Clear Clear [facility] Bacteria LM.HPF (Urine sed) [#/Area] Few /HPF [facility] Bilirubin Ql (U) Negative Negative [facility] l[facility] Color (U) Light Yellow Yellow [facility] [...] venous duplex LE LTon US venous duplex LT [facility] [place] [address] Ultrasound Report Signed Patient: Linnea Culp MR#: [id number] : 1950 Acct:[id number] Age/Sex: 68 / F ADM Date: 02/19/19 Loc: Room: Type: [facility] Attending Dr: Amber Acharya MD Ordering Provider: Amber Acharya MD Date of Service: 02/19/19 US/US venous duplex LT: ,79.89 Copies to: Amber Acharya MD [...] Jose Velazquez M.D.02/20/2019 11:34 AM Dictation Location: [place] [address] Tech: Cyn Guan Transcribed By: NÉSTOR 02/20/19 1134 Dictated By: Jose Velazquez MD 02/20/19 1133 Signed By: 02/20/19 1134 [facility] Vital Signs Date Time Vital Sign Value Performing Clinician Dionne egan 05-28-2024 09:39-0400 Body height 163.8 cm Amber Acharya MD Work Phone: [facility] 05-28-2024 09:39-0400 Body mass index (BMI) [Ratio] 35.66 kg/m2 Amber Acharya MD Work Phone: [facility] 05-28-2024 09:39-0400 Body weight 95.71 kg Amber Acharya MD Work Phone: [facility] 05-28-2024 09:39-0400 Diastolic blood pressure 64 mm[Hg] Amber Acharya MD Work Phone: [facility] 05-28-2024 09:39-0400 Heart rate 58 /min Amber Acharya MD Work Phone: [facility] 05-28-2024 09:39-0400 Respiratory rate 21 /min Amber Acharya MD Work Phone: [facility] 05-28-2024 09:39-0400 SaO2% (BldA) [Mass fraction] 99 % Amber Acharya MD Work Phone: [facility] 05-28-2024 09:39-0400 Systolic blood pressure 136 mm[Hg] Amber Acharya MD Work Phone: [facility] 04-25-2023 13:45-0400 Body height 164 cm Amber Acharya MD Work Phone: [facility] 04-25-2023 13:45-0400 Body mass index (BMI) [Ratio] 35.64 kg/m2 Amber Acharya MD Work Phone: [facility] 04-25-2023 13:45-0400 Body temperature 98.01 [degF] Amber Acharya MD Work Phone: [facility] 04-25-2023 13:45-0400 Body weight 95.84 kg Amber Acharya MD Work Phone: [facility] 04-25-2023 13:45-0400 Diastolic blood pressure 66 mm[Hg] Amber Acharya MD Work Phone: [facility] 04-25-2023 13:45-0400 Heart rate 59 /min Amber Acharya MD Work Phone: [facility] 04-25-2023 13:45-0400 SaO2% (BldA) [Mass fraction] 97 % Amber Acharya MD Work Phone: [facility] 04-25-2023 13:45-0400 Systolic blood pressure 134 mm[Hg] Amber Acharya MD Work Phone: [facility] 08-09-2022 16:37-0400 Diastolic blood pressure 63 mm[Hg] Alfredito Sims MD Work Phone: [facility] 08-09-2022 16:37-0400 Heart rate 66 /min Alfredito Sims MD Work Phone: [facility] 08-09-2022 16:37-0400 SaO2% (BldA) [Mass fraction] 99 % Alfredito Sims MD Work Phone: [facility] 08-09-2022 16:37-0400 Systolic blood pressure 135 mm[Hg] Alfredito Sims MD Work Phone: [facility] 08-09-2022 16:00-0400 Body height 167.6 cm Alfredito Sims MD Work Phone: [facility] 08-09-2022 16:00-0400 Body mass index (BMI) [Ratio] 32.44 kg/m2 Alfredito Sims MD Work Phone: [facility] 08-09-2022 16:00-0400 Body temperature 96.6 [degF] Alfredito Sims MD Work Phone: [facility] 08-09-2022 16:00-0400 Body weight 91.17 kg Alfredito Sims MD Work Phone: [facility] 06-07-2022 11:19-0400 Body mass index (BMI) [Ratio] 34.5 kg/m2 Amber Acharya MD Work Phone: [facility] 06-07-2022 11:19-0400 Body weight 94.03 kg Amber Acharya MD Work Phone: [facility] 06-07-2022 11:19-0400 Diastolic blood pressure 61 mm[Hg] Amber Acharya MD Work Phone: [facility] 06-07-2022 11:19-0400 Heart rate 61 /min Amber Acharya MD Work Phone: [facility] 06-07-2022 11:19-0400 Systolic blood pressure 124 mm[Hg] Amber Acharya MD Work Phone: [facility] 03-08-2022 13:41-0400 Diastolic blood pressure 68 mm[Hg] Amber Acharya MD Work Phone: [facility] Comment on above: manual 03-08-2022 13:41-0400 Systolic blood pressure 111 mm[Hg] Amber Acharya MD Work Phone: [facility] Comment on above: manual 03-08-2022 13:01-0400 Body height 165.1 cm Amber Acharya MD Work Phone: [facility] 03-08-2022 13:01-0400 Body mass index (BMI) [Ratio] 33.45 kg/m2 Amber Acharya MD Work Phone: [facility] 03-08-2022 13:01-0400 Body weight 91.17 kg Amber Acharya MD Work Phone: [facility] 03-08-2022 13:01-0400 Heart rate 59 /min Amber Acharya MD Work Phone: [facility] Encounters Encounter Date Encounter Type Care Provider Facility Start: 06-02-2024 End: 06-02-2024 ambulatory [facility] Start: 05-28-2024 End: 05-28-2024 Clinical Support Romelia Dunn [facility] Comment on above: Arrived Start: 05-28-2024 ambulatory UNKNOWN PROVIDER Facili ty:[facility] Start: 05-28-2024 End: 06-04-2024 Office outpatient visit 25 minutes Amber Acharya MD Work Phone: [facility] Rheumatology Comment on above: SLE (systemic lupus erythematosus related syndrome) (HCC) (Primary Dx); Fibromyalgia; Other specified menopausal and perimenopausal disorders; Intercostal neuritis; Body mass index (BMI) 35.0-35.9, adult Start: 05-28-2024 ambulatory UNKNOWN PROVIDER Facili ty:[facility] Start: 03-16-2024 Letter encounter Dorita Joshi Work Phone: [facility] Start: 03-05-2024 End: 03-06-2024 Telephone encounter Amber Acharya MD Work Phone: [facility] Rheumatology (Arthritis) Start: 02-27-2024 End: 02-27-2024 Patient encounter procedure Phe Emg Pmr Provider [facility] [place] [facility] Comment on above: Numbness and tinglin g of both legs below knees (Primary Dx) Start: 02-27-2024 End: 02-27-2024 ambulatory AMBER ACHARYA Facility:[facility] Start: 01-30-2024 End: 01-31-2024 ambulatory AMBER ACHARYA Facility:[facility] Start: 01-30-2024 End: 02-09-2024 ambulatory [facility]IR [facility] Start: 06-04-2023 Telephone encounter Amber yanez MD Work Phone: [facility] Rheumatology (Arthritis) Start: 05-14-2023 Telephone encounter Amber yanez MD Work Phone: [facility] Rheumatology (Arthritis) Start: 05-03-2023 Telephone encounter Amber yanez MD Work Phone: [facility] Rheumatology (Arthritis) Start: 04-25-2023 End: 04-25-2023 Nursing evaluation of patient and report Romelia Dunn [facility] Comment on above: Routine adult health maintenance (Primary Dx) Start: 04-25-2023 End: 04-25-2023 Patient encounter status Romelia Dunn [facility] Start: 04-25-2023 Letter encounter Dorita Joshi Work Phone: [facility] Rheumatology Start: 04-25-2023 End: 04-27-2023 Office outpatient visit 40 minutes Amber Acharya MD Work Phone: [facility] Rheumatology Comment on above: [id number] syndro me (Primary Dx); Pulmonary hypertension, mild (HCC); Chronic midline low back pain without sciatica; History of systemic lupus erythematosus (HCC); Dysuria; Numbness of legs; Vitamin D deficiency; Pain in both knees, unspecified chronicity; Chronic bilateral low back pain without sciatica; Grief reaction; B12 deficiency; Body mass index (BMI) 35.0-35.9, adult Start: 03-25-2023 Letter encounter Dorita Joshi Work Phone: [facility] Start: 10-16-2022 End: 10-16-[address] DORITA BASHIR Facility:[facility] Start: 10-11-2022 End: 10-12-[address] DORITA BASHIR Facility:[facility] Start: 10-03-2022 End: 10-04-[address] DORITA BASHIR Facility:[facility] Start: 09-08-2022 End: 09-09-[address] DORITA BASHIR Facility:[facility] Start: 09-06-2022 End: 09-07-[address] DORITA BASHIR Facility:[facility] Start: 09-06-2022 End: 09-06-2022 Phys/qhp telephone evaluation 21-30 min Jasiel Selby [employer] Work Phone: [facility] Comment on above: Intercostal neuritis (Primary Dx) Start: 08-28-2022 End: 08-29-[address] DORITA BASHIR Facility:[facility] Start: 08-22-2022 End: 08-22-[address] DORITA BASHIR Facility:[facility] Start: 08-09-2022 End: 08-09-2022 Patient encounter procedure Alfredito Sims MD Work Phone: [facility] Procedure Room Comment on above: Intercostal neuritis (Primary Dx) Start: 07-29-2022 Letter encounter Dorita Josih Work Phone: [facility] Patient Access Start: 07-28-2022 Letter encounter Dorita Joshi Work Phone: [facility] Start: 06-07-2022 Letter encounter Dorita Joshi Work Phone: [facility] Rheumatology Start: 06-07-2022 End: 06-11-2022 Office outpatient visit 25 minutes Amber Acharya MD Work Phone: [facility] Comment on above: 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); Facet joint disease of lumbosacral region; Intercostal neuralgia; Body mass index (BMI) 34.0-34.9, adult Start: 03-23-2022 End: 03-24-[address] DORITA BASHIR Facility:[facility] Start: 03-19-2022 Letter encounter Dorita Joshi Work Phone: [facility] Start: 03-08-2022 Letter encounter Dorita Joshi Work Phone: [facility] Rheumatology Start: 03-08-2022 End: 03-15-2022 Office outpatient visit 25 minutes Amber Acharya MD Work Phone: [facility] Rheumatology Comment on above: Carpopedal spasm (Pr imary Dx); Dizziness; SLE (systemic lupus erythematosus related syndrome) (HCC); Hypothyroidism, unspecified type; Right-sided chest wall pain; Body mass index (BMI) 33.0-33.9, adult Start: 02-19-2019 End: 02-19-2019 Patient encounter procedure Dorita Bashir Facility:[facility] Procedures Date Procedure Procedure Detail Performing Clinician Start: 05-28-2024 Basic metabolic pane l calcium total Amber Acharya MD Work Phone: Start: 05-28-2024 Complement antigen e ach component Amber Acharya MD Work Phone: Start: 05-28-2024 Urnls dip stick/tabl et rgnt auto w/o microscopy Amber Acharya MD Work Phone: Start: 02-27-2024 Needle emg ea extrem ty [...] dip stick/tabl et rgnt auto w/o microscopy Abmer Acharya MD Work Phone: Plan of Treatment Date Care Activity Detail Author Start: 03-23-2027 Cholesterol [Mass/volume] in Serum or Plasma Cholesterol [facility] Start: 05-28-2025 Creatinine measurement Basic Metabol ic [facility] Start: 01-29-2025 Creatinine measurement Basic Metabol ic [facility] Start: 09-17-2024 End: 09-17-2024 Patient encounter procedure 09/17/2024 11:00 AM EST Office Visit [facility] Rheumatology [facility] [place] [address] Amber Acharya MD [address] [place] [address] [facility] Start: 08-12-2024 Influenza vaccination Influenza Vacc ine (#1) [facility] Start: 05-28-2024 End: 05-28-2025 DXA Skeletal system Views for bone density BD BONE DENSITY SURVEY Imaging Routine Other specified menopausal and perimenopausal disorders Expected: 05/28/2024, Expires: 05/28/2025 [email or web address] Work Phone: Comment on above: Expected: 05/28/2024 , Expires: 05/28/2025 Start: 05-28-2024 End: 05-28-2024 Patient encounter procedure 05/28/2024 9:40 AM EDT Office Visit [facility] Rheumatology [address] [place] [address] Amber Acharya MD [address] [place] [address] [facility] Start: 04-25-2024 Basic metabolic 2000 panel - Serum or Plasma Basic Metabolic Panel [facility] Start: 03-01-2024 COVID Vaccine 2022-2 024 Additional Dose (65+ years) COVID Vaccine [id number] Additional Dose (65+ years) [facility] Start: 03-01-2024 COVID-19 Vaccine ( season) COVID-19 Vaccine ( season) [facility] Start: 08-12-2023 Influenza vaccination Influenza Vacc ine (#1) [facility] Start: 04-25-2023 End: 04-25-2024 XR Knee - bilateral AP and Lateral W standing XR KNEES RIGHT AND LEFT STANDING AP/LAT 2 VIEWS Imaging Routine Pain in both knees, unspecified chronicity Expected: 04/25/2023, Expires: 04/25/2024 [email or web address] Work Phone: Comment on above: Expected: 04/25/2023 , Expires: 04/25/2024 Start: 04-25-2023 End: 04-25-2023 Patient encounter procedure 04/25/2023 Office Visit Rheumatology Amber Acharya MD [address] [place] [id number] [facility] Start: 03-08-2023 Basic metabolic 2000 panel - Serum or Plasma Basic Metabolic Panel [facility] Start: 03-08-2023 Thyroid stimulating hormone measurement TSH [facility] Start: 10-25-2022 End: 10-25-2022 Patient encounter procedure 10/25/2022 Office Visit Rheumatology Amber Acharya MD [address] [place] [address] [facility] Start: 09-06-2022 End: 09-06-2022 Telemedicine consultation with patient 09/06/2022 Telemedicine Pain & Healing Jasiel Selby, [employer] [address] [place] [id number] [facility] Start: 08-12-2022 Influenza vaccination Influenza Vacc ine (#1) [facility] Start: 08-09-2022 End: 08-09-2022 Patient encounter procedure 08/09/2022 Office Visit Outpatient [facility] Alfredito Sims MD [address] [facility] [place] [address] [facility] Procedure Room Start: 06-12-2022 COVID-19 Vaccine (5 - Booster for Pfizer series) COVID-19 Vaccine (5 - Booster for Pfizer series) [facility] Start: 06-07-2022 End: 06-07-2022 Patient encounter procedure 06/07/2022 Office Visit Rheumatology Amber Acharya MD [address] [place] [address] [facility] Start: 11-12-2017 Annual wellness visit Annual W ellness Visit ([id number]) [facility] Start: 11-24-2016 [facility]neumococcal [facility] Start: 01-19-2016 Pneumococcal vaccination [facility] Start: 2011 Hepatitis B (HBV) Vaccine (optional [...] for malign ant neoplasm of breast Mammography [facility] Start: 1970 Hepatitis A (HAV) Vaccine (optional start 19+ years) Hepatitis A (HAV) Vaccine (optional start 19+ years) [facility] Start: 1969 Hepatitis C screening Hepatitis C [facility] Start: 1969 Tetanus + diphtheria + acellular pertussis vaccine (product) Tdap Booster [facility] Start: 1951 Ejection Fraction Ejection Fraction [facility] Start: 1951 Screening for malign ant neoplasm of colon Colonoscopy [facility] Protein total xcpt refractometry urine TOTAL PROTEIN WITH CREATININE, RANDOM URINE Lab Routine SLE (systemic lupus erythematosus related syndrome) (HCC) Ordered: 05/28/2024 [facility] Comment on above: Ordered: 05/28/2024 Immunizations Immunization Date Immunization Notes Care Provider [facility] 10-11-2022 Influenza, seasonal vaccine, quadrivalent, adjuvanted, 0.5mL dose, preservative free (NAN=486) Dorita Bashir MD Work Phone: [facility] 10-11-2022 influenza virus vaccine, unspecified formulation Amber Acharya MD Work Phone: [facility] 04-17-2022 Pfizer Monovalent (12+ yrs) SARS-COV-2 (COVID-19) vaccine, mRNA, spike protein, LNP, pres. free, 30 mcg/0.3mL dose, jordi-sucrose (BJG=796) Dorita Bashir MD Work Phone: [facility] 09-07-2021 Influenza, injectable, high-dose seasonal, quadrivalent, 0.7 mL, preservative free (AWJ=674) Dorita Bashir MD Work Phone: [facility] 09-07-2021 influenza virus vaccine, unspecified formulation Dorita Bashir MD Work Phone: [facility] 01-13-2021 Pfizer SARS-COV-2 (COVID-19) vaccine, age 12+ yrs, mRNA, spike protein, LNP, preservative free, 30 mcg/0.3mL dose (XRH=715) Dorita Bashir MD Work Phone: [facility] 12-23-2020 Pfizer SARS-COV-2 (COVID-19) vaccine, age 12+ yrs, mRNA, spike protein, LNP, preservative free, 30 mcg/0.3mL dose (XIW=922) Dorita Bashir MD Work Phone: [facility] 08-25-2020 Seasonal trivalent influenza vaccine, adjuvanted, preservative free Dorita Bashir MD Work Phone: [facility] 08-29-2017 influenza virus vaccine, unspecified formulation Dorita Bashir MD Work Phone: [facility] 12-07-2016 tetanus and diphtheria toxoids, adsorbed, preservative free, for adult use (5 Lf of tetanus toxoid and 2 Lf of diphtheria toxoid) Dorita Bashir MD Work Phone: [facility] 11-24-2015 influenza, injectable, quadrivalent, preservative free Dorita Bashir MD Work Phone: [facility] Work Phone: 11-24-2015 pneumococcal conjugate vaccine, 13 valent Dorita Bashir MD Work Phone: [facility] NEGATED: Highlighted row has not occurred!11-27-2018 Seasonal trivalent influenza vaccine, adjuvanted, preservative free Dorita Bashir MD Work Phone: [facility] Work Phone: Comment on above: Deferred: Patient De cision - ptto get it at her PCP Payers Date Payer Category Payer Self-pay 2016 Medicare MEDICARE MEDICAR E PART A & B [id number] 2016-Present [address] [place] [address] Medicare [id number] 2016 Unknown COMMERCIAL INSUR ANCE - OTHER COMMERCIAL INSURANCE OTHER [id number] 2016-Present [phone] [address] [place] [address] Indemnity [id number] 1959 Medicare [id number] 1959 Unknown [id number] 1951 Unknown [id number] [id number] 1951 Unknown [id number] [id number] 1951 Unknown [id number] [id number] 1951 Unknown [id number] [id number] 1951 Unknown [id number] [id number] 1951 Unknown [id number] [id number] 1951 Unknown [id number] 2.16.840.1.108553.3.579.2.593 1951 Unknown [id number] [id number] 1951 Unknown [id number] [id number] 1951 Unknown [id number] [id number] 1951 Unknown [id number] [id number] 1951 Unknown [id number] [id number] 1951 Unknown [id number] [id number] 1951 Unknown [id number] [id number] 1951 Unknown [id number] [id number] Unknown [id number] [id number] Social History Date Type Detail Facility Start: 02-23-2016 Tobacco smoking status NHIS Never sm oked tobacco [facility] Start: 02-23-2016 [...] to any clubs or organizations such as jain groups, unions, fraternal or athletic groups, or school groups? Yes [...] [facility] Clinical Notes 03-08-2022 to 06-02-2024 Amber Acharya MD - 05/30/2024 6:27 PM Amber Sosa MD - 05/28/2024 10:01 AM Leslye Muller RN - 05/28/2024 9:30 AM Juana Otto - 05/28/2024 10:35 AM EDTPatient Instructions Note Date & Type Note Facility 06-02-2024 Note [place] Cardiology - [facility] Subjective Linnea Culp is a 73 y.o. year old female patient being seen for 1 year follow up CAD, pulmonary hypertension, and hypertension. Had lipid profile last week, as well as other routine labs for rheumatology. Denies chest pain, palpitations, and syncope. Does get lightheaded at times but denies falls. She also reports dyspnea with stairs, which is new for her. 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 She is a 73-year-old woman. She has history of coronary artery [...] She has hypertension and hyperlipidemia on treatment. In December 2020 she was evaluated at the [facility] due to chest pain. Stress test and echocardiogram were nonrevealing. She has lupus since 2016 and follows with rheumatology. She is on hydroxychloroquine. She is currently maintained on aspirin 81 mg daily, atorvastatin 80 mg daily, amlodipine 10 mg daily, furosemide 20 mg every other day PRN [she has not taken it for 1 year], metoprolol succinate 100 mg twice daily. She reports recent onset shortness of breath on exertion especially with stairs. She has no lower extremity edema. No chest pain. No palpitations. Review of Systems Cardiovascular: Positive for dyspnea on exertion. Musculoskeletal: Positive for arthritis, joint pain, muscle cramps and myalgias. Neurological: Positive for light-headedness, loss of balance and numbness. All other systems reviewed and are negative. Objective Visit Vitals BP 128/80 (BP Location: Left arm, Patient Position: Sitting) Pulse 69 Ht 1.676 m (5' 6 ) Wt 95.3 kg (210 lb) SpO2 97% BMI 33.89 kg/m??? Smoking Status Never BSA 2.11 m??? Physical Exam Constitutional: Appearance: She is well-developed. She is obese. She is not ill-appearing. HENT: Head: Normocephalic and atraumatic. Nose: Nose normal. Eyes: General: No scleral icterus. Pupils: Pupils are equal, round, and reactive to light. Neck: Thyroid: No thyromegaly. Vascular: No JVD. Cardiovascular: Rate and Rhythm: Normal rate and regular rhythm. Pulses: Radial pulses are 2+ on the right side and 2+ on the left side. Heart sounds: Normal heart sounds. No murmur heard. No friction rub. No gallop. Pulmonary: Effort: Pulmonary effort is normal. No respiratory distress. Breath sounds: Normal breath sounds. No wheezing or rales. Chest: Chest wall: No tenderness. Abdominal: General: Bowel sounds are normal. There is no distension. Palpations: Abdomen is soft. Tenderness: There is no abdominal tenderness. Musculoskeletal: General: No swelling. Cervical back: Neck supple. Right lower leg: No edema. Left lower leg: No edema. Skin: General: Skin is warm and dry. Neurological: General: No focal deficit present. Mental Status: She is alert and oriented to person, place, and time. Psychiatric: Mood and Affect: Mood normal. Behavior: Behavior is cooperative. Judgment: Judgment normal. Allergies No Known Allergies Medications Current Outpatient [...] tablet, in the morning., Disp: , Rfl: cyanocobalamin, vitamin B-12, 5,000 mcg capsule, Take 5,000 mcg by mouth in the morning., Disp: , Rfl: hydroxychloroquine (Plaquenil) 200 mg tablet, hydroxychloroquine 200 mg tablet, Disp: , Rfl: levothyroxine (Synthroid, Levoxyl) 88 mcg tablet, levothyroxine 88 mcg tablet, Disp: , Rfl: liothyronine (Cytomel) 5 mcg tab (more content not included)... [facility] 05-30-2024 History of Present illness Narrative Potassium just a tad up and kidney function a tad down Please stay hydrated. Please discuss with Dr. Mckay Acharya MD CC SLE and low back pain and LE neuropathy HPI and ROS Linnea Culp is 73 year old with SLE who had a little rash on her arms despite sun screen. Drove to [place] over 5 days. Went to [place]. Saw [employer] horse in [place]. No Raynaud's No alopecia No nose or mouth sores No SOB except when climbing stairs or chest pain No joint swelling Joint pain mainly hands and back Has pain right side AM stiffness hads winter 30 mintues Outpatient Medications Marked as Taking for the 05/28/24 encounter (Office Visit) with Amber Acharya MD Medication Sig Dispense Refill tramadol (ULTRAM) 50 MG tablet Take 1 Tablet by mouth every 8 hours as needed for up to 90 days. 30 Tablet 1 colestipol (COLESTID) 1 GM tablet Take 1 Tablet by mouth 2 times daily. 180 Tablet 3 gabapentin (NEURONTIN) 100 MG capsule Take 2 Capsules by mouth daily for 360 days. 180 Capsule 3 triamcinolone 0.1 % cream 1 Application. Cyanocobalamin (B-12) 5000 MCG CAPS Take 5,000 mcg by mouth daily. Cranberry 500 MG CAPS Take 500 mg by mouth daily. vitamin E 180 MG (400 UNIT) CAPS capsule Take 180 mg by mouth daily. pantoprazole (PROTONIX) 40 MG tablet Take 40 mg by mouth. levothyroxine (SYNTHROID) 88 MCG tablet celecoxib (CeleBREX) 200 MG capsule 200 mg 2 times daily. liothyronine (CYTOMEL) 5 MCG tablet hydroxychloroquine (PLAQUENIL) 200 MG tablet TAKE 2 TABLETS BY MOUTH DAILY 180 Tablet 1 aspirin 81 MG enteric coated tablet Take 81 mg by mouth daily. atorvastatin (LIPITOR) 80 mg tablet amLODIPine (NORVASC) 10 MG tablet Take 10 mg by mouth daily. Cholecalciferol (VITAMIN D3) 1000 UNITS CAPS Take 1 Capsule by mouth daily. 90 Capsule 1 metoprolol XL (TOPROL-XL) 100 MG XL tablet Take 100 mg by mouth 2 times daily. Has had recent eye exam BP 136/64 (BP Location: left arm, BP position: sitting, Cuff Size: adult) Pulse 58 Resp 21 Ht 5' 4.5 (1.638 m) Wt 211 lb (95.7 kg) SpO2 99% BMI 35.66 kg/m Skin No rash HEENT Naso and oropharynx clear Neck No LAD Lungs CTA Breasts Not done Heart S1S2 RRR no m or g Abdomen Soft no HSM Musculoskeletal/Extremities Neck reduced lateral ROM and lateral flexion, shoulders, elbows, wrists, MCPs, PIPs, DIPs full ROM no synovitis, hips FROM, no irritability, knees no effusion, FROM, no warmth, some mild PF crepitus ankles non-tender, FROM, achilles non-tender, metatarsal squeeze test negative Neurologic Alert and interactive Pelvic/Genital Not done Rectal Not done 05/28/2024 10:41 AM WBC 4.3 (L) RBC 4.64 Hemoglobin 14.6 Hematocrit 43.6 MCV 94 MCH 31.5 MCHC 33.5 Platelet 148 (L) RDW-CV% 13.2 MPV 8.8 Neutrophils 60.5 Neutrophil # 2.58 Lymphocytes 26.5 Lymph Absolute 1.13 Monocytes 10.7 Monocyte Absolute 0.45 Eosinophil 1.8 Eosinophil Absolute 0.08 Basophils 0.5 Basophil # 0.02 Color Colorless Appearance Clear pH 6.0 Spec Mallory 1.009 Protein Negative Blood Negative Bilirubin Negative Urobilinogen Negative Ketones Negative Leuk. Esterase Negative Nitrite Negative Glucose Negative Glucose 94 Sodium 144 Potassium 5.2 (H) Carbon Dioxide 27 Chloride 107 BUN 16 Creatinine 1.17 Calcium 9.5 Anion Gap 15 Estimated GFR 50 (L) Albumin 4.2 Bilirubin, Direct 0.21 (H) Bilirubin, Total 0.9 Alkaline Phosphatase 60 ALT (SGPT) 17 AST (SGOT) 22 Protein, Total 6.3 Anti-DNA Screen Negative ds DNA Antibody <1 C3 Complement 138 C4 Complement 35 Legend: (L) Low (H) High Imp/Plan: (M32.9) SLE (systemic lupus erythematosus related syndrome) (HCC) (primary encounter diagnosis) Comment: Plan: COMPLETE BLOOD COUNT W/DIFF, BASIC METABOLIC PANEL, HEPATIC FUNCTION PANEL, C3 COMPLEMENT, C4 COMPLEMENT, URINALYSIS W/REFLEX CULTURE, TOTAL PROTEIN WITH CREATININE, RANDOM URINE, DS DNA, CANCELED: CREATININE, RANDOM URINE (M79.7) Fibromyalgia 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 documented in this encounter [facility] 05-28-2024 History of Present illness Narrative Patient was identified by name and date of . Juana Barrios Vein puncture preformed patient tolerated well. Juana Barrios [facility] Patient left urine sample. Urine was drawn up and sent to the lab. Juana Barrios [facility] documented in this encounter [facility] 05-28-2024 Instructions Amber Acharya MD - 05/28/2024 10:21 AM EDT Please ask Dr. Bashir about a right upper quadrant ultrasound because of the pain you are having If it is normal schedule with pain and healing to see if this is intercostal neuritis (also see if beeter on the gabapentin) documented in this encounter [facility] 04-28-2024 Telephone encounter Note Faxed completed physical therapy forms to [facility] #[phone]. Confirmation received. Added a copy of forms to media folder. [facility] 04-28-2024 Miscellaneous Notes Faxed completed physical therapy forms to [facility] #[phone]. Confirmation received. Added a copy of forms to media folder. Outpatient physical therapy discharge summary Added to media folder documented in this encounter [facility] 03-05-2024 Note Outpatient physical therapy discharge summary Added to media folder The [facility] [facility] 03-05-2024 Telephone encounter Note Outpatient physical therapy discharge summary Added to media folder [facility] 03-05-2024 Miscellaneous Notes Outpatient physical therapy discharge summary Added to media folder documented in this encounter [facility] 02-27-2024 Note Procedure: Nerve con duction [...] to be scanned to the record [facility] 02-27-2024 History of Present illness Narrative Procedure: [...] to the record documented in this encounter [facility] 06-04-2023 Telephone encounter Note [facility] discharge form, pending provider signature added to media folder. Copy also placed on provider desk. [facility] 06-04-2023 Miscellaneous Notes [facility] discharge form, pending provider signature added to media folder. Copy also placed on provider desk. documented in this encounter [facility] 05-14-2023 Telephone encounter Note The [facility] Physical Therapy Initial Examination notes added to media folder. [facility] 05-14-2023 Miscellaneous Notes [facility] Physical Therapy Initial Examination notes added to media folder. documented in this encounter [facility] 05-03-2023 Telephone encounter Note From the [facility] XR of the knee Added to media folder. [facility] 05-03-2023 Miscellaneous Notes From the [facility] XR of the knee Added to media folder. documented in this encounter [facility] 04-25-2023 History of Present illness Narrative Patient was identified by name and date of . Romelia Dunn Venipuncture performed patient tolerated well Romelia Dunn MPA Patient leaving urine sample documented in this encounter [facility] 04-25-2023 Instructions Amber Acharya MD - 04/25/2023 2:07 PM EDT Please tell your fur trimmer that we would like an ECHO to estimate pulmonary pressures given possible Obstructive sleep apnea and history of lupus documented in this encounter [facility] 04-25-2023 History of Present illness Narrative [...] Color Yellow Appearance Clear pH 5.5 Spec Mallory 1.019 Protein 30 (A) Blood Negative Bilirubin [...] Multiple bacteria present suggesting contamination. 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 Plan: EXTERNAL SERVICE REQUEST FOR CARE OUTSIDE THE [facility] She is to see Physical therapy [...] patient has lost a brother and a umiovi-iz-vxl in almost lost her son her brother [...] Amber Acharya MD documented in this encounter [facility] 09-07-2022 Note PROCEDURE: XR HAND L [...] by: HECTOR LING Date: 2022-09-07 06:48 [facility] 09-07-2022 Note PROCEDURE: XR HAND L [...] by: HECTOR LING Date: 2022-09-07 06:48 [facility] 09-06-2022 History of Present illness Narrative PAIN MANAGEMENT FOLLOW-UP Documentation: Mode: Telephone Patient Patient Work Phone: Patient Cell Preferred phone: [phone] Consent: I confirmed patient understanding of the [...] supply ALYSSA Ward documented in this encounter [facility] 08-09-2022 History of Present illness Narrative [...] Alfredito Sims MD,CHANO documented in this encounter [facility] 08-09-2022 Instructions DeerRose RN - 08/09/2022 4:17 PM EDT Pain [...] ordering physician as directed. Pain Management office: [phone] You may call [phone] and ask for the chronic pain fellow unit manager [employer] after office hours with any questions or concerns. 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 Cristopher Muse documented in this encounter [facility] 03-08-2022 Instructions Amber Acharya MD - 03/08/2022 1:05 PM EDT Please talk with Dr. 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 Pulmonary hypertension, mild (HCC) Other [...] below knees- Primary [facility] SLE (systemic lupus erythematosus related syndrome) (HCC)- Primary Systemic lupus erythematosus Fibromyalgia Mylagia and myositis, unspecified Other specified menopausal and perimenopausal disorders Intercostal neuritis Other nerve root and plexus disorders Body mass index (BMI) 35.0-35.9, adult documented in this encounter [facility] Summary Purpose Family History No Family History [...] CHEST 2 VIEW PA+LAT Amber Acharya MD [address] [place] [address] [facility] DIAGNOSTIC RADIOLOGY [address] [place] [address] [place] [address] Referral ID Status Reason Start Date Expiration Date Visits Re quested Visits Authorized [id number] Closed 03/08/2022 03/08/2023 1 1 Specialty Diagnoses / Procedures Referred By Contac t Referred To Contact Radiology Diagnoses Carpopedal spasm Procedures XR L-SPINE AP+LAT+OBL+CD Amber Acharya MD [address] [place] [address] [facility] DIAGNOSTIC RADIOLOGY [address] [place] [address] [place] [address] Referral ID Status Reason Start Date Expiration Date Visits Re quested Visits Authorized [id number] Closed 03/08/2022 03/08/2023 1 1 Specialty Diagnoses / Procedures Referred By Contac t Referred To Contact Radiology Diagnoses Carpopedal spasm Procedures XR C-SPINE AP/LAT/OBLS/ODO Amber Acharya MD [address] [place] [address] [facility] DIAGNOSTIC RADIOLOGY [address] [place] [address] [place] [address] Referral ID Status Reason Start Date Expiration Date Visits Re quested Visits Authorized [id number] Closed 03/08/2022 03/08/2023 1 1 Specialty Diagnoses / Procedures Referred By Contac t Referred To Contact Diagnoses 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 You will be contacted to schedule your appointment within 24 - 48 hours. If you are not contacted within this time frame please call the [facility] at [phone] to schedule your appointment. Question Answer Reason [...] STANDING AP/LAT 2 VIEWS Amber Acharya MD [address] [place] [address] [facility] DIAGNOSTIC RADIOLOGY [address] [place] [address] Referral ID Status Reason Start Date Expiration Date V isits Requested Visits Authorized [id number] Authorized 04/25/2023 04/24/2024 1 1 Specialty Diagnoses / Procedures Referred By Contac t Referred To Contact Pulmonary Medicine Diagnoses Pulmonary hypertension, mild (HCC) Amber Acharya MD [address] [place] [address] [facility] PULMONARY HV [address] [place] [address] Referral ID Status Reason Start Date Expiration Date V isits Requested Visits Authorized [id number] Authorized 04/25/2023 10/22/2023 3 3 Scheduling Instructions Please call sleep medicine at to schedule an appointment with a sleep medicine provider. 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 Amber Acharya MD [address] [place] [address] Referral ID Status Reason Start Date Expiration Date Visits Requested Visits Authorized [id number] Authorized Patient Preference 04/25/2023 04/25/2024 3 3 Specialty Diagnoses / Procedures Referred By Contac t Referred To Contact Diagnoses Intercostal neuritis Amber Acharya MD [address] [place] [address] [facility] PAIN & HEALING [facility] [place] [address] Referral ID Status Reason Start Date Expiration Date Visits Requested Visits Authorized [id number] [facility] 05/28/2024 05/28/2025 1 1 Question Answer Reason for Referral: Other [26] - intercostal neuritis Specialty Diagnoses / Procedures Referred By Contac t Referred To Contact Radiology Diagnoses Menopausal and female climacteric states Other specified menopausal and perimenopausal disorders Procedures BD BONE DENSITY SURVEY Amber Acharya MD [address] [place] [address] [facility] BONE DENSITY [address] [place] [address] Referral ID Status Reason Start Date Expiration Date V isits Requested Visits Authorized [id number] Authorized 05/28/2024 05/28/2025 1 1 Additional Source Comments INFORMATION SOURCE (unrecogn ized section and content) DATE CREATED AUTHOR 02/21/2019 [facility] DATE CREATED AUTHOR AUTHOR'S ORGANIZ ATION 10/21/2022 [facility] DATE CREATED AUTHOR AUTHOR'S ORGANIZ ATION 06/04/2024 [facility] DATE CREATED AUTHOR AUTHOR'S ORGANIZ ATION 06/05/2024 [facility] Care Teams (unrecognized sec tion and content) Supervisor [employer] Relationship Specialty Start Date End Date Dorita Bashir MD [address] [place] [address] PCP - General Family Medicine 03/30/14 Amber Acharya MD [address] [place] [address] Physician Rheumatology 08/17/20 Supervisor [employer] Relationship Specialty Start Date End Date Dorita Bashir MD [address] [place] [address] PCP - General Family Medicine 03/30/14 Amber Acharya MD [address] [place] [address] Physician Rheumatology 08/17/20 Supervisor [employer] Relationship Specialty Start Date End Date Dorita Bashir MD [address] [place] [address] PCP - General Family Medicine 03/30/14 Amber Acharya MD [address] [place] [address] Physician Rheumatology 08/17/20 Supervisor [employer] Relationship Specialty [place] [address] [place] [address] PCP - General Family Medicine 03/30/14 Amber Acharya MD [address] [place] [address] Physician Rheumatology 08/17/20 Supervisor [employer] Relationship Specialty [place] [address] [place] [address] PCP - General Family Medicine 03/30/14 Amber Acharya MD [address] [place] [address] Physician Rheumatology 08/17/20 Supervisor [employer] Relationship Specialty Start Date End Date Dorita Bashir MD [address] [place] [address] PCP - General Family Medicine 03/30/14 Amber Acharya MD [address] [place] [address] Physician Rheumatology 08/17/20 Supervisor [employer] Relationship Specialty Start Date End Date Dorita Bashir MD [address] [place] [address] PCP - General Family Medicine 03/30/14 Amber Acharya MD [address] [place] [address] Physician Rheumatology 08/17/20 Alfredito Sims MD [address] [place] [address] [place] [address] Physician Anesthesiology 08/12/22 Supervisor [employer] Relationship Specialty [place] [address] [place] [address] PCP - General Family Medicine 03/30/14 Amber Acharya MD [address] [place] [address] Physician Rheumatology 08/17/20 Alfredito Sims MD [address] [place] [address] [place] [address] Physician Anesthesiology 08/12/22 Supervisor [employer] Relationship Specialty Start Date End Date Dorita Bashir MD [address] [place] [address] PCP - General Family Medicine 03/30/14 Amber Acharya MD [address] [place] [address] Physician Rheumatology 08/17/20 Alfredito iSms MD [address] [place] [address] [place] [address] Physician Anesthesiology 08/12/22 Supervisor [employer] Relationship Specialty Start Date End Date Dorita Bashir MD [address] [place] [address] PCP - General Family Medicine 03/30/14 Amber Acharya MD [address] [place] [address] Physician Rheumatology 08/17/20 Alfredito Sims MD [address] [place] [address] [place] [address] Physician Anesthesiology 08/12/22 Supervisor [employer] Relationship Specialty Start Date End Date Dorita Bashir MD [address] [place], [place] [phone] PCP - General Family Medicine 03/30/14 Amber Acharya MD [address] [place] [address] Physician Rheumatology 08/17/20 Alfredito Sims MD [address] [place] [address] [place] [address] Physician Anesthesiology 08/12/22 Supervisor [employer] Relationship Specialty Start Date End Date Dorita Bashir MD [address] [place], [place] [phone] PCP - General Family Medicine 03/30/14 Amber Acharya MD [address] [place] [address] Physician Rheumatology 08/17/20 Alfredito Sims MD [address] [place] [address] [place] [address] Physician Anesthesiology 08/12/22 Supervisor [employer] Relationship Specialty Start Date End Date Dorita Bashir MD [address] [place] [address] PCP - General Family Medicine 03/30/14 Amber Acharya MD [address] [place] [address] Physician Rheumatology 08/17/20 Alfredito Sims MD [address] [place] [address] [place] [address] Physician Anesthesiology 08/12/22 Supervisor [employer]ach [employer] Relationship Specialty Start Date End Date Dorita Bashir MD [address] [place], [place] [phone] PCP - General Family Medicine 03/30/14 Amber Acharya MD [address] [place] [address] Physician Rheumatology 08/17/20 Alfredito Sims MD [address] [place] [address] [place] [address] Physician Anesthesiology 08/12/22 Supervisor [employer] Relationship Specialty Start Date End Date Dorita Bashir MD [address] [place] [address] PCP - General Family Medicine 03/30/14 Amber Acharya MD [address] [place] [address] Physician Rheumatology 08/17/20 Alfredito Sims MD [address] [place] [address] [place] [address] Physician Anesthesiology 08/12/22 Supervisor [employer] Relationship Specialty [place] [address] [place], [place] [id number] PCP - General Family Medicine 03/30/14 Amber Acharya MD [address] [place] [address] Physician Rheumatology 08/17/20 Alfredito Sims MD [address] [place] [address] [place] [address] Physician Anesthesiology 08/12/22 Supervisor [employer] Relationship Specialty Start Date End Date Dorita Bashir MD [address] [place] [address] PCP - General Family Medicine 03/30/14 Amber Acharya MD [address] [place] [address] Physician Rheumatology 08/17/20 Alfredito Sims MD [address] [place] [address] [place] [address] Physician Anesthesiology 08/12/22 Reason for Visit (unrecogniz ed section and content) Reason Comments Monitoring/follow-up Reason Comments Monitoring/follow-up Reason Comments Procedure Specialty Diagnoses / Procedures Referred By Contac t Referred To Contact Pain Management Diagnoses 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 Procedures PVB THORACIC SINGLE INJ SITE Right T 5 Thoracic paravertebral block Alfredito Sims MD [address] [place] [address] [place] [address] [facility] [address] [place] [address] Referral ID Status Reason Start Date Expiration Date V isits Requested Visits Authorized [id number] Closed Transfer [facility] Care[facility] 07/28/2022 10/27/2022 1 1 Reason Comments Discuss results test/procedures Medication Management Reason Comments Blood test Reason Comments Pain In multiple sites Numbness/tingling Specialty Diagnoses / Procedures Referred By Conttammy t Referred To Contact Neurology Diagnoses Numbness and tingling of both legs below knees Procedures EMG Amber Acharya MD [place] [address] Referral ID Status Reason Start Date Expiration Date V isits Requested Visits Authorized [id number] Pending Review 01/30/2024 01/29/2025 3 3 Reason Comments Monitoring/follow-up FOR RECORDS PERTAINING TO PATIENTS WHO ARE [...] BE BASED ON THE PRIMARY CLINICAL RECORDS. [employer] provides no warranty or guarantee of the accuracy or completeness of information in this document.
[2024-06-09] MEDS: REGADENOSON 0.4 MG/5 ML SYRINGE IV (10:21)
--- NOTE | 2024-06-09 10:23 | PC.NURSE ---
Nursing Note Cardiac Stress Test Reviewed: Medication, allergies and patient history reviewed. Stress Test: [ x] Patient tolerated stress test well. [x ] Patient unable to tolerate walking on treadmill. Switched to Lexiscan stress test. [x ] No chest pain noted per patient [ ] Chest pain that resolved prior to leaving stress lab. [x] No dyspnea noted. [ ] Dyspnea that resolved prior to leaving stress lab. [ x] Patient left stress lab asymptomatic and hemodynamically stable. [ ] Patient taken to the Emergency Room due to non-resolving symptoms following stress test. [ ] Patient achieved target heart rate. [ ] Patient unable to achieve target heart rate. [ ] Aminophylline administered as reversal agent to Lexiscan (Regadenoson). [ ] Nitro administered. Nursing Comments: Patient had no complaints through out the exam and was taken to the cafeteria for breakfast following the exam with no issue.
== END 2024-06-09 08:29 | disposition home or self-care (01) ==
LOC: NM 08:28
PROVIDERS: PCP Family Medicine; Visit Provider Internal Medicine Interventional Cardiology
DX: R06.02 Shortness of breath (principal)
CPT/HCPCS: 78452; 93017; 93306; A9500; J2785

== ENCOUNTER 2024-06-11 07:26 | Outpatient (OUT) | payer MEDICARE, OTHER, SELFPAY ==
--- NOTE | 2024-06-11 07:29 | US_ITS ---
The [address] [address] Patient Name: KINDRA HUNTER MRN: [id number] date: 1950 Sex: F Assigned Patient Location: US Current Patient Location: US Accession/Order Number: [id number] Exam Date: 06/11/2024 07:32 Report Date: 06/11/2024 08:31 At the request of: DORITA MARIE Procedure: US right upper quadrant EXAM: US right upper quadrant HISTORY: Right upper quadrant abdominal pain, R10.11 COMPARISON: 03/23/2022. TECHNIQUE: Grayscale, color and Doppler FINDINGS: The liver is normal in size, contour measuring 14.1 cm in length. Increase in hepatic echotexture. No focal hepatic mass. Hepatopedal flow in the main portal vein with velocity of 32 cm/s. The visualized pancreas is normal. The gallbladder is not visualized consistent with the provided history of cholecystectomy. Negative sonographic Hill sign. The common bile duct measures 3.9 mm. The right kidney is normal measuring 9.1 x 4.5 x 4.7 cm No ascites US/US right upper quadrant IMPRESSION: Mild increase in hepatic echotexture suggesting hepatic steatosis Electronically authenticated by: ASHLEY CHU Date: 06/11/2024 08:31
--- OUTSIDE RECORDS SUMMARY | 2024-06-11 07:29 | XMS_ITS | CCD ---
Author Organization [facility] CliniSy[facility] Care Team Providers Care [employer] Wafer Name Role Phone Dorita Bashir Primary Care Unavailable Amber Acharya Admitting Unavailable Amber Acharya Attending Unavailable Dorita Bashir MD Primary Care Provider [phone] Amber Acharya MD Unavailable Dorita Bashir MD Primary Care Provider [phone] Amber Acharya MD Unavailable [phone] Bethany VELÁSQUEZ, [facility] Unavailable DR DORITA BASHIR Admitting Unavailable HOY, [...] Provider [phone] Amber Acharya MD Unavailable Alfredito Sims MD Unavailable KULWANT RANKIN Attending Unavailable DORITA BASHIR Primary [...] Coronary atherosclerosis; Translations: [Atherosclerotic heart disease of [place] coronary artery without angina pectoris] Onset: 2 [...] including parasitic (1 source) Post-viral disorder; 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 Other lower respiratory disease [...] Range Facility Office Visiton 06-02-2024 Follow-up visit [id number] Linnea Culp 1950 F Date Provider Department Center 06/02/2024 KULWANT LOBO LIBRADO Root Silvio Family History Problem Relation Age of Onset Stroke Brother Stroke Paternal Grandmother Family Status - Relation Status Age at Brother Paternal Grandmother Level of Service:45529 [place] OFFICE/OUTPATIENT ESTABLISHED MOD MDM 30 MIN Normal [facility] Progress Noteson 05-30-2024 Atm [employer] Authentication Interface Message Text Potassium just a tad up and kidney function a tad down Please stay hydrated. Please discuss with Dr. Mckay Acharya MD Normal [facility] BASIC METABOLIC PANELon 05-12 Anion gap [Moles/Vol] 15 mmol/L Normal 10-20 [facility] Comment on above: Performed By: #### C 4, C3, HEPATIC, CH8 #### [facility] [address] [place] [address], Calcium [Mass/Vol] 9.5 mg/dL Normal 8.6-10.3 The [facility] Comment on above: Performed By: #### C 4, C3, HEPATIC, CH8 #### [facility] [address] [place] [address], Chloride [Moles/Vol] 107 mmol/L Normal 98-107 [facility] Comment on above: Performed By: #### C 4, C3, HEPATIC, CH8 #### [facility] [address] [place] [address], CO2 [Moles/Vol] 27 mmol/L Normal 21-31 The [facility] Comment on above: Performed By: #### C 4, C3, HEPATIC, CH8 #### [facility] [address] [place] [address], Creatinine [Mass/Vol] 1.17 mg/dL Normal 0.60-1.20 [facility] Comment on above: Performed By: #### C 4, C3, HEPATIC, CH8 #### [facility] [address] [place] [address], ESTIMATED GFR (CKD-EPI) 50 mL/min/1.73sqm Low >=60 The [facility] Comment on above: Result Comment: 2020 [...] Inclusion of Race in Diagnosing Kidney Disease. [place] Journal of Kidney Diseases 202;79(2):268-88.e1. 2. N Engl J Med 1 Vol. 385 Issue 19 Pages 8901-8377 Performed By: #### C 4, C3, HEPATIC, CH8 #### [facility] [address] [place] [address], Glucose [Mass/Vol] 94 mg/dL Normal 74-109 The [facility] Comment on above: Performed By: #### C 4, C3, HEPATIC, CH8 #### [facility] [address] [place] [address], Potassium [Moles/Vol] 5.2 mmol/L High 3.5-5.0 [facility] Comment on above: Performed By: #### C 4, C3, HEPATIC, CH8 #### [facility] [address] [place] [address], Sodium [Moles/Vol] 144 mmol/L Normal 136-145 The [facility] Comment on above: Performed By: #### C 4, C3, HEPATIC, CH8 #### [facility] [address], [place], Urea nitrogen [Mass/Vol] 16 mg/dL Normal 7-25 [facility] Comment on above: Performed By: #### C 4, C3, HEPATIC, CH8 #### [facility] [address] [place] [address], Basic metabolic 2000 panelon 05-28-2024 Anion gap [Moles/Vol] 15 mmol/L 10 - 20 [facility] Calcium [Mass/Vol] 9.5 mg/dL 8.6 - 10. [...] Inclusion of Race in Diagnosing Kidney Disease. [place] Journal of Kidney Diseases 2021;79(2):268-88.e1. 2. N Engl J Med 1 Vol. 385 Issue 19 Pages 7995-8266 Glucose [Mass/Vol] 94 mg/dL 74 - 109 mg/dL [facility] Potassium [Moles/Vol] 5.2 mmol/L High 3.5 - 5.0 mmol/L [facility] Sodium [Moles/Vol] 144 mmol/L 136 - 145 mmol/L [facility] Urea nitrogen [Mass/Vol] 16 mg/dL 7 - 25 mg/dL [facility] C3 COMPLEMENTon 05-28-2024 Complement C3 [Mass/Vol] 138 mg/dL 87 - 200 mg/dL [facility] C3 138 mg/dL Normal 87-200 [facility] Comment on above: Order Comment: Note: Reference Range Updated 04/21/2024 Performed By: #### C 4, C3, HEPATIC, CH8 #### [facility] [address] [place] [address], [id number] C4 COMPLEMENTon 05-28-2024 Complement C4 [Mass/Vol] 35 mg/dL 19 - 52 mg/dL [facility] C4 35 mg/dL Normal 19-52 [facility] Comment on above: Order Comment: Note: Reference Range Updated 04/21/2024 Performed By: #### C 4, C3, HEPATIC, CH8 #### [facility] [address] [place] [address], [phone] CBC WITH DIFFERENTIALon 05-12 Basophils (Bld) [#/Vol] [...] 10*3/uL Low 4.5 - 11.5 K/uL [facility] Basophils (Bld) [#/Vol] 0.02 10*3/uL Normal 0.00-0.20 The [facility] Comment on above: Performed By: #### C BCDSAT #### [facility] [address] [place] [address], Basophils/100 WBC (Bld) 0.5 % Normal <=1.9 [facility] Comment on above: Performed By: #### C BCDSAT #### [facility] [address] [place] [address], Eosinophils (Bld) [#/Vol] 0.08 10*3/uL Normal 0.00-0.70 The [facility] Comment on above: Performed By: #### C BCDSAT #### [facility] [address] [place] [address], Eosinophils/100 WBC (Bld) 1.8 % Normal 0.1-4.0 [facility] Comment on above: Performed By: #### C BCDSAT #### [facility] [address] [place] [address], Erythrocyte distribution width (RBC) [Ratio] 13.2 % Normal 11.5-14.5 The [facility] Comment on above: Performed By: #### C BCDSAT #### [facility] [address] [place] [address], Hematocrit (Bld) [Volume fraction] 43.6 % Normal 36.0-46.0 The [facility] Comment on above: Performed By: #### C BCDSAT #### [facility] [address] [place] [address], Hemoglobin (Bld) [Mass/Vol] 14.6 g/dL Normal 12.0-15.0 The [facility] Comment on above: Performed By: #### C BCDSAT #### [facility] [address], [place], Lymphocytes (Bld) [#/Vol] 1.13 10*3/uL Normal 1.00-4.80 The [facility] Comment on above: Performed By: #### C BCDSAT #### [facility] [address], [place], Lymphocytes/100 WBC (Bld) 26.5 % Normal 24.0-44.0 The [facility] Comment on above: Performed By: #### C BCDSAT #### [facility] [address], [place], MCH (RBC) [Entitic mass] 31.5 pg Normal 26.0-34.0 The [facility] Comment on above: Performed By: #### C BCDSAT #### [facility] [address], [place], MCHC (RBC) [Mass/Vol] 33.5 g/dL Normal 32.0-35.9 The [facility] Comment on above: Performed By: #### C BCDSAT #### [facility] [address], [place], MCV (RBC) [Entitic vol] 94 fL Normal 80-100 The [facility] Comment on above: Performed By: #### C BCDSAT #### [facility] [address], [place], Monocytes (Bld) [#/Vol] 0.45 10*3/uL Normal 0.20-1.00 The [facility] Comment on above: Performed By: #### C BCDSAT #### [facility] [address], [place], Monocytes/100 WBC (Bld) 10.7 % Normal 2.0-11.0 The [facility] Comment on above: Performed By: #### C BCDSAT #### [facility] [address], [place], Neutrophils (Bld) [#/Vol] 2.58 10*3/uL Normal 1.50-8.00 The [facility] Comment on above: Performed By: #### C BCDSAT #### [facility] [address], [place], Neutrophils/100 WBC (Bld) 60.5 % Normal 31.0-76.0 The [facility] Comment on above: Performed By: #### C BCDSAT #### [facility] [address], [place], Platelet mean volume (Bld) [Entitic vol] 8.8 fL Normal 7.5-11.2 The [facility] Comment on above: Performed By: #### C BCDSAT #### [facility] [address], [place], Platelets (Bld) [#/Vol] 148 10*3/uL Low 150-400 The [facility] Comment on above: Performed By: #### C BCDSAT #### [facility] [address] [place] [address], RBC (Bld) [#/Vol] 4.64 10*6/uL Normal 4.00-5.20 The [facility] Comment on above: Performed By: #### C BCDSAT #### [facility] [address], [place], WBC (Bld) [#/Vol] 4.3 10*3/uL Low 4.5-11.5 The [facility] Comment on above: Performed By: #### C BCDSAT #### [facility] [address], [place], DS DNAon 05-28-2024 DNA double strand Ab Qn (S) Negative Negative [facility] DNA double strand Ab Qn (S) See Below [facility] ds DNA Reference Range: < or = to 4 IU/mL-Negative 5-9 IU/mL-Indeterminate > or = to 10 IU/mL-Positive [facility] DS DNA Negative Normal Negative The [facility] Comment on above: Order Comment: ds DNA Reference Range: < or = to 4 IU/mL-Negative 5-9 IU/mL-Indeterminate > or = to 10 IU/mL-Positive Performed By: #### d s DNA #### [facility] [address], [place], DS DNA ANTIBODY < 1 Normal See Below The [facility] Comment on above: Order Comment: ds DNA Reference Range: < or = to 4 IU/mL-Negative 5-9 IU/mL-Indeterminate > or = to 10 IU/mL-Positive Performed By: #### d s DNA #### [facility] [address], [place], HEPATIC FUNCTION PANELon Albumin [Mass/Vol] 4.2 g/dL 3.5 - 5.7 g/dL [facility] ALP [Catalytic activity/Vol] 60 U/L [facility] ALT [Catalytic activity/Vol] 17 U/L [facility] AST [Catalytic activity/Vol] 22 U/L [facility] Bilirubin [Mass/Vol] 0.9 mg/dL 0.3 - 1.0 mg/dL [facility] Bilirubin.direct [Mass/Vol] 0.21 mg/dL High 0.03 - 0.18 mg/dL [facility] Protein [Mass/Vol] 6.3 g/dL 6.0 - 8.3 g/dL [facility] Albumin [Mass/Vol] 4.2 g/dL Normal 3.5-5.7 The [facility] Comment on above: Performed By: #### C 4, C3, HEPATIC, CH8 #### [facility] [address], [place], ALK 60 IU/L Normal 34-104 The [facility] Comment on above: Performed By: #### C 4, C3, HEPATIC, CH8 #### [facility] [address], [place], ALT [Catalytic activity/Vol] 17 U/L Normal 7-52 The [facility] Comment on above: Performed By: #### C 4, C3, HEPATIC, CH8 #### [facility] [address], [place], AST [Catalytic activity/Vol] 22 U/L Normal 13-39 The [facility] Comment on above: Performed By: #### C 4, C3, HEPATIC, CH8 #### [facility] [address], [place], Bilirubin [Mass/Vol] 0.9 mg/dL Normal 0.3-1.0 The [facility] Comment on above: Performed By: #### C 4, C3, HEPATIC, CH8 #### [facility] [address], [place], Bilirubin.direct [Mass/Vol] 0.21 mg/dL High 0.03-0.18 The [facility] Comment on above: Performed By: #### C 4, C3, HEPATIC, CH8 #### [facility] [address], [place], Protein [Mass/Vol] 6.3 g/dL Normal 6.0-8.3 The [facility] Comment on above: Performed By: #### C 4, C3, HEPATIC, CH8 #### [facility] [address], [place], No Panel Informationon 05-28 Interpretation and review of laboratory results Normal [facility] Note: Reference Range Updated 04/21/2024 [facility] Interpretation and review of laboratory results Abnormal [facility] Patient Instructionson 05-28 [employer] Authentication Interface Message Text Please ask Dr. Bashir about a right upper quadrant ultrasound because of the pain you are having If it is normal schedule with pain and healing to see if this is intercostal neuritis (also see if beeter on the gabapentin) Normal The [facility] Progress Noteson 05-28-2024 Atm [employer] Authentication Interface Message Text Patient was identified by name and date of . Juana Barrios Vein puncture preformed patient tolerated well. Juana Barrios [facility] left urine sample. Urine was drawn up and sent to the lab. Juana Barrios [facility] Normal [facility] [employer] Authentication Interface Message Text CC SLE and low back pain and LE neuropathy HPI and ROS Linnea Culp is 73 year old with SLE who had a little rash on her arms despite sun screen. Drove to [place] over 5 days. Went to [place]. Saw [employer] horse in [place]. No Raynaud's No alopecia No nose or [...] Color Colorless Appearance Clear pH 6.0 Spec [place] 1.009 Protein Negative Blood Negative Bilirubin Negative [...] CONSULT REQUEST Amber Acharya MD Normal The [employer] Authentication Interface Message Text Identification was verified by patient verbalizing her name and date of . Normal [facility] URINALYSIS WITH REFLEX CULTU RE PERFORMABLEon [...] Glucose Ql (U) Negative Normal Negative [facility] Comment on above: [...] #### u rinalysiswcul #### [facility] [address] [place] [address], [phone] U APPEAR Clear Normal Clear The [facility] [...] #### u rinalysiswcul #### [facility] [address] [place] [address], U BILI Negative Normal Negative [facility] Comment on above: Order Comment: [...] 50%) Performed By: #### u rinalysiswcul #### [facility] [address] [place] [address], U BLOOD Negative Normal Negative The [facility] [facility] Comment on above: Order Comment: A [...] 50%) Performed By: #### u rinalysiswcul #### [facility] [address] [place] [address], U COLOR Colorless Normal Colorless The [facility] Comment on above: Order Comment: [...] 50%) Performed By: #### u rinalysiswcul #### [facility] [address] [place] [address], U KETONE Negative Normal Negative The [facility] [...] 50%) Performed By: #### u rinalysiswcul #### [facility] [address] [place] [address], U LEUK Negative Normal Negative The [facility] [...] 50%) Performed By: #### u rinalysiswcul #### [facility] [address], [place], U NITRITE Negative Normal Negative The [...] 50%) Performed By: #### u rinalysiswcul #### [facility] [address] [place] [address], U PH 6.0 Normal 5.0-8.0 [facility] [facility] Comment on above: Order Comment: A [...] 50%) Performed By: #### u rinalysiswcul #### [facility] [address] [place] [address], U PROTEIN Negative Normal Negative The [facility] Comment on above: Order Comment: A [...] 50%) Performed By: #### u rinalysiswcul #### [facility] [address], [place], U SG 1.009 Normal <=1.030 The [facility] Comment on above: Order Comment: A [...] u rinalysiswcul #### [facility] [address] [place], [address] U UROBILI Negative Normal Negative The [facility] Comment on above: Order Comment: A [...] u rinalysiswcul #### [facility] [address] [place], [phone] Telephone Encounteron 2023 [employer] Authentication Interface Message Text Faxed completed physical therapy forms to [facility] #[phone]. Confirmation received. Added a copy of forms to media folder. Normal [facility] Progress Noteson 03-05-2024 At[employer] Authentication Interface Message Text There was a possible minor abnormally in a nerve that causes numbness and tingling in the foot. We can see next time if you have a Razo's cyst that is irritating the nerve that goes to the foot Amber Acharya MD Normal [facility] EMGon 02-27-2024 [facility] observation (narrative) [facility] Progress Noteson 02-04-2024 Atm [employer] Authentication Interface Message Text This is ok Amber Acharya MD Normal [facility] BASIC METABOLIC PANELon 03-2 Anion gap [Moles/Vol] 12 mmol/L Normal 10-20 [facility] Comment on above: Performed By: #### C BCDSAT #### [facility] [address], [place], Calcium [Mass/Vol] 8.8 mg/dL Normal 8.6-10.3 [facility] Comment on above: Performed By: #### C BCDSAT #### [facility] [address], [place], Chloride [Moles/Vol] 108 mmol/L High 98-107 The [facility] Comment on above: Performed By: #### C BCDSAT #### [facility] [address], [place], CO2 [Moles/Vol] 27 mmol/L Normal 21-31 The [facility] Comment on above: Performed By: #### C BCDSAT #### [facility] [address], [place], Creatinine [Mass/Vol] 1.08 mg/dL Normal 0.60-1.20 [facility] Comment on above: Performed By: #### C BCDSAT #### [facility] [address], [place], ESTIMATED GFR (CKD-EPI) 55 mL/min/1.73sqm Low >=60 The [facility] Comment on above: Result Comment: [...] Inclusion of Race in Diagnosing Kidney Disease. [place] Journal of Kidney Diseases 2021;79(2):268-88.e1. 2. N Engl J Med 1 Vol. 385 Issue 19 Pages 9614-8615 Performed By: #### C BCDSAT #### [facility] [address], [place], Glucose [Mass/Vol] 89 mg/dL Normal 74-109 The [facility] Comment on above: Performed By: #### C BCDSAT #### [facility] [address], [place], Potassium [Moles/Vol] 4.3 mmol/L Normal 3.5-5.0 The [facility] Comment on above: Performed By: #### C ISSAAT #### [facility] [address] [place] [address], Sodium [Moles/Vol] 143 mmol/L Normal 136-145 The [facility] Comment on above: Performed By: #### C ISSAAT #### [facility] [address] [place] [address], Urea nitrogen [Mass/Vol] 15 mg/dL Normal 7-25 The [facility] Comment on above: Performed By: #### C ISSAAT #### [facility] [address] [place] [address], C3 COMPLEMENTon 01-30-2024 C3 133 mg/dL Normal 81-163 The [facility] Comment on above: Performed By: #### C ISSAAT #### [facility] [address] [place] [address], C4 COMPLEMENTon 01-30-2024 C4 36 mg/dL Normal 14-46 The [facility] Comment on above: Performed By: #### C ISSAAT #### [facility] [address] [place] [address], CBC WITH DIFFERENTIALon 01-11 Basophils (Bld) [#/Vol] 0.03 10*3/uL Normal 0.00-0.20 The [facility] Comment on above: Performed By: #### C ISSAAT #### [facility] [address] [place] [address], Basophils/100 WBC (Bld) 0.8 % Normal <=1.9 The [facility] Comment on above: Performed By: #### Kizzy PARSONSAT #### [facility] [address] [place] [address], Eosinophils (Bld) [#/Vol] 0.05 10*3/uL Normal 0.00-0.70 The [facility] Comment on above: Performed By: #### Kizzy PARSONSAT #### [facility] [address], [place], Eosinophils/100 WBC (Bld) 1.1 % Normal 0.1-4.0 [facility] Comment on above: Performed By: #### C BCDSAT #### [facility] [address], [place], Erythrocyte distribution width (RBC) [Ratio] 13.2 % Normal 11.5-14.5 The [facility] Comment on above: Performed By: #### C BCDSAT #### [facility] [address], [place], Hematocrit (Bld) [Volume fraction] 42.2 % Normal 36.0-46.0 The [facility] Comment on above: Performed By: #### C BCDSAT #### [facility] [address], [place], Hemoglobin (Bld) [Mass/Vol] 14.2 g/dL Normal 12.0-15.0 [facility] Comment on above: Performed By: #### C BCDSAT #### [facility] [address], [place], Lymphocytes (Bld) [#/Vol] 1.23 10*3/uL Normal 1.00-4.80 [facility] Comment on above: Performed By: #### C BCDSAT #### [facility] [address], [place], Lymphocytes/100 WBC (Bld) 28.9 % Normal 24.0-44.0 The [facility] Comment on above: Performed By: #### C BCDSAT #### [facility] [address], [place], MCH (RBC) [Entitic mass] 32.1 pg Normal 26.0-34.0 [facility] Comment on above: Performed By: #### C BCDSAT #### [facility] [address], [place], MCHC (RBC) [Mass/Vol] 33.7 g/dL Normal 32.0-35.9 The [facility] Comment on above: Performed By: #### C BCDSAT #### [facility] [address], [place], MCV (RBC) [Entitic vol] 95 fL Normal 80-100 The [facility] Comment on above: Performed By: #### C BCDSAT #### [facility] [address], [place], Monocytes (Bld) [#/Vol] 0.41 10*3/uL Normal 0.20-1.00 The [facility] Comment on above: Performed By: #### C BCDSAT #### [facility] [address], [place], Monocytes/100 WBC (Bld) 9.7 % Normal 2.0-11.0 The [facility] Comment on above: Performed By: #### C BCDSAT #### [facility] [address], [place], Neutrophils (Bld) [#/Vol] 2.54 10*3/uL Normal 1.50-8.00 The [facility] Comment on above: Performed By: #### C BCDSAT #### [facility] [address], [place], Neutrophils/100 WBC (Bld) 59.6 % Normal 31.0-76.0 The [facility] Comment on above: Performed By: #### C BCDSAT #### [facility] [address], [place], Platelet mean volume (Bld) [Entitic vol] 9.2 fL Normal 7.5-11.2 The [facility] Comment on above: Performed By: #### C BCDSAT #### [facility] [address], [place], Platelets (Bld) [#/Vol] 158 10*3/uL Normal 150-400 The [facility] Comment on above: Performed By: #### C BCDSAT #### [facility] PATHOLOGY LABORATORY [address] [place], [place], RBC (Bld) [#/Vol] 4.43 10*6/uL Normal 4.00-5.20 The [facility] Comment on above: Performed By: #### C BCDSAT #### [facility] [address] [place] [address], WBC (Bld) [#/Vol] 4.3 10*3/uL Low 4.5-11.5 The [facility] Comment on above: Performed By: #### C BCDSAT #### [facility] [address] [place] [address], HEMOGLOBIN A1Con 01-30-2024 Glucose [Mass/Vol] 97 mg/dL Normal The [facility] Comment on above: Performed By: #### C BCDSAT #### S PATHOLOGY LABORATORY [address] [place] [address], HbA1c (Bld) [Mass fraction] 5.0 % Normal 4.0-5.6 The [facility] Comment on above: Performed By: #### C BCDSAT #### S PATHOLOGY LABORATORY [address] [place] [address], HEPATIC FUNCTION PANELon Albumin [Mass/Vol] 4.0 g/dL Normal 3.5-5.7 The [facility] Comment on above: Order Comment: Note updated reference ranges. Performed By: #### C BCDSAT #### S PATHOLOGY LABORATORY [address] [place] [address], ALK 71 IU/L Normal 34-104 The [facility] Comment on above: Order Comment: Note updated reference ranges. Performed By: #### C BCDSAT #### [facility] [address] [place] [address], ALT [Catalytic activity/Vol] 26 U/L Normal 7-52 The [facility] Comment on above: Order Comment: Note updated reference ranges. Performed By: #### C BCDSAT #### [facility] [address] [place] [address], AST [Catalytic activity/Vol] 32 U/L Normal 13-39 The [facility] Comment on above: Order Comment: Note updated reference ranges. Performed By: #### C BCDSAT #### [facility] [place], [place], Bilirubin [Mass/Vol] 0.9 mg/dL Normal 0.3-1.0 The [facility] Comment on above: Order Comment: Note updated reference ranges. Performed By: #### C BCDSAT #### S PATHOLOGY LABORATORY [address] [place], [place], Bilirubin.direct [Mass/Vol] 0.25 mg/dL High 0.03-0.18 The [facility] Comment on above: Order Comment: Note updated reference ranges. Performed By: #### C BCDSAT #### S PATHOLOGY LABORATORY [address] [place], [place], Protein [Mass/Vol] 6.2 g/dL Normal 6.0-8.3 The [facility] Comment on above: Order Comment: Note updated reference ranges. Performed By: #### C BCDSAT #### [facility] PATHOLOGY LABORATORY [address] [place], [place], Patient Instructionson 01-29 [employer] Authentication Interface Message Text Take folic acid supplemental over the counter Normal [facility] Progress Noteson 01-30-2024 [employer] Authentication Interface Message Text Patient was identified by name and date of . Romelia Dunn Venipuncture performed patient tolerated well Romelia Dunn MPA Patient leaving urine sample Normal [facility] [employer] Authentication Interface Message Text CC h/o SLE [...] Color Yellow Appearance Turbid pH 5.5 Spec [place] 1.016 Protein 30 ! Blood Negative Bilirubin [...] EXTERNAL SERVICE REQUEST FOR CARE OUTSIDE THE [facility] Helped previously Amber Acharya MD Normal The [facility] [employer] Authentication Interface Message Text Patient was identified by name and date of . SANG Sanders Normal The [facility] TOTAL PROTEIN WITH CREATININ E, RANDOM URINEon 01-30-2024 CREATININE, URINE 148 mg/dL Normal 10-300 The [facility] Comment on above: Performed By: #### T P RU #### S PATHOLOGY LABORATORY [address] [place], [place], Protein (U) [Mass/Vol] 11 mg/dL Normal <=100 The [facility] Comment on above: Performed By: #### T P RU #### [facility] [address] [place], [place], TP/CREAT RATIO 74 mg/g Normal <=164 [facility] Comment on above: Performed By: #### T P RU #### S PATHOLOGY LABORATORY [address] [place], [place], URINALYSISon 01-30-2024 Glucose Ql (U) Negative Normal Negative [facility] Comment on above: Order Comment: A [...] C BCDSAT #### S PATHOLOGY LABORATORY [address] [place], [place], Protein (U) [Mass/Vol] 30 mg/dL Abnormal Negative [facility] Comment on above: Order Comment: A [...] #### C BCDSAT #### S PATHOLOGY LABORATORY [address] [place] [address], SQUAMOUS EPITHELIAL 6-10 Normal 0-10 [facility] Comment on above: Order Comment: A [...] #### C BCDSAT #### [facility] [address] [place] [address], U APPEAR Turbid Normal Clear [facility] Comment on above: Order Comment: A [...] #### C BCDSAT #### S PATHOLOGY LABORATORY [address] [place] [address], U BACTERIA Few Normal The [facility] Comment on above: Order Comment: A [...] #### C BCDSAT #### [facility] [address] [place] [address], U BILI Negative Normal Negative The [facility] Comment on above: Order Comment: A [...] #### C BCDSAT #### S PATHOLOGY LABORATORY [address] [place] [address], U BLOOD Negative Normal Negative [facility] Comment on above: Order Comment: [...] 50%) Performed By: #### C BCDSAT #### [facility] PATHOLOGY [facility]ATORY [address] [place] [address], U COLOR Yellow Normal Colorless The [facility] [...] 50%) Performed By: #### C BCDSAT #### [facility] PATHOLOGY LAB[facility]ORY [address] [place] [address], U HY CAST 0-2 Normal The [facility] [...] #### C BCDSAT #### S PATHOLOGY LABORATORY [address] [place] [address], U KETONE Negative Normal Negative The [facility] Comment on above: Order Comment: A [...] #### C BCDSAT #### S PATHOLOGY LABORATORY [address] [place] [address], U LEUK Positive Abnormal Negative [facility] Comment on above: Order Comment: [...] #### C BCDSAT #### [facility] [address] [place] [address], U MUCOUS Present Normal [facility] [...] #### C BCDSAT #### S PATHOLOGY LABORATORY [address] [place] [address], U NITRITE Positive Abnormal Negative [facility] Comment on above: Order Comment: A [...] 50%) Performed By: #### C BCDSAT #### [facility] PATHOLOGY [facility]ORY [address] [place] [address], U PH 5.5 Normal 5.0-8.0 The [facility] Comment on above: Order Comment: A [...] #### C BCDSAT #### S PATHOLOGY LABORATORY [address] [place] [address], U RBC 0-2 Normal 0-2 [facility] Comment on above: Order Comment: A [...] #### C BCDSAT #### S PATHOLOGY LABORATORY [address] [place] [address], U SG 1.016 Normal <=1.030 The [facility] Comment on above: Order Comment: A [...] 50%) Performed By: #### C BCDSAT #### [facility] PATHOLOGY [facility]ORY [address] [place] [address], U UROBILI Negative Normal Negative The [facility] Comment on above: Order Comment: A [...] C BCDSAT #### S PATHOLOGY LABORATORY [address] [place], [place], U WBC 11-30 Abnormal 0-2 The [facility] Comment on above: Order Comment: A [...] C BCDSAT #### [facility] [address] [place], [place], VITAMIN B12 (CYANOCOBALAMIN) on 01-30-2024 Cobalamin (Vitamin B12) [Mass/Vol] 3617 pg/mL Normal >300 The [facility] Comment on above: Order Comment: <152 pg/mL - [id number] - 300 pg/mL- Insufficient>300 pg/mL - Sufficient Performed By: #### C BCDSAT #### [facility] [address] [place], [place], XR ARTHRITIS SURVEY HAND/WRI STon 01-30-2024 [...] significant interval change. MACRO: None Normal The [facility] XR C-SPINE AP+LATERAL 2 VIEW Son [...] significant interval change. MACRO: None Normal The [facility] Telephone Encounteron 2023 [employer] Authentication Interface Message Text The [facility] external XR results added to media folder. Normal The [facility] Telephone Encounteron 2022 [employer] Authentication Interface Message Text The [facility] external x-ray results added to media folder. Normal The [facility] ELECTROPHORESIS, SERUM PROTE INOrdered By: Dane Anaya on 04-27-2023 Albumin [Mass fraction] 53.8 % 52.0 - 72.0 % [facility] Work Phone: Albumin [Mass/Vol] 3.55 g/dL Low 3.90 - 5. 10 g/dL [facility] Work Phone: Alpha 1 globulin Elph (CSF) [Mass fraction] 0.29 g/dL 0.10 - 0.45 g/dL [facility] Work Phone: Alpha 1 globulin Unsp time Elph (U) [Mass fraction] 4.3 % 2.0 - 9.6 % [facility] Work Phone: Alpha 2 globulin Elph (CSF) [Mass fraction] 0.66 g/dL 0.40 - 0.90 g/dL [facility] Work Phone: Alpha 2 globulin Unsp time Elph (U) [Mass fraction] 10.0 % 5.0 - 16.0 % [facility] Work Phone: Beta globulin Elph (CSF) [Mass fraction] 1.23 g/dL High 0.50 - 1.00 g/dL [facility] Work Phone: Beta globulin Unsp time Elph [...] Interpretation and review of laboratory results Abnormal [facility] Work Phone: Protein.monoclonal Elph [Mass fraction] 6.6 g/dL 5.7 - 8.1 g/dL [facility] Work Phone: . I certify that I personally conducted the diagnostic evaluation of the above specimen(s) and have rendered the final diagnosis(es). [facility] Work Phone: [facility] Work Phone: URINE CULTUREOrdered By: Rome Wynn on 04-26-2023 Bacteria identified Cx Nom (U) 1,000 - 10,000 CFU/ml Multiple bacteria present suggesting contamination. [facility] Interpretation and review of laboratory results Normal [facility] IF clinically indicated, suggest appropriate recollection with timely delivery to the laboratory. For additional information, call ext [phone]. [facility] VITAMIN B12 (CYANOCOBALAMIN) on 04-26-2023 [...] Inclusion of Race in Diagnosing Kidney Disease. [place] Journal of Kidney Diseases 202;79(2):268-88.e1. 2. N Engl J Med 2020 Vol. 385 Issue 19 Pages [id number] Glucose [Mass/Vol] 90 mg/dL 80 - 116 [...] (positive predictive value for UTI around 50%) [facility]on SARS-CoV-2 (COVID-19) RNA CRISTIAN+probe Ql (Unsp spec) Detected Critically abnormal NOT DETECTED The [facility] Comment on above: Result Comment: This test is not yet approved or cleared by the [place] FDA. When there are no FDA-approved or cleared tests available, and other criteria are met, FDA can make tests available under an emergency access mechanism called an Emergency Use Authorization (EUA). The EUA for this test is supported by the Accounting Technician of Health and Human Service's declaration that [...] By: #### C VDTBH #### [facility] [address] [place] [address] Dr. Ella Mathis INFLUENZA A AND B AGon 10-16 [facility] SEE BELOW Normal [facility] Comment on above: Result Comment: Nega tive for Flu A protein angiten. Infection due to Flu A cannot be ruled out. Flu A angiten in the sample may be below the detection limit of the test. Performed By: #### C VDTBH #### [facility] [address] [place] [address] Dr. [facility] Normal [facility] Comment on above: Result Comment: Nega tive for Flu B protein antigen. Infection due to Flu B cannot be ruled out. Flu B antigen in the sample may be below the detection limit of the test. Performed By: #### C VDTBH #### [facility] [address] [place] [address] Dr. Ella Mathis INFLUENZA A AG Negative Normal NEGATIVE SEE COMMENT [facility] Comment on above: Performed By: #### C VDTBH #### [facility] [address] [address] [address] Ella Mathis INFLUENZA B AG Negative Normal NEGATIVE SEE COMMENT [facility] Comment on above: Performed By: #### C VDTBH #### [facility] [address] [address] [address] Ella Mathis INTERNAL CONTROLS Within Normal Limits Normal Wi thin Normal Limits [facility] Comment on above: Performed By: #### C VDTBH #### [facility] [address] [place] [address] Dr. Ella Mathis PROF CHEM 8 (BAS METB)on Anion gap [Moles/Vol] 10.5 mmol/L Normal [facility] Comment on above: Performed By: #### B MP #### [facility] [address] [place] [address] Dr. Ella Mathis Calcium [Mass/Vol] 8.7 mg/dL Normal 8.5-10.1 [facility] Comment on above: Performed By: #### B MP #### [facility] [address] [place] [address] Dr. Ella Mathis Chloride [Moles/Vol] 107 mmol/L Normal 98-107 [facility] Comment on above: Performed By: #### B MP #### [facility] [address] [place] [address] Dr. Ella Mathis CO2 [Moles/Vol] 29.9 mmol/L Normal 21.0-32.0 [facility] Comment on above: Performed By: #### B MP #### [facility] [address] [place] [address] Dr. Ella Mathis Creatinine [Mass/Vol] 1.02 mg/dL Normal 0.55-1.02 [facility] Comment on above: Performed By: #### B MP #### [facility] [address] [place] [address] Dr. Ella Mathis EGFR-AF MONTENEGRIN >60 Normal >=60 [facility] Comment on above: Performed By: #### B MP #### [facility] [address] [address] [address] Ella Mathis EGFR-NON AF MONTENEGRIN 54 mL/min/1.73m2 Critically low >=60 [facility] Comment on above: Performed By: #### B MP #### [facility] [address] [address] [address] Ella Mathis Glucose [Mass/Vol] 91 mg/dL Normal 74-106 [facility] Comment on above: Performed By: #### B MP #### [facility] [address] [address] [address] Ella Mathis Potassium [Moles/Vol] 4.4 mmol/L Normal 3.5-5.1 [facility] Comment on above: Performed By: #### B MP #### [facility] [address] [address] [address] Ella Mathis Sodium [Moles/Vol] 143 mmol/L Normal 136-145 [facility] Comment on above: Performed By: #### B MP #### [facility] [address] [address] [address] Ella Mathis Urea nitrogen [Mass/Vol] 20.0 mg/dL Critically high 7.0-18.0 [facility] Comment on above: Performed By: #### B MP #### [facility] [address] [address] [address] Ella Mathis Urea nitrogen/Creatinine [Mass ratio] 19.6 mg/mg Normal [facility] Comment on above: Performed By: #### B MP #### [facility] [address] [address] [address] Ella Mathis US BOBBI DOP LEG [...] by: HECTOR LING Date: 2022-10-03 10:59 Normal [facility] US BOBBI DOP LEG LTon [...] by: ASHLEY CHU Date: 2022-09-08 17:28 Normal [facility] BNPon 08-28-2022 Natriuretic peptide B (Bld) [Mass/Vol] 346.0 pg/mL Normal <=900.0 [facility] Comment on above: Performed By: #### P TT, PT #### [facility] [address] [place] [address] Dr. Ella Mathis CBC AUTO DIFFon 08-28-2022 BASO # 0.0 103/ul Normal 0.0-0.1 [facility] Comment on above: Performed By: #### C BC #### [facility] [address] [place] [address] Dr. Ella Mathis Basophils/100 WBC (Bld) 0.4 % Normal 0.2-2.0 [facility] Comment on above: Performed By: #### C BC #### [facility] [address] [place] [address] Dr. Ella Mathis EO # 0.0 103/ul Normal 0.0-0.7 [facility] Comment on above: Performed By: #### C BC #### [facility] [address] [place] [address] Dr. Ella Mathis Eosinophils/100 WBC (Bld) 0.6 % Critically low 0.9-7.0 [facility] Comment on above: Performed By: #### C BC #### [facility] [address] [place] [address] Dr. Ella Mathis Erythrocyte distribution width (RBC) [Ratio] 12.5 % Normal 11.0-15.0 [facility] Comment on above: Performed By: #### C BC #### [facility] [address] [place] [address] Dr. Ella Mathis Hematocrit (Bld) [Volume fraction] 38.9 % Normal 36.0-48.0 [facility] Comment on above: Performed By: #### C BC #### [facility] [address] [place] [address] Dr. Ella Mathis Hemoglobin (Bld) [Mass/Vol] 13.0 g/dL Normal 12.0-16.0 [facility] Comment on above: Performed By: #### C BC #### [facility] [address] [place] [address] Dr. Ella Mathis IG # 0.04 10e3/ul Critically high 0.00-0.03 [facility] Comment on above: Performed By: #### C BC #### [facility] [address] [place] [address] Dr. Ella Mathis IG % 0.6 % Critically high 0.0-0.5 [facility] Comment on above: Performed By: #### C BC #### [facility] [address] [place] [address] Dr. Ella Mathis LYMPH # 1.8 103/ul Normal 1.2-3.8 [facility] Comment on above: Performed By: #### C BC #### [facility] [address] [place] [address] Dr. Ella Mathis Lymphocytes/100 WBC (Bld) 25.2 % Normal 20.5-60.0 [facility] Comment on above: Performed By: #### C BC #### [facility] [address] [place] [address] Dr. Ella Mathis MANUAL DIFF REQ NO Normal [facility] Comment on above: Performed By: #### C BC #### [facility] [address] [place] [address] Dr. Ella Mathis MCH (RBC) [Entitic mass] 31.9 pg Normal 26.7-34.0 [facility] Comment on above: Performed By: #### C BC #### [facility] [address] [place] [address] Dr. Ella Mathis MCHC (RBC) [Mass/Vol] 33.4 g/dL Normal 29.9-35.2 [facility] Comment on above: Performed By: #### C BC #### [facility] [address] [place] [address] Dr. Ella Mathis MCV (RBC) [Entitic vol] 95.3 fL Normal 81.0-99.0 [facility] Comment on above: Performed By: #### C BC #### [facility] [address] [place] [address] Dr. Ella Mathis MONO # 0.8 103/ul Normal 0.3-0.8 [facility] Comment on above: Performed By: #### C BC #### [facility] [address] [place] [address] Dr. Ella Mathis Monocytes/100 WBC (Bld) 10.5 % Normal 1.7-12.0 [facility] Comment on above: Performed By: #### C BC #### [facility] [address] [place] [address] Dr. Ella Mathis NEUT # 4.5 103/ul Normal 1.4-6.5 [facility] Comment on above: Performed By: #### C BC #### [facility] [address] [place] [address] Dr. Ella Mathis Neutrophils/100 WBC (Bld) 62.7 % Normal 43.0-75.0 [facility] Comment on above: Performed By: #### C BC #### [facility] [address] [place] [address] Dr. Ella Mathis Platelet mean volume (Bld) [Entitic vol] 10.2 fL Normal 9.5-13.5 [facility] Comment on above: Performed By: #### C BC #### [facility] [address] [address] [address] Ella Mathis PLT 184 103/ul Normal 150-450 [facility] Comment on above: Performed By: #### C BC #### [facility] [address] [address] [address] Ella Mathis RBC 4.08 106/ul Critically low 4.20-5.40 [facility] Comment on above: Performed By: #### C BC #### [facility] [address] [address] [address] Ella Mathis WBC 7.2 103/ul Normal 4.0-11.0 [facility] Comment on above: Performed By: #### C BC #### [facility] [address] [place] [address] Dr. Ella Mathis PROF 14(COMP METB)on 08-28- 022 Albumin [Mass/Vol] 3.3 g/dL Critically low 3.4-5.0 [facility] Comment on above: Performed By: #### P TT, PT #### [facility] [address] [place] [address] Dr. Ella Mathis Albumin/Globulin [Mass ratio] 1.1 {ratio} [facility] Comment on above: Performed By: #### P TT, PT #### [facility] [address] [place] [address] Dr. Ella Mathis ALP [Catalytic activity/Vol] 72 U/L Normal 46-116 [facility] Comment on above: Performed By: #### P TT, PT #### [facility] [address] [place] [address] Dr. Ella Mathis ALT [Catalytic activity/Vol] 20 U/L Normal 14-59 [facility] Comment on above: Performed By: #### P TT, PT #### [facility] [address] [place] [address] Dr. Ella Mathis Anion gap [Moles/Vol] 8.8 mmol/L Normal [facility] Comment on above: Performed By: #### P TT, PT #### [facility] [address] [address] [address] Ella Mathis AST [Catalytic activity/Vol] 11 U/L Critically low 15-37 [facility] Comment on above: Performed By: #### P TT, PT #### [facility] [address] [address] [address] lEla Mathis Bilirubin [Mass/Vol] 0.6 mg/dL Normal 0.2-1.0 [facility] Comment on above: Performed By: #### P TT, PT #### [facility] [address] [address] [address] Ella Mathis Calcium [Mass/Vol] 8.6 mg/dL Normal 8.5-10.1 [facility] Comment on above: Performed By: #### P TT, PT #### [facility] [address] [place] [address] Dr. Ella Mathis Chloride [Moles/Vol] 106 mmol/L Normal 98-107 [facility] Comment on above: Performed By: #### P TT, PT #### [facility] [address] [address] [address] Ella Mathis CO2 [Moles/Vol] 31.9 mmol/L Normal 21.0-32.0 [facility] Comment on above: Performed By: #### P TT, PT #### [facility] [address] [place] [address] Dr. Ella Mathis Creatinine [Mass/Vol] 1.03 mg/dL Critically high 0.55-1.02 [facility] Comment on above: Performed By: #### P TT, PT #### [facility] [address] [address] [address] Ella Mathis EGFR-AF MONTENEGRIN >60 Normal >=60 [facility] Comment on above: Performed By: #### P TT, PT #### [facility] [address] [address] [address] Ella Mathis EGFR-NON AF MONTENEGRIN 53 mL/min/1.73m2 Critically low >=60 [facility] Comment on above: Performed By: #### P TT, PT #### [facility] [address] [address] [address] Ella Mathis Globulin (S) [Mass/Vol] 3.0 g/dL Normal [facility] Comment on above: Performed By: #### P TT, PT #### [facility] [address] [address] [address] Ella Mathis Glucose [Mass/Vol] 85 mg/dL Normal 74-106 [facility] Comment on above: Performed By: #### P TT, PT #### [facility] [address] [address] [address] Ella Mathis Potassium [Moles/Vol] 3.7 mmol/L Normal 3.5-5.1 [facility] Comment on above: Performed By: #### P TT, PT #### [facility] [address] [place] [address] Dr. Ella Mathis Protein [Mass/Vol] 6.3 g/dL Critically low 6.4-8.2 [facility] Comment on above: Performed By: #### P TT, PT #### [facility] [address] [address] [address] Ella Mathis Sodium [Moles/Vol] 143 mmol/L Normal 136-145 [facility] Comment on above: Performed By: #### P TT, PT #### [facility] [address] [address] [address] Ella Mathis Urea nitrogen [Mass/Vol] 20.0 mg/dL Critically high 7.0-18.0 [facility] Comment on above: Performed By: #### P TT, PT #### [facility] [address] [address] [address] Ella Mathis Urea nitrogen/Creatinine [Mass ratio] 19.4 mg/mg Normal [facility] Comment on above: Performed By: #### P TT, PT #### [facility] [address] [address] [address] Ella Mathis XR CHEST 2 Von [...] Date: 2022-08-28 20:20 Normal [facility] Covid-19 PCR (CVDTBH)on 08-12 SARS-CoV-2 (COVID-19) RNA CRISTIAN+probe Ql (Unsp spec) Not detected Normal NOT DETECTED [facility] Comment on above: Result Comment: When [...] for this test is supported by the [place] of Health and Human Service's declaration that [...] By: #### C VDTBH #### [facility] [address] [address] [address] Ella Mathis INSULINon 03-24-2022 Insulin 10.0 uIU/mL Normal 2.6-24.9 [facility] Comment on above: Performed By: #### I NSULIN #### [facility] [address] [address] [address] Ella Mathis AMMONIAon 03-23-2022 Ammonia (P) [Moles/Vol] 18 umol/L Normal 11-32 [facility] Comment on above: Performed By: #### A MM #### [facility] [address] [place] [address] Dr. Ella Mathis AMYLASEon 03-23-2022 Amylase [Catalytic activity/Vol] 69 U/L Normal 25-115 [facility] Comment on above: Performed By: #### P TT, PT #### [facility] [address] [place] [address] Dr. Ella Mathis CBC AUTO DIFFon 03-23-2022 BASO # 0.0 103/ul Normal 0.0-0.1 [facility] Comment on above: Performed By: #### P TT, PT #### [facility] [address] [place] [address] Dr. Ella Mathis Basophils/100 WBC (Bld) 1.0 % Normal 0.2-2.0 [facility] Comment on above: Performed By: #### P TT, PT #### [facility] [address] [place] [address] Dr. Ella Mathis EO # 0.1 103/ul Normal 0.0-0.7 [facility] Comment on above: Performed By: #### P TT, PT #### [facility] [address] [place] [address] Dr. Ella Mathis Eosinophils/100 WBC (Bld) 1.4 % Normal 0.9-7.0 [facility] Comment on above: Performed By: #### P TT, PT #### [facility] [address] [place] [address] Dr. Ella Mathis Erythrocyte distribution width (RBC) [Ratio] 12.5 % Normal 11.0-15.0 [facility] Comment on above: Performed By: #### P TT, PT #### [facility] [address] [place] [address] Dr. Ella Mathis Hematocrit (Bld) [Volume fraction] 39.8 % Normal 36.0-48.0 [facility] Comment on above: Performed By: #### P TT, PT #### [facility] [address] [address] [address] Ella Mathis Hemoglobin (Bld) [Mass/Vol] 13.5 g/dL Normal 12.0-16.0 [facility] Comment on above: Performed By: #### P TT, PT #### [facility] [address] [place] [address] Dr. Ella Mathis IG # 0.01 10e3/ul Normal 0.00-0.03 [facility] Comment on above: Performed By: #### P TT, PT #### [facility] [address] [place] [address] Dr. Ella Mathis IG % 0.2 % Normal 0.0-0.5 [facility] Comment on above: Performed By: #### P TT, PT #### [facility] [address] [place] [address] Dr. Ella Mathis LYMPH # 1.1 103/ul Critically low 1.2-3.8 [facility] Comment on above: Performed By: #### P TT, PT #### [facility] [address] [place] [address] Dr. Ella Mathis Lymphocytes/100 WBC (Bld) 26.7 % Normal 20.5-60.0 [facility] Comment on above: Performed By: #### P TT, PT #### [facility] [address] [place] [address] Dr. Ella Mathis MANUAL DIFF REQ NO Normal [facility] Comment on above: Performed By: #### P TT, PT #### [facility] [address] [place] [address] Dr. Ella Mathis MCH (RBC) [Entitic mass] 32.4 pg Normal 26.7-34.0 [facility] Comment on above: Performed By: #### P TT, PT #### [facility] [address] [place] [address] Dr. Ella Mathis MCHC (RBC) [Mass/Vol] 33.9 g/dL Normal 29.9-35.2 [facility] Comment on above: Performed By: #### P TT, PT #### [facility] [address] [address] [address] Ella Mathis MCV (RBC) [Entitic vol] 95.4 fL Normal 81.0-99.0 [facility] Comment on above: Performed By: #### P TT, PT #### [facility] [address] [address] [address] Ella Mathis MONO # 0.3 103/ul Normal 0.3-0.8 [facility] Comment on above: Performed By: #### P TT, PT #### [facility] [address] [place] [address] Dr. Ella Mathis Monocytes/100 WBC (Bld) 8.2 % Normal 1.7-12.0 [facility] Comment on above: Performed By: #### P TT, PT #### [facility] [address] [place] [address] Dr. Ella Mathis NEUT # 2.6 103/ul Normal 1.4-6.5 [facility] Comment on above: Performed By: #### P TT, PT #### [facility] [address] [place] [address] Dr. Ella Mathis Neutrophils/100 WBC (Bld) 62.5 % Normal 43.0-75.0 [facility] Comment on above: Performed By: #### P TT, PT #### [facility] [address] [place] [address] Dr. Ella Mathis Platelet mean volume (Bld) [Entitic vol] 9.7 fL Normal 9.5-13.5 [facility] Comment on above: Performed By: #### P TT, PT #### [facility] [address] [place] [address] Dr. Ella Mathis PLT 166 103/ul Normal 150-450 [facility] Comment on above: Performed By: #### P TT, PT #### [facility] [address] [place] [address] Dr. Ella Mathis RBC 4.17 106/ul Critically low 4.20-5.40 [facility] Comment on above: Performed By: #### P TT, PT #### [facility] [address] [address] [address] Ella Mathis WBC 4.2 103/ul Normal 4.0-11.0 [facility] Comment on above: Performed By: #### P TT, PT #### [facility] [address] [place] [address] Dr. Ella Mathis FREE THYROXINE INDEX T7on FTI 2.42 Normal 1.30-4.50 [facility] Comment on above: Performed By: #### P TT, PT #### [facility] [address] [address] [address] Ella Mathis T3U 35.0 % Normal 30.0-39.0 [facility] Comment on above: Performed By: #### P TT, PT #### [facility] [address] [place] [address] Dr. Ella Mathis T4 [Mass/Vol] 6.90 ug/dL Normal 4.80-13.90 [facility] Comment on above: Performed By: #### P TT, PT #### [facility] [address] [place] [address] Dr. Ella Mathis GLYCOHEMOGLOBIN A1Con 2021 ADA RECOMMENDATION SEE BELOW Normal [facility] Comment on above: Result Comment: ADA RECOMMENDED LIMIT 4.0 - 6.0 ADA THERAPEUTIC TARGET < 7.0 ACTION SUGGESTED > 7.0 Performed By: #### P TT, PT #### [facility] [address] [place] [address] Dr. Ella Mathsi Glucose [Mass/Vol] 100 mg/dL Normal [facility] Comment on above: Performed By: #### P TT, PT #### [facility] [address] [place] [address] Dr. Ella Mathis HbA1c (Bld) [Mass fraction] 5.1 % Normal 4.5-6.2 [facility] Comment on above: Performed By: #### P TT, PT #### [facility] [address] [place] [address] Dr. Ella Mathis IRONon 03-23-2022 Iron [Mass/Vol] 97.0 ug/dL Normal 50.0-170.0 [facility] Comment on above: Performed By: #### I ABRAN #### [facility] [address] [address] [address] Ella Mathis LIPASEon 03-23-2022 Lipase [Catalytic activity/Vol] 132.0 U/L Normal 73.0-393.0 [facility] Comment on above: Performed By: #### P TT, PT #### [facility] [address] [address] [address] Ella Mathis LIPID PROFILEon 03-23-2022 CHOL-HDL RATIO NORM SEE BELOW Normal [facility] Comment on above: Result Comment: 3.3 - 4.4 LOW RISK 4.4 - 7.1 AVERAGE RISK 7.1 - 11.0 MODERATE RISK >11.0 HIGH RISK Performed By: #### P TT, PT #### [facility] [address] [place] [address] Dr. Ella Mathis Cholesterol [Mass/Vol] 125 mg/dL Normal <=200 [facility] Comment on above: Performed By: #### P TT, PT #### [facility] [address] [place] [address] Dr. Ella Mathis Cholesterol in HDL [Mass/Vol] 79 mg/dL Critically high 40-60 [facility] Comment on above: Performed By: #### P TT, PT #### [facility] [address] [address] [address] Ella Mathis Cholesterol in LDL [Mass/Vol] 33.8 mg/dL Normal [facility] Comment on above: Performed By: #### P TT, PT #### [facility] [address] [address] [address] Ella Mathis Cholesterol.total/C holesterol in HDL [Mass ratio] 1.6 {ratio} Normal [facility] Comment on above: Performed By: #### P TT, PT #### [facility] [address] [place] [address] Dr. Ella Mathis HDL NORMAL > or = 60 mg/dl - LOW CARDIOVASCULAR RISK <40 mg/dl - HIGH CARDIOVASCULAR RISK Normal [facility] Comment on above: Performed By: #### P TT, PT #### [facility] [address] [address] [address] Ella Mathis LDL CALC NORMAL SEE BELOW Normal [facility] Comment on above: Result Comment: <100 mg/dl OPTIMAL 100 - 129 mg/dl NEAR OR ABOVE OPTIMAL 130 - 159 mg/dl BORDERLINE HIGH 160 - 189 mg/dl HIGH >190 mg/dl VERY HIGH Performed By: #### P TT, PT #### [facility] [address] [place] [address] Dr. Ella Mathis Triglyceride [Mass/Vol] 61 mg/dL Normal <=150 [facility] Comment on above: Performed By: #### P TT, PT #### [facility] [address] [place] [address] Dr. Ella Mathis VLDL CALC 12.2 mg/dL Normal [facility] Comment on above: Performed By: #### P TT, PT #### [facility] [address] [place] [address] Dr. Ella Mathis PROF 14(COMP METB)on 022 Albumin [Mass/Vol] 3.4 g/dL Normal 3.4-5.0 [facility] Comment on above: Performed By: #### L IPID, TSH, LIPA, T7, CMP, KARRIE #### [facility] [address] [place] [address] Dr. Ella Mathis Albumin/Globulin [Mass ratio] 1.1 {ratio} Normal [facility] Comment on above: Performed By: #### L IPID, TSH, LIPA, T7, CMP, KARRIE #### [facility] [address] [place] [address] Dr. Ella Mathis ALP [Catalytic activity/Vol] 66 U/L Normal 46-116 [facility] Comment on above: Performed By: #### L IPID, TSH, LIPA, T7, CMP, KARRIE #### [facility] [address] [place] [address] Dr. Ella Mathis ALT [Catalytic activity/Vol] 27 U/L Normal 14-59 [facility] Comment on above: Performed By: #### L IPID, TSH, LIPA, T7, CMP, KARRIE #### [facility] [address] [address] [address] Ella Mathis Anion gap [Moles/Vol] 8.8 mmol/L Normal [facility] Comment on above: Performed By: #### L IPID, TSH, LIPA, T7, CMP, KARRIE #### [facility] [address] [place] [address] Dr. Ella Mathis AST [Catalytic activity/Vol] 19 U/L Normal 15-37 [facility] Comment on above: Performed By: #### L IPID, TSH, LIPA, T7, CMP, KARRIE #### [facility] [address] [place] [address] Dr. Ella Mathis Bilirubin [Mass/Vol] 0.8 mg/dL Normal 0.2-1.0 [facility] Comment on above: Performed By: #### L IPID, TSH, LIPA, T7, CMP, KARRIE #### [facility] [address] [place] [address] Dr. Ella Mathis Calcium [Mass/Vol] 8.4 mg/dL Critically low 8.5-10.1 [facility] Comment on above: Performed By: #### L IPID, TSH, LIPA, T7, CMP, KARRIE #### [facility] [address] [place] [address] Dr. Ella Mathis Chloride [Moles/Vol] 107 mmol/L Normal 98-107 [facility] Comment on above: Performed By: #### L IPID, TSH, LIPA, T7, CMP, KARRIE #### [facility] [address] [place] [address] Dr. Ella Mathis CO2 [Moles/Vol] 28.0 mmol/L Normal 21.0-32.0 [facility] Comment on above: Performed By: #### L IPID, TSH, LIPA, T7, CMP, KARRIE #### [facility] [address] [place] [address] Dr. Ella Mathis Creatinine [Mass/Vol] 1.02 mg/dL Normal 0.55-1.02 [facility] Comment on above: Performed By: #### L IPID, TSH, LIPA, T7, CMP, KARRIE #### [facility] [address] [place] [address] Dr. Ella Mathis EGFR-AF MONTENEGRIN >60 Normal >=60 [facility] Comment on above: Performed By: #### L IPID, TSH, LIPA, T7, CMP, KARRIE #### [facility] [address] [address] [address] Ella Mathis EGFR-NON AF MONTENEGRIN 54 mL/min/1.73m2 Critically low >=60 [facility] Comment on above: Performed By: #### L IPID, TSH, LIPA, T7, CMP, KARRIE #### [facility] [address] [place] [address] Dr. Ella Mathis Globulin (S) [Mass/Vol] 3.0 g/dL Normal [facility] Comment on above: Performed By: #### L IPID, TSH, LIPA, T7, CMP, KARRIE #### [facility] [address] [place] [address] Dr. Ella Mathis Glucose [Mass/Vol] 86 mg/dL Normal 74-106 [facility] Comment on above: Performed By: #### L IPID, TSH, LIPA, T7, CMP, KARRIE #### [facility] [address] [place] [address] Dr. Ella Mathis Potassium [Moles/Vol] 3.8 mmol/L Normal 3.5-5.1 [facility] Comment on above: Performed By: #### L IPID, TSH, LIPA, T7, CMP, KARRIE #### [facility] [address] [place] [address] Dr. Ella Mathis Protein [Mass/Vol] 6.4 g/dL Normal 6.4-8.2 [facility] Comment on above: Performed By: #### L IPID, TSH, LIPA, T7, CMP, KARRIE #### [facility] [address] [place] [address] Dr. Ella Mathis Sodium [Moles/Vol] 140 mmol/L Normal 136-145 [facility] Comment on above: Performed By: #### L IPID, TSH, LIPA, T7, CMP, KARRIE #### [facility] [address] [place] [address] Dr. Ella Mathis Urea nitrogen [Mass/Vol] 21.0 mg/dL Critically high 7.0-18.0 [facility] Comment on above: Performed By: #### L IPID, TSH, LIPA, T7, CMP, KARRIE #### [facility] [address] [place] [address] Dr. Ella Mathis Urea nitrogen/Creatinine [Mass ratio] 20.6 mg/mg Normal [facility] Comment on above: Performed By: #### L IPID, TSH, LIPA, T7, CMP, KARRIE #### [facility] [address] [place] [address] Dr. Ella Mathis PROTIMEon 03-23-2022 INR Coag (PPP) [Relative time] 0.94 {INR} Normal [facility] Comment on above: Performed By: #### P TT, PT #### [facility] [address] [place] [address] Dr. Ella Mathis INR GUIDELINES SEE BELOW Normal [facility] Comment on above: Result Comment: BERNA RED INR: 2.0 - 3.0 CONDITIONS NOT LISTED BELOW 2.5 - 3.5 FOR PROSTHETIC HEART VALVE REPLACEMENT 2.5 - 3.5 RECURRENT THROMBOSIS Performed By: #### P TT, PT #### [facility] [address] [place] [address] Dr. Ella Mathis PT Coag (PPP) [Time] 10.2 s Normal 9.0-11.6 [facility] Comment on above: Performed By: #### P TT, PT #### [facility] [address] [place] [address] Dr. Ella Mathis PTTon 03-23-2022 aPTT Coag (Bld) [Time] 26.2 s Normal 22.3-36.2 [facility] Comment on above: Performed By: #### P TT, PT #### [facility] [address] [place], [place] [address] Dr. Ella Mathis TSHon 03-23-2022 TSH 3.098 uIU/mL Normal 0.358-3.740 [facility] Comment on above: Performed By: #### P TT, PT #### [facility] [address] [place], [place] [address] Dr. Ella Mathis TSH RANGE SEE BELOW Normal [facility] Comment on above: Result Comment: <0.3 4 UIU/ml HYPERTHYROID 0.34-5.60 UIU/ml EUTHYROID >5.60 UIU/ml HYPOTHYROID Performed By: #### P TT, PT #### [facility] [address] [address] [address] Ella Mathis US SINGLE QUAD RT [...] Date: 2022-03-23 10:08 Normal [facility] COVID 19 IGG ANTIBODY, NUCLE OCAPSIDon 03-10-2022 SARS-CoV-2 (COVID-19) IgG IA Ql Negative [facility] Comment on above: Reference range: Negative This [...] providers and patients using the following websites: [facility]/home/Covid-19/HCP/antibody/fact-sheet2 [employer]/home/Covid-19/Patients/antibody/fact-sheet2 This test has been authorized by the FDA under an Emergency Use Authorization (EUA) for use by authorized laboratories. The FDA authorized labeling is available on the [employer] [facility] website: www.[employer]/Covid19. For additional information please refer to http://education.[facility]/faq/KDA524 (This link is being provided for informational/educational purposes only.) Resulting Agency Address Site ID: QPT Name: [facility] Address: [address] [place] [address], [address] [place] [id number] Director: Victor Manuel Lainez MD [facility] URINE CULTUREOrdered By: Olamide Whelan on 03-09-2022 Bacteria identified Cx Nom (U) 1,000 - 10,000 CFU/ml Multiple bacteria present suggesting contamination. [facility] Interpretation and review of laboratory results Normal [facility] IF clinically indicated, suggest appropriate recollection with timely delivery to the laboratory. For additional information, call ext [phone]. [facility] XR C-SPINE AP/LAT/OBLS/ODOon 03-09-2022 EXAMINATION: XR C-SPINE [...] is slightly progressed compared to prior. IMPRESSION: Kijs-pt-dttjygac multilevel degenerative changes, slightly progressed from prior. [...] is slightly progressed compared to prior. IMPRESSION: Tiqt-tn-gagkphfq multilevel degenerative changes, slightly progressed from prior. MACRO: None [facility] XR CHEST 2 VIEW PA+LATon EXAMINATION: XR [...] No acute cardiopulmonary abnormality identified. MACRO: None [employer] XR CHEST 2 VIEW PA+LATOrdere d By: Jose Russ on 03-09-2022 [employer] Work Phone: XR L-SPINE AP+LAT+OBL+CDon 0 03-09-2022 [...] moderate multilevel degenerative changes. MACRO: None [facility] Basic metabolic 2000 panelon 03-08-2022 Anion gap [...] the patient's full clinical presentation. Reference: 1. oTi C, Nhi M, Crews DC, et al.. A Unifying Approach for GFR Estimation: Recommendations of the NKF-ASN Task Force on Reassessing the Inclusion of Race in Diagnosing Kidney Disease. [place] Journal of Kidney Diseases 202;79(2):268-88.e1. 2. N Engl J Med 1 Vol. 385 Issue 19 Pages 0316-2888 Glucose [Mass/Vol] 82 mg/dL 80 - 116 [...] (Bld) 64.1 % 31.0 - 76.0 % [facility] Platelet mean volume (Bld) [Entitic vol] 8.7 fL 7.5 - 11.2 fL [facility] Platelets (Bld) [#/Vol] 159 10*3/uL 150 - 400 K/uL [facility] RBC (Bld) [#/Vol] 4.51 10*6/uL [facility] WBC (Bld) [#/Vol] 4.7 10*3/uL 4.5 - 11.5 K/uL [facility] DS DNAon 03-08-2022 DNA double strand Ab Qn (S) Negative Negative [facility] DNA double strand Ab Qn (S) [IU]/mL See Below [facility] Reference Range: < or = to 4 IU/mL-Negative 5-9 IU/mL-Indeterminate > or = to 10 IU/mL-Positive [facility] HEPATIC FUNCTION PANELon Albumin [Mass/Vol] 3.7 g/dL 3.4 - 5.1 g/dL [facility] ALP [Catalytic activity/Vol] 62 U/L [facility] ALT [Catalytic activity/Vol] 22 U/L [facility] AST [Catalytic activity/Vol] 22 U/L [facility] Bilirubin [Mass/Vol] 1.4 mg/dL 0.1 - 1.5 mg/dL [facility] Bilirubin.direct [Mass/Vol] 0.20 mg/dL 0.10 - 0.30 mg/dL [facility] Interpretation and review of laboratory results Normal [facility] Protein [Mass/Vol] 6.0 g/dL 5.7 - 8.1 g/dL [facility] No Panel Informationon 03-08 Interpretation and review of laboratory results Normal [facility] TOTAL PROTEIN WITH CREATININ E, RANDOM URINEon 03-08-2022 Creatinine (U) [Mass/Vol] 74 mg/dL 10 - 300 mg/dL [facility] Interpretation and review of laboratory results Normal [facility] Protein (U) [Mass/Vol] mg/dL <=100 mg/dL [facility] Protein/Creatinine (U) [Mass ratio] mg/g <=164 mg/g [facility] TSHon 03-08-2022 Interpretation and review of laboratory results [facility] TSH Qn 3.256 m[IU]/L [facility] Comment on above: Referance range for women as applicable: First Trimester: 0. 050 to 3.700 uIU/mL Second Trimester: 0. 310 to 4.350 uIU/mL Third Trimester: 0. 410 to 5.180 uIU/mL [facility] URINALYSIS WITH REFLEX CULTU RE PERFORMABLEon 03-08-2022 Appearance (U) Clear Clear [facility] LM.HPF (Urine sed) [#/Area] Few /HPF [facility] Bilirubin Ql (U) Negative Negative [facility] l[facility] Color (U) Light Yellow Yellow [facility] [...] duplex LE LTon US venous duplex [place] [address] Ultrasound Report Signed Patient: Linnea Culp MR#: [id number] : 1950 Acct:[id number] Age/Sex: 68 / F ADM Date: 02/19/19 Loc: Room: Type: [facility] Attending Dr: Amber Acharya MD Ordering [...] Jose Velazquez M.D.02/20/2019 11:34 AM Dictation Location: [place] [address] Tech: Cyn Guan Transcribed By: NÉSTOR 02/20/19 1134 Dictated By: Jose Velazquez MD 02/20/19 1133 Signed By: 02/20/19 1134 [facility] Vital Signs Date Time Vital Sign Value Performing Clinician Dionne egan 05-28-2024 09:39-0400 Body height 163.8 cm Amber Acharya MD Work Phone: [employer] 05-28-2024 09:39-0400 Body mass index (BMI) [Ratio] 35.66 kg/m2 Amber Acharya MD Work Phone: [employer] 05-28-2024 09:39-0400 Body weight 95.71 kg Amber Acharya MD Work Phone: [employer] 05-28-2024 09:39-0400 Diastolic blood pressure 64 mm[Hg] Amber Acharya MD Work Phone: [employer] 05-28-2024 09:39-0400 Heart rate 58 /min Amber Acharya MD Work Phone: [employer] 05-28-2024 09:39-0400 Respiratory rate 21 /min Amber Acharya MD Work Phone: [employer] 05-28-2024 09:39-0400 SaO2% (BldA) [Mass fraction] 99 % Amber Acharya MD Work Phone: [employer] 05-28-2024 09:39-0400 Systolic blood pressure 136 mm[Hg] Amber Acharya MD Work Phone: [employer] 04-25-2023 13:45-0400 Body height 164 cm Amber Acharya MD Work Phone: [employer] 04-25-2023 13:45-0400 Body mass index (BMI) [Ratio] 35.64 kg/m2 Amber Acharya MD Work Phone: [employer] 04-25-2023 13:45-0400 Body temperature 98.01 [degF] Amber Acharya MD Work Phone: [employer] 04-25-2023 13:45-0400 Body weight 95.84 kg Amber Acharya MD Work Phone: [facility] 04-25-2023 13:45-0400 Diastolic blood pressure 66 mm[Hg] Amber Acharya MD Work Phone: [facility] 04-25-2023 13:45-0400 Heart rate 59 /min Amber Acharya MD Work Phone: [facility] 04-25-2023 13:45-0400 SaO2% (BldA) [Mass fraction] 97 % Amber Acharya MD Work Phone: [facility] 04-25-2023 13:45-0400 Systolic blood pressure 134 mm[Hg] Amber Acharya MD Work Phone: [facility] 08-09-2022 16:37-0400 Diastolic blood pressure 63 mm[Hg] Alfredito Sims MD Work Phone: [facility] 08-09-2022 16:37-0400 Heart rate 66 /min Alfredito Sims MD Work Phone: [facility] 08-09-2022 16:37-0400 SaO2% (BldA) [Mass fraction] 99 % Alfredito Sims MD Work Phone: [facility] 08-09-2022 16:37-0400 Systolic blood pressure 135 mm[Hg] Alfredito Sims MD Work Phone: [facility] 08-09-2022 16:00-0400 Body height 167.6 cm Alfredito Sims MD Work Phone: [facility] 08-09-2022 16:00-0400 Body mass index (BMI) [Ratio] 32.44 kg/m2 Alfredtio Sims MD Work Phone: [facility] 08-09-2022 16:00-0400 Body temperature 96.6 [degF] Alfredito Sims MD Work Phone: [facility] 08-09-2022 16:00-0400 Body weight 91.17 kg Alfredito Sims MD Work Phone: [facility] 06-07-2022 11:19-0400 Body mass index (BMI) [Ratio] 34.5 kg/m2 Amber Acharya MD Work Phone: [facility] 06-07-2022 11:19-0400 Body weight 94.03 kg Amber Acharya MD Work Phone: [facility] 06-07-2022 11:19-0400 Diastolic blood pressure 61 mm[Hg] Amber Acharya MD Work Phone: [facility] 06-07-2022 11:19-0400 Heart rate 61 /min Amber Acharya MD Work Phone: [facility] 06-07-2022 11:19-0400 Systolic blood pressure 124 mm[Hg] Amber Acharya MD Work Phone: [facility] 03-08-2022 13:41-0400 Diastolic blood pressure 68 mm[Hg] Amber Acharya MD Work Phone: [facility] Comment on above: manual 03-08-2022 13:41-0400 Systolic blood pressure 111 mm[Hg] Amber Acharya MD Work Phone: [facility] Comment on above: manual 03-08-2022 13:01-0400 Body height 165.1 cm Amber Acharya MD Work Phone: [facility] 03-08-2022 13:01-0400 Body mass index (BMI) [Ratio] 33.45 kg/m2 Amber Acharya MD Work Phone: [facility] 03-08-2022 13:01-0400 Body weight 91.17 kg Amber Acharya MD Work Phone: [facility] 03-08-2022 13:01-0400 Heart rate 59 /min Amber Acharya MD Work Phone: [facility] Encounters Encounter Date Encounter Type Care Provider Facility Start: 06-02-2024 End: 06-02-[address] [facility] Start: 05-28-2024 End: 05-28-2024 Clinical Support Romelia Dunn [facility] Comment on above: Arrived Start: 05-28-2024 ambulatory UNKNOWN PROVIDER Facili ty:[facility] Start: 05-28-2024 End: 06-04-2024 Office outpatient visit 25 minutes Amber Acharya MD Work Phone: [facility] Comment on above: SLE (systemic lupus erythematosus related syndrome) (HCC) (Primary Dx); Fibromyalgia; Other specified menopausal and perimenopausal disorders; Intercostal neuritis; Body mass index (BMI) 35.0-35.9, adult Start: 05-28-2024 ambulatory UNKNOWN PROVIDER Facili ty:[facility] Start: 03-16-2024 Letter encounter Dorita Joshi Work Phone: [facility] Start: 03-05-2024 End: 03-06-2024 Telephone encounter Amber Acharya MD Work Phone: [facility] Rheumatology (Arthritis) Start: 02-27-2024 End: 02-27-2024 Patient encounter procedure Phe Emg Pmr Provider [facility] Comment on above: Numbness and tinglin g of both legs below knees (Primary Dx) Start: 02-27-2024 End: 02-27-2024 ambulatory AMBER ACHARYA Facility:[facility] Start: 01-30-2024 End: 01-31-2024 ambulatory AMBER ACHARYA Facility:[facility] Start: 01-30-2024 End: 02-09-2024 ambulatory [facility] Start: 06-04-2023 Telephone encounter Amber yanez MD Work Phone: [facility] Rheumatology (Arthritis) Start: 05-14-2023 Telephone encounter Amber yanez MD Work Phone: [facility] Rheumatology (Arthritis) Start: 05-03-2023 Telephone encounter Amber yanez MD Work Phone: [facility] Rheumatology (Arthritis) Start: 04-25-2023 End: 04-25-2023 Nursing evaluation of patient and report Romelia Dunn [facility] Comment on above: Routine adult health maintenance (Primary Dx) Start: 04-25-2023 End: 04-25-2023 Patient encounter status Romelia Dunn [facility] Start: 04-25-2023 Letter encounter Dorita Joshi Work Phone: [facility] Start: 04-25-2023 End: 04-27-2023 Office outpatient visit 40 minutes Amber Acharya MD Work Phone: [facility] Comment on above: [id number] syndro me (Primary Dx); Pulmonary hypertension, mild (HCC); Chronic midline low back pain without sciatica; History of systemic lupus erythematosus (HCC); Dysuria; Numbness of legs; Vitamin D deficiency; Pain in both knees, unspecified chronicity; Chronic bilateral low back pain without sciatica; Grief reaction; B12 deficiency; Body mass index (BMI) 35.0-35.9, adult Start: 03-25-2023 Letter encounter Dorita Joshi Work Phone: [facility] Start: 10-16-2022 End: 10-16-[address] DORITA BASHIR Facility:[facility] Start: 10-11-2022 End: 10-12-[address] DORITA BASHIR Facility:[facility] Start: 10-03-2022 End: 10-04-[address] DORITA BASHIR Facility:[facility] Start: 09-08-2022 End: 09-09-[address] DORITA BASHIR Facility:[facility] Start: 09-06-2022 End: 09-07-[address] DORITA BASHIR Facility:[facility] Start: 09-06-2022 End: 09-06-2022 Phys/qhp telephone evaluation 21-30 min Jasiel Selby TECHNOLOGY COACH-MAINSPRING STRIP INSPECTOR Work Phone: [facility] Comment on above: Intercostal neuritis (Primary Dx) Start: 08-28-2022 End: 08-29-[address] DORITA BASHIR Facility:[facility] Start: 08-22-2022 End: 08-22-[address] DORITA BASHIR Facility:[facility] Start: 08-09-2022 End: 08-09-2022 Patient encounter procedure Alfredito Sims MD Work Phone: [facility] Procedure Room Comment on above: Intercostal neuritis (Primary Dx) Start: 07-29-2022 Letter encounter Dorita Joshi Work Phone: [facility] Start: 07-28-2022 Letter encounter Dorita Joshi Work Phone: [facility] Start: 06-07-2022 Letter encounter Dorita Joshi Work Phone: [facility] Start: 06-07-2022 End: 06-11-2022 Office outpatient visit 25 minutes Amber Acharya MD Work Phone: [facility] Comment on above: 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); Facet joint disease of lumbosacral region; Intercostal neuralgia; Body mass index (BMI) 34.0-34.9, adult Start: 03-23-2022 End: 03-24-[address] DORITA BASHIR Facility:[facility] Start: 03-19-2022 Letter encounter Dorita Joshi Work Phone: [facility] Start: 03-08-2022 Letter encounter Dorita Joshi Work Phone: [facility] Start: 03-08-2022 End: 03-15-2022 Office outpatient visit 25 minutes Amber Acharya MD Work Phone: [facility] Comment on above: Carpopedal spasm (Pr imary Dx); Dizziness; SLE (systemic lupus erythematosus related syndrome) (HCC); Hypothyroidism, unspecified type; Right-sided chest wall pain; Body mass index (BMI) 33.0-33.9, adult Start: 02-19-2019 End: 02-19-2019 Patient encounter procedure Dorita Bashir Facility:[facility] Procedures Date Procedure Procedure Detail Performing Clinician [...] Cholesterol [Mass/volume] in Serum or Plasma Cholesterol [facility] Start: 05-28-2025 Creatinine measurement Basic Metabol ic Panel [facility] Start: 01-29-2025 Creatinine measurement Basic Metabol [facility] Start: 09-17-2024 End: 09-17-2024 Patient encounter procedure 09/17/2024 11:00 AM EST Office Visit [facility] [place] [address] Amber Acharya MD [address] [place] [address] [facility] Start: 08-12-2024 Influenza vaccination Influenza Vacc ine (#1) [facility] Start: 05-28-2024 End: 05-28-2025 DXA Skeletal system Views for bone density BD BONE DENSITY SURVEY Imaging Routine Other specified menopausal and perimenopausal disorders Expected: 05/28/2024, Expires: 05/28/2025 [facility] Work Phone: Comment on above: Expected: 05/28/2024 , Expires: 05/28/2025 Start: 05-28-2024 End: 05-28-2024 Patient encounter procedure 05/28/2024 9:40 AM EDT Office Visit [facility]ology [address] [place] [address] Amber Acharya MD [address] [place] [address] [facility] Start: 04-25-2024 Basic metabolic 2000 panel - Serum or Plasma Basic Metabolic Panel [facility] Start: 03-01-2024 COVID Vaccine 2022-2 024 Additional Dose (65+ years) COVID Vaccine 5439-0321 Additional Dose (65+ years) [facility] Start: 03-01-2024 COVID-19 Vaccine ( season) COVID-19 Vaccine ( season) [facility] Start: 08-12-2023 Influenza vaccination Influenza Vacc ine (#1) [facility] Start: 04-25-2023 End: 04-25-2024 XR Knee - bilateral AP and Lateral W standing XR KNEES RIGHT AND LEFT STANDING AP/LAT 2 VIEWS Imaging Routine Pain in both knees, unspecified chronicity Expected: 04/25/2023, Expires: 04/25/2024 [facility] Work Phone: Comment on above: Expected: 04/25/2023 , Expires: 04/25/2024 Start: 04-25-2023 End: 04-25-2023 Patient encounter procedure 04/25/2023 Office Visit Rheumatology Amber Acharya MD [address] [place] [id number] [facility] Start: 03-08-2023 Basic metabolic 2000 panel - Serum or Plasma Basic Metabolic Panel [facility] Start: 03-08-2023 Thyroid stimulating hormone measurement TSH [facility] Start: 10-25-2022 End: 10-25-2022 Patient encounter procedure 10/25/2022 Office Visit Rheumatology Amber Acharya MD [address] [place] [address] [facility] Start: 09-06-2022 End: 09-06-2022 Telemedicine consultation with patient 09/06/2022 Telemedicine Pain & Healing Jasiel Selby, TECHNOLOGY COACH-MAINSPRING STRIP INSPECTOR [address] [place] [id number] [facility] Start: 08-12-2022 Influenza vaccination Influenza Vacc ine (#1) [facility] Start: 08-09-2022 End: 08-09-2022 Patient encounter procedure 08/09/2022 Office Visit Outpatient Clinic [facility] Alfredito Sims MD [address] [facility] [place] [address] [facility] Procedure Room Start: 06-12-2022 COVID-19 Vaccine (5 - Booster for Pfizer series) COVID-19 Vaccine (5 - Booster for Pfizer series) [facility] Start: 06-07-2022 End: 06-07-2022 Patient encounter procedure 06/07/2022 Office Visit Rheumatology Amber Acharya MD [address] [place] [address] [facility] Start: 11-12-2017 Annual wellness visit Annual W ellness Visit ([id number]) [facility] Start: 11-24-2016 [facility]neumococcal [facility] Start: 01-19-2016 Pneumococcal vaccination [facility] Start: 2011 Hepatitis B (HBV) Vaccine [...] for malign ant neoplasm of breast Mammography [facility] Start: 1970 Hepatitis A (HAV) Vaccine (optional start 19+ years) Hepatitis A (HAV) Vaccine (optional start 19+ years) [facility] Start: 1969 Hepatitis C screening [facility]atitis C [facility] Start: 1969 Tetanus + diphtheria + acellular pertussis vaccine (product) Tdap Booster [facility] Start: 1951 Ejection Fraction Ejection Fraction [facility] Start: 1951 Screening for malign ant neoplasm of colon Colonoscopy [facility] Protein total xcpt refractometry urine TOTAL PROTEIN WITH CREATININE, RANDOM URINE Lab Routine SLE (systemic lupus erythematosus related syndrome) (HCC) Ordered: 05/28/2024 [facility] Comment on above: Ordered: 05/28/2024 Immunizations Immunization Date Immunization Notes Care Provider [facility] 10-11-2022 Influenza, seasonal vaccine, quadrivalent, adjuvanted, 0.5mL dose, preservative free (SRP=036) Dorita Bashir MD Work Phone: [facility] 10-11-2022 influenza virus vaccine, unspecified formulation Amber Acharya MD Work Phone: [facility] 04-17-2022 Pfizer Monovalent (12+ yrs) SARS-COV-2 (COVID-19) vaccine, mRNA, spike protein, LNP, pres. free, 30 mcg/0.3mL dose, jordi-sucrose (SBJ=416) Dorita Bashir MD Work Phone: [facility] 09-07-2021 Influenza, injectable, high-dose seasonal, quadrivalent, 0.7 mL, preservative free (BXL=632) Dorita Bashir MD Work Phone: [facility] 09-07-2021 influenza virus vaccine, unspecified formulation Dorita Bashir MD Work Phone: [facility] 01-13-2021 Pfizer SARS-COV-2 (COVID-19) vaccine, age 12+ yrs, mRNA, spike protein, LNP, preservative free, 30 mcg/0.3mL dose (NEM=617) Dorita Bashir MD Work Phone: [facility] 12-23-2020 Pfizer SARS-COV-2 (COVID-19) vaccine, age 12+ yrs, mRNA, spike protein, LNP, preservative free, 30 mcg/0.3mL dose (GRK=804) Dorita Bashir MD Work Phone: [facility] 08-25-2020 Seasonal trivalent influenza vaccine, adjuvanted, preservative free Dorita Bashir MD Work Phone: [facility] 08-29-2017 influenza virus vaccine, unspecified formulation Dorita Bashir MD Work Phone: [facility] 12-07-2016 tetanus and diphtheria toxoids, adsorbed, preservative free, for adult use (5 Lf of tetanus toxoid and 2 Lf of diphtheria toxoid) Dorita Bashir MD Work Phone: [facility] 11-24-2015 influenza, injectable, quadrivalent, preservative free Dorita Bashir MD Work Phone: [facility] Work Phone: 11-24-2015 pneumococcal conjugate vaccine, 13 valent Dorita Bashir MD Work Phone: [facility] NEGATED: Highlighted row has not occurred!11-27-2018 Seasonal trivalent influenza vaccine, adjuvanted, preservative free Dorita Bashir MD Work Phone: [facility] Work Phone: Comment on above: Deferred: Patient De cision - ptto get it at her PCP Payers Date Payer Category Payer Self-pay 2016 Medicare MEDICARE MEDICAR E PART A & B [id number] 2016-Present [address] [place] [address] Medicare [id number] 2016 Unknown COMMERCIAL INSUR ANCE - OTHER COMMERCIAL INSURANCE OTHER [id number] 2016-Present [phone] [address] [place] [address] Indemnity [id number] 1959 Medicare [id number] 1959 Unknown [id number] 1951 Unknown [id number] [id number] 1951 Unknown [id number] [id number] 1951 Unknown [id number] 2.16.840.1.507053.3.579.2.593 1951 Unknown [id number] 2.16.840.1.354769.3.579.2.593 1951 Unknown [id number] 2.16.840.1.206997.3.579.2.593 1951 Unknown [id number] 2.16.840.1.406653.3.579.2.593 1951 Unknown [id number] 2.16.840.1.358461.3.579.2.593 1951 Unknown [id number] 2.16.840.1.926211.3.579.2.593 1951 Unknown [id number] 2.16.840.1.941169.3.579.2.732 1951 Unknown [id number] 2.16.840.1.445364.3.579.2.732 1951 Unknown [id number] 2.16.840.1.542823.3.579.2.732 1951 Unknown [id number] 2.16.840.1.667213.3.579.2.732 1951 Unknown [id number] 2.16.840.1.129362.3.579.2.732 1951 Unknown [id number] 2.16.840.1.344336.3.579.2.732 1951 Unknown [id number] 2.16.840.1.844943.3.579.2.732 Unknown [id number] [id number] Social History Date Type Detail Facility Start: [...] to any clubs or organizations such as episcopalian groups, unions, fraternal or athletic groups, or [...] Date & Type Note Facility 06-02-2024 Note [facility] Subjective Linnea Culp is a [...] she was evaluated at the [facility] due to chest pain. Stress test [...] 5 mcg tab (more content not included)... [facility] 05-30-2024 History of Present illness Narrative Potassium just a tad up and kidney function a tad down Please stay hydrated. Please discuss with Dr. Mckay Acharya MD CC SLE and low back pain and LE neuropathy HPI and ROS Linnea Culp is 73 year old with SLE who had a little rash on her arms despite sun screen. Drove to [place] over 5 days. Went to [place]. Saw [employer] horse in [place]. No Raynaud's No alopecia No nose or [...] Color Colorless Appearance Clear pH 6.0 Spec [place] 1.009 Protein Negative Blood Negative Bilirubin Negative [...] date of . documented in this encounter [facility] 05-28-2024 History of Present illness Narrative Patient was identified by name and date of . Juana Barrios Vein puncture preformed patient tolerated well. [facility] Bar[facility] left urine sample. Urine was drawn up and sent to the lab. Juana Barrios [facility] documented in this encounter [facility] 05-28-2024 Instructions Amber Acharya MD - 05/28/2024 10:21 AM EDT Please ask Dr. Bashir about a right upper quadrant ultrasound because of the pain you are having If it is normal schedule with pain and healing to see if this is intercostal neuritis (also see if beeter on the gabapentin) documented in this encounter [facility] 04-28-2024 Telephone encounter Note Faxed completed physical therapy forms to [facility] #[phone]. Confirmation received. Added a copy of forms to media folder. [facility] 04-28-2024 Miscellaneous Notes Faxed completed physical therapy forms to [facility] #[phone]. Confirmation received. Added a copy of forms to media folder. Outpatient physical therapy discharge summary Added to media folder documented in this encounter [facility] 03-05-2024 Note Outpatient physical therapy discharge summary Added to media folder [facility] 03-05-2024 Telephone encounter Note Outpatient physical therapy discharge summary Added to media folder [facility] 03-05-2024 Miscellaneous Notes Outpatient physical therapy discharge summary Added to media folder documented in this encounter [facility] 02-27-2024 Note Procedure: Nerve con duction study [...] to be scanned to the record [facility] 02-27-2024 History of Present illness Narrative [...] to the record documented in this encounter [facility] 06-04-2023 Telephone encounter Note [facility] discharge form, pending provider signature added to media folder. Copy also placed on provider desk. [facility] 06-04-2023 Miscellaneous Notes [facility] discharge form, pending provider signature added to media folder. Copy also placed on provider desk. documented in this encounter [facility] 05-14-2023 Telephone encounter Note [facility] Physical Therapy Initial Examination notes added to media folder. [facility] 05-14-2023 Miscellaneous Notes [facility] Physical Therapy Initial Examination notes added to media folder. documented in this encounter [facility] 05-03-2023 Telephone encounter Note From the [facility] XR of the knee Added to media folder. [facility] 05-03-2023 Miscellaneous Notes From the [facility] XR of the knee Added to media folder. documented in this encounter [facility] 04-25-2023 History of Present illness Narrative Patient was identified by name and date of . Romelia Dunn Venipuncture performed patient tolerated well Romelia Dunn MPA Patient leaving urine sample documented in this encounter [facility] 04-25-2023 Instructions Amber Acharya MD - 04/25/2023 2:07 PM EDT Please tell your chrome plater helper that we would like an ECHO to estimate pulmonary pressures given possible Obstructive sleep apnea and history of lupus documented in this encounter [facility] 04-25-2023 History of Present illness Narrative CC [...] Color Yellow Appearance Clear pH 5.5 Spec [place] 1.019 Protein 30 (A) Blood Negative Bilirubin [...] Multiple bacteria present suggesting contamination. 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 Plan: EXTERNAL SERVICE REQUEST FOR CARE OUTSIDE THE [facility] She is to see Physical [...] patient has lost a brother and a [id number] in almost lost her son her brother [...] Amber Acharya MD documented in this encounter [facility] 09-07-2022 Note PROCEDURE: XR HAND L T [...] LING Date: 2022-09-07 06:48 [facility] 09-07-2022 Note PROCEDURE: XR HAND L [...] LING Date: 2022-09-07 06:48 [facility] 09-06-2022 History of Present illness Narrative PAIN MANAGEMENT FOLLOW-UP Documentation: Mode: Telephone Patient Patient Work Phone: Patient Cell Preferred phone: [phone] Consent: I confirmed patient understanding of the [...] supply ALYSSA Ward documented in this encounter [facility] 08-09-2022 History of Present illness Narrative PROCEDURE: [...] Alfredito Sims MD,CHANO documented in this encounter [facility] 08-09-2022 Instructions LafayetteRose RN - 08/09/2022 4:17 PM EDT Pain [...] ordering physician as directed. Pain Management office: [phone] You may call [phone] and ask for the chronic pain fellow licensing registration examiner after office hours with any questions or concerns. documented in this encounter [facility] 06-07-2022 Instructions Amber Acharya MD - 06/07/2022 11:55 AM EDT Please fax ultrasound results [phone] Revisit with me in 4 months See pain management documented in this encounter [facility] 06-07-2022 History of Present illness Narrative CC [...] Amber Acharya MD documented in this encounter [facility] 03-11-2022 History of Present illness Narrative This [...] Light Yellow Appearance Clear pH 6.0 Spec [place] 1.025 Protein Negative Blood Negative Bilirubin Negative [...] (M32.9) SLE (systemic lupus erythematosus related syndrome) ([facility]) Comment: labs ok Plan: COMPLETE BLOOD [...] . Cristopher Muse documented in this encounter [facility] 03-08-2022 Instructions Amber Acharya MD - 03/08/2022 1:05 PM EDT Please talk with Dr. Bashir about imaging for right abdomen tenderness documented in this encounter [facility] Evaluation note Diagnosis Carpopedal spasm- Primary Tetany [...] [facility] [id number] syndrome- Primary Pulmonary hypertension, mild (HCC) Other [...] CHEST 2 VIEW PA+LAT Amber Acharya MD [address] [place] [address] [facility] DI[facility]NOSTIC RADIOLOGY [address] [place] [address] [place] [address] Referral ID Status Reason Start Date Expiration Date Visits Re quested Visits Authorized [id number] Closed 03/08/2022 03/08/2023 1 1 Specialty Diagnoses / Procedures Referred By Contac t Referred To Contact Radiology Diagnoses Carpopedal spasm Procedures XR L-SPINE AP+LAT+OBL+CD Amber Acharya MD [address] [place] [address] [facility] [address] [place] [address] [place] [address] Referral ID Status Reason Start Date Expiration Date Visits Re quested Visits Authorized [id number] Closed 03/08/2022 03/08/2023 1 1 Specialty Diagnoses / Procedures Referred By Contac t Referred To Contact Radiology Diagnoses Carpopedal spasm Procedures XR C-SPINE AP/LAT/OBLS/ODO Amber Acharya MD [address] [place] [address] [facility] [address] [place] [address] [place] [address] Referral ID Status Reason Start Date Expiration Date Visits Re quested Visits Authorized [id number] Closed 03/08/2022 03/08/2023 1 1 Specialty Diagnoses / Procedures Referred By Contac t Referred To Contact Diagnoses 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 You will be contacted to schedule your appointment within 24 - 48 hours. If you are not contacted within this time frame please call the [facility] at [phone] to schedule your appointment. Question Answer Reason [...] STANDING AP/LAT 2 VIEWS Amber Acharya MD [address] [place] [address] [facility] DIAGNOSTIC RADIOLOGY [address] [place] [address] Referral ID Status Reason Start Date Expiration Date V isits Requested Visits Authorized [id number] Authorized 04/25/2023 04/24/2024 1 1 Specialty Diagnoses / Procedures Referred By Contac t Referred To Contact Pulmonary Medicine Diagnoses Pulmonary hypertension, mild (HCC) Amber Acharya MD [address] [place] [address] [facility] PULMON[facility] HV [address] [place] [address] Referral ID Status Reason Start Date Expiration Date V isits Requested Visits Authorized [id number] Authorized 04/25/2023 10/22/2023 3 3 Scheduling Instructions Please call sleep medicine at to schedule an appointment with a sleep medicine provider. Comments Indicate patient symptoms:insomnia and other -and snoring Specialty Diagnoses / Procedures Referred By Contac t Referred To Contact Diagnoses [id number] syndrome Amber Acharya MD [address] [place] [address] Referral ID Status Reason Start Date Expiration Date Visits Requested Visits Authorized [id number] Authorized Patient Preference 04/25/2023 04/25/2024 3 3 Specialty Diagnoses / Procedures Referred By Contac t Referred To Contact Diagnoses Intercostal neuritis Amber Acharya MD [address] [place] [address] [facility] [place] [address] Referral ID Status Reason Start Date Expiration Date Visits Requested Visits Authorized [id number] [facility]28[facility] 05/28/2025 1 1 Question Answer Reason for Referral: Other [26] - intercostal neuritis Specialty Diagnoses / Procedures Referred By Contac t Referred To Contact Radiology Diagnoses Menopausal and female climacteric states Other specified menopausal and perimenopausal disorders Procedures BD BONE DENSITY SURVEY Amber Acharya MD [address] [place] [address] [facility] BONE DENSITY [address] [place] [address] Referral ID Status Reason Start Date Expiration Date V isits Requested Visits Authorized [id number] Authorized 05/28/2024 05/28/2025 1 1 Additional Source Comments INFORMATION SOURCE (unrecogn ized section and content) DATE CREATED AUTHOR 02/21/2019 [facility] DATE CREATED AUTHOR AUTHOR'S ORGANIZ ATION 10/21/2022 [facility] DATE CREATED AUTHOR AUTHOR'S ORGANIZ ATION 06/04/2024 [facility] DATE CREATED AUTHOR AUTHOR'S ORGANIZ ATION 06/05/2024 [facility] Care Teams (unrecognized sec tion and content) [employer] Wafer Relationship Specialty Start Date End Date Dorita Bashir MD [address] [place] [address] PCP - General Family Medicine 03/30/14 Amber Acharya MD [address] [place] [address] Physician Rheumatology 08/17/20 [employer] Wafer Relationship Specialty Start Date End Date Dorita Bashir MD [address] [place] [address] PCP - General Family Medicine 03/30/14 Amber Acharya MD [address] [place] [address] Physician Rheumatology 08/17/20 Inspector [employer] Wafer Relationship Specialty Start Date End Date Dorita Bashir MD [address] [place] [address] PCP - General Family Medicine 03/30/14 Amber Acharya MD [address] [place] [address] Physician Rheumatology 08/17/20 Inspector [employer]ductor Wafer Relationship Specialty [place] [address] [place] [address] PCP - General Family Medicine 03/30/14 Amber Acharya MD [address] [place] [address] Physician Rheumatology 08/17/20 Inspector [employer]ductor Wafer Relationship Specialty [place] [address] [place] [address] PCP - General Family Medicine 03/30/14 Amber Acharya MD [address] [place] [address] Physician Rheumatology 08/17/20 Inspector [employer]ductor Wafer Relationship Specialty Start Date End Date Dorita Bashir MD [address] [place] [address] PCP - General Family Medicine 03/30/14 Amber Acharya MD [address] [place] [address] Physician Rheumatology 08/17/20 Inspector [employer]iconductor Wafer Relationship Specialty Start Date End Date Dorita Bashir MD [address] [place] [address] PCP - General Family Medicine 03/30/14 Amber Acharya MD [address] [place] [address] Physician Rheumatology 08/17/20 Alfredito Sims MD [address] [place] [address] [place] [address] Physician Anesthesiology 08/12/22 Inspector Semiconductor Wafer Relationship Specialty Start [place] [address] [place] [address] PCP - General Family Medicine 03/30/14 Amber Acharya MD [address] [place] [address] Physician Rheumatology 08/17/20 Alfredito Sims MD [address] [place] [address] [place] [address] Physician Anesthesiology 08/12/22 Inspector Semiconductor Wafer Relationship Specialty Start Date End Date Dorita Bashir MD [address] [place] [address] PCP - General Family Medicine 03/30/14 Amber Acharya MD [address] [place] [address] Physician Rheumatology 08/17/20 Alfredito Sims MD [address] [place] [address] [place] [address] Physician Anesthesiology 08/12/22 Inspector Semiconductor Wafer Relationship Specialty Start Date End Date Dorita Bashir MD [address] [place] [address] PCP - General Family Medicine 03/30/14 Amber Acharya MD [address] [place] [address] Physician Rheumatology 08/17/20 Alfredito Sims MD [address] [place] [address] [place] [address] Physician Anesthesiology 08/12/22 Inspector Semiconductor Wafer Relationship Specialty Start Date End Date Dorita Bashir MD [address] [place], [place] [id number] PCP - General Family Medicine 03/30/14 Amber Acharya MD [address] [place] [address] Physician Rheumatology 08/17/20 Alfredito Sims MD [address] [place] [address] [place] [address] Physician Anesthesiology 08/12/22 Inspector Semiconductor Wafer Relationship Specialty Start Date End Date Dorita Bashir MD [address] [place], [place] [id number] PCP - General Family Medicine 03/30/14 Amber Acharya MD [address] [place] [address] Physician Rheumatology 08/17/20 Alfredito Sims MD [address] [place] [address] [place] [address] Physician Anesthesiology 08/12/22 Inspector Semiconductor Wafer Relationship Specialty Start Date End Date Dorita Bashir MD [address] [place] [address] PCP - General Family Medicine 03/30/14 Amber Acharya MD [address] [place] [address] Physician Rheumatology 08/17/20 Alfredito Sims MD [address] [place] [address] [place] [address] Physician Anesthesiology 08/12/22 Inspector Semiconductor Wafer Relationship Specialty Start Date End Date Dorita Bashir MD [address] [place], [place] [phone] PCP - General Family Medicine 03/30/14 Amber Acharya MD [address] [place] [address] Physician Rheumatology 08/17/20 Alfredito Sims MD [address] [place] [address] [place] [address] Physician Anesthesiology 08/12/22 Inspector Semiconductor Wafer Relationship Specialty Start Date End Date Dorita Bashir MD [address] [place] [address] PCP - General Family Medicine 03/30/14 Amber Acharya MD [address] [place] [address] Physician Rheumatology 08/17/20 Alfredito Sims MD [address] [place] [address] [place] [address] Physician Anesthesiology 08/12/22 Inspector Semiconductor Wafer Relationship Specialty [place] [address] [place], [place] [phone] PCP - General Family Medicine 03/30/14 Amber Acharya MD [address] [place] [address] Physician Rheumatology 08/17/20 Alfredito Sims MD [address] [place] [address] [place] [address] Physician Anesthesiology 08/12/22 Inspector Semiconductor Wafer Relationship Specialty Start Date End Date Dorita Bashir MD [address] [place] [address] PCP - General Family Medicine 03/30/14 Amber Acharya MD [address] [place] [address] Physician Rheumatology 08/17/20 Alfredito Sims MD [address] [place] [address] [place] [address] Physician Anesthesiology 08/12/22 Reason for Visit (unrecogniz ed section and content) Reason Comments Monitoring/follow-up Reason Comments Monitoring/follow-up Reason Comments Procedure Specialty Diagnoses / Procedures Referred By Contac t Referred To Contact Pain Management Diagnoses 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 Procedures PVB THORACIC SINGLE INJ SITE Right T 5 Thoracic paravertebral block Alfredito Sims MD [address] [place] [address] [place] [address] [facility] [address] [place] [address] Referral ID Status Reason Start Date Expiration Date V isits Requested Visits Authorized [id number] Closed Transfer of Care-[facility] 07/28/2022 10/27/2022 1 1 Reason Comments Discuss results test/procedures Medication Management Reason Comments Blood test Reason Comments Pain In multiple sites Numbness/tingling Specialty Diagnoses / Procedures Referred By Conttammy t Referred To Contact Neurology Diagnoses Numbness and tingling of both legs below knees Procedures EMG Amber Acharya MD [place] [address] Referral ID Status Reason Start Date Expiration Date V isits Requested Visits Authorized [id number] Pending Review 01/30/2024 01/29/2025 3 3 Reason [...] BE BASED ON THE PRIMARY CLINICAL RECORDS. [employer] provides no warranty or guarantee of the accuracy or completeness of information in this document.
== END 2024-06-11 07:27 | disposition home or self-care (01) ==
LOC: US 07:26
PROVIDERS: PCP Family Medicine; Visit Provider Family Medicine
DX: R10.11 Right upper quadrant pain (principal)
CPT/HCPCS: 76705

== ENCOUNTER 2024-08-29 10:20 | Outpatient (OUT) | payer MEDICARE, OTHER, SELFPAY ==
--- NOTE | 2024-08-29 10:23 | US_ITS ---
The [address] [address] Patient Name: KINDRA HUNTER MRN: [id number] date: 1950 Sex: F Assigned Patient Location: US Current Patient Location: Accession/Order Number: [id number] Exam Date: 08/29/2024 10:29 Report Date: 09/01/2024 13:40 At the request of: DORITA MARIE Procedure: US right upper quadrant EXAM: US right upper quadrant HISTORY: Fatty Liver K76.0 COMPARISON: 06/11/2024 TECHNIQUE: Grayscale and color FINDINGS: The visualized pancreas is normal The liver is normal in size and contour measuring 14.0 cm in length. Stable slight increase in overall hepatic echotexture. There is flow in the portal vein with velocity of 25 cm/s. The gallbladder is surgically absent. The common bile duct measures 7.1 mm. The right kidney measures 8.4 x 4.3 x 4.3 cm. The cortex measures 1.1 cm. No solid mass or hydronephrosis US/US right upper quadrant IMPRESSION: Stable slight increase in hepatic echotexture suggestive of hepatic steatosis Electronically authenticated by: ASHLEY CHU Date: 09/01/2024 13:40
--- OUTSIDE RECORDS SUMMARY | 2024-08-29 10:24 | XMS_ITS | CCD ---
Author Organization [facility] Care Team Providers Care Etiologist Name Role Phone Dorita Bashir Primary Care Unavailable Amber Acharya Admitting Unavailable Amber Acharya Attending Unavailable Dorita Bashir MD Primary Care Provider [phone] Amber Acharya MD Unavailable [phone] Dorita Bashir MD Primary Care Provider [phone] Amber Acharya MD Unavailable [phone] Bethany VELÁSQUEZ, [facility] Unavailable DR DORITA BASHIR Admitting Unavailable [...] Acharya MD Unavailable Alfredito Sims MD Unavailable [phone] DORITA BASHIR Primary Care Unavailable PROVIDER, UNKNOWN Admitting Unavailable AMBER ACHARYA Attending Unavailable PROVIDER, UNKNOWN Attending Unavailable PROVIDER, UNKNOWN Admitting Unavailable DORITA BASHIR Primary Care Unavailable PROVIDER, UNKNOWN Admitting Unavailable DORITA BASHIR Primary Care Unavailable AMBER ACHARYA Attending Unavailable AMBER ACHARYA Referring Unavailable DORITA BASHIR MMini Primary Care Unavailable PROVIDER, UNKNOWN Attending Unavailable PROVIDER, UNKNOWN Admitting Unavailable AMBER ACHARYA Referring Unavailable DORITA BASHIR Primary Care Unavailable PROVIDER, UNKNOWN Attending Unavailable PROVIDER, UNKNOWN Admitting Unavailable AMBER ACHARYA Referring Unavailable DORITA BASHIR MMini Primary Care Unavailable PROVIDER, UNKNOWN Attending Unavailable PROVIDER, UNKNOWN Admitting Unavailable DORITA BASHIR Primary Care Unavailable PROVIDER, UNKNOWN Admitting Unavailable PROVIDER, UNKNOWN Attending Unavailable KULWANT RANKIN Attending Unavailable Medications Current Medications Medication Drug [...] Active cranberry preparation 500 mg oral capsule (8 sources) Non-Standardized Food Allergenic Extract, Non-Standardized Plant Allergenic Extract take 1 capsule by mouth once daily Cranberry 500 MG CAPS Take 500 mg by mouth daily. Active gabapentin 100 mg oral capsule (9 sources) Anti-epileptic Agent Start: 05-28-20 End: 05-23-20 [...] Active triamcinolone acetonide 1 mg/ml topical cream (4 sources) Corticosteroid Start: 03-27-2024 triamcinolone 0.1 % cream 1 Application. 03/27/2024 Active vitamin b12 5 mg oral capsule (8 sources) Vitamin B12 take 1 capsule by mouth once daily Cyanocobalamin (B-12) 5000 MCG CAPS Take 5,000 mcg by mouth daily. Active vitamin e 180 mg oral capsule (8 sources) take 1 capsule by mouth once [...] with depressed mood] 04-30-2023 Chronic Allergic reactions (4 sources) Contact dermatitis; Translations: [Unspecified contact dermatitis, unspecified cause] Onset: 4 05-28-2024 Episodic Conditions associated with dizziness or vertigo (1 source) Dizziness; Translations: [Dizziness and giddiness] Episodic Congestive heart failure; nonhypertensive (3 sources) Unspecified diastolic (congestive) heart failure; Translations: [Chronic diastolic (congestive) heart failure] Onset: 2 Chronic Coronary atherosclerosis and other heart disease (20 sources) Coronary atherosclerosis; Translations: [Atherosclerotic heart disease of enterprise coronary artery without angina pectoris] Onset: 2 [...] including parasitic (1 source) Post-viral disorder; 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 Patient informed. Normal [facility] Office Visiton 06-02-2024 Follow-up visit [id number] Linnea Culp 1950 F Date Provider Department Center 06/02/2024 [id number] RANKIN CARD [facility] Family History Problem Relation Age of Onset Stroke Brother Stroke Paternal Grandmother Family Status - Relation Status Age at Brother Paternal Grandmother Level of Service:96414 NC OFFICE/OUTPATIENT ESTABLISHED MOD MDM 30 MIN Normal [facility] Progress Noteson 05-30-2024 [employer] Authentication Interface Message Text Potassium just a tad up and kidney function a tad down Please stay hydrated. Please discuss with Dr. Mckay Acharya MD Normal [facility] BASIC METABOLIC PANELon 05-12 Anion gap [Moles/Vol] 15 mmol/L Normal 10-20 The [facility] Comment on above: Performed By: #### C 4, C3, HEPATIC, CH8 #### [facility] [address] [place] [address], Calcium [Mass/Vol] 9.5 mg/dL Normal 8.6-10.3 The [facility] Comment on above: Performed By: #### C 4, C3, HEPATIC, CH8 #### [facility] [address] [place] [address], Chloride [Moles/Vol] 107 mmol/L Normal 98-107 [facility] Comment on above: Performed By: #### C 4, C3, HEPATIC, CH8 #### [facility] [address], [place], CO2 [Moles/Vol] 27 mmol/L Normal 21-[address] [facility] Comment on above: Performed By: #### C 4, C3, HEPATIC, CH8 #### [facility] [address], [place], Creatinine [Mass/Vol] 1.17 mg/dL Normal 0.60-1.20 [facility] Comment on above: Performed By: #### C 4, C3, HEPATIC, CH8 #### [facility] [address] [place] [address], ESTIMATED GFR (CKD-EPI) 50 mL/min/1.73sqm Low >=60 [facility] Comment on above: Result Comment: [...] Inclusion of Race in Diagnosing Kidney Disease. Ethiopian Journal of Kidney Diseases 2021;79(2):268-88.e1. 2. N Engl J Med 2020 Vol. 385 Issue 19 Pages 0633-5645 Performed By: #### C 4, C3, HEPATIC, CH8 #### [facility] [address] [place] [address], Glucose [Mass/Vol] 94 mg/dL Normal 74-109 The [facility] Comment on above: Performed By: #### C 4, C3, HEPATIC, CH8 #### [facility] [address] [place] [address], Potassium [Moles/Vol] 5.2 mmol/L High 3.5-5.0 [facility] Comment on above: Performed By: #### C 4, C3, HEPATIC, CH8 #### [facility] [address] [place] [address], Sodium [Moles/Vol] 144 mmol/L Normal 136-145 The [facility] Comment on above: Performed By: #### C 4, C3, HEPATIC, CH8 #### [facility] [address] [place] [address], Urea nitrogen [Mass/Vol] 16 mg/dL Normal 7-25 [facility] Comment on above: Performed By: #### C 4, C3, HEPATIC, CH8 #### [facility] [address] [place] [address] [place], Basic metabolic 2000 panelon 05-28-2024 Anion gap [Moles/Vol] 15 mmol/L 10 - 20 [facility] Calcium [Mass/Vol] 9.5 mg/dL 8.6 - 10. [...] Inclusion of Race in Diagnosing Kidney Disease. Ethiopian Journal of Kidney Diseases 202;79(2):268-88.e1. 2. N Engl J Med 1 Vol. 385 Issue 19 Pages 5322-7167 Glucose [Mass/Vol] 94 mg/dL 74 - 109 mg/dL [facility] Potassium [Moles/Vol] 5.2 mmol/L High 3.5 - 5.0 mmol/L [facility] Sodium [Moles/Vol] 144 mmol/L 136 - 145 mmol/L [facility] Urea nitrogen [Mass/Vol] 16 mg/dL 7 - 25 mg/dL [facility] C3 COMPLEMENTon 05-28-2024 Complement C3 [Mass/Vol] 138 mg/dL 87 - 200 mg/dL [facility] C3 138 mg/dL Normal 87-[address] [facility] Comment on above: Order Comment: Note: Reference Range Updated 04/21/2024 Performed By: #### C 4, C3, HEPATIC, CH8 #### [facility] [address], [place], C4 COMPLEMENTon 05-28-2024 Complement C4 [Mass/Vol] 35 mg/dL 19 - 52 mg/dL [facility] C4 35 mg/dL Normal 19-52 [facility] Comment on above: Order Comment: Note: Reference Range Updated 04/21/2024 Performed By: #### C 4, C3, HEPATIC, CH8 #### [facility] [address] [place], [id number] CBC WITH DIFFERENTIALon 05-12 Basophils (Bld) [#/Vol] [...] 10*3/uL Low 4.5 - 11.5 K/uL [facility] Basophils (Bld) [#/Vol] 0.02 10*3/uL Normal 0.00-0.20 The [facility] Comment on above: Performed By: #### C BCDSAT #### [facility] [address] [place] [address], Basophils/100 WBC (Bld) 0.5 % Normal <=1.9 The [facility] Comment on above: Performed By: #### C BCDSAT #### [facility] [address] [place] [address], Eosinophils (Bld) [#/Vol] 0.08 10*3/uL Normal 0.00-0.70 [facility] Comment on above: Performed By: #### C BCDSAT #### [facility] [address] [place] [address], Eosinophils/100 WBC (Bld) 1.8 % Normal 0.1-4.0 [facility] Comment on above: Performed By: #### C BCDSAT #### [facility] [address] [place] [address], Erythrocyte distribution width (RBC) [Ratio] 13.2 % Normal 11.5-14.5 [facility] Comment on above: Performed By: #### C BCDSAT #### [facility] [address] [place] [address], Hematocrit (Bld) [Volume fraction] 43.6 % Normal 36.0-46.0 The [facility] Comment on above: Performed By: #### C BCDSAT #### [facility] [address], [place], Hemoglobin (Bld) [Mass/Vol] 14.6 g/dL Normal 12.0-15.0 [facility] Comment on above: Performed By: #### C BCDSAT #### [facility] [address], [place], Lymphocytes (Bld) [#/Vol] 1.13 10*3/uL Normal 1.00-4.80 [facility] Comment on above: Performed By: #### C BCDSAT #### [facility] [address], [place], Lymphocytes/100 WBC (Bld) 26.5 % Normal 24.0-44.0 [facility] Comment on above: Performed By: #### C BCDSAT #### [facility] [address] [place] [address], MCH (RBC) [Entitic mass] 31.5 pg Normal 26.0-34.0 [facility] Comment on above: Performed By: #### C BCDSAT #### [facility] [address], [place], MCHC (RBC) [Mass/Vol] 33.5 g/dL Normal 32.0-35.9 [facility] Comment on above: Performed By: #### C BCDSAT #### [facility] [address] [place] [address], MCV (RBC) [Entitic vol] 94 fL Normal 80-100 [facility] Comment on above: Performed By: #### C BCDSAT #### [facility] [address], [place], Monocytes (Bld) [#/Vol] 0.45 10*3/uL Normal 0.20-1.00 [facility] Comment on above: Performed By: #### C BCDSAT #### [facility] [address], [place], Monocytes/100 WBC (Bld) 10.7 % Normal 2.0-11.0 [facility] Comment on above: Performed By: #### C BCDSAT #### [facility] [address], [place], Neutrophils (Bld) [#/Vol] 2.58 10*3/uL Normal 1.50-8.00 The [facility] Comment on above: Performed By: #### C BCDSAT #### [facility] [address], [place], Neutrophils/100 WBC (Bld) 60.5 % Normal 31.0-76.0 [facility] Comment on above: Performed By: #### C BCDSAT #### [facility] [address], [place], Platelet mean volume (Bld) [Entitic vol] 8.8 fL Normal 7.5-11.2 [facility] Comment on above: Performed By: #### C BCDSAT #### [facility] [address], [place], Platelets (Bld) [#/Vol] 148 10*3/uL Low 150-400 [facility] Comment on above: Performed By: #### C BCDSAT #### [facility] [address], [place], RBC (Bld) [#/Vol] 4.64 10*6/uL Normal 4.00-5.20 The [facility] Comment on above: Performed By: #### C BCDSAT #### [facility] [address], [place], WBC (Bld) [#/Vol] 4.3 10*3/uL Low 4.5-11.5 [facility] Comment on above: Performed By: #### C BCDSAT #### [facility] [address], [place], DS DNAon 05-28-2024 DNA double strand Ab Qn (S) Negative Negative [facility] DNA double strand Ab Qn (S) See Below [facility] ds DNA Reference Range: < or = to 4 IU/mL-Negative 5-9 IU/mL-Indeterminate > or = to 10 IU/mL-Positive [facility] DS DNA Negative Normal Negative [facility] Comment on above: Order Comment: ds DNA Reference Range: < or = to 4 IU/mL-Negative 5-9 IU/mL-Indeterminate > or = to 10 IU/mL-Positive Performed By: #### d s DNA #### [facility] [address] [place] [address], DS DNA ANTIBODY < 1 Normal See Below [facility] Comment on above: Order Comment: ds DNA Reference Range: < or = to 4 IU/mL-Negative 5-9 IU/mL-Indeterminate > or = to 10 IU/mL-Positive Performed By: #### d s DNA #### [facility] [address] [place] [address], HEPATIC FUNCTION PANELon Albumin [Mass/Vol] 4.2 g/dL 3.5 - 5.7 g/dL [facility] ALP [Catalytic activity/Vol] 60 U/L [facility] ALT [Catalytic activity/Vol] 17 U/L [facility] AST [Catalytic activity/Vol] 22 U/L [facility] Bilirubin [Mass/Vol] 0.9 mg/dL 0.3 - 1.0 mg/dL [facility] Bilirubin.direct [Mass/Vol] 0.21 mg/dL High 0.03 - 0.18 mg/dL [facility] Protein [Mass/Vol] 6.3 g/dL 6.0 - 8.3 g/dL [facility] Albumin [Mass/Vol] 4.2 g/dL Normal 3.5-5.7 [facility] Comment on above: Performed By: #### C 4, C3, HEPATIC, CH8 #### [facility] [address], [place], ALK 60 IU/L Normal 34-104 [facility] Comment on above: Performed By: #### C 4, C3, HEPATIC, CH8 #### [facility] [address], [place], ALT [Catalytic activity/Vol] 17 U/L Normal 7-52 The [facility] Comment on above: Performed By: #### C 4, C3, HEPATIC, CH8 #### [facility] [address], [place], AST [Catalytic activity/Vol] 22 U/L Normal 13-39 [facility] Comment on above: Performed By: #### C 4, C3, HEPATIC, CH8 #### [facility] [address], [place], Bilirubin [Mass/Vol] 0.9 mg/dL Normal 0.3-1.0 [facility] Comment on above: Performed By: #### C 4, C3, HEPATIC, CH8 #### [facility] [address], [place], Bilirubin.direct [Mass/Vol] 0.21 mg/dL High 0.03-0.18 [facility] Comment on above: Performed By: #### C 4, C3, HEPATIC, CH8 #### [facility] [address], [place], Protein [Mass/Vol] 6.3 g/dL Normal 6.0-8.3 [facility] Comment on above: Performed By: #### C 4, C3, HEPATIC, CH8 #### [facility] [address], [place], No Panel Informationon 05-28 Interpretation and review of laboratory results Normal [facility] Note: Reference Range Updated 04/21/2024 [facility] Interpretation and review of laboratory results Abnormal [facility] Patient Instructionson 05-28 [employer]eder Authentication Interface Message Text Please ask Dr. Bashir about a right upper quadrant ultrasound because of the pain you are having If it is normal schedule with pain and healing to see if this is intercostal neuritis (also see if beeter on the gabapentin) Normal [facility] Progress Noteson 05-28-2024 T[employer]eder Authentication Interface Message Text Patient was identified by name and date of . Juana Barrios Vein puncture preformed patient tolerated well. Juana Barrios [facility] Patient left urine sample. Urine was drawn up and sent to the lab. Juana Barrios [facility] Normal [facility] Tenter Feeder Authentication Interface Message Text CC SLE and low back pain and LE neuropathy HPI and ROS Linnea Culp is 73 year old with SLE who had a little rash on her arms despite sun screen. Drove to [place] over 5 days. Went to [place]. Saw crazy horse in [place]. No Raynaud's No alopecia No nose or [...] Color Colorless Appearance Clear pH 6.0 Spec [place] 1.009 Protein Negative Blood Negative Bilirubin Negative [...] (M32.9) SLE (systemic lupus erythematosus related syndrome) ([facility]) (primary encounter diagnosis) Comment: Plan: COMPLETE BLOOD [...] CONSULT REQUEST Amber Acharya MD Normal [facility] Tenter Feeder Authentication Interface Message Text Identification was verified by patient verbalizing her name and date of . Normal [facility] URINALYSIS WITH REFLEX CULTU RE PERFORMABLEon [...] Glucose Ql (U) Negative Normal Negative [facility] Comment on above: Order Comment: [...] #### u rinalysiswcul #### [facility] [address] [place] [address], U APPEAR Clear Normal Clear [facility] [...] #### u rinalysiswcul #### [facility] [address] [place] [address], U BILI Negative Normal Negative [facility] [...] #### u rinalysiswcul #### [facility] [address] [place] [address], U BLOOD Negative Normal Negative [facility] Comment on above: Order Comment: [...] #### u rinalysiswcul #### [facility] [address] [place] [address], U COLOR Colorless Normal Colorless [facility] Comment [...] #### u rinalysiswcul #### [facility] [address] [place] [address], U KETONE Negative Normal Negative [facility] [...] #### u rinalysiswcul #### [facility] [address] [place] [address], U LEUK Negative Normal Negative [facility] Comment on above: Order Comment: [...] #### u rinalysiswcul #### [facility] [address] [place] [address], U NITRITE Negative Normal Negative [facility] [facility] Comment on above: Order Comment: A [...] 50%) Performed By: #### u rinalysiswcul #### [facility] [address], [place], U PH 6.0 Normal 5.0-8.0 [facility] Comment on above: Order Comment: A [...] 50%) Performed By: #### u rinalysiswcul #### [facility] [address] [place] [address], U PROTEIN Negative Normal Negative [facility] [facility] Comment on above: Order Comment: A [...] 50%) Performed By: #### u rinalysiswcul #### [facility] [address], [place], U SG 1.009 Normal <=1.030 [facility] Comment on above: Order Comment: A [...] u rinalysiswcul #### [facility] [address], [place], U UROBILI Negative Normal Negative [facility] Comment on above: Order Comment: A [...] #### u rinalysiswcul #### [facility] [address] [place] [address], Telephone Encounteron 2023 [employer]eder Authentication Interface Message Text Faxed completed physical therapy forms to [facility] #[phone]. Confirmation received. Added a copy of forms to media folder. Normal [facility] Progress Noteson 03-05-2024 Tenter [employer]eder Authentication Interface Message Text There was a possible minor abnormally in a nerve that causes numbness and tingling in the foot. We can see next time if you have a Razo's cyst that is irritating the nerve that goes to the foot Amber Acharya MD Normal [facility] EMGon 02-27-2024 [facility] Progress Noteson 02-04-2024 [employer] Authentication Interface Message Text This is ok Amber Acharya MD Normal [facility] BASIC METABOLIC PANELon 03-2 0-2023 Anion gap [Moles/Vol] 12 mmol/L Normal 10-20 [facility] Comment on above: Performed By: #### C BCDSAT #### [facility] [address] [place] [address], Calcium [Mass/Vol] 8.8 mg/dL Normal 8.6-10.3 [facility] Comment on above: Performed By: #### C BCDSAT #### [facility] [address] [place] [address], Chloride [Moles/Vol] 108 mmol/L High 98-107 [facility] Comment on above: Performed By: #### C BCDSAT #### [facility] [address] [place] [address], CO2 [Moles/Vol] 27 mmol/L Normal 21-[address] [facility] Comment on above: Performed By: #### C BCDSAT #### [facility] [address] [place] [address], Creatinine [Mass/Vol] 1.08 mg/dL Normal 0.60-1.20 [facility] Comment on above: Performed By: #### C BCDSAT #### [facility] [address] [place] [address], ESTIMATED GFR (CKD-EPI) 55 mL/min/1.73sqm Low >=60 [facility] Comment on above: Result Comment: [...] Inclusion of Race in Diagnosing Kidney Disease. Ethiopian Journal of Kidney Diseases 202;79(2):268-88.e1. 2. N Engl J Med 1 Vol. 385 Issue 19 Pages [phone] Performed By: #### C BCDSAT #### [facility] [address] [place] [address], Glucose [Mass/Vol] 89 mg/dL Normal 74-109 [facility] Comment on above: Performed By: #### C ISSAAT #### [facility] [address] [place] [address], Potassium [Moles/Vol] 4.3 mmol/L Normal 3.5-5.0 [facility] Comment on above: Performed By: #### C ISSAAT #### [facility] [address] [place] [address], Sodium [Moles/Vol] 143 mmol/L Normal 136-145 [facility] Comment on above: Performed By: #### Kizzy PARSONSAT #### [facility] [address] [place] [address], Urea nitrogen [Mass/Vol] 15 mg/dL Normal 7-25 [facility] Comment on above: Performed By: #### Kizzy PARSONSAT #### [facility] [address] [place] [address], C3 COMPLEMENTon 01-30-2024 C3 133 mg/dL Normal 81-163 [facility] Comment on above: Performed By: #### Kizzy PARSONSAT #### [facility] [address] [place] [address], C4 COMPLEMENTon 01-30-2024 C4 36 mg/dL Normal 14-46 [facility] Comment on above: Performed By: #### Kizzy PARSONSAT #### [facility] [address] [place] [address], CBC WITH DIFFERENTIALon 01-11 Basophils (Bld) [#/Vol] 0.03 10*3/uL Normal 0.00-0.20 [facility] Comment on above: Performed By: #### C ISSAAT #### [facility] [address] [place] [address], Basophils/100 WBC (Bld) 0.8 % Normal <=1.9 [facility] Comment on above: Performed By: #### Kizzy PARSONSAT #### [facility] [address] [place] [address], Eosinophils (Bld) [#/Vol] 0.05 10*3/uL Normal 0.00-0.70 [facility] Comment on above: Performed By: #### C BCDSAT #### [facility] [address] [place] [address], Eosinophils/100 WBC (Bld) 1.1 % Normal 0.1-4.0 [facility] Comment on above: Performed By: #### C BCDSAT #### [facility] [address] [place] [address], Erythrocyte distribution width (RBC) [Ratio] 13.2 % Normal 11.5-14.5 [facility] Comment on above: Performed By: #### C BCDSAT #### [facility] [address] [place] [address], Hematocrit (Bld) [Volume fraction] 42.2 % Normal 36.0-46.0 [facility] Comment on above: Performed By: #### C BCDSAT #### [facility] [address] [place] [address], Hemoglobin (Bld) [Mass/Vol] 14.2 g/dL Normal 12.0-15.0 [facility] Comment on above: Performed By: #### C BCDSAT #### [facility] [address] [place] [address], Lymphocytes (Bld) [#/Vol] 1.23 10*3/uL Normal 1.00-4.80 [facility] Comment on above: Performed By: #### C BCDSAT #### [facility] [address] [place] [address], Lymphocytes/100 WBC (Bld) 28.9 % Normal 24.0-44.0 The [facility] Comment on above: Performed By: #### C BCDSAT #### S PATHOLOGY LABORATORY [address] [place] [address], MCH (RBC) [Entitic mass] 32.1 pg Normal 26.0-34.0 [facility] Comment on above: Performed By: #### C BCDSAT #### [facility] [address], [place], MCHC (RBC) [Mass/Vol] 33.7 g/dL Normal 32.0-35.9 [facility] Comment on above: Performed By: #### C BCDSAT #### [facility] [address], [place], MCV (RBC) [Entitic vol] 95 fL Normal 80-100 [facility] Comment on above: Performed By: #### C BCDSAT #### [facility] [address], [place], Monocytes (Bld) [#/Vol] 0.41 10*3/uL Normal 0.20-1.00 [facility] Comment on above: Performed By: #### C BCDSAT #### [facility] [address], [place], Monocytes/100 WBC (Bld) 9.7 % Normal 2.0-11.0 [facility] Comment on above: Performed By: #### C BCDSAT #### [facility] [address], [place], Neutrophils (Bld) [#/Vol] 2.54 10*3/uL Normal 1.50-8.00 [facility] Comment on above: Performed By: #### C BCDSAT #### [facility] [address], [place], Neutrophils/100 WBC (Bld) 59.6 % Normal 31.0-76.0 [facility] Comment on above: Performed By: #### C BCDSAT #### [facility] [address], [place], Platelet mean volume (Bld) [Entitic vol] 9.2 fL Normal 7.5-11.2 [facility] Comment on above: Performed By: #### C BCDSAT #### [facility] [address], [place], Platelets (Bld) [#/Vol] 158 10*3/uL Normal 150-400 The [facility] Comment on above: Performed By: #### C BCDSAT #### [facility] [address] [place] [address], RBC (Bld) [#/Vol] 4.43 10*6/uL Normal 4.00-5.20 [facility] Comment on above: Performed By: #### C BCDSAT #### [facility] [address] [place] [address], WBC (Bld) [#/Vol] 4.3 10*3/uL Low 4.5-11.5 The [facility] Comment on above: Performed By: #### C BCDSAT #### S [facility] LAB[facility]ATORY [address] [place] [address], HEMOGLOBIN A1Con 01-30-2024 Glucose [Mass/Vol] 97 mg/dL Normal The [facility] Comment on above: Performed By: #### C BCDSAT #### S [facility] [address] [place] [address], HbA1c (Bld) [Mass fraction] 5.0 % Normal 4.0-5.6 The [facility] Comment on above: Performed By: #### C BCDSAT #### S [facility]ATORY [address] [place] [address], HEPATIC FUNCTION PANELon Albumin [Mass/Vol] 4.0 g/dL Normal 3.5-5.7 The [facility] Comment on above: Order Comment: Note updated reference ranges. Performed By: #### C BCDSAT #### [facility] [address] [place] [address], ALK 71 IU/L Normal 34-104 The [facility] Comment on above: Order Comment: Note updated reference ranges. Performed By: #### C BCDSAT #### [facility] [address] [place] [address], ALT [Catalytic activity/Vol] 26 U/L Normal 7-52 The [facility] Comment on above: Order Comment: Note updated reference ranges. Performed By: #### C BCDSAT #### [facility] [address] [place] [address], AST [Catalytic activity/Vol] 32 U/L Normal 13-39 The [facility] Comment on above: Order Comment: Note updated reference ranges. Performed By: #### C BCDSAT #### S [facility] [address], [place], Bilirubin [Mass/Vol] 0.9 mg/dL Normal 0.3-1.0 The [facility] Comment on above: Order Comment: Note updated reference ranges. Performed By: #### C BCDSAT #### S [facility] [address], [place], Bilirubin.direct [Mass/Vol] 0.25 mg/dL High 0.03-0.18 The [facility] Comment on above: Order Comment: Note updated reference ranges. Performed By: #### C BCDSAT #### S [facility] LAB[facility]ATORY [address] [place] [address], Protein [Mass/Vol] 6.2 g/dL Normal 6.0-8.3 The [facility] Comment on above: Order Comment: Note updated reference ranges. Performed By: #### C BCDSAT #### S [facility] LAB[facility]ATORY [address] [place] [address], Patient Instructionson 01-29 Tenter Feeder Authentication Interface Message Text Take folic acid supplemental over the counter Normal [facility] Progress Noteson 01-30-2024 [employer] Authentication Interface Message Text Patient was identified by name and date of . Romelia Dunn Venipuncture performed patient tolerated well Romelia Dunn MPA Patient leaving urine sample Normal [facility] [employer] Authentication Interface Message Text CC h/o SLE [...] Color Yellow Appearance Turbid pH 5.5 Spec [place] 1.016 Protein 30 ! Blood Negative Bilirubin [...] EXTERNAL SERVICE REQUEST FOR CARE OUTSIDE THE [facility] Helped previously Amber Acharya MD Normal The [facility] T[employer]eder Authentication Interface Message Text Patient was identified by name and date of . Crescencio Dowell, SANG Normal [facility] TOTAL PROTEIN WITH CREATININ E, RANDOM URINEon 01-30-2024 CREATININE, URINE 148 mg/dL Normal 10-300 [facility] Comment on above: Performed By: #### T P RU #### [facility] [address] [place] [address], Protein (U) [Mass/Vol] 11 mg/dL Normal <=100 [facility] Comment on above: Performed By: #### T P RU #### S [facility] LAB[facility]AT[facility] [address], [place], TP/CREAT RATIO 74 mg/g Normal <=164 The [facility] Comment on above: Performed By: #### T P RU #### [facility] [address], [place], URINALYSISon 01-30-2024 Glucose Ql (U) Negative Normal Negative The [facility] Comment on above: Order Comment: A [...] 50%) Performed By: #### C BCDSAT #### [facility] [address], [place], Protein (U) [Mass/Vol] 30 mg/dL Abnormal Negative [facility] Comment on above: Order Comment: A [...] #### C BCDSAT #### S [facility] LAB[facility]AT[facility] [address] [place] [address], SQUAMOUS EPITHELIAL 6-10 Normal 0-10 The [facility] Comment on above: Order [...] 50%) Performed By: #### C BCDSAT #### [facility] [address] [place] [address], U APPEAR Turbid Normal Clear [facility] Comment on above: Order Comment: [...] #### C BCDSAT #### S [facility] LABORATORY [address] [place] [address], U BACTERIA Few Normal [facility] Comment on above: Order Comment: A [...] #### C BCDSAT #### S [facility]AT[facility] [address] [place] [address], U BILI Negative Normal Negative [facility] Comment on above: Order Comment: A [...] 50%) Performed By: #### C BCDSAT #### [facility] [address] [place] [address], U BLOOD Negative Normal Negative The [facility] Comment on above: Order Comment: A [...] 50%) Performed By: #### C BCDSAT #### [facility] [address] [place] [address], U COLOR Yellow Normal Colorless [facility] [...] #### C BCDSAT #### [facility] [address] [place] [address], U HY CAST 0-2 Normal [facility] [...] 50%) Performed By: #### C BCDSAT #### [facility] [address], [place], U KETONE Negative Normal Negative [facility] Comment on above: Order Comment: [...] 50%) Performed By: #### C BCDSAT #### [facility] [address], [place], U LEUK Positive Abnormal Negative [facility] Comment on above: Order Comment: [...] pyuria. Performed By: #### C BCDSAT #### [facility] [address] [place] [address], U MUCOUS Present Normal The [facility] Comment on above: Order Comment: A [...] 50%) Performed By: #### C BCDSAT #### [facility] [address] [place] [address], U NITRITE Positive Abnormal Negative The [facility] Comment on above: Order Comment: A [...] 50%) Performed By: #### C BCDSAT #### [facility] [address] [place] [address], U PH 5.5 Normal 5.0-8.0 The [facility] Comment on above: Order Comment: A [...] 50%) Performed By: #### C BCDSAT #### [facility] [address], [place], U RBC 0-2 Normal 0-2 [facility] Comment on above: Order Comment: [...] 50%) Performed By: #### C BCDSAT #### [facility] [address], [place], U SG 1.016 Normal <=1.030 [facility] Comment on above: Order Comment: A [...] 50%) Performed By: #### C BCDSAT #### [facility] [address], [place], U UROBILI Negative Normal Negative [facility] Comment on above: Order Comment: A [...] #### C BCDSAT #### [facility] [address] [place] [address], U WBC 11-30 Abnormal 0-2 The [facility] Comment on above: Order Comment: A [...] #### C BCDSAT #### S [facility] LABORATORY [address] [place] [address], VITAMIN B12 (CYANOCOBALAMIN) on 01-30-2024 Cobalamin (Vitamin B12) [Mass/Vol] 3617 pg/mL Normal >300 The [facility] Comment on above: Order Comment: <152 pg/mL - [id number] - 300 pg/mL- Insufficient>300 pg/mL - Sufficient Performed By: #### C BCDSAT #### S [facility] LAB[facility]ATORY [address] [place] [address], XR ARTHRITIS SURVEY HAND/WRI STon 01-30-2024 XR ARTHRITIS SURVEY HAND/WRIST EXAMINATION: XR ARTHRITIS SURVEY HAND/WRIST 01/30/2024 12:42 PM CLINICAL HISTORY: pain hands ?OA ASSOCIATED DIAGNOSIS: Numbness and tingling of both legs below knees Numbness and tingling of both legs below knees ORDERING PROVIDER: AMBER [employer] NOTE: COMPARISON: 09/07/2021 FINDINGS: There is evidence of degenerative osteoarthritis of first carpometacarpal joints bilaterally more marked on the left side. Narrowing of joint space is noted with osteophytes. Mild degenerative change noted involving the distal interphalangeal joints. No significant interval change. IMPRESSION: Degenerative osteoarthritis without significant interval change. MACRO: None Normal The [facility] XR C-SPINE AP+LATERAL 2 VIEW Son 01-30-2024 XR C-SPINE AP+LATERAL 2 VIEWS EXAMINATION: XR C-SPINE AP+LATERAL 2 VIEWS 01/30/2024 12:42 PM CLINICAL HISTORY: Pain ASSOCIATED DIAGNOSIS: Numbness and tingling of both legs below knees Numbness and tingling of both legs below knees ORDERING PROVIDER: [employer] NOTE: COMPARISON: 03/08/2022 FINDINGS: On the lateral [...] significant interval change. MACRO: None Normal The [facility] Telephone Encounteron 2023 Tenter [employer]eder Authentication Interface Message Text The [facility] external XR results added to media folder. Normal The [facility] Telephone Encounteron 2022 Tenter [employer]eder Authentication Interface Message Text The [facility] external x-ray results added to media folder. Normal The [facility] ELECTROPHORESIS, SERUM PROTE INOrdered By: Dane Anaya on 04-27-2023 Albumin [Mass fraction] 53.8 % 52.0 - 72.0 % [facility] Work Phone: Albumin [Mass/Vol] 3.55 g/dL Low 3.90 - 5. 10 g/dL [facility] Work Phone: Alpha 1 globulin Elph (CSF) [Mass fraction] 0.29 g/dL 0.10 - 0.45 g/dL [facility] Work Phone: Alpha 1 globulin Unsp time Elph (U) [Mass fraction] 4.3 % 2.0 - 9.6 % [facility] Work Phone: Alpha 2 globulin Elph (CSF) [Mass fraction] 0.66 g/dL 0.40 - 0.90 g/dL [facility] Work Phone: Alpha 2 globulin Unsp time Elph (U) [Mass fraction] 10.0 % 5.0 - 16.0 % [facility] Work Phone: Beta globulin Elph (CSF) [Mass [...] observed in the serum. Maged Whiting, Ph.D [facility] Work Phone: Interpretation and review of laboratory results Abnormal [facility] Work Phone: Protein.monoclonal Elph [Mass fraction] 6.6 g/dL 5.7 - 8.1 g/dL [facility] Work Phone: . I certify that I personally conducted the diagnostic evaluation of the above specimen(s) and have rendered the final diagnosis(es). [facility] Work Phone: [facility] Work Phone: URINE CULTUREOrdered By: Rome Wynn on 04-26-2023 Bacteria identified Cx Nom (U) 1,000 - 10,000 CFU/ml Multiple bacteria present suggesting contamination. [facility] Interpretation and review of laboratory results Normal [facility] IF clinically indicated, suggest appropriate recollection with timely delivery to the laboratory. For additional information, call ext [phone]. [facility] VITAMIN B12 (CYANOCOBALAMIN) on 04-26-2023 [...] Inclusion of Race in Diagnosing Kidney Disease. [place] Journal of Kidney Diseases 2021;79(2):268-88.e1. 2. N Engl J Med 2020 Vol. 385 Issue 19 Pages 4635-2603 Glucose [Mass/Vol] 90 mg/dL 80 - 116 [...] value for UTI around 50%) [facility] Covid-19 PCR (CVDTBH)on SARS-CoV-2 (COVID-19) RNA CRISTIAN+probe Ql (Unsp spec) Detected Critically abnormal NOT DETECTED The [facility] Comment on above: Result Comment: This test is not yet approved or cleared by the [place] FDA. When there are no FDA-approved or cleared tests available, and other criteria are met, FDA can make tests available under an emergency access mechanism called an Emergency Use Authorization (EUA). The EUA for this test is supported by the Install Technician of Health and Human Service's declaration [...] longer be used). Performed By: #### C VDTB #### [facility] [address] [place] [address] Dr. Ella Mathis INFLUENZA A AND B [facility] 10-16 [facility] SEE BELOW Normal The [facility] Comment on above: Result Comment: Nega tive for Flu A protein angiten. Infection due to Flu A cannot be ruled out. Flu A angiten in the sample may be below the detection limit of the test. Performed By: #### C VDTB #### [facility] [address] [place] [address] Dr. Ell[facility] SEE BELOW Normal [facility] Comment on above: Result Comment: Nega tive for Flu B protein antigen. Infection due to Flu B cannot be ruled out. Flu B antigen in the sample may be below the detection limit of the test. Performed By: #### C VDTBH #### [facility] [address] [place] [address] Dr. Ella Mathis INFLUENZA A AG Negative Normal NEGATIVE SEE COMMENT [facility] Comment on above: Performed By: #### C VDTBH #### [facility] [address] [place] [address] Dr. Ella Mathis INFLUENZA B AG Negative Normal NEGATIVE SEE COMMENT [facility] Comment on above: Performed By: #### C VDTBH #### [facility] [address] [place] [address] Dr. Ella Mathis INTERNAL CONTROLS Within Normal Limits Normal Wi thin Normal Limits [facility] Comment on above: Performed By: #### C VDTBH #### [facility] [address] [place] [address] Dr. Ella Mathis PROF CHEM 8 (BAS METB)on Anion gap [Moles/Vol] 10.5 mmol/L Normal [facility] Comment on above: Performed By: #### B MP #### [facility] [address] [place] [address] Dr. Ella Mathis Calcium [Mass/Vol] 8.7 mg/dL Normal 8.5-10.1 [facility] Comment on above: Performed By: #### B MP #### [facility] [address] [place] [address] Dr. Ella Mathis Chloride [Moles/Vol] 107 mmol/L Normal 98-107 [facility] Comment on above: Performed By: #### B MP #### [facility] [address] [place] [address] Dr. Ella Mathis CO2 [Moles/Vol] 29.9 mmol/L Normal 21.0-32.0 [facility] Comment on above: Performed By: #### B MP #### [facility] [address] [place] [address] Dr. Ella Mathis Creatinine [Mass/Vol] 1.02 mg/dL Normal 0.55-1.02 [facility] Comment on above: Performed By: #### B MP #### [facility] [address] [address] [address] Ella Mathis EGFR-AF KENYAN >60 Normal >=60 [facility] Comment on above: Performed By: #### B MP #### [facility] [address] [address] [address] Ella Mathis EGFR-NON AF KENYAN 54 mL/min/1.73m2 Critically low >=[address] [facility] Comment on above: Performed By: #### B MP #### [facility] [address] [address] [address] Ella Mathis Glucose [Mass/Vol] 91 mg/dL Normal 74-106 [facility] Comment on above: Performed By: #### B MP #### [facility] [address] [address] [address] Ella Mathis Potassium [Moles/Vol] 4.4 mmol/L Normal 3.5-5.1 [facility] Comment on above: Performed By: #### B MP #### [facility] [address] [address] [address] Ella Mathis Sodium [Moles/Vol] 143 mmol/L Normal 136-145 [facility] Comment on above: Performed By: #### B MP #### [facility] [address] [address] [address] Ella Mathis Urea nitrogen [Mass/Vol] 20.0 mg/dL Critically high 7.0-18.0 [facility] Comment on above: Performed By: #### B MP #### [facility] [address] [address] [address] Ella Mathis Urea nitrogen/Creatinine [Mass ratio] 19.6 mg/mg Normal [facility] Comment on above: Performed By: #### B MP #### [facility] [address] [address] [address] Ella Mathis US BOBBI DOP LEG [...] by: HECTOR LING Date: 2022-10-03 10:59 Normal [facility] US BOBBI DOP LEG LTon 09-08-20 22 US BOBBI DOP LEG LT EXAMINATION: US [...] by: ASHLEY CHU Date: 2022-09-08 17:28 Normal [facility] BNPon 08-28-2022 Natriuretic peptide B (Bld) [Mass/Vol] 346.0 pg/mL Normal <=900.0 [facility] Comment on above: Performed By: #### P TT, PT #### [facility] [address] [place] [address] Dr. Ella Mathis CBC AUTO DIFFon 08-28-2022 BASO # 0.0 103/ul Normal 0.0-0.1 [facility] Comment on above: Performed By: #### C BC #### [facility] [address] [place] [address] Dr. Ella Mathis Basophils/100 WBC (Bld) 0.4 % Normal 0.2-2.[address] [facility] Comment on above: Performed By: #### C BC #### [facility] [address] [place] [address] Dr. Ella Mathis EO # 0.0 103/ul Normal 0.0-0.7 [facility] Comment on above: Performed By: #### C BC #### [facility] [address] [place] [address] Dr. Ella Mathis Eosinophils/100 WBC (Bld) 0.6 % Critically low 0.9-7.0 [facility] Comment on above: Performed By: #### C BC #### [facility] [address] [place] [address] Dr. Ella Mathis Erythrocyte distribution width (RBC) [Ratio] 12.5 % Normal 11.0-15.0 [facility] Comment on above: Performed By: #### C BC #### [facility] [address] [place] [address] Dr. Ella Mathis Hematocrit (Bld) [Volume fraction] 38.9 % Normal 36.0-48.0 [facility] Comment on above: Performed By: #### C BC #### [facility] [address] [place] [address] Dr. Ella Mathis Hemoglobin (Bld) [Mass/Vol] 13.0 g/dL Normal 12.0-16.0 [facility] Comment on above: Performed By: #### C BC #### [facility] [address] [place] [address] Dr. Ella Mathis IG # 0.04 10e3/ul Critically high 0.00-0.03 [facility] Comment on above: Performed By: #### C BC #### [facility] [address] [place] [address] Dr. Ella Mathis IG % 0.6 % Critically high 0.0-0.5 [facility] Comment on above: Performed By: #### C BC #### [facility] [address] [place] [address] Dr. Ella Mathis LYMPH # 1.8 103/ul Normal 1.2-3.8 [facility] Comment on above: Performed By: #### C BC #### [facility] [address] [place] [address] Dr. Ella Mathis Lymphocytes/100 WBC (Bld) 25.2 % Normal 20.5-60.0 [facility] Comment on above: Performed By: #### C BC #### [facility] [address] [place] [address] Dr. Ella Mathis MANUAL DIFF REQ NO Normal [facility] Comment on above: Performed By: #### C BC #### [facility] [address] [place] [address] Dr. Ella Mathis MCH (RBC) [Entitic mass] 31.9 pg Normal 26.7-34.0 [facility] Comment on above: Performed By: #### C BC #### [facility] [address] [place] [address] Dr. Ella Mathis MCHC (RBC) [Mass/Vol] 33.4 g/dL Normal 29.9-35.2 [facility] Comment on above: Performed By: #### C BC #### [facility] [address] [place] [address] Dr. Ella Mathis MCV (RBC) [Entitic vol] 95.3 fL Normal 81.0-99.0 [facility] Comment on above: Performed By: #### C BC #### [facility] [address] [place] [address] Dr. Ella Mathis MONO # 0.8 103/ul Normal 0.3-0.8 [facility] Comment on above: Performed By: #### C BC #### [facility] [address] [place] [address] Dr. Ella Mathis Monocytes/100 WBC (Bld) 10.5 % Normal 1.7-12.0 [facility] Comment on above: Performed By: #### C BC #### [facility] [address] [place] [address] Dr. Ella Mathis NEUT # 4.5 103/ul Normal 1.4-6.[address] [facility] Comment on above: Performed By: #### C BC #### [facility] [address] [place] [address] Dr. Ella Mathis Neutrophils/100 WBC (Bld) 62.7 % Normal 43.0-75.0 [facility] [facility] Comment on above: Performed By: #### C BC #### [facility] [address] [place] [address] Dr. Ella Mathis Platelet mean volume (Bld) [Entitic vol] 10.2 fL Normal 9.5-13.5 [facility] Comment on above: Performed By: #### C BC #### [facility] [address] [address] [address] Ella Mathis PLT 184 103/ul Normal 150-450 [facility] Comment on above: Performed By: #### C BC #### [facility] [address] [place] [address] Dr. Ella Mathis RBC 4.08 106/ul Critically low 4.20-5.40 [facility] Comment on above: Performed By: #### C BC #### [facility] [address] [place] [address] Dr. Ella Mathis WBC 7.2 103/ul Normal 4.0-11.0 [facility] Comment on above: Performed By: #### C BC #### [facility] [address] [place] [address] Dr. Ella Mathis PROF 14(COMP METB)on 022 Albumin [Mass/Vol] 3.3 g/dL Critically low 3.4-5.0 [facility] Comment on above: Performed By: #### P TT, PT #### [facility] [address] [place] [address] Dr. Ella Mathis Albumin/Globulin [Mass ratio] 1.1 {ratio} Normal [facility] Comment on above: Performed By: #### P TT, PT #### [facility] [address] [place] [address] Dr. Ella Mathis ALP [Catalytic activity/Vol] 72 U/L Normal 46-[address] [facility] Comment on above: Performed By: #### P TT, PT #### [facility] [address] [place] [address] Dr. Ella Mathis ALT [Catalytic activity/Vol] 20 U/L Normal 14-59 [facility] Comment on above: Performed By: #### P TT, PT #### [facility] [address] [address] [address] Ella Mathis Anion gap [Moles/Vol] 8.8 mmol/L Normal [facility] Comment on above: Performed By: #### P TT, PT #### [facility] [address] [address] [address] Ella Mathis AST [Catalytic activity/Vol] 11 U/L Critically low 15-37 [facility] Comment on above: Performed By: #### P TT, PT #### [facility] [address] [address] [address] Ella Mathis Bilirubin [Mass/Vol] 0.6 mg/dL Normal 0.2-1.0 [facility] Comment on above: Performed By: #### P TT, PT #### [facility] [address] [place] [address] Dr. Ella Mathis Calcium [Mass/Vol] 8.6 mg/dL Normal 8.5-10.1 [facility] Comment on above: Performed By: #### P TT, PT #### [facility] [address] [address] [address] Ella Mathis Chloride [Moles/Vol] 106 mmol/L Normal 98-[address] [facility] Comment on above: Performed By: #### P TT, PT #### [facility] [address] [place] [address] Dr. Ella Mathis CO2 [Moles/Vol] 31.9 mmol/L Normal 21.0-32.0 [facility] Comment on above: Performed By: #### P TT, PT #### [facility] [address] [address] [address] Ella Mathis Creatinine [Mass/Vol] 1.03 mg/dL Critically high 0.55-1.02 [facility] Comment on above: Performed By: #### P TT, PT #### [facility] [address] [place] [address] Dr. Ella Mathis EGFR-AF KENYAN >60 Normal >=60 [facility] Comment on above: Performed By: #### P TT, PT #### [facility] [address] [address] [address] Ella Mathis EGFR-NON AF KENYAN 53 mL/min/1.73m2 Critically low >=60 [facility] Comment on above: Performed By: #### P TT, PT #### [facility] [address] [address] [address] Ella Mathis Globulin (S) [Mass/Vol] 3.0 g/dL Normal [facility] Comment on above: Performed By: #### P TT, PT #### [facility] [address] [address] [address] Ella Mathis Glucose [Mass/Vol] 85 mg/dL Normal 74-106 [facility] Comment on above: Performed By: #### P TT, PT #### [facility] [address] [address] [address] Ella Mathis Potassium [Moles/Vol] 3.7 mmol/L Normal 3.5-5.1 [facility] Comment on above: Performed By: #### P TT, PT #### [facility] [address] [address] [address] Ella Mathis Protein [Mass/Vol] 6.3 g/dL Critically low 6.4-8.[address] [facility] Comment on above: Performed By: #### P TT, PT #### [facility] [address] [address] [address] Ella Mathis Sodium [Moles/Vol] 143 mmol/L Normal 136-145 [facility] Comment on above: Performed By: #### P TT, PT #### [facility] [address] [address] [address] Ella Mathis Urea nitrogen [Mass/Vol] 20.0 mg/dL Critically high 7.0-18.0 [facility] Comment on above: Performed By: #### P TT, PT #### [facility] [address] [address] [address] Ella Mathis Urea nitrogen/Creatinine [Mass ratio] 19.4 mg/mg Normal [facility] Comment on above: Performed By: #### P TT, PT #### [facility] [address] [place], [place] [address] Dr. Ella Mathis XR CHEST 2 Von [...] FRANCI BUSTOS Date: 2022-08-28 20:20 Normal [facility]12 SARS-CoV-2 (COVID-19) RNA CRISTIAN+probe Ql (Unsp spec) Not detected Normal NOT DETECTED [facility] Comment on above: Result Comment: When [...] for this test is supported by the [place] of [employer] and Human Service's declaration that [...] longer be used). Performed By: #### C VDTB #### [facility] [address] [place], [place] [address] Dr. Ella Mathis INSULINon 03-24-2022 Insulin 10.0 uIU/mL Normal 2.6-24.[address] [facility] Comment on above: Performed By: #### I NSULIN #### [facility] [address] [place] [address] Dr. Ella Mathis AMMONIAon 03-23-2022 Ammonia (P) [Moles/Vol] 18 umol/L Normal 11-32 [facility] Comment on above: Performed By: #### A MM #### [facility] [address] [place] [address] Dr. Ella Mathis AMYLASEon 03-23-2022 Amylase [Catalytic activity/Vol] 69 U/L Normal 25-[address] [facility] Comment on above: Performed By: #### P TT, PT #### [facility] [address] [place] [address] Dr. Ella Mathis CBC AUTO DIFFon 03-23-2022 BASO # 0.0 103/ul Normal 0.0-0.1 [facility] Comment on above: Performed By: #### P TT, PT #### [facility] [address] [place] [address] Dr. Ella Mathis Basophils/100 WBC (Bld) 1.0 % Normal 0.2-2.0 [facility] Comment on above: Performed By: #### P TT, PT #### [facility] [address] [place] [address] Dr. Ella Mathis EO # 0.1 103/ul Normal 0.0-0.7 [facility] Comment on above: Performed By: #### P TT, PT #### [facility] [address] [place] [address] Dr. Ella Mathis Eosinophils/100 WBC (Bld) 1.4 % Normal 0.9-7.0 [facility] Comment on above: Performed By: #### P TT, PT #### [facility] [address] [place] [address] Dr. Ella Mathis Erythrocyte distribution width (RBC) [Ratio] 12.5 % Normal 11.0-15.0 [facility] Comment on above: Performed By: #### P TT, PT #### [facility] [address] [place] [address] Dr. Ella Mathis Hematocrit (Bld) [Volume fraction] 39.8 % Normal 36.0-48.0 [facility] Comment on above: Performed By: #### P TT, PT #### [facility] [address] [place] [address] Dr. Ella Mathis Hemoglobin (Bld) [Mass/Vol] 13.5 g/dL Normal 12.0-16.0 [facility] Comment on above: Performed By: #### P TT, PT #### [facility] [address] [place] [address] Dr. Ella Mathis IG # 0.01 10e3/ul Normal 0.00-0.03 [facility] Comment on above: Performed By: #### P TT, PT #### [facility] [address] [place] [address] Dr. Ella Mathis IG % 0.2 % Normal 0.0-0.5 [facility] Comment on above: Performed By: #### P TT, PT #### [facility] [address] [place] [address] Dr. Ella Mathis LYMPH # 1.1 103/ul Critically low 1.2-3.8 [facility] Comment on above: Performed By: #### P TT, PT #### [facility] [address] [place] [address] Dr. Ella Mathis Lymphocytes/100 WBC (Bld) 26.7 % Normal 20.5-60.0 [facility] Comment on above: Performed By: #### P TT, PT #### [facility] [address] [place] [address] Dr. Ella Mathis MANUAL DIFF REQ NO Normal [facility] Comment on above: Performed By: #### P TT, PT #### [facility] [address] [place] [address] Dr. Ella Mathis MCH (RBC) [Entitic mass] 32.4 pg Normal 26.7-34.0 [facility] Comment on above: Performed By: #### P TT, PT #### [facility] [address] [place] [address] Dr. Ella Mathis MCHC (RBC) [Mass/Vol] 33.9 g/dL Normal 29.9-35.[address] [facility] Comment on above: Performed By: #### P TT, PT #### [facility] [address] [place] [address] Dr. Ella Mathis MCV (RBC) [Entitic vol] 95.4 fL Normal 81.0-99.[address] [facility] Comment on above: Performed By: #### P TT, PT #### [facility] [address] [place] [address] Dr. Ella Mathis MONO # 0.3 103/ul Normal 0.3-0.[address] [facility] Comment on above: Performed By: #### P TT, PT #### [facility] [address] [place] [address] Dr. Ella Mathis Monocytes/100 WBC (Bld) 8.2 % Normal 1.7-12.[address] [facility] Comment on above: Performed By: #### P TT, PT #### [facility] [address] [place] [address] Dr. Ella Mathis NEUT # 2.6 103/ul Normal 1.4-6.[address] [facility] Comment on above: Performed By: #### P TT, PT #### [facility] [address] [place] [address] Dr. Ella Mathis Neutrophils/100 WBC (Bld) 62.5 % Normal 43.0-75.[address] [facility] Comment on above: Performed By: #### P TT, PT #### [facility] [address] [place] [address] Dr. Ella Mathis Platelet mean volume (Bld) [Entitic vol] 9.7 fL Normal 9.5-13.[address] [facility] Comment on above: Performed By: #### P TT, PT #### [facility] [address] [place] [address] Dr. Ella Mathis PLT 166 103/ul Normal 150-[address] [facility] Comment on above: Performed By: #### P TT, PT #### [facility] [address] [place], [place] [id number] Dr. Ella Mathis RBC 4.17 106/ul Critically low 4.20-5.40 [facility] Comment on above: Performed By: #### P TT, PT #### [facility] [address] [place] [address] Dr. Ella Mathis WBC 4.2 103/ul Normal 4.0-11.0 [facility] Comment on above: Performed By: #### P TT, PT #### [facility] [address] [place] [address] Dr. Ella Mathis FREE THYROXINE INDEX T7on FTI 2.42 Normal 1.30-4.50 [facility] Comment on above: Performed By: #### P TT, PT #### [facility] [address] [place] [address] Dr. Ella Mathis T3U 35.0 % Normal 30.0-39.0 [facility] Comment on above: Performed By: #### P TT, PT #### [facility] [address] [place] [address] Dr. Ella Mathis T4 [Mass/Vol] 6.90 ug/dL Normal 4.80-13.90 [facility] Comment on above: Performed By: #### P TT, PT #### [facility] [address] [place] [address] Dr. Ella Mathis GLYCOHEMOGLOBIN A1Con 2021 ADA RECOMMENDATION SEE BELOW Normal [facility] Comment on above: Result Comment: ADA RECOMMENDED LIMIT 4.0 - 6.0 ADA THERAPEUTIC TARGET < 7.0 ACTION SUGGESTED > 7.0 Performed By: #### P TT, PT #### [facility] [address] [place] [address] Dr. Ella Mathis Glucose [Mass/Vol] 100 mg/dL Normal [facility] Comment on above: Performed By: #### P TT, PT #### [facility] [address] [place] [address] Dr. Ella Mathis HbA1c (Bld) [Mass fraction] 5.1 % Normal 4.5-6.2 [facility] Comment on above: Performed By: #### P TT, PT #### [facility] [address] [address] [address] Ella Mathis IRONon 03-23-2022 Iron [Mass/Vol] 97.0 ug/dL Normal 50.0-170.0 [facility] Comment on above: Performed By: #### I ABRAN #### [facility] [address] [address] [address] Ella Mathis LIPASEon 03-23-2022 Lipase [Catalytic activity/Vol] 132.0 U/L Normal 73.0-393.0 [facility] Comment on above: Performed By: #### P TT, PT #### [facility] [address] [address] [address] Ella Mathis LIPID PROFILEon 03-23-2022 CHOL-HDL RATIO NORM SEE BELOW Normal [facility] Comment on above: Result Comment: 3.3 - 4.4 LOW RISK 4.4 - 7.1 AVERAGE RISK 7.1 - 11.0 MODERATE RISK >11.0 HIGH RISK Performed By: #### P TT, PT #### [facility] [address] [address] [address] Ella Mathis Cholesterol [Mass/Vol] 125 mg/dL Normal <=200 [facility] Comment on above: Performed By: #### P TT, PT #### [facility] [address] [address] [address] Ella Mathis Cholesterol in HDL [Mass/Vol] 79 mg/dL Critically high 40-60 [facility] Comment on above: Performed By: #### P TT, PT #### [facility] [address] [address] [address] Ella Mathis Cholesterol in LDL [Mass/Vol] 33.8 mg/dL Normal [facility] Comment on above: Performed By: #### P TT, PT #### [facility] [address] [address] [address] Ella Mathis Cholesterol.total/C holesterol in HDL [Mass ratio] 1.6 {ratio} Normal [facility] Comment on above: Performed By: #### P TT, PT #### [facility] [address] [address] [address] Ella Mathis HDL NORMAL > or = 60 mg/dl - LOW CARDIOVASCULAR RISK <40 mg/dl - HIGH CARDIOVASCULAR RISK Normal [facility] Comment on above: Performed By: #### P TT, PT #### [facility] [address] [address] [address] Ella Mathis LDL CALC NORMAL SEE BELOW Normal [facility] Comment on above: Result Comment: <100 mg/dl OPTIMAL 100 - 129 mg/dl NEAR OR ABOVE OPTIMAL 130 - 159 mg/dl BORDERLINE HIGH 160 - 189 mg/dl HIGH >190 mg/dl VERY HIGH Performed By: #### P TT, PT #### [facility] [address] [place] [address] Dr. Ella Mathis Triglyceride [Mass/Vol] 61 mg/dL Normal <=150 [facility] Comment on above: Performed By: #### P TT, PT #### [facility] [address] [place] [address] Dr. Ella Mathis VLDL CALC 12.2 mg/dL Normal [facility] Comment on above: Performed By: #### P TT, PT #### [facility] [address] [place] [address] Dr. Ella Mathis PROF 14(COMP METB)on 022 Albumin [Mass/Vol] 3.4 g/dL Normal 3.4-5.0 [facility] Comment on above: Performed By: #### L IPID, TSH, LIPA, T7, CMP, KARRIE #### [facility] [address] [place] [address] Dr. Ella Mathis Albumin/Globulin [Mass ratio] 1.1 {ratio} Normal [facility] Comment on above: Performed By: #### L IPID, TSH, LIPA, T7, CMP, KARRIE #### [facility] [address] [place] [address] Dr. Ella Mathis ALP [Catalytic activity/Vol] 66 U/L Normal 46-116 [facility] Comment on above: Performed By: #### L IPID, TSH, LIPA, T7, CMP, KARRIE #### [facility] [address] [place] [address] Dr. Ella Mathis ALT [Catalytic activity/Vol] 27 U/L Normal 14-59 [facility] Comment on above: Performed By: #### L IPID, TSH, LIPA, T7, CMP, KARRIE #### [facility] [address] [place] [address] Dr. Ella Mathis Anion gap [Moles/Vol] 8.8 mmol/L Normal [facility] Comment on above: Performed By: #### L IPID, TSH, LIPA, T7, CMP, KARRIE #### [facility] [address] [place] [address] Dr. Ella Mathis AST [Catalytic activity/Vol] 19 U/L Normal 15-37 [facility] Comment on above: Performed By: #### L IPID, TSH, LIPA, T7, CMP, KARRIE #### [facility] [address] [place] [address] Dr. Ella Mathis Bilirubin [Mass/Vol] 0.8 mg/dL Normal 0.2-1.0 [facility] Comment on above: Performed By: #### L IPID, TSH, LIPA, T7, CMP, KARRIE #### [facility] [address] [place] [address] Dr. Ella Mathis Calcium [Mass/Vol] 8.4 mg/dL Critically low 8.5-10.1 [facility] Comment on above: Performed By: #### L IPID, TSH, LIPA, T7, CMP, KARRIE #### [facility] [address] [place] [address] Dr. Ella Mathis Chloride [Moles/Vol] 107 mmol/L Normal 98-[address] [facility] Comment on above: Performed By: #### L IPID, TSH, LIPA, T7, CMP, KARRIE #### [facility] [address] [place] [address] Dr. Ella Mathis CO2 [Moles/Vol] 28.0 mmol/L Normal 21.0-32.0 [facility] Comment on above: Performed By: #### L IPID, TSH, LIPA, T7, CMP, KARRIE #### [facility] [address] [address] [address] Ella Mathis Creatinine [Mass/Vol] 1.02 mg/dL Normal 0.55-1.02 [facility] Comment on above: Performed By: #### L IPID, TSH, LIPA, T7, CMP, KARRIE #### [facility] [address] [place] [address] Dr. Ella Mathis EGFR-AF KENYAN >60 Normal >=60 [facility] Comment on above: Performed By: #### L IPID, TSH, LIPA, T7, CMP, KARRIE #### [facility] [address] [place] [address] Dr. Ella Mathis EGFR-NON AF KENYAN 54 mL/min/1.73m2 Critically low >=60 [facility] Comment on above: Performed By: #### L IPID, TSH, LIPA, T7, CMP, KARRIE #### [facility] [address] [place] [address] Dr. Ella Mathis Globulin (S) [Mass/Vol] 3.0 g/dL Normal [facility] Comment on above: Performed By: #### L IPID, TSH, LIPA, T7, CMP, KARRIE #### [facility] [address] [place] [address] Dr. Ella Mathis Glucose [Mass/Vol] 86 mg/dL Normal 74-106 [facility] Comment on above: Performed By: #### L IPID, TSH, LIPA, T7, CMP, KARRIE #### [facility] [address] [place] [address] Dr. Ella Mathis Potassium [Moles/Vol] 3.8 mmol/L Normal 3.5-5.[address] [facility] Comment on above: Performed By: #### L IPID, TSH, LIPA, T7, CMP, KARRIE #### [facility] [address] [place] [address] Dr. Ella Mathis Protein [Mass/Vol] 6.4 g/dL Normal 6.4-8.2 [facility] Comment on above: Performed By: #### L IPID, TSH, LIPA, T7, CMP, KARRIE #### [facility] [address] [address] [address] Ella Mathis Sodium [Moles/Vol] 140 mmol/L Normal 136-145 [facility] Comment on above: Performed By: #### L IPID, TSH, LIPA, T7, CMP, KARRIE #### [facility] [address] [place] [address] Dr. Ella Mathis Urea nitrogen [Mass/Vol] 21.0 mg/dL Critically high 7.0-18.0 [facility] Comment on above: Performed By: #### L IPID, TSH, LIPA, T7, CMP, KARRIE #### [facility] [address] [place] [address] Dr. Ella Mathis Urea nitrogen/Creatinine [Mass ratio] 20.6 mg/mg Normal [facility] Comment on above: Performed By: #### L IPID, TSH, LIPA, T7, CMP, KARRIE #### [facility] [address] [place] [address] Dr. Ella Mathis PROTIMEon 03-23-2022 INR Coag (PPP) [Relative time] 0.94 {INR} Normal [facility] Comment on above: Performed By: #### P TT, PT #### [facility] [address] [place] [address] Dr. Ella Mathis INR GUIDELINES SEE BELOW Normal [facility] Comment on above: Result Comment: BERNA RED INR: 2.0 - 3.0 CONDITIONS NOT LISTED BELOW 2.5 - 3.5 FOR PROSTHETIC HEART VALVE REPLACEMENT 2.5 - 3.5 RECURRENT THROMBOSIS Performed By: #### P TT, PT #### [facility] [address] [place] [address] Dr. Ella Mathis PT Coag (PPP) [Time] 10.2 s Normal 9.0-11.6 [facility] Comment on above: Performed By: #### P TT, PT #### [facility] [address] [place] [address] Dr. Ella Mathis PTTon 03-23-2022 aPTT Coag (Bld) [Time] 26.2 s Normal 22.3-36.[address] [facility] Comment on above: Performed By: #### P TT, PT #### [facility] [address] [address] [address] Ella Mathis TSHon 03-23-2022 TSH 3.098 uIU/mL Normal 0.358-3.740 [facility] Comment on above: Performed By: #### P TT, PT #### [facility] [address] [address] [address] Ella Mathis TSH RANGE SEE BELOW Normal [facility] Comment on above: Result Comment: <0.3 4 UIU/ml HYPERTHYROID 0.34-5.60 UIU/ml EUTHYROID >5.60 UIU/ml HYPOTHYROID Performed By: #### P TT, PT #### [facility] [address] [address] [address] Ella Mathis US SINGLE QUAD RT [...] ASHLEY DAVIS Date: 2022-03-23 10:08 Normal [facility] COVID 19 IGG ANTIBODY, NUCLE OCAPSIDon 03-10-2022 SARS-CoV-2 (COVID-19) IgG IA Ql Negative [facility] Comment on above: Reference range: [...] providers and patients using the following websites: [employer]Me/home/Covid-19/HCP/antibody/fact-sheet2 [employer]Me/home/Covid-19/Patients/antibody/fact-sheet2 This test has been authorized by the FDA under an Emergency Use Authorization (EUA) for use by authorized laboratories. The FDA authorized labeling is available on the [employer] website: www.GateMe/Covid19. For additional information please refer to http://education.ArtistForce/faq/KZB777 (This link is being provided for informational/educational purposes only.) Resulting Agency Address Site ID: QPT Name: [employer] [facility] Address: [address] [place] [id number] Director: Victor Manuel Lainez MD [facility] URINE CULTUREOrdered By: Olamide Whelan on 03-09-2022 Bacteria identified Cx Nom (U) 1,000 - 10,000 CFU/ml Multiple bacteria present suggesting contamination. [facility] Interpretation and review of laboratory results Normal [facility] IF clinically indicated, suggest appropriate recollection with timely delivery to the laboratory. For additional information, call ext [phone]. [facility] XR C-SPINE AP/LAT/OBLS/ODOon 03-09-2022 EXAMINATION: XR [...] is slightly progressed compared to prior. IMPRESSION: Annd-se-hcknxdij multilevel degenerative changes, slightly progressed from prior. [...] is slightly progressed compared to prior. IMPRESSION: Pjby-fa-tbnrutza multilevel degenerative changes, slightly progressed from prior. MACRO: None [facility] XR CHEST 2 VIEW PA+LATon EXAMINATION: XR [...] No acute cardiopulmonary abnormality identified. MACRO: None [facility] XR CHEST 2 VIEW PA+LATOrdere d By: Jose Russ on 03-09-2022 [facility] Work Phone: XR L-SPINE AP+LAT+OBL+CDon 0 03-09-2022 [...] to moderate multilevel degenerative changes. MACRO: None [facility] Basic metabolic 2000 panelon 03-08-2022 Anion gap [Moles/Vol] 14 mmol/L [facility] Calcium [Mass/Vol] 9.1 mg/dL 8.4 - 10. 4 mg/dL [facility] Chloride [Moles/Vol] 106 mmol/L 97 - 111 mmol/L [facility] CO2 [Moles/Vol] 26 mmol/L 21 - 30 mmol/L [facility] Creatinine [Mass/Vol] 1.18 mg/dL High 0.50 - 1.10 mg/dL [facility] GFR/1.73 sq M.predicted MDRD (S/P/Bld) [Vol rate/Area] 50 mL/min/{1.73_m2} Low >=60 mL/min/1.73sq m [facility] Comment on above: 2020 CKD EPI Equatio [...] Inclusion of Race in Diagnosing Kidney Disease. Ethiopian Journal of Kidney Diseases 202;79(2):268-88.e1. 2. N Engl J Med 1 Vol. 385 Issue 19 Pages 5215-3250 Glucose [Mass/Vol] 82 mg/dL 80 - 116 [...] [facility] DNA double strand Ab Qn (S) [IU]/mL [...] review of laboratory results Normal [facility] TOTAL PROTEIN WITH CREATININ E, RANDOM [...] [facility] Specific gravity (U) [Rel density] 1.025 [facility] Urobilinogen Qn (U) 0.2 mg/dL 0.2 - 1.0 [facility] WBC (U) [#/Vol] None Seen 0 - 2 /HPF [facility].HPF (Urine sed) [#/Area] 3-5 Abnormal 0 - 2 /HPF [facility] A negative leukocyte esterase AND negative nitrite [...] (positive predictive value for UTI around 50%) [facility] C-SPINE AP/LAT/OBLS/ODOon 03-08-2022 Radiology Study observation (narrative) [facility] XR CHEST 2 VIEW PA+LATon Radiology Study observation (narrative) [facility] XR L-SPINE AP+LAT+OBL+CDon 0 03-08-2022 Radiology Study observation (narrative) [facility] [place] [address] Ultrasound Report Signed Patient: Linnea Culp MR#: [id number] : 1950 Acct:[id number] Age/Sex: 68 / F ADM Date: 02/19/19 Loc: Room: Type: [facility] Attending Dr: Amber Acharya MD Ordering Provider: Amber Acharya MD Date of Service: 02/19/19 US/US venous duplex [facility]: ,79.89 Copies to: Amber Acharya MD LEFT [...] color-flow and augmentation. US/US venous duplex LE IMPRESSION: NO EVIDENCE OF DEEP VENOUS THROMBOSIS IN THE LEFT LOWER EXTREMITY. NO SUPERFICIAL THROMBOPHLEBITIS WAS NOTED. Impression dictated by: Jose Velazquez M.D.02/20/2019 11:34 AM Dictation Location: [place] [address] Tech: Cyn Guan Transcribed By: NÉSTOR 02/20/19 1134 Dictated By: Jose Velazquez MD 02/20/19 1133 Signed By: 02/20/19 1134 [facility] Vital Signs Date Time Vital Sign Value Performing Clinician Dionne egan 05-28-2024 09:39-0400 Body height 163.8 cm Amber Acharya MD Work Phone: [facility] 05-28-2024 09:39-0400 Body mass index (BMI) [Ratio] 35.66 kg/m2 Amber Acharya MD Work Phone: [facility] 05-28-2024 09:39-0400 Body weight 95.71 kg Amber Acharya MD Work Phone: [facility] 05-28-2024 09:39-0400 Diastolic blood pressure 64 mm[Hg] Amber Acharya MD Work Phone: [facility] 05-28-2024 09:39-0400 Heart rate 58 /min Amber Acharya MD Work Phone: [facility] 05-28-2024 09:39-0400 Respiratory rate 21 /min Amber Acharya MD Work Phone: [facility] 05-28-2024 09:39-0400 SaO2% (BldA) [Mass fraction] 99 % Amber Acharya MD Work Phone: [facility] 05-28-2024 09:39-0400 Systolic blood pressure 136 mm[Hg] Amber [facility]a MD [facility] 04-25-2023 13:45-0400 Body height 164 cm Amber Acharya MD Work Phone: [facility] 04-25-2023 13:45-0400 Body mass index (BMI) [Ratio] 35.64 kg/m2 Amber Acharya MD Work Phone: [facility] 04-25-2023 13:45-0400 Body temperature 98.01 [degF] Amber Acharya MD Work Phone: [facility] 04-25-2023 13:45-0400 Body weight 95.84 kg Amber Acharya MD Work Phone: [facility] 04-25-2023 13:45-0400 Diastolic blood pressure 66 mm[Hg] Amber Acharya MD Work Phone: [facility] 04-25-2023 13:45-0400 Heart rate 59 /min Amber Acharya MD Work Phone: [facility] 04-25-2023 13:45-0400 SaO2% (BldA) [Mass fraction] 97 % Amber Acharya MD Work Phone: [facility] 04-25-2023 13:45-0400 Systolic blood pressure 134 mm[Hg] Amber Acharya MD Work Phone: [facility] 08-09-2022 16:37-0400 Diastolic blood pressure 63 mm[Hg] Alfredito Sims MD Work Phone: [facility] 08-09-2022 16:37-0400 Heart rate 66 /min Alfredito Sims MD Work Phone: [facility] 08-09-2022 16:37-0400 SaO2% (BldA) [Mass fraction] 99 % Alfredito Sims MD Work Phone: [facility] 08-09-2022 16:37-0400 Systolic blood pressure 135 mm[Hg] Alfredito Sims MD Work Phone: [facility] 08-09-2022 16:00-0400 Body height 167.6 cm Alfredito Sims MD Work Phone: [facility] 08-09-2022 16:00-0400 Body mass index (BMI) [Ratio] 32.44 kg/m2 Alfredito Sims MD Work Phone: [employer] [facility] 08-09-2022 16:00-0400 Body temperature 96.6 [degF] Alfredito Sims MD Work Phone: [facility] 08-09-2022 16:00-0400 Body weight 91.17 kg Alfredito Sims MD Work Phone: [facility] 06-07-2022 11:19-0400 Body mass index (BMI) [Ratio] 34.5 kg/m2 Amber Acharya MD Work Phone: [facility] 06-07-2022 11:19-0400 Body weight 94.03 kg Amber Acharya MD Work Phone: [facility] 06-07-2022 11:19-0400 Diastolic blood pressure 61 mm[Hg] Amber Acharya MD Work Phone: [facility] [employer] 06-07-2022 11:19-0400 Heart rate 61 /min Amber Acharya MD Work Phone: [facility] 06-07-2022 11:19-0400 Systolic blood pressure 124 mm[Hg] Amber Acharya MD Work Phone: [facility] 03-08-2022 13:41-0400 Diastolic blood pressure 68 mm[Hg] Amber Acharya MD Work Phone: [facility] Comment on above: manual 03-08-2022 13:41-0400 Systolic blood pressure 111 mm[Hg] Amber Acharya MD Work Phone: [facility] Comment on above: manual 03-08-2022 13:01-0400 Body height 165.1 cm Amber Acharya MD Work Phone: [facility] 03-08-2022 13:01-0400 Body mass index (BMI) [Ratio] 33.45 kg/m2 Amber Acharya MD Work Phone: [facility] 03-08-2022 13:01-0400 Body weight 91.17 kg [facility] 03-08-2022 13:-0400 Heart rate 59 /min Amber Acharya MD Work Phone: [facility] Encounters Encounter Date Encounter Type Care Provider Facility Start: 06-22-2024 End: 06-22-2024 Letter encounter [facility] Bashir [facility] Start: 06-02-2024 End: 06-02-2024 ambulatory [facility] Start: 05-28-2024 End: 05-28-2024 Clinical Support Romelia Dunn [facility] Comment on above: Arrived Start: 05-28-2024 ambulatory UNKNOWN PROVIDER Facili ty:[facility] Start: 05-28-2024 End: 06-04-2024 Office outpatient visit 25 minutes Amber Acharya MD Work Phone: [facility] Rheumatology Comment on above: SLE (systemic lupus erythematosus related syndrome) (HCC) (Primary Dx); Fibromyalgia; Other specified menopausal and perimenopausal disorders; Intercostal neuritis; Body mass index (BMI) 35.0-35.9, adult Start: 05-28-2024 ambulatory UNKNOWN PROVIDER Facili ty:[facility] Start: 03-16-2024 Letter encounter Dorita Joshi Work Phone: [facility] Start: 03-05-2024 End: 03-06-2024 Telephone encounter Amber Acharya MD Work Phone: [facility] Rheumatology (Arthritis) Start: 02-27-2024 End: 02-27-2024 Patient encounter procedure Phe Emg Pmr Provider [facility] Neurology Comment on above: Numbness and tinglin g of both legs below knees (Primary Dx) Start: 02-27-2024 End: 02-27-2024 ambulatory AMBER ACHARYA Facility:[facility] Start: 01-30-2024 End: 01-31-2024 ambulatory AMBER ACHARYA Facility:[facility] Start: 01-30-2024 End: 02-09-2024 ambulatory DORITA BASHIR Facility:[facility] Start: 06-04-2023 Telephone encounter Amber yanez MD Work Phone: [facility] Rheumatology (Arthritis) Start: 05-14-2023 Telephone encounter Amber yanez MD Work Phone: [facility] Rheumatology (Arthritis) Start: 05-03-2023 Telephone encounter Amber yanez MD Work Phone: [facility] Rheumatology (Arthritis) Start: 04-25-2023 End: 04-25-2023 Nursing evaluation of patient and report [facility] Comment on above: Routine adult health maintenance (Primary Dx) Start: 04-25-2023 End: 04-25-2023 Patient encounter status Romelia Dunn [facility] Start: 04-25-2023 Letter encounter Dorita Joshi Work Phone: [facility] Rhe[facility]ology Start: 04-25-2023 End: 04-27-2023 Office outpatient visit 40 minutes Amber Acharya MD Work Phone: [facility] Rhe[facility]ology Comment on above: [id number] syndro me (Primary Dx); Pulmonary hypertension, mild (HCC); Chronic midline low back pain without sciatica; History of systemic lupus erythematosus (HCC); Dysuria; Numbness of legs; Vitamin D deficiency; Pain in both knees, unspecified chronicity; Chronic bilateral low back pain without sciatica; Grief reaction; B12 deficiency; Body mass index (BMI) 35.0-35.9, adult Start: 03-25-2023 Letter encounter Dorita Joshi Work Phone: [facility] Start: 10-16-2022 End: 10-16-[address] DORITA BASHIR Facility:[facility] Start: 10-11-2022 End: 10-12-[address] DORITA BASHIR Facility:[facility] Start: 10-03-2022 End: 10-04-[address] DORITA BASHIR Facility:[facility] Start: 09-08-2022 End: 09-09-[address] DORITA BASHIR Facility:[facility] Start: 09-06-2022 End: 09-07-[address] DORITA BASHIR Facility:[facility] Start: 09-06-2022 End: 09-06-2022 Phys/qhp telephone evaluation 21-30 min Jasiel Selby FRONT OFFICE COORDINATOR-GENERAL ADMINISTRATOR Work Phone: [facility] Comment on above: Intercostal neuritis (Primary Dx) Start: 08-28-2022 End: 08-29-[address] DORITA BASHIR Facility:[facility] Start: 08-22-2022 End: 08-22-[address] DORITA BASHIR Facility:[facility] Start: 08-09-2022 End: 08-09-2022 Patient encounter procedure Alfredito Sims MD Work Phone: [facility] Procedure Room Comment on above: Intercostal neuritis (Primary Dx) Start: 07-29-2022 Letter encounter Dorita Joshi Work Phone: [facility] Patient Access Start: 07-28-2022 Letter encounter Dorita Joshi Work Phone: [facility] Start: 06-07-2022 Letter encounter Dorita Joshi Work Phone: [facility] Rheumatology Start: 06-07-2022 End: 06-11-2022 Office outpatient visit 25 minutes Amber Acharya MD Work Phone: [facility] Rhe[facility] Comment on above: 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); Facet joint disease of lumbosacral region; Intercostal neuralgia; Body mass index (BMI) 34.0-34.9, adult Start: 03-23-2022 End: 03-24-[address] DORITA BASHIR Facility:[facility] Start: 03-19-2022 Letter encounter Dorita Joshi Work Phone: [facility] Start: 03-08-2022 Letter encounter Dorita Joshi Work Phone: [facility] Rhe[facility]ology Start: 03-08-2022 End: 03-15-2022 Office outpatient visit 25 minutes Amber Acharya MD Work Phone: [facility] Comment on above: Carpopedal spasm (Pr imary Dx); Dizziness; SLE (systemic lupus erythematosus related syndrome) (HCC); Hypothyroidism, unspecified type; Right-sided chest wall pain; Body mass index (BMI) 33.0-33.9, adult Start: 02-19-2019 End: 02-19-2019 Patient encounter procedure Dorita Bashir Facility:[facility] Procedures Date Procedure Procedure Detail Performing Clinician [...] Cholesterol [Mass/volume] in Serum or Plasma Cholesterol [facility] Start: 05-28-2025 Creatinine measurement Basic Metabol ic Panel [facility] Start: 01-29-2025 Creatinine measurement Basic Metabol ic Panel [facility] Start: 09-17-2024 End: 09-17-2024 Patient encounter procedure 09/17/2024 11:00 AM EST Office Visit [facility] Rhe[facility] [address] [place] [id number] Amber Acharya MD [address] [place] [address] [facility] Start: 08-12-2024 Influenza vaccination Influenza Vacc ine (#1) [facility] Start: 05-28-2024 End: 05-28-2025 DXA Skeletal system Views for bone density BD BONE DENSITY SURVEY Imaging Routine Other specified menopausal and perimenopausal disorders Expected: 05/28/2024, Expires: 05/28/[address] Work Phone: Comment on above: Expected: 05/28/2024 , Expires: 05/28/2025 Start: 05-28-2024 End: 05-28-2024 Patient encounter procedure 05/28/2024 9:40 AM EDT Office Visit [facility] Rhe[facility]ology [address] [place] [address] Amber Acharya MD [address] [place] [address] [facility] Start: 04-25-2024 Basic metabolic 2000 panel - Serum or Plasma Basic Metabolic Panel [facility] Start: 03-01-2024 COVID Vaccine 2022- 024 Additional Dose (65+ years) COVID Vaccine [id number] Additional Dose (65+ years) [facility] Start: 03-01-2024 COVID-19 Vaccine (2022- season) COVID-19 Vaccine ( season) [facility] Start: 08-12-2023 Influenza vaccination Influenza Vacc ine (#1) [facility] Start: 04-25-2023 End: 04-25-2024 XR Knee - bilateral AP and Lateral W standing XR KNEES RIGHT AND LEFT STANDING AP/LAT 2 VIEWS Imaging Routine Pain in both knees, unspecified chronicity Expected: 04/25/2023, Expires: 04/25/2024 [facility] Work Phone: Comment on above: Expected: 04/25/2023 , Expires: 04/25/2024 Start: 04-25-2023 End: 04-25-2023 Patient encounter procedure 04/25/2023 Office Visit Rheumatology Amber Acharya MD [address] [place] [address] [facility] Start: 03-08-2023 Basic metabolic 2000 panel - Serum or Plasma Basic Metabolic Panel [facility] Start: 03-08-2023 Thyroid stimulating hormone measurement TSH [facility] Start: 10-25-2022 End: 10-25-2022 Patient encounter procedure 10/25/2022 Office Visit Rheumatology Amber Acharya MD [address] [place] [address] [facility] Start: 09-06-2022 End: 09-06-2022 Telemedicine consultation with patient 09/06/2022 [facility] Selby Jasiel, FRONT OFFICE COORDINATOR-GENERAL ADMINISTRATOR [address] [place] [address] [facility] Start: 08-12-2022 Influenza vaccination Influenza Vacc ine (#1) [facility] Start: 08-09-2022 End: 08-09-2022 Patient encounter procedure 08/09/2022 Office Visit Outpatient [facility] Alfredito Sims MD [address] [place] [address] [facility] Procedure Room Start: 06-12-2022 COVID-19 Vaccine (5 - Booster for Pfizer series) COVID-19 Vaccine (5 - Booster for Pfizer series) [facility] Start: 06-07-2022 End: 06-07-2022 Patient encounter procedure 06/07/2022 Office Visit Rheumatology Amber Acharya MD [address] [place] [address] [facility] Start: 11-12-2017 Annual wellness visit [id number] Start: 11-24-2016 Pneumococcal vaccination [facility] Start: 01-19-2016 Pneumococcal vaccination [facility] Start: 2011 Hepatitis B (HBV) Vaccine [...] Hepatitis C screening Hepatitis C An tibody [facility] Start: 1969 Tetanus + diphtheria + acellular pertussis vaccine (product) Tdap Booster [facility] Start: 1950 Ejection Fraction Ejection Fraction [facility] Start: 1950 Screening for malign ant neoplasm of colon Colonoscopy [facility] Protein total xcpt refractometry urine TOTAL PROTEIN WITH CREATININE, RANDOM URINE Lab Routine SLE (systemic lupus erythematosus related syndrome) (HCC) Ordered: 05/28/2024 [facility] Comment on above: Ordered: 05/28/2024 Immunizations Immunization Date Immunization Notes Care Provider [facility] 10-11-2022 Influenza, seasonal vaccine, quadrivalent, adjuvanted, 0.5mL dose, preservative free (WTJ=248) Dorita Bashir MD Work Phone: [facility] 10-11-2022 influenza virus vaccine, unspecified formulation Amber Acharya MD Work Phone: [facility] 04-17-2022 Pfizer Monovalent (12+ yrs) SARS-COV-2 (COVID-19) vaccine, mRNA, spike protein, LNP, pres. free, 30 mcg/0.3mL dose, jordi-sucrose (QBV=101) Dorita Bashir MD Work Phone: [facility] 09-07-2021 Influenza, injectable, high-dose seasonal, quadrivalent, 0.7 mL, preservative free (RTZ=880) Dorita Bashir MD Work Phone: [facility] 09-07-2021 influenza virus vaccine, unspecified formulation Dorita Bashir MD Work Phone: [facility] 01-13-2021 Pfizer SARS-COV-2 (COVID-19) vaccine, age 12+ yrs, mRNA, spike protein, LNP, preservative free, 30 mcg/0.3mL dose (RDE=403) Dorita Bashir MD Work Phone: [facility] 12-23-2020 Pfizer SARS-COV-2 (COVID-19) vaccine, age 12+ yrs, mRNA, spike protein, LNP, preservative free, 30 mcg/0.3mL dose (FRQ=271) Dorita Bashir MD Work Phone: [facility] 08-25-2020 Seasonal trivalent influenza vaccine, adjuvanted, preservative free Dorita Bashir MD Work Phone: [facility] 08-29-2017 influenza virus vaccine, unspecified formulation Dorita Bashir MD Work Phone: [facility] 12-07-2016 tetanus and diphtheria toxoids, adsorbed, preservative free, for adult use (5 Lf of tetanus toxoid and 2 Lf of diphtheria toxoid) Dorita Bashir MD Work Phone: [facility] 11-24-2015 influenza, injectable, quadrivalent, preservative free Dorita Bashir MD Work Phone: [facility] Work Phone: 11-24-2015 pneumococcal conjugate vaccine, 13 valent Dorita Bashir MD Work Phone: [facility] NEGATED: Highlighted row has not occurred!11-27-2018 Seasonal trivalent influenza vaccine, adjuvanted, preservative free Dorita Bashir MD Work Phone: [facility] Work Phone: Comment on above: Deferred: Patient De nisreen - ptto get it at her PCP Payers Date Payer Category Payer Self-pay 2016 Medicare MEDICARE MEDICAR E PART A & B [id number] 2016-Present [address] [place] [address] Medicare [id number] 2016 Unknown COMMERCIAL INSUR ANCE - OTHER COMMERCIAL INSURANCE OTHER [id number] 2016-Present [phone] [address] [place] [address] Indemnity [id number] 1959 Medicare [id number] 1959 Unknown [id number] 1951 Unknown [id number] [id number]3 1951 Unknown [id number] 2.16.840.1.669983.3.579.2.593 1951 Unknown [id number] 2.16.840.1.810484.3.579.2.593 1951 Unknown [id number] 2.16.840.1.140862.3.579.2.593 1951 Unknown [id number] 2.16.840.1.053863.3.579.2.593 1951 Unknown [id number] 2.16.840.1.524579.3.579.2.593 1951 Unknown [id number] 2.16.840.1.251840.3.579.2.593 1951 Unknown [id number] 2.16.840.1.236767.3.579.2.593 1951 Unknown [id number] 2.16.840.1.270915.3.579.2.732 1950 Unknown [id number] 2.16.840.1.982705.3.579.2.732 1950 Unknown [id number] 2.16.840.1.351919.3.579.2.732 1951 Unknown [id number] 2.16.840.1.103285.3.579.2.732 1951 Unknown [id number] 2..840.1.639992.3.579.2.732 1950 Unknown [id number] 2.16.840.1.793096.3.579.2.732 1951 Unknown [id number] 2..840.1.679164.3.579.2.73 Unknown [id number] 2..840.1.662196.3.579.2.531 Social History Date Type Detail Facility Start: 02-23-2016 Tobacco smoking status OHIS Never sm oked tobacco [facility] Start: 02-23-2016 [...] to any clubs or organizations such as gnosticist groups, unions, fraternal or athletic groups, or [...] Never true [facility] Start: 04-18-2023 Education 17 [facility] Clinical Notes 03-08-2022 to 06-02-2024 Amber Acharya MD - 05/30/2024 6:27 PM Amber Sosa MD - 05/28/2024 10:01 AM Leslye Muller RN - 05/28/2024 9:30 AM Juana Otto - 05/28/2024 10:35 AM EDTPatient Instructions Note Date & Type Note Facility 06-02-2024 Note [place] Cardiology - [facility] Subjective Linnea Culp is a [...] December 2020 she was evaluated at the [facility] due to chest pain. Stress test and echocardiogram were nonrevealing. She has lupus since 2017 and follows with rheumatology. She is on [...] 5 mcg tab (more content not included)... [facility] 05-30-2024 History of Present illness Narrative Potassium just a tad up and kidney function a tad down Please stay hydrated. Please discuss with Dr. Mckay Acharya MD CC SLE and low back pain and LE neuropathy HPI and ROS Linnea Culp is 73 year old with SLE who had a little rash on her arms despite sun screen. Drove to [place] over 5 days. Went to [place]. Saw [place] horse in [place]. No Raynaud's No alopecia No nose or [...] Color Colorless Appearance Clear pH 6.0 Spec [place] 1.009 Protein Negative Blood Negative Bilirubin Negative [...] date of . documented in this encounter [facility] 05-28-2024 History of Present illness Narrative Patient was identified by name and date of . Juana Barrios Vein puncture preformed patient tolerated well. Juana Barrios MPA Patient left urine sample. Urine was drawn up and sent to the lab. Juana Barrios MPA documented in this encounter [facility] 05-28-2024 Instructions Amber Acharya MD - 05/28/2024 10:21 AM EDT Please ask Dr. Bashir about a right upper quadrant ultrasound because of the pain you are having If it is normal schedule with pain and healing to see if this is intercostal neuritis (also see if beeter on the gabapentin) documented in this encounter [facility] 04-28-2024 Telephone encounter Note Faxed completed physical therapy forms to [facility] #[phone]. Confirmation received. Added a copy of forms to media folder. [facility] 04-28-2024 Miscellaneous Notes Faxed completed physical therapy forms to [facility] #[phone]. Confirmation received. Added a copy of forms to media folder. Outpatient physical therapy discharge summary Added to media folder documented in this encounter [facility] 03-05-2024 Note Outpatient physical therapy discharge summary Added to media folder [facility] 03-05-2024 Telephone encounter Note Outpatient physical therapy discharge summary Added to media folder [facility] 03-05-2024 Miscellaneous Notes Outpatient physical therapy discharge summary Added to media folder documented in this encounter [facility] 02-27-2024 Note Procedure: Nerve con [...] to be scanned to the record [facility] 02-27-2024 History of Present [...] to the record documented in this encounter [facility] 06-04-2023 Telephone encounter Note [facility] discharge form, pending provider signature added to media folder. Copy also placed on provider desk. [facility] 06-04-2023 Miscellaneous Notes [facility] discharge form, pending provider signature added to media folder. Copy also placed on provider desk. documented in this encounter [facility] 05-14-2023 Telephone encounter Note The [facility] Physical Therapy Initial Examination notes added to media folder. [facility] 05-14-2023 Miscellaneous Notes The [facility] Physical Therapy Initial Examination notes added to media folder. documented in this encounter [facility] 05-03-2023 Telephone encounter Note From the [facility] XR of the knee Added to media folder. [facility] 05-03-2023 Miscellaneous Notes From the [facility] XR of the knee Added to media folder. documented in this encounter [facility] 04-25-2023 History of Present illness Narrative Patient was identified by name and date of . Romelia Dunn Venipuncture performed patient tolerated well Romelia Dunn MPA Patient leaving urine sample documented in this encounter [facility] 04-25-2023 Instructions Amber Acharya MD - 04/25/2023 2:07 PM EDT Please tell your firearms assembly supervisor that we would like an ECHO to estimate pulmonary pressures given possible Obstructive sleep apnea and history of lupus documented in this encounter [facility] 04-25-2023 History of Present illness [...] Color Yellow Appearance Clear pH 5.5 Spec [place] 1.019 Protein 30 (A) Blood Negative Bilirubin [...] Multiple bacteria present suggesting contamination. 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 Plan: EXTERNAL SERVICE REQUEST FOR CARE OUTSIDE THE [facility] She is to see [...] patient has lost a brother and a [id number] in almost lost her son her brother [...] Amber Acharya MD documented in this encounter [facility] 09-07-2022 Note PROCEDURE: XR HAND [...] by: HECTOR LING Date: 2022-09-07 06:[address] [facility] 09-07-2022 Note PROCEDURE: XR HAND L [...] authenticated by: HECTOR LING Date: 2022-09-07 06:48 [facility] 09-06-2022 History of Present illness Narrative PAIN MANAGEMENT FOLLOW-UP Documentation: Mode: Telephone Patient Patient Work Phone: Patient Cell Preferred phone: [phone] Consent: I confirmed patient understanding of the [...] supply ALYSSA Ward documented in this encounter [facility] 08-09-2022 History of Present illness [...] Alfredito Sims MD,CHANO documented in this encounter [facility] 08-09-2022 Instructions CreoleRose RN - 08/09/2022 4:17 PM EDT Pain [...] ordering physician as directed. Pain Management office: [phone] You may call [phone] and ask for the chronic pain fellow aeronautical engineering technologist after office hours with any questions or concerns. documented in this encounter [facility] 06-07-2022 Instructions Amber Acharya MD - 06/07/2022 11:55 AM EDT Please fax ultrasound results [phone] Revisit with me in 4 months See pain management documented in this encounter [facility] 06-07-2022 History of Present illness [...] Amber Acharya MD documented in this encounter [facility] 03-11-2022 History of Present illness [...] Light Yellow Appearance Clear pH 6.0 Spec [place] 1.025 Protein Negative Blood Negative Bilirubin Negative [...] SLE (systemic lupus erythematosus related syndrome) (HCC) Comment: labs ok Plan: COMPLETE BLOOD COUNT [...] . Cristopher Muse documented in this encounter [facility] 03-08-2022 Instructions Amber Acharya MD [...] [facility] [id number] syndrome- Primary Pulmonary hypertension, mild (HCC) Other [...] CHEST 2 VIEW PA+LAT Amber Acharya MD [address] [place] [address] [facility] [address] [place] [address] [place] [address] Referral ID Status Reason Start Date Expiration Date Visits Re quested Visits Authorized [id number] Closed 03/08/2022 03/08/2023 1 1 Specialty Diagnoses / Procedures Referred By Contac t Referred To Contact Radiology Diagnoses Carpopedal spasm Procedures XR L-SPINE AP+LAT+OBL+CD Amber Acharya MD [address] [place] [address] [facility] [address] [place] [address] [place] [address] Referral ID Status Reason Start Date Expiration Date Visits Re quested Visits Authorized [id number] Closed 03/08/2022 03/08/2023 1 1 Specialty Diagnoses / Procedures Referred By Contac t Referred To Contact Radiology Diagnoses Carpopedal spasm Procedures XR C-SPINE AP/LAT/OBLS/ODO Amber Acharya MD [address] [address] [facility] [address] [place] [address] [place] [address] Referral ID Status Reason Start Date Expiration Date Visits Re quested Visits Authorized [id number] Closed 03/08/2022 03/08/2023 1 1 Specialty Diagnoses / Procedures Referred By Contac t Referred To Contact Diagnoses 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 You will be contacted to schedule your appointment within 24 - 48 hours. If you are not contacted within this time frame please call the [facility] at [phone] to schedule your appointment. Question Answer Reason for Referral: Other [26] Comments Has neck and lumbar facet jt arthritis and ? 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, prefers [address] ?procedure helpful for facet joints and intercostal nervew Specialty Diagnoses / Procedures Referred By Carrie mock Referred To Contact Radiology Diagnoses Pain in both knees, unspecified chronicity Procedures XR KNEES RIGHT AND LEFT STANDING AP/LAT 2 VIEWS Amber Acharya MD [address] [address] [facility] [address] [place] [address] Referral ID Status Reason Start Date Expiration Date V isits Requested Visits Authorized [id number] Authorized 04/25/2023 04/24/2024 1 1 Specialty Diagnoses / Procedures Referred By Carrie t Referred To Contact Pulmonary Medicine Diagnoses Pulmonary hypertension, mild (HCC) Amber Acharya MD [address] [address] [facility] [address] [place] [address] Referral ID Status Reason Start Date Expiration Date V isits Requested Visits Authorized [id number] Authorized 04/25/2023 10/22/2023 3 3 Scheduling Instructions Please call sleep medicine at to schedule an appointment with a sleep medicine provider. Comments Indicate patient symptoms:insomnia and other -and snoring Specialty Diagnoses / Procedures Referred By Carrie mock Referred To Contact Diagnoses Dqbn-[id number] syndrome Amber Acharya MD [address] [address] Referral ID Status Reason Start Date Expiration Date Visits Requested Visits Authorized [id number] Authorized Patient Preference 04/25/2023 04/25/2024 3 3 Specialty Diagnoses / Procedures Referred By Contac t Referred To Contact Diagnoses Intercostal neuritis Amber Acharya MD [address] [address] [facility] [place] [address] Referral ID Status Reason Start Date Expiration Date Visits Requested Visits Authorized [id number] Authorized Consultatio [facility] 05/28/2024 05/28/2025 1 1 Question Answer Reason for Referral: Other [26] - intercostal neuritis Specialty Diagnoses / Procedures Referred By Contac t Referred To Contact Radiology Diagnoses Menopausal and female climacteric states Other specified menopausal and perimenopausal disorders Procedures BD BONE DENSITY SURVEY Amber Acharya MD [address] [address] [facility] BONE DENSITY [address] [place] [address] Referral ID Status Reason Start Date Expiration Date V isits Requested Visits Authorized [id number] Authorized 05/28/2024 05/28/2025 1 1 Additional Source Comments INFORMATION SOURCE (unrecogn ized section and content) DATE CREATED AUTHOR 02/21/2019 [facility] DATE CREATED AUTHOR AUTHOR'S ORGANIZ ATION 10/21/2022 [facility] DATE CREATED AUTHOR AUTHOR'S ORGANIZ ATION 06/05/2024 [facility] DATE CREATED AUTHOR AUTHOR'S ORGANIZ ATION 06/19/2024 [facility] Care Teams (unrecognized sec tion and content) Etiologist Relationship Specialty Start Date End Date Dorita Bashir MD [address] [place] [address] PCP - General Family Medicine 03/30/14 Amber Acharya MD [address] [place], [place] [id number] Physician Rheumatology 08/17/20 Etiologist Relationship Specialty Start Date End Date Dorita Bashir MD [address] [place] [address] PCP - General Family Medicine 03/30/14 Amber Acharya MD [address] [place] [address] Physician Rheumatology 08/17/20 Etiologist Relationship Specialty Start Date End Date Dorita Bashir MD [address] [place] [address] PCP - General Family Medicine 03/30/14 Amber Acharya MD [address] [place] [address] Physician Rheumatology 08/17/20 Etiologist Relationship Specialty [place] [address] [place], [place] [id number] PCP - General Family Medicine 03/30/14 Amber Acharya MD [address] [place] [address] Physician Rheumatology 08/17/20 Etiologist Relationship Specialty Start Date End Date Dorita Bashir MD [address] [place] [address] PCP - General Family Medicine 03/30/14 Amber Acharya MD [address] [place] [address] Physician Rheumatology 08/17/20 Etiologist Relationship Specialty Start Date End Date Dorita Bashir MD [address] [place] [address] PCP - General Family Medicine 03/30/14 Amber Acharya MD [address] [place] [address] Physician Rheumatology 08/17/20 Etiologist Relationship Specialty Start Date End Date Dorita Bashir MD [address] [place] [address] PCP - General Family Medicine 03/30/14 Amber Acharya MD [address] [place] [address] Physician Rheumatology 08/17/20 Alfredito Sims MD [address] [place] [address] [place] [address] Physician Anesthesiology 08/12/22 Etiologist Relationship Specialty Start Date End Date Dorita Bashir MD [address] [place] [address] PCP - General Family Medicine 03/30/14 Amber Acharya MD [address] [place] [address] Physician Rheumatology 08/17/20 Alfredito Sims MD [address] [place] [address] [place] [address] Physician Anesthesiology 08/12/22 Etiologist Relationship Specialty Start Date End Date Dorita Bashir MD [address] [place], [place] [id number] PCP - General Family Medicine 03/30/14 Amber Acharya MD [address] [place] [address] Physician Rheumatology 08/17/20 Alfredito Sims MD [address] [place] [address] [place] [address] Physician Anesthesiology 08/12/22 Etiologist Relationship Specialty Start Date End Date Dorita Bashir MD [address] [place], [place] [id number] PCP - General Family Medicine 03/30/14 Amber Acharya MD [address] [address] Physician Rheumatology 08/17/20 Alfredito Sims MD [address] [place], [place] [id number] Physician Anesthesiology 08/12/22 Etiologist Relationship Specialty Start Date End Date Dorita Bashir MD [address] [place] [address] PCP - General Family Medicine 03/30/14 Amber Acharya MD [address] [place], [place] [phone] Physician Rheumatology 08/17/20 Alfredito Sims MD [address] [place], [place] [id number] Physician Anesthesiology 08/12/22 Etiologist Relationship Specialty Start Date End Date Dorita Bashir MD [address] [place], [place] [id number] PCP - General Family Medicine 03/30/14 Amber Acharya MD [address] [place] [address] Physician Rheumatology 08/17/20 Alfredito Sims MD [address] [place] [address] [place] [address] Physician Anesthesiology 08/12/22 Etiologist Relationship Specialty Start Date End Date Dorita Bashir MD [address] [place] [address] PCP - General Family Medicine 03/30/14 Amber Acharya MD [address] [place] [address] Physician Rheumatology 08/17/20 Alfredito Sims MD [address] [place] [address] [place] [address] Physician Anesthesiology 08/12/22 Etiologist Relationship Specialty Start Date End Date Dorita Bashir MD [address] [place], [place] [id number] PCP - General Family Medicine 03/30/14 Amber Acharya MD [address] [place] [address] Physician Rheumatology 08/17/20 Alfredito Sims MD [address] [place] [address] [place] [address] Physician Anesthesiology 08/12/22 Etiologist Relationship Specialty Start Date End Date Dorita Bashir MD [address] [place] [address] PCP - General Family Medicine 03/30/14 Amber Acharya MD [address] [place] [address] Physician Rheumatology 08/17/20 Alfredito Sims MD [address] [place] [address] [address] [place] [place] [id number] Physician Anesthesiology 08/12/22 Etiologist Relationship Specialty Start Date End Date Dorita Bashir MD [address] [place] [address] PCP - General Family Medicine 03/30/14 Amber Acharya MD [address] [address] Physician Rheumatology 08/17/20 Alfredito Sims MD [address] [place] [address] [address] [place] [id number] Physician Anesthesiology 08/12/22 Etiologist Relationship Specialty Start Date End Date Dorita Bashir MD [address] [place] [address] PCP - General Family Medicine 03/30/14 Amber Acharya MD [address] [place] [address] Physician Rheumatology 08/17/20 Alfredito Sims MD [address] [place] [address] [address] [place] [id number] Physician Anesthesiology 08/12/22 Reason for Visit (unrecogniz ed section and content) Reason Comments Monitoring/follow-up Reason Comments Monitoring/follow-up Reason Comments Procedure Specialty Diagnoses / Procedures Referred By Contac t Referred To Contact Pain Management Diagnoses 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 Procedures PVB THORACIC SINGLE INJ SITE Right T 5 Thoracic paravertebral block Alfredito Sims MD [address] [place] [id number] [facility] [address] [place] [id number] Referral ID Status Reason Start Date Expiration Date V isits Requested Visits Authorized [id number] Closed [facility] of [facility] 07/28/2022 10/27/2022 1 1 Reason Comments Discuss results test/procedures Medication Management Reason Comments Blood test Reason Comments Pain In multiple sites Numbness/tingling Specialty Diagnoses / Procedures Referred By Contac t Referred To Contact Neurology Diagnoses Numbness and tingling of both legs below knees Procedures EMG Amber Acharya MD [address] [place] [address] Referral ID Status Reason Start Date Expiration Date V isits Requested Visits Authorized [id number] Pending Review 01/30/2024 01/29/2025 3 3 Reason [...] BE BASED ON THE PRIMARY CLINICAL RECORDS. [employer] provides no warranty or guarantee of the accuracy or completeness of information in this document.
== END 2024-08-29 10:21 | disposition home or self-care (01) ==
LOC: US 10:20
PROVIDERS: PCP Family Medicine; Visit Provider Family Medicine
DX: K76.0 Fatty (change of) liver, not elsewhere classified (principal)
CPT/HCPCS: 76705

== ENCOUNTER 2025-02-04 13:51 | Outpatient (OUT) | payer MEDICARE, OTHER, SELFPAY ==
--- NOTE | 2025-02-04 14:00 | CA_ITS ---
Patient Name: KINDRA HUNTER MR#: [id number] : 1950 Exam Date: 02/04/2025 Ordering Doctor: DANILO TORRES CNP ECHOCARDIOGRAM REPORT PROCEDURE: CA ECHO DOPPLER COMPLETE INDICATIONS: Pulmonary hypertension, hypertension COMPARISON: None. DESCRIPTION: COMPLETE ECHOCARDIOGRAM Real-time transthoracic echocardiography with 2D, M-mode, spectral and color flow Doppler performed. QUALITY: Technical quality was good. LEFT VENTRICLE: Normal chamber size. Normal left ventricular wall thickness. Normal systolic function. LV EF: Normal left ventricular ejection fraction, (>55%). DIASTOLIC: Grade II diastolic dysfunction. ATRIAL SEPTUM: Visually appears intact. LEFT ATRIUM: Moderate dilatation. RIGHT ATRIUM: Moderate dilatation. RIGHT VENTRICLE: Normal chamber size. Normal right ventricular systolic function. TRICUSPID VALVE: Normal mobility and thickness. No stenosis with mild to moderate regurgitation. Doppler studies reveal severely (>60) elevated right sided pressures. RVSP 62 mmHg (previously measured at RVSP 57 mmHg on echocardiogram 05/2024) MITRAL VALVE: Normal mobility and thickness. No evidence of mitral valve stenosis. There is no mitral annular calcification. Trivial mitral regurgitation. AORTIC VALVE: Normal trileaflet appearance. No visible sclerosis. Normal leaflet mobility. No evidence of aortic valve stenosis. Trivial aortic regurgitation. AORTIC ROOT: Normal diameter and appearance, measuring 3.0 cm. Ascending aorta is normal in size, measuring 3.0 cm. PULMONIC VALVE: Normal thickness and mobility. No stenosis. Trivial regurgitation. PERICARDIUM: No evidence of pericardial effusion. IVC: Collapses with inspirations. IVC is dilated (2.4 cm) PLEURA: CONCLUSION: 1. Normal ventricular size and systolic function. LVEF is estimated at 55 to 60%. 2. Normal right ventricular size and systolic function. 3. Moderate biatrial dilatation. 4. Grade 2 diastolic dysfunction. 5. Mild to moderate tricuspid regurgitation. 6. Severely elevated right-sided pressures. RVSP is 62 mmHg. Adult Echocardiography Procedure Report Left Ventricle LVEDD (3.7 - 5.6 cm): 3.90 cm LVESD (2.2 - 4.0 cm): 2.56 cm LVIVS thickness (0.6 - 1.2 cm): 1.13 cm LVPW thickness (0.5 - 1.0 cm): 0.94 cm e': 0.04 m/s E - e': 18.55 LVOT Max Gradient: 2.37 mm[Hg] LVOT Area (cm2): 0.77 m/s Peak Velocity (LVOT): 0.77 m/s Mean Velocity (LVOT): 0.49 m/s LVOT Diameter 2.10 cm Left Atrium LA Volume Index (2D A2C): 43.88 ml/m2 Left Atrium Systolic Dimension: 4.72 cm Mitral Valve MV E to A Ratio: 1.13 Mitral Valve A-Wave Peak Velocity: 0.72 m/s Mitral Valve E-Wave Peak Velocity: 0.81 m/s Right Ventricle Aorta AO Root Diam: 3.00 cm Ascending Ao Diam: 3.02 cm Aortic Valve AoV Area (Peak Jaren): 2.73 cm2, 2.73 cm2 AoV Area (VTI): 2.91 cm2, 2.91 cm2 Peak Velocity(Antegrade Flow): 0.97 m/s Peak Gradient(Antegrade Flow): 3.77 mm[Hg] Mean Velocity(Antegrade Flow): 0.64 m/s Mean Gradient(Antegrade Flow): 1.93 mm[Hg] Velocity Time Integral: 21.13 cm Tricuspid Valve Peak Velocity (Regurgitant Flow): 3.69 m/s Pulmonic Valve Peak Gradient: 2.42 mm[Hg], 2.78 mm[Hg] Right Atrium Right Atrium Systolic Pressure: 46.54 ml, 46.54 ml Dictated by: Asher Peralta M.D. on 02/04/2025 at 17:56 Approved by: Asher Peralta M.D. on 02/04/2025 at 18:02
== END 2025-02-04 13:52 | disposition home or self-care (01) ==
LOC: CARD 13:52
PROVIDERS: PCP Family Medicine; Visit Provider Nurse Practitioner Family
DX: I27.20 Pulmonary hypertension, unspecified (principal); I50.32 Chronic diastolic (congestive) heart failure
CPT/HCPCS: 93306

== ENCOUNTER 2025-03-25 15:20 | Outpatient (OUT) | payer MEDICARE, OTHER, SELFPAY ==
[2025-03-25 16:08] LABS: Alanine Aminotransferase 26 U/L (14-59); Albumin Globulin Ratio 1.1; Alkaline Phosphatase 68 U/L (46-116); Aspartate Amino Transferase 22 U/L (15-37); BUN Creatinine Ratio 19.4; Basophils Percent Auto 0.5 % (0.2-2.0); Bilirubin Total 0.4 mg/dL (0.2-1.0); Calcium 8.4 mg/dL (8.5-10.1); Carbon Dioxide 29.5 mmol/L (21.0-32.0); Chloride 108 mmol/L (98-107); Eosinophils Percent Auto 0.7 % (0.9-7.0); Estimated GFR (African America >60 (>=60 mL/min/1.73m^2); Estimated GFR (Non-African Ame 53 (>=60 mL/min/1.73m^2); Globulin 2.8 g/dL; Glucose 106 mg/dL (74-106); Hematocrit 37.4 % (36.0-48.0); Hemoglobin 12.8 g/dL (12.0-16.0); Immature Granulocytes Abs Auto 0.02 10^3/uL (0.00-0.03); Immature Granulocytes Pct Auto 0.3 % (0.0-0.5); Lymphocytes Absolute Auto 1.7 10^3/uL (1.2-3.8); Lymphocytes Percent Auto 28.1 % (20.5-60.0); Mean Corpuscular HGB Conc 34.2 g/dL (29.9-35.2); Mean Corpuscular Hemoglobin 32.1 pg (26.7-34.0); Mean Corpuscular Volume 93.7 fL (81.0-99.0); Mean Platelet Volume 10.5 fL (9.5-13.5); Monocytes Absolute Auto 0.4 10^3/uL (0.3-0.8); Monocytes Percent Auto 6.4 % (1.7-12.0); Neutrophils Absolute Auto 3.9 10^3/uL (1.4-6.5); Platelet Count 143 10^3/uL (150-450); Potassium 3.5 mmol/L (3.5-5.1); Red Blood Count 3.99 10^6/uL (4.20-5.40); Red Cell Distribution Width 12.3 % (11.0-15.0); Sodium 143 mmol/L (136-145); Total Protein 5.8 g/dL (6.4-8.2); Troponin I High Sensitivity 9.3 pg/mL (4.0-51.3); White Blood Count 6.1 10^3/uL (4.0-11.0)
== END 2025-03-25 15:21 | disposition home or self-care (01) ==
PROVIDERS: PCP Family Medicine; Visit Provider Family Medicine
DX: R53.83 Other fatigue (principal); I10 Essential (primary) hypertension; R06.02 Shortness of breath
CPT/HCPCS: 36415; 80053; 83880; 84484; 85025

== ENCOUNTER 2025-05-06 10:25 | Outpatient (OUT) | payer MEDICARE, OTHER, SELFPAY ==
--- OUTSIDE RECORDS SUMMARY | 2025-05-06 10:27 | XMS_ITS | Clinical Summary ---
Author Organization [facility] Address [address] [place] [address] Care Team Providers Care C Winforms Developer Name Role Phone Rafael Bashir MD Primary Care Provider [phone] Allergies Active Allergy Reactions Criticality Noted Date Comments Nirmatrelvir-Ritonavir Rash Low 01/22/2025 Medications aspirin 81 mg EC tablet in the morning. Acti ve atorvastatin (Lipitor) 80 mg tablet Take 80 mg by mouth at bedtime. 020 Active celecoxib (CeleBREX) 200 mg capsule celecoxib 200 mg capsule 022 Active hydroxychloroqu ine (Plaquenil) 200 mg tablet hydroxychloroquine 200 mg tablet 020 Active levothyroxine (Synthroid, Levoxyl) 88 mcg tablet levothyroxine 88 mcg tablet 022 Active liothyronine (Cytomel) 5 mcg tablet liothyronine 5 mcg tablet 021 Active furosemide (Lasix) 20 mg tablet Take 20 mg by mouth 1 (one) time if needed. Act helga Neurontin 100 mg capsule 1 (one) time each day at the same time. 025 Active cholecalciferol (Vitamin D-3) 25 MCG (1000 UT) capsule Take 1 capsule by mouth in the morning. 017 Active cranberry 500 mg capsule Take 500 mg by mouth in the morning. Active metoprolol succinate XL (Toprol-XL) 50 mg 24 hr tabletIndicatio ns:Coronary artery disease involving [place] coronary artery of [place] heart without angina pectoris Take 1 tablet (50 mg) by mouth in the morning. 30 tablet 5 025 2024 Active amLODIPine (Norvasc) 5 mg tabletIndicatio ns:Benign hypertensive heart disease without congestive heart failure Take 1 tablet (5 mg) by mouth once daily as directed. 90 tablet 3 025 2025 Active albuterol 90 mcg/actuation inhaler Inhale 1 puff in the morning, afternoon, and at bedtime. 025 Active amLODIPine (Norvasc) 10 mg tablet Take by mouth in the morning. 020 2024 Disconti nued(Med List Cleanup) colestipol (Colestid) 1 gram tablet in the morning. 022 2024 Disconti nued(Med List Cleanup) cyanocobalamin, vitamin B-12, 5,000 mcg capsule Take 5,000 mcg by mouth in the morning. 2024 Disconti nued(Med List Cleanup) pantoprazole (ProtoNix) 40 mg EC tablet Take 1 tablet by mouth in the morning. 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 Encounters Date Type Department Care Team Description 04/16/2025 10:40 AM EDT Office Visit [address] [address] Erum Urrutia CNP Pulmonary hypertension (CMS/HCC) (Primary Dx); Benign hypertensive heart disease without congestive heart failure; Chronic diastolic congestive heart failure (CMS/HCC); Coronary artery disease involving [place] coronary artery of [place] heart without angina pectoris; Mixed hyperlipidemia 02/06/2025 Telephone [facility] [address] [place] [id number] Rocio Mccoy MA from Last 3 Months Family History Medical History Relation Name Comments Stroke Brother Stroke Paternal Grandmother Relation Name Status Comments Brother Father Mother Paternal Grandmother Social History Tobacco Use Types Packs/Day Years Used Date Smoking Tobacco: Never Smokeless Tobacco: Never Tobacco Cessation:Counseling Given: Not Answered Alcohol Use Standard Drinks/Week Comments Not Currently 0 (1 standard drink = 0.6 oz pur e alcohol) [place] Safety & Environment Answer Date Rec orded Fear of Current or Ex-Partner Not on file Emotionally Abused Not on file 01/03/2024 Physically Abused Not on file 01/03/2024 Sexually Abused Not on file 01/03/2024 Physically or Sexually Abused Not on file Comments Unknown Sex and Gender Information Value Date Recorded Sex Assigned at Not on file Legal Sex Female 10:53 PM EDT Gender Identity Not on file Sexual Orientation Not on file Last Filed Vital Signs Vital Sign Reading Time Taken Comments Blood Pressure 152/76 04/16/2025 10:52 AM EDT Pulse 76 04/16/2025 10:52 AM EDT Temperature - - Respiratory Rate - - Oxygen Saturation 97% 04/16/2025 10:52 AM EDT Inhaled Oxygen Concentration - - Weight 87.5 kg (193 lb) 04/16/2025 10:52 AM EDT Height 167.6 cm (5' 6 ) 04/16/2025 10:52 AM EDT Body Mass Index 31.15 04/16/2025 10:52 AM EDT Plan of Treatment Health Maintenance Due Date Last Done Comments CT Colonography 1950 Colonoscopy 1950 Colorectal Cancer Screening 1950 FIT-DNA 1950 FIT 1950 FOBT 1950 Medicare Annual Wellness (AWV) 1950 Sigmoidoscopy 1950 Depression Screening 1963 Mammogram 1991 Zoster Vaccines (1 of 2) 2001 Pneumococcal Vaccine: 50+ Years (2 of 2 - PPSV23, PCV20, or PCV21) 01/19/2016 11/24/2015 Fall Risk Screening 2016 COVID-19 Vaccine ( season) 2025 02/18/2025, 10/31/2023, 10/11/2022, Additional history exists Influenza Vaccine (Season Ended) 2025 10/11/2022, 09/07/2021, 08/25/2020, Additional history exists Adult Tetanus 12/07/2026 12/07/2016 HIB Vaccines Aged Out No longer eligi ble based on patient's age to complete this topic HPV Vaccines Aged Out No longer eligi ble based on patient's age to complete this topic IPV Vaccines Aged Out No longer eligi ble based on patient's age to complete this topic Meningococcal B Vaccine Aged Out No l onger eligible based on patient's age to complete this topic Meningococcal Vaccine Aged Out No guillermo julia eligible based on patient's age to complete this topic Rotavirus Vaccines Aged Out No longer eligible based on patient's age to complete this topic Insurance MEDICARE Member Subscriber Plan / Payer (Ef fective 2016-Present) Name:Linnea Culp Member ID:[id number] Relation to Subscriber:Self Name:Linnea Culp Subscriber ID:[id number] Payer ID:[id number] Group ID:Not on file Type:Medicare Address: [address] [id number] [employer] Care Teams C Winforms Developer Relationship Specialty Start Date End Date Rafael Bashir MD [address] [facility] [address] [address] PCP - General 04/19/23
--- NOTE | 2025-05-06 10:30 | CA_ITS ---
Patient Name: KINDRA HUNTER MR#: [id number] : 1950 Exam Date: 05/06/2025 Ordering Doctor: DANILO TORRES CNP ECHOCARDIOGRAM REPORT PROCEDURE: CA ECHO LIMITED INDICATIONS: Pulmonary hypertension, coronary artery disease COMPARISON: None. DESCRIPTION: Limited ECHOCARDIOGRAM Real-time transthoracic echocardiography with 2D and M-mode performed. QUALITY: Technical quality was good. Limited echocardiogram per physician order. LEFT VENTRICLE: Normal chamber size. Proximal septal hypertrophy (sigmoid septum). Estimated left ventricular ejection fraction is 65-70 %. LV EF: Normal left ventricular ejection fraction, (>55%). DIASTOLIC: ATRIAL SEPTUM: LEFT ATRIUM: Moderate dilatation. RIGHT ATRIUM: Normal chamber size. RIGHT VENTRICLE: Normal chamber size. Normal systolic function. TRICUSPID VALVE: Normal mobility and thickness. Mild to moderate regurgitation. Doppler studies reveal moderately (45-60) elevated right sided pressures. RVSP 46 mmHg MITRAL VALVE: Normal mobility and thickness. AORTIC VALVE: Normal trileaflet appearance. No visible sclerosis. Normal leaflet mobility. AORTIC ROOT: Normal diameter and appearance, measuring 3.1 cm. PULMONIC VALVE: Normal thickness and mobility. PERICARDIUM: No evidence of pericardial effusion. IVC: IVC is dilated (2.2 cm), does not fully collapse. PLEURA: CONCLUSION: 1. Normal left ventricular size and systolic function. LVEF is estimated at 65 to 70%. 2. Normal right ventricular size and systolic function. 3. Moderate left atrial dilatation. 4. Mild to moderate tricuspid regurgitation. 5. Moderately elevated right-sided pressures. RVSP is 46 mmHg. 6. Limited study performed with limited Doppler interrogation as requested. Adult Echocardiography Procedure Report Left Ventricle LVEDD (3.7 - 5.6 cm): 3.84 cm LVESD (2.2 - 4.0 cm): 2.38 cm LVIVS thickness (0.6 - 1.2 cm): 1.31 cm LVPW thickness (0.5 - 1.0 cm): 1.13 cm LVOT Diameter 2.13 cm Left Ventricular Ejection Fraction: 65-70 % Left Atrium LA Volume Index (2D A2C): 39.49 ml/m2 Left Atrium Systolic Dimension: 5.08 cm Mitral Valve Right Ventricle Aorta AO Root Diam: 3.14 cm Aortic Valve Tricuspid Valve Peak Velocity (Regurgitant Flow): 2.60 m/s, 2.78 m/s Pulmonic Valve Right Atrium Right Atrium Systolic Pressure: 53.33 ml, 53.33 ml Dictated by: Asher Peralta M.D. on 05/06/2025 at 19:30 Approved by: Asher Peralta M.D. on 05/06/2025 at 19:34
== END 2025-05-06 10:26 | disposition home or self-care (01) ==
LOC: CARD 10:26
PROVIDERS: PCP Family Medicine; Visit Provider Nurse Practitioner Family
DX: I27.20 Pulmonary hypertension, unspecified (principal)
CPT/HCPCS: 93308

== ENCOUNTER 2025-07-22 12:53 | Outpatient (OUT) | payer MEDICARE, OTHER, SELFPAY ==
--- OUTSIDE RECORDS SUMMARY | 2025-03-25 06:53 | XMS_ITS ---
Author Organization [facility] in [place] Address [address] [place] [address] Care Team Providers Care Oven Unloader Name Role Phone Refugio Bashir Primary Care Provider [phone] Results Component Value Reference Range Notes BNP Reviewed date:03/25/2025 07:26:21 PM Interpretation: Performing Lab: Notes/Report: [facility] , NT Pro B Type Natriuretic Pept 293.0 <=900.0 pg /mL Performing Lab: see note ML - [facility] LB CBC AUTO DIFF Reviewed date:03/25/2025 07:26:21 PM Interpretation: Performing Lab: Notes/Report: [facility] , White Blood Count 6.1 4.0-11.0 10 3/uL Red Blood Count 3.99 4.20-5.40 10 6/uL Hemoglobin 12.8 12.0-16.0 g/dL Hematocrit 37.4 36.0-48.0 % Mean Corpuscular Volume 93.7 81.0-99.0 fL Mean Corpuscular Hemoglobin 32.1 26.7-34.0 pg Mean Corpuscular HGB Conc 34.2 29.9-35.2 g/dL Red Cell Distribution Width 12.3 11.0-15.0 % Platelet Count 143 150-450 10 3/uL Mean Platelet Volume 10.5 9.5-13.5 fL Neutrophils Percent Auto 64.0 43.0-75.0 % Lymphocytes Percent Auto 28.1 20.5-60.0 % Monocytes Percent Auto 6.4 1.7-12.0 % Eosinophils Percent Auto 0.7 0.9-7.0 % Basophils Percent Auto 0.5 0.2-2.0 % Immature Granulocytes Pct Auto 0.3 0.0-0.5 % Neutrophils Absolute Auto 3.9 1.4-6.5 10 3/uL Lymphocytes Absolute Auto 1.7 1.2-3.8 10 3/uL Monocytes Absolute Auto 0.4 0.3-0.8 10 3/uL Eosinophils Absolute Auto 0.0 0.0-0.7 10 3/uL Basophils Absolute Auto 0.0 0.0-0.1 10 3/uL Immature Granulocytes Abs Auto 0.02 0.00-0.03 10 3/uL Performing Lab: see note ML - [facility] LB REASON FOR VISIT Update Medications Medication SIG (Take, Route, Frequency, Duration) Notes Start Date End Date Status Ventolin HFA 108 (90 Base) MCG/ACT 2 puff as needed Inhalation every 4 hrs for 30 days 03/25/2025 Active Encounters Encounter Location Date Provider Diagnosis [address] [address] 03/25/2025 Refugio Hoy Fatigue R53.83 ; SOB (shortness of breath) R06.02 and Essential (primary) hypertension I10 Assessments Encounter Date Diagnosis (ICD Code) Assessment Notes Treatment Notes Treatment Clinical Notes Section Notes 03/25/2025 Fatigue (ICD-10 - R53.83) 03/25/2025 SOB (shortness of breath) (ICD-10 - R06.02) 03/25/2025 Essential (primary) hypertension (ICD-10 - I10) Plan Of Treatment Medication Medication Name Sig Start Date Stop Date Notes Ventolin HFA 108 (90 Base) MCG/ACT 2 puff as needed Inhalation every 4 hrs for 30 days 03/25/2025 Pending Test Test Name Order Date CMP - Comprehensive Metabolic Panel 03/12 High Sensitivity Troponin 03/25/2025 Progress Notes * Linnea CULPDOB:1950 (74 yo F)Acc No.[id number]:03/25/2025 Patient: Linnea HILL :1950 A ge:74 Y S ex:Female Address:[facility] [address] [place] [address] * Refills Start Ventolin HFA Aerosol Solution, 108 (90 Base) MCG/ACT, Inhalation, 18 Gram, 2 puff as needed, every 4 hrs, 30 days, Refills=11 Subjective: * Chief Complaints: * U pdate * Medical History: * Surgical History: * Hospitalization/Major Diagno stic Procedure: * Medications: Objective: * Vitals: * Physical Examination: Assessment: * Assessment: 1. F atigue - R53.83 (Primary) 2 . S OB (shortness of breath) - R06.02 3 . E ssential (primary) hypertension - I10 Plan: * Treatment: 2. S OB (shortness of breath) L AB: High Sensitivity Troponin L AB: BNP 3. E ssential (primary) hypertension L AB: CMP - Comprehensive Metabolic Panel 4. O thers Start Ventolin HFA Aerosol Solution, 108 (90 Base) MCG/ACT, 2 puff as needed, Inhalation, every 4 hrs, 30 days, 18 Gram, Refills 11. * Procedure Codes: * true * Date: Generated for Tammie zamudio/Sho/eTransmitting on: 0 07/22/2025 12:55 PM EDT
--- OUTSIDE RECORDS SUMMARY | 2025-03-25 15:25 | XMS_ITS ---
Author Organization [facility] [place] [facility] in [place] Address [address] [place] [address] Care Team Providers Care Tractor Trailer Mechanic Name Role Phone Refugio Bashir Primary Care Provider [phone] REASON FOR VISIT lab results Encounters Encounter Location Date Provider Diagnosis [facility] [address] [place] [address] 03/25/2025 Refugio Bashir Plan Of Treatment No Information Progress Notes * ROBBILatoshajericaDOB:1950 (74 yo F)Acc No.[id number]:03/25/2025 Patient: Linnea HILL :1950 A ge:74 Y S ex:Female Address:[address] [place], [address] * true * Date: Generated for Odessai robb/Sho/eTransmitting on: 0 07/22/2025 12:55 PM EDT
--- OUTSIDE RECORDS SUMMARY | 2025-04-02 05:18 | XMS_ITS ---
Author Organization [facility] in [place] Address [address] [place] [address] Care Team Providers Care Conciliation Court Judge Name Role Phone Refugio Bashir Primary Care Provider REASON FOR VISIT sick Medications Medication SIG (Take, Route, Fr equency, Duration) Notes Start Date End Date Status levoFLOXacin 500 MG 1 tablet Orally Once a day for 10 day(s) 04/02/2025 Active Encounters Encounter Location Date Provider Diagnosis [facility] [address] [place] [address] 04/02/2025 Refugio Bashir Acute bronchitis, unspecified organism J20.9 Assessments Encounter Date Diagnosis (ICD Code) Assessment Notes Treatment Notes Treatment Clinical Notes Section Notes 04/02/2025 Acute bronchitis, unspecified organism (ICD-10 - J20.9) Plan Of Treatment Medication Medication Name Sig Start Date Stop Date Notes Amoxicillin-Pot Clavulanate 875-125 MG 1 tablet Orally every 12 hrs 03/23/2025 levoFLOXacin 500 MG 1 tablet Orally Once a day for 10 day(s) 04/02/2025 Progress Notes * Linnea CULPDOB:1950 (74 yo F)Acc No.[id number]:04/02/2025 Patient: Linnea HILL :1950 A ge:74 Y S ex:Female Address:[address] [place], [address] * Refills Stop Amoxicillin-Pot Clavulanate Tablet, 875-125 MG, Orally, 1 tablet, every 12 hrs Start levoFLOXacin Tablet, 500 MG, Orally, 10, 1 tablet, Once a day, 10 day(s) * true * Date: Generated for Tammie zamudio/Sho/To on: 0 07/22/2025 12:56 PM EDT
--- OUTSIDE RECORDS SUMMARY | 2025-04-14 07:20 | XMS_ITS ---
Author Organization [facility] in [place] Address [address] [place] [address] Care Team Providers Care Rubber Heel And Sole Press Tender Name Role Phone AaronradhaRefugio Primary Care Provider [phone] REASON FOR VISIT poison babak Medications Medication SIG (Take, Route, Frequency, Duration) Notes Start Date End Date Status Triamcinolone Acetonide 0.1 % 1 application Externally bid 04/14/2025 Active predniSONE 20 MG 2 tablets Orally Onc e a day for 5 days 04/14/2025 Active Encounters Encounter Location Date Provider Diagnosis [address] [place] [address] 04/14/2025 Refugio Bashir Plan Of Treatment Medication Medication Name Sig Start Date Stop Date Notes Triamcinolone Acetonide 0.1 % 1 application Externally bid 04/14/2025 predniSONE 20 MG 2 tablets Orally Onc e a day for 5 days 04/14/2025 Progress Notes * ROBBILatoshajericaDOB:1950 (74 yo F)Acc No.[id number]:04/14/2025 Patient: Linnea HILL :1950 A ge:74 Y S ex:Female Address:[address] [place], [address] * Refills Start Triamcinolone Acetonide Cream, 0.1 %, Externally, 60 grams, 1 application, bid, Refills=11 Start predniSONE Tablet, 20 MG, Orally, 10 Tablet, 2 tablets, Once a day, 5 days * true * Date: Generated for Tammie zamudio/Sho/To on: 0 07/22/2025 12:56 PM EDT
--- OUTSIDE RECORDS SUMMARY | 2025-06-29 12:15 | XMS_ITS ---
Author Organization [facility] [place] in [place] Address [address] [place] [address] Care Team Providers Care Project Landscape Architect Name Role Phone Refugio Bashir Primary Care Provider [phone] Allergies Allergen (clinical drug ingredient) Drug/Non Drug Allergy documented on EMR Reaction Allergy Type Onset Date Status Paxlovid hives Drug Allergy Active REASON FOR VISIT poison babak, right side of neck, left arm and chest area Medications Medication SIG (Take, Route, Frequency, Duration) Notes Start Date End Date Status predniSONE 20 MG 2 tablets Orally Onc e a day for 5 days 04/14/2025 Active Triamcinolone Acetonide 0.1 % 1 applicat ion Externally Twice a day for 30 03/27/2024 Active Pantoprazole Sodium 40 MG 1 tablet Oral once daily for 90 days Active Triamcinolone Acetonide 0.1 % 1 applicat ion Externally bid 04/14/2025 Active Ventolin HFA 108 (90 Base) MCG/ACT 2 puff as needed Inhalation every 4 hrs for 30 days 03/25/2025 Active Ondansetron 4 MG 1 tablet on the tong ue and allow to dissolve Orally qid for 5 days 12/22/2024 Active Metoprolol Succinate ER 50 MG 1 tablet O ral Once a day for 90 days Active Neurontin 100 MG 1 capsule at bedtime Orally Once a day for 30 day(s) Active Levothyroxine Sodium 88 MCG 1 Tablet Ora l Once Daily for 90 days Active Liothyronine Sodium 5 MCG 2 tablet on an empty stomach Orally Once a day for 90 days Active predniSONE 20 MG 3 tablets Orally Onc e a day for 5 days 03/23/2025 Active Atorvastatin Calcium 80 MG 1 tablet Oral once daily for 90 days Active Celecoxib 200 MG 1 tablet Oral Twice Daily for 90 days Active Colestipol HCl 1 GM 1 tablet Oral twice daily for 90 days Active Hydroxychloroquine Sulfate 2 00 MG 1 tablet Oral twice daily for 90 days Active amLODIPine Besylate 5 MG 1 Tablet Oral O nce Daily for 90 days Active Social History Tobacco Use: Social History Observation Description Date Details (start date - stop date) Never Smoker NA - NA Tobacco Use/Smoking Question Answer Notes Patient is a nonsmoker Tobacco Control (Standard) Question Answer Notes Tobacco use: Nonsmoker AUDIT-C (Standard) Question Answer Notes Did you have a drink containing alcohol in the p ast year? No Points 0 Interpretation Negative Vital Signs Weight 188 lbs 06/29/2025 Height 65 in 06/29/2025 Blood pressure systolic 118 mm Hg 06/29/20 25 Blood pressure diastolic 68 mm Hg 025 BMI 31.28 kg/m2 06/29/2025 Encounters Encounter Location Date Provider Diagnosis [place] [phone] 06/29/2025 Refugio Bashir Contact dermatitis L25.9 Assessments Encounter Date Diagnosis (ICD Code) Assessment Notes Treatment Notes Treatment Clinical Notes Section Notes 06/29/2025 Contact dermatitis (ICD-10 - L25.9) Plan Of Treatment Medication Medication Name Sig Start Date Stop Date Notes predniSONE 20 MG 3 tablets Orally Once a day for 5 days Progress Notes * Linnea CULPDOB:1950 (74 yo F)Acc No.[id number]:06/29/2025 Progress Note Patient: Linnea HILL Provider: Madelyn Bashir ([facility])MD :1950 A ge:74 Y S ex:Female Date:06/29/2025 Address:[facility] [address] [facility] Check In:04:11 PM ESTCheck O ut:05:11 PM EST Subjective: * Chief Complaints: * 1 . Poison babak, right side of neck, left arm and chest area. * Active Problem List I27.9 Pulmonary heart dise ase, unspecified Modified On:04/23/2023 Status:confirmed M35.9 Systemic involvement of connective tissue, unspecified Modified On:04/23/2023 Status:confirmed I25.10 Atherosclerotic hear t disease of de[place] coronary artery without angina pectoris Modified On:04/23/2023 Status:confirmed M50.30 Other cervical disc degeneration, unspecified cervical region Modified On:04/23/2023 Status:confirmed I10 Essential (primary) hypertension Modified On:04/23/2023 Status:confirmed M79.7 Fibromyalgia Modified On:04/23/2023 Status:confirmed E78.49 Other hyperlipidemia Modified On:04/23/2023 Status:confirmed E03.9 Hypothyroidism, unsp ecified Modified On:04/23/2023 Status:confirmed 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 Modified On:04/23/2023 Status:confirmed G61.9 Inflammatory polyneu ropathy, unspecified Modified On:04/23/2023 Status:confirmed G58.8 Other specified mono neuropathies Modified On:04/23/2023 Status:confirmed M65.4 De Quervain's diseas e (tenosynovitis) Modified On:11/07/2023 Status:confirmed L25.9 Contact dermatitis Modified On:03/27/2024U Status:confirmed R10.11 Right upper quadrant abdominal pain Modified On:06/03/2024U Status:confirmed K76.0 Fatty liver Modified On:06/12/2024U Status:confirmed U07.1 COVID-19 Modified On:12/26/2024 Status:confirmed * Medical History: C AD (coronary artery disease), COVID-19, Degenerative disc disease, cervical, Degenerative disc disease, lumbar, Disease of tricuspid valve, Eczema, Fibromyalgia, GERD (gastroesophageal reflux disease), Hyperlipidemia, Hypertension, Hypothyroidism, Leukopenia, Mixed connective tissue disease, Mitral insufficiency, Thrombocytopenia, Ventricular hypertrophy, Systemic lupus erythematosus, Neuropathy, Lupus, Colon polyp. * Surgical History: A PPENDECTOMY , CHOLECYSTECTOMY , Knee Arthroscopy , Right Rotator Cuff Repair , D&C . * Hospitalization/Major Diagno stic Procedure: s ee above . * Family History: F ather: , diagnosed with Diabetes mellitus without mention of complication, type II or unspecified type, not stated as uncontrolled, Unspecified essential hypertension, Unspecified heart disease. M other: , Breast Cancer. B rother(s): , Stroke, diagnosed with Unspecified essential hypertension. S ister(s): , Brain Aneurysm, diagnosed with Diabetes mellitus without mention of complication, type II or unspecified type, not stated as uncontrolled, Unspecified essential hypertension. S on(s): alive, diagnosed with Unspecified essential hypertension. 1 brother(s) , 2 sister(s) . 1 son(s) . . * Social History: T obacco Use: T obacco Control (Standard) T obacco use: N onsmoker Tobacco Use/Smoking P atient is a n onsmoker D rug/Alcohol: A ALICIA-C (Standard) D id you have a drink containing alcohol in the past year? N o P oints 0 I nterpretation N egative * Medications: T aking amLODIPine Besylate 5 MG Tablet 1 Tablet Oral Once Daily , Taking Atorvastatin Calcium 80 MG Tablet 1 tablet Oral once daily , Taking Celecoxib 200 MG Capsule 1 tablet Oral Twice Daily , Taking Colestipol HCl 1 GM Tablet 1 tablet Oral twice daily , Taking Hydroxychloroquine Sulfate 200 MG Tablet 1 tablet Oral twice daily , Taking Levothyroxine Sodium 88 MCG Tablet 1 Tablet Oral Once Daily , Taking Liothyronine Sodium 5 MCG Tablet 2 tablet on an empty stomach Orally Once a day , Taking Metoprolol Succinate ER 50 MG Tablet Extended Release 24 Hour 1 tablet Oral Once a day , Taking Neurontin(Gabapentin) 100 MG Capsule 1 capsule at bedtime Orally Once a day , Taking Ondansetron 4 MG Tablet Disintegrating 1 tablet on the tongue and allow to dissolve Orally qid , Taking Pantoprazole Sodium 40 MG Tablet Delayed Release 1 tablet Oral once daily , Taking predniSONE 20 MG Tablet 3 tablets Orally Once a day , Taking predniSONE 20 MG Tablet 2 tablets Orally Once a day , Taking Triamcinolone Acetonide 0.1 % Cream 1 application Externally Twice a day , Taking Triamcinolone Acetonide 0.1 % Cream 1 application Externally bid , Taking Ventolin HFA(Albuterol Sulfate HFA) 108 (90 Base) MCG/ACT Aerosol Solution 2 puff as needed Inhalation every 4 hrs , Medication List reviewed and reconciled with the patient * Allergies: P axlovid: hives. Objective: * Vitals: W t:188lbs, Ht: 65 in, BP:118/68mm Hg, BMI:31.28Index, Ht-cm: 165.1 cm, Wt-k.28 kg. * Examination: A bdomen Exam:: d iffuse contact derm. Assessment: * Assessment: 1. C ontact dermatitis - L25.9 (Primary) Plan: * Treatment: * Procedure Codes: 3 074F DIABETIC SYSTOLIC BP, 3078F DIABETIC DIASTOLIC BP * Preventive Medicine: Screenings/Counseling: B MN ACTION PLAN Above Normal BMI Follow-up D ietary management education, guidance, and counseling * * Sign off status: Completed Visit Status: C HK (Check Out) true * Provider: Madelyn Bashir ([facility])MD Date: 0 06/29/2025 Generated for Odessai robb/Sho/eTransmitting on: 0 07/22/2025 12:55 PM EDT History and Physical Notes * Examination Category Sub-Category Detail Notes Category Not es Abdomen Exam: diffuse contac t derm
--- NOTE | 2025-07-22 12:54 | MM_ITS ---
Patient Name: KINDRA HUNTER MR#: [id number] : 1950 Exam Date: 07/22/2025 Ordering Doctor: DR DORITA MARIE . RADIOLOGY REPORT PROCEDURE: MM TOMOSYNTHESIS SCREENING BI COMPARISON: MG MAMM SCREEN THONG W CAD, 09/23/2019. MG MAMM SCREEN THONG W CAD, 04/16/2018. MG MAMM SCREEN THONG W CAD, 06/26/2016. MG MAMM THONG SCRN W CAD DIG, 04/28/2014. INDICATIONS: Screening Calculator Name NCI Breast Cancer Risk Assessment Tool 5 Year Breast Cancer Risk 3.40% Lifetime Breast Cancer Risk 8.20% Personal Breast Cancer No Personal Ovarian Cancer No Treatments None Family Cancers Mother with breast cancer at age 60. LOCATION: [facility] BREAST COMPOSITION: The breasts are heterogeneously dense, which may obscure small masses. FINDINGS: RIGHT BREAST: No significant suspicious finding. LEFT BREAST: No significant suspicious finding. DIAGNOSTIC CATEGORY 1--NEGATIVE. RECOMMENDATIONS: ROUTINE MAMMOGRAM AND CLINICAL EVALUATION IN 12 MONTHS. Dictated by: Jose Diaz DO on 07/22/2025 at 15:55 Approved by: Jose Diaz DO on 07/22/2025 at 15:57
--- OUTSIDE RECORDS SUMMARY | 2025-07-22 12:55 | XMS_ITS | Encounter Summary ---
Author Organization [facility] Address [address] [place] [address] Care Team Providers Care Dural Mechanic Name Role Phone Rafael Bashir MD Primary Care Provider [phone] Amber Acharya MD Unavailable [phone] Alfredito Sims MD Unavailable [phone] Encounter Details Date Type Department Care Team (Late st Contact Info) Description 11/11/2020 Abstract PATIENT ACUITY SCORE Social History Tobacco Use Types Packs/Day Years Used Date Smoking Tobacco: Never Smokeless Tobacco: Never Alcohol Use Standard Drinks/Week Comments No 0 (1 standard drink = 0.6 oz pur e alcohol) PHQ-2 Answer Date Recorded PHQ-9 Total Score 0 11/20/2018 Sexually Active Control Partners Comments Yes Male Substance Use Types Use/Week Comments No Comments No Sex and Gender Information Value Date Recorded Sex Assigned at Female 04/14/2020 8:14 AM EDT Legal Sex Female 12:23 PM EST Gender Identity Female 04/14/2020 8:14 AM EDT Sexual Orientation Bisexual 04/14/2020 8: 14 AM EDT 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 Answer Date of Assessment Author No 11/20/2018 1:26 PM Reece Stern MD * Visual impairment? Answer Date of Assessment Author No 11/20/2018 1:26 PM Reece Stern MD * Gait/Transfer impairment? Answer Date of Assessment Author No 11/20/2018 1:26 PM Reece Stern MD * ADL impairment? Answer Date of Assessment Author No 11/20/2018 1:26 PM Reece Stern MD * Difficulty with errands? Answer Date of Assessment Author No 11/20/2018 1:26 PM Reece Stern MD documented as of this encounter Mental Status * Cognitive difficulty? Answer Entry Date Author No 11/20/2018 1:26 PM Reece Stern MD documented in this encounter Plan of Treatment Upcoming Encounters Date Type Department Care Team (Late st Contact Info) Description 07/29/2025 11:00 AM EDT Office Visit [facility] Rheumatology [address] [facility] [address] [place] [address] Amber Acharya MD [address] [place] [address] documented as of this encounter Visit Diagnoses Not on filedocumented in this encounter Care Teams Dural Mechanic Relationship Specialty Start Date End Date Rafael Bashir MD [address] [place] [address] PCP - General Family Medicine 03/30/14 Amber Acharya MD [address] [place] [address] Physician Rheumatology 08/17/20 Alfredito Sims MD [address] [place] [address] Physician Anesthesiology 08/12/22 documented as of this encounter
--- OUTSIDE RECORDS SUMMARY | 2025-07-22 12:56 | XMS_ITS | Encounter Summary ---
Author Organization [facility] Address [address] [place] [address] Care Team Providers Care Story Writer Name Role Phone Rafael Bashir MD Primary Care Provider [phone] Amber Acharya MD Unavailable [phone] Alfredito Sims MD Unavailable [phone] Encounter Details Date Type Department Care Team (Late st Contact Info) Description 05/11/2022 Abstract PATIENT ACUITY SCORE Social History Tobacco Use Types Packs/Day Years Used Date Smoking Tobacco: Never Smokeless Tobacco: Never Alcohol Use Standard Drinks/Week Comments No 0 (1 standard drink = 0.6 oz pur e alcohol) PHQ-2 Answer Date Recorded PHQ-9 Total Score 0 03/08/2022 Sexually Active Control Partners Comments Yes Male [...] impairment? Answer Date of Assessment Author No 03/02/2021 10:30 AM EDT Amber Acharya MD * Visual impairment? Answer Date of Assessment Author No 03/02/2021 10:30 AM EDT Amber Acharya MD * Gait/Transfer impairment? Answer Date of Assessment Author No 03/02/2021 10:30 AM EDT Amber Acharya MD * ADL impairment? Answer Date of Assessment Author No 03/02/2021 10:30 AM EDT Amber Acharya MD * Difficulty with errands? Answer Date of Assessment Author No 03/02/2021 10:30 AM EDT Amber Acharya MD documented as of this encounter Mental Status * Cognitive difficulty? Answer Entry Date Author No 03/02/2021 10:30 AM EDT Amber Acharya MD documented in this encounter Plan of Treatment Upcoming Encounters Date Type Department Care Team (Late st Contact Info) Description 07/29/2025 11:00 AM EDT Office Visit [facility] Rheumatology [address] [address] Amber Acharya MD [address] [place] [address] documented as of this encounter Visit Diagnoses Not on filedocumented in this encounter Care Teams Story Writer Relationship Specialty Start Date End Date Rafael Bashir MD [address] [place] [address] PCP - General Family Medicine 03/30/14 Ambre Acharya MD [address] [place] [address] Physician Rheumatology 08/17/20 Alfredito Sims MD [address] [place] [address] Physician Anesthesiology 08/12/22 documented as of this encounter
--- OUTSIDE RECORDS SUMMARY | 2025-07-22 12:56 | XMS_ITS | Encounter Summary ---
Author Organization [facility] Address [address] [place] [address] Care Team Providers Care Assistant Property Manager Name Role Phone Rafael Bashir MD Primary Care Provider [phone] Amber Acharya MD Unavailable [phone] Alfredito Sims MD Unavailable [phone] Encounter Details Date Type Department Care Team (Late st Contact Info) Description 11/11/2021 Abstract PATIENT ACUITY SCORE Social History Tobacco Use Types Packs/Day Years Used Date Smoking Tobacco: Never Smokeless Tobacco: Never Alcohol Use Standard Drinks/Week Comments No 0 (1 standard drink = 0.6 oz pur e alcohol) PHQ-2 Answer Date Recorded PHQ-2 Total 0 09/07/2021 Sexually Active Control Partners Comments Yes Male [...] Description 07/29/2025 11:00 AM EDT Office Visit [facility] Rheumatology [address] [address] Amber Acharya MD [address] [place] [address] documented as of this encounter Visit Diagnoses Not on filedocumented in this encounter Care Teams Assistant Property Manager Relationship Specialty Start Date End Date Rafael Bashir MD [address] [place] [address] PCP - General Family Medicine 03/30/14 Amber Acharya MD [address] [place] [address] Physician Rheumatology 08/17/20 Alfredito Sims MD [address] [place] [address] Physician Anesthesiology 08/12/22 documented as of this encounter
--- OUTSIDE RECORDS SUMMARY | 2025-07-22 12:56 | XMS_ITS | Encounter Summary ---
Author Organization [facility] Address [address] [place] [address] Care Team Providers Care Rotor Coil Taper Name Role Phone Rafael Bashir MD Primary Care Provider [phone] Amber Acharya MD Unavailable [phone] lAfredito Sims MD Unavailable [phone] Encounter Details Date Type Department Care Team (Late st Contact Info) Description 02/09/2022 Abstract PATIENT ACUITY SCORE Social History Tobacco [...] Description 07/29/2025 11:00 AM EDT Office Visit [facility] Rheumatology [address] [address] Amber Acharya MD [address] [place] [address] documented as of this encounter Visit Diagnoses Not on filedocumented in this encounter Care Teams Rotor Coil Taper Relationship Specialty Start Date End Date Rafael Bashir MD [address] [place] [address] PCP - General Family Medicine 03/30/14 Amber Acharya MD [address] [place] [address] Physician Rheumatology 08/17/20 Alfredito Sims MD [address] [place] [address] Physician Anesthesiology 08/12/22 documented as of this encounter
--- OUTSIDE RECORDS SUMMARY | 2025-07-22 12:56 | XMS_ITS | Clinical Summary ---
Author Organization [facility] Address [address] [place] [address] Care Team Providers Care Gasket Inspector Name Role Phone Rafael Bashir MD Primary Care Provider [phone] Allergies Active Allergy Reactions Criticality Noted Date [...] mouth 1 (one) time if needed. Act hlega Neurontin 100 mg capsule 1 (one) time each day at the same time. 025 Active cholecalciferol (Vitamin D-3) 25 MCG (1000 UT) capsule Take 1 capsule by mouth in the morning. 017 Active cranberry 500 mg capsule Take 500 mg by mouth in the morning. Active albuterol 90 mcg/actuation inhaler Inhale 1 puff in the morning, afternoon, and at bedtime. 025 Active amLODIPine (Norvasc) 5 mg tabletIndicatio ns:Benign hypertensive heart disease without congestive heart failure Take 1 tablet (5 mg) by mouth once daily as directed. 90 tablet 3 025 2025 Active metoprolol succinate XL (Toprol-XL) 50 mg 24 hr tabletIndicatio ns:Coronary artery disease involving [place]atak coronary artery of [place] heart without angina pectoris Take 1 tablet (50 mg) by mouth in the morning. 90 tablet 3 025 2025 Active amLODIPine (Norvasc) 5 mg tabletIndicatio ns:Benign hypertensive heart disease without congestive heart failure Take 1 tablet (5 mg) by mouth once daily as directed. 90 tablet 3 025 2024 Disconti nued(Reo rder) metoprolol succinate XL (Toprol-XL) 50 mg 24 hr tabletIndicatio ns:Coronary artery disease involving [place] coronary artery of [place] heart without angina pectoris Take 1 tablet (50 mg) by mouth in the morning. 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 Encounters Date Type Department Care Team Description 07/01/[address] [address] Bel Baez MA Benign hypertensive heart disease without congestive heart failure; Coronary artery disease involving [place]atak coronary artery of [place] heart without angina pectoris 06/22/[address] [address] Bel Baez MA Benign hypertensive heart disease without congestive heart failure; Coronary artery disease involving [place] coronary artery of [place] heart without angina pectoris 05/14/2025 Telephone [facility] [address] [place] [address] Bel Baez MA from Last 3 Months Family History [...] 10/31/2023, 10/11/2022, Additional history exists Influenza Vaccine (#1) 2025 , 09/07/2021, 08/25/2020, Additional history exists Adult Tetanus [...] age to complete this topic Insurance MEDICARE GENERIC COMMERCIAL Care Teams Gasket Inspector Relationship Specialty Start Date End Date Rafael Bashir MD [address] [facility] [place] [address] PCP - General 04/19/23
--- OUTSIDE RECORDS SUMMARY | 2025-07-22 12:56 | XMS_ITS | Patient Health Record ---
Author Organization The [facility] in [place] Address [address] [place] [address] Care Team Providers Care Fisher Diving Name Role Phone Refugio Marie Primary Care Provider [phone] Allergies Allergen (clinical drug ingredient) Drug/Non Drug Allergy documented on EMR Reaction Allergy Type Onset Date Status Paxlovid hives Drug Allergy Active Results Component Value Reference Range Notes BNP Reviewed date:03/25/2025 07:26:21 PM Interpretation: Performing Lab: Notes/Report: [facility] , NT Pro B Type Natriuretic Pept 293.0 <=900.0 pg/mL Performing Lab: see note ML - [facility] LB CBC AUTO DIFF Reviewed date:03/25/2025 07:26:21 PM Interpretation: Performing Lab: Notes/Report: [facility] White Blood Count 6.1 4.0-11.0 10 [...] 3/uL Performing Lab: see note ML - [facility] LB COVID-19, Flu A+B IH Reviewed date:03/25/2025 07:26:21 PM Interpretation: Performing Lab: Notes/Report: COVID positive FLU A neg FLU B neg Control present CA echo limited Reviewed date:05/06/2025 09:22:52 PM Interpretation: Performing Lab: Notes/Report: Source Facility: [place] [address] [place] [address] Cardiology Report Signed Patient: LINNEA CULP MR#: [id number] : 1950 Acct:[id number] Age/Sex: 74 / F ADM Date: 05/06/25 Loc: CARD Attending Dr: DANILO TORRES APRN Ordering Physician: DANILO TORRES APRN Date of Service: 05/06/25 Procedure(s): CA echo limited Accession Number(s): [id number] cc: Dorita Marie M.D.; DANILO TORRES APRN Patient Name: LINNEA CULP MR#: [id number] : 1950 Exam Date: 05/06/2025 Ordering Doctor: DANILO TORRES ENTERPRISE ACCOUNT MANAGER ECHOCARDIOGRAM REPORT PROCEDURE: CA ECHO LIMITED INDICATIONS: Pulmonary hypertension, coronary artery disease COMPARISON: None. DESCRIPTION: Limited ECHOCARDIOGRAM Real-time transthoracic echocardiography with 2D and M-mode performed. QUALITY: Technical quality was good. Limited echocardiogram per physician order. LEFT VENTRICLE: Normal chamber size. Proximal septal hypertrophy (sigmoid septum). Estimated left ventricular ejection fraction is 65-70 %. LV EF: Normal left ventricular ejection fraction, (>55%). DIASTOLIC: ATRIAL SEPTUM: LEFT ATRIUM: Moderate dilatation. RIGHT ATRIUM: Normal chamber size. RIGHT VENTRICLE: Normal chamber size. Normal systolic function. TRICUSPID VALVE: Normal mobility and thickness. Mild to moderate regurgitation. Doppler studies reveal moderately (45-60) elevated right sided pressures. RVSP 46 mmHg MITRAL VALVE: Normal mobility and thickness. AORTIC VALVE: Normal trileaflet appearance. No visible sclerosis. Normal leaflet mobility. AORTIC ROOT: Normal diameter and appearance, measuring 3.1 cm. PULMONIC VALVE: Normal thickness and mobility. PERICARDIUM: No evidence of pericardial effusion. IVC: IVC is dilated (2.2 cm), does not fully collapse. PLEURA: CONCLUSION: 1. Normal left ventricular size and systolic function. LVEF is estimated at 65 to 70%. 2. Normal right ventricular size and systolic function. 3. Moderate left atrial dilatation. 4. Mild to moderate tricuspid regurgitation. 5. Moderately elevated right-sided pressures. RVSP is 46 mmHg. 6. Limited study performed with limited Doppler interrogation as requested. Adult Echocardiography Procedure Report Left Ventricle LVEDD (3.7 - 5.6 cm): 3.84 cm LVESD (2.2 - 4.0 cm): 2.38 cm LVIVS thickness (0.6 - 1.2 cm): 1.31 cm LVPW thickness (0.5 - 1.0 cm): 1.13 cm LVOT Diameter 2.13 cm Left Ventricular Ejection Fraction: 65-70 % Left Atrium LA Volume Index (2D A2C): 39.49 ml/m2 Left Atrium Systolic Dimension: 5.08 cm Mitral Valve Right Ventricle Aorta AO Root Diam: 3.14 cm Aortic Valve Tricuspid Valve Peak Velocity (Regurgitant Flow): 2.60 m/s, 2.78 m/s Pulmonic Valve Right Atrium Right Atrium Systolic Pressure: 53.33 ml, 53.33 ml Dictated by: Kulwant Peralta M.D. on 05/06/2025 at 19:30 Approved by: Kulwant Peralta M.D. on 05/06/2025 at 19:34 Dictated By: KULWANT PERALTA Signed By: 05/06/251935 DD/ 34 TD/TT: Radiography Technician: [place] [address] Cardiology Report Signed Patient: MAURY CULP MR#: [id number] : 1950 Acct:[id number] Age/Sex: 74 / F ADM Date: 05/06/25 Loc: CARD Attending Dr: MERCEDES TORRES APRN Ordering Physician: DANILO TORRES APRN Date of Service: 05/06/25 Procedure(s): CA ech o limited Accession Number(s): [id number] cc: Dorita Marie M.D. ; DANILO TORRES APRN Patient Name: LINNEA CULP MR#: [id number] : 1950 Exam Date: 05/06/2025 Ordering Doctor: MATTI TORRES ENTERPRISE ACCOUNT MANAGER ECHOCARDIOGRAM REPORT PROCEDURE: CA ECHO LIMITED INDICATIONS: Pulmona ry hypertension, coronary artery disease COMPARISON: None. DESCRIPTION: Limited ECHOCARDIOGRAM Real-time transthoracic echocardiography wit h 2D and M-mode performed. QUALITY: Technical quality was good. Limited echocardiogram per physician order. LEFT VENTRICLE: Norm al chamber size. Proximal septal hypertrophy (sigmoid septum). Estimated l eft ventricular ejection fraction is 65-70 %. LV EF: Normal left ventricular ejection fraction, (>55%). DIASTOLIC: ATRIAL SEPTUM: LEFT ATRIUM: Moderat e dilatation. RIGHT ATRIUM: Normal chamber size. RIGHT VENTRICLE: Nor mal chamber size. Normal systolic function. TRICUSPID VALVE: Nor mal mobility and thickness. Mild to moderate regurgitation. Doppl er studies reveal moderately (45-60) elevated right sided pressures. RVSP 46 mmHg MITRAL VALVE: Normal mobility and thickness. AORTIC VALVE: Normal trileaflet appearance. No visible sclerosis. Normal leaflet mobility. AORTIC ROOT: Normal diameter and appearance, measuring 3.1 cm. PULMONIC VALVE: Norm al thickness and mobility. PERICARDIUM: No evid ence of pericardial effusion. IVC: IVC is dilated (2.2 cm), does not fully collapse. PLEURA: CONCLUSION: 1. Normal left ventricular size and systolic function. LVEF is estimated at 65 to 70%. 2. Normal right ventricular size and systolic function. 3. Moderate left atr ial dilatation. 4. Mild to moderate tricuspid regurgitation. 5. Moderately elevat ed right-sided pressures. RVSP is 46 mmHg. 6. Limited study performed with limited Doppler interrogation as requested. Adult Echocardiograp hy Procedure Report Left Ventricle LVEDD (3.7 - 5.6 cm) : 3.84 cm LVESD (2.2 - 4.0 cm) : 2.38 cm LVIVS thickness (0.6 - 1.2 cm): 1.31 cm LVPW thickness (0.5 - 1.0 cm): 1.13 cm LVOT Diameter 2.13 cm Left Ventricular Ejection Fraction: 65-70 % Left Atrium LA Volume Index (2D A2C): 39.49 ml/m2 Left Atrium Systolic Dimension: 5.08 cm Mitral Valve Right Ventricle Aorta AO Root Diam: 3.14 cm Aortic Valve Tricuspid Valve Peak Velocity (Regurgitant Flow): 2.60 m/s, 2.78 m/s Pulmonic Valve Right Atrium Right Atrium Systoli c Pressure: 53.33 ml, 53.33 ml Dictated by: Kulwant Peralta M.D. on 05/06/2025 at 19:30 Approved by: Kulwant Peralta M.D. on 05/06/2025 at 19:34 Dictated By: KULWANT PERLATA Signed By: 05/06/251935 DD/ 34 TD/TT: Radiography Technician: SHOAIB echo doppler complete Reviewed date:02/04/2025 06:44:53 PM Interpretation: Performing Lab: Notes/Report: Source Facility: [place] [address] Cardiology Report Signed Patient: LINNEA CULP MR#: [id number] : 1950 Acct:[id number] Age/Sex: 74 / F ADM Date: 02/04/25 Loc: CARD Attending Dr: DANILO TORRES APRN Ordering Physician: DANILO TORRES APRN Date of Service: 02/04/25 Procedure(s): CA echo doppler complete Accession Number(s): [id number] cc: Dorita Marie M.D.; DANILO TORRES APRN Patient Name: LINNEA CULP MR#: [id number] : 1950 Exam Date: 02/04/2025 Ordering Doctor: DANILO TORRES CNP ECHOCARDIOGRAM REPORT PROCEDURE: CA ECHO DOPPLER COMPLETE INDICATIONS: Pulmonary hypertension, hypertension COMPARISON: None. DESCRIPTION: COMPLETE ECHOCARDIOGRAM Real-time transthoracic echocardiography with 2D, M-mode, spectral and color flow Doppler performed. QUALITY: Technical quality was good. LEFT VENTRICLE: Normal chamber size. Normal left ventricular wall thickness. Normal systolic function. LV EF: Normal left ventricular ejection fraction, (>55%). DIASTOLIC: Grade II diastolic dysfunction. ATRIAL SEPTUM: Visually appears intact. LEFT ATRIUM: Moderate dilatation. RIGHT ATRIUM: Moderate dilatation. RIGHT VENTRICLE: Normal chamber size. Normal right ventricular systolic function. TRICUSPID VALVE: Normal mobility and thickness. No stenosis with mild to moderate regurgitation. Doppler studies reveal severely (>60) elevated right sided pressures. RVSP 62 mmHg (previously measured at RVSP 57 mmHg on echocardiogram 05/2024) MITRAL VALVE: Normal mobility and thickness. No evidence of mitral valve stenosis. There is no mitral annular calcification. Trivial mitral regurgitation. AORTIC VALVE: Normal trileaflet appearance. No visible sclerosis. Normal leaflet mobility. No evidence of aortic valve stenosis. Trivial aortic regurgitation. AORTIC ROOT: Normal diameter and appearance, measuring 3.0 cm. Ascending aorta is normal in size, measuring 3.0 cm. PULMONIC VALVE: Normal thickness and mobility. No stenosis. Trivial regurgitation. PERICARDIUM: No evidence of pericardial effusion. IVC: Collapses with inspirations. IVC is dilated (2.4 cm) PLEURA: CONCLUSION: 1. Normal ventricular size and systolic function. LVEF is estimated at 55 to 60%. 2. Normal right ventricular size and systolic function. 3. Moderate biatrial dilatation. 4. Grade 2 diastolic dysfunction. 5. Mild to moderate tricuspid regurgitation. 6. Severely elevated right-sided pressures. RVSP is 62 mmHg. Adult Echocardiography Procedure Report Left Ventricle LVEDD (3.7 - 5.6 cm): 3.90 cm LVESD (2.2 - 4.0 cm): 2.56 cm LVIVS thickness (0.6 - 1.2 cm): 1.13 cm LVPW thickness (0.5 - 1.0 cm): 0.94 cm e': 0.04 m/s E - e': 18.55 LVOT Max Gradient: 2.37 mm[Hg] LVOT Area (cm2): 0.77 m/s Peak Velocity (LVOT): 0.77 m/s Mean Velocity (LVOT): 0.49 m/s LVOT Diameter 2.10 cm Left Atrium LA Volume Index (2D A2C): 43.88 ml/m2 Left Atrium Systolic Dimension: 4.72 cm Mitral Valve MV E to A Ratio: 1.13 Mitral Valve A-Wave Peak Velocity: 0.72 m/s Mitral Valve E-Wave Peak Velocity: 0.81 m/s Right Ventricle Aorta AO Root Diam: 3.00 cm Ascending Ao Diam: 3.02 cm Aortic Valve AoV Area (Peak Jaren): 2.73 cm2, 2.73 cm2 AoV Area (VTI): 2.91 cm2, 2.91 cm2 Peak Velocity(Antegrade Flow): 0.97 m/s Peak Gradient(Antegrade Flow): 3.77 mm[Hg] Mean Velocity(Antegrade Flow): 0.64 m/s Mean Gradient(Antegrade Flow): 1.93 mm[Hg] Velocity Time Integral: 21.13 cm Tricuspid Valve Peak Velocity (Regurgitant Flow): 3.69 m/s Pulmonic Valve Peak Gradient: 2.42 mm[Hg], 2.78 mm[Hg] Right Atrium Right Atrium Systolic Pressure: 46.54 ml, 46.54 ml Dictated by: Kulwant Peralta M.D. on 02/04/2025 at 17:56 Approved by: Kulwant Peralta M.D. on 02/04/2025 at 18:02 Dictated By: KULWANT PERALTA Signed By: 02/04/251803 DD/ 02 TD/TT: Radiography Technician: [place] [address] Cardiology Report Signed Patient: MAURY CULP MR#: [id number] : 1950 Acct:[id number] Age/Sex: 74 / F ADM Date: 02/04/25 Loc: CARD Attending Dr: MERCEDES TORRES APRN Ordering Physician: DANILO TORRES APRN Date of Service: 02/04/25 Procedure(s): CA ech o doppler complete Accession Number(s): [id number] cc: Dorita Marie M.D. ; DANILO TORRES APRN Patient Name: LINNEA CULP MR#: [id number] : 1950 Exam Date: 02/04/2025 Ordering Doctor: MATTI TORRES [facility] ECHOCARDIOGRAM REPORT PROCEDURE: CA ECHO DOPPLER COMPLETE INDICATIONS: Pulmona ry hypertension, hypertension COMPARISON: None. DESCRIPTION: COMPLET E ECHOCARDIOGRAM Real-time transthoracic echocardiography wit h 2D, M-mode, spectral and color flow Doppler performed. QUALITY: Technical quality was good. LEFT VENTRICLE: Norm al chamber size. Normal left ventricular wall thickness. Normal systolic function. LV EF: Normal left ventricular ejection fraction, (>55%). DIASTOLIC: Grade II diastolic dysfunction. ATRIAL SEPTUM: Visua lly appears intact. LEFT ATRIUM: Moderat e dilatation. RIGHT ATRIUM: Modera te dilatation. RIGHT VENTRICLE: No rmal chamber size. Normal right ventricular systolic function. TRICUSPID VALVE: Nor mal mobility and thickness. No stenosis with mild to moderate regurgitati on. Doppler studies reveal severely (>60) elevated right sided pressures. RVS P 62 mmHg (previously measured at RVSP 57 mmHg on echocardiogram 05/2024) MITRAL VALVE: Normal mobility and thickness. No evidence of mitral valve stenosis. There is n o mitral annular calcification. Trivial mitral regurgitation. AORTIC VALVE: Normal trileaflet appearance. No visible sclerosis. Normal leaflet mobility. No evidence of aortic valve stenosis. Trivial aortic regurgitation. AORTIC ROOT: Normal diameter and appearance, measuring 3.0 cm. Ascending aorta is normal in s ize, measuring 3.0 cm. PULMONIC VALVE: Norm al thickness and mobility. No stenosis. Trivial regurgitation. PERICARDIUM: No evid ence of pericardial effusion. IVC: Collapses with inspirations. IVC is dilated (2.4 cm) PLEURA: CONCLUSION: 1. Normal ventricula r size and systolic function. LVEF is estimated at 55 to 60%. 2. Normal right ventricular size and systolic function. 3. Moderate biatrial dilatation. 4. Grade 2 diastolic dysfunction. 5. Mild to moderate tricuspid regurgitation. 6. Severely elevated right-sided pressures. RVSP is 62 mmHg. Adult Echocardiograp hy Procedure Report Left Ventricle LVEDD (3.7 - 5.6 cm) : 3.90 cm LVESD (2.2 - 4.0 cm) : 2.56 cm LVIVS thickness (0.6 - 1.2 cm): 1.13 cm LVPW thickness (0.5 - 1.0 cm): 0.94 cm e': 0.04 m/s E - e': 18.55 LVOT Max Gradient: 2 .37 mm[Hg] LVOT Area (cm2): 0.7 7 m/s Peak Velocity (LVOT) : 0.77 m/s Mean Velocity (LVOT) : 0.49 m/s LVOT Diameter 2.10 cm Left Atrium LA Volume Index (2D A2C): 43.88 ml/m2 Left Atrium Systolic Dimension: 4.72 cm Mitral Valve MV E to A Ratio: 1.13 Mitral Valve A-Wave Peak Velocity: 0.72 m/s Mitral Valve E-Wave Peak Velocity: 0.81 m/s Right Ventricle Aorta AO Root Diam: 3.00 cm Ascending Ao Diam: 3.02 cm Aortic Valve AoV Area (Peak Jaren): 2.73 cm2, 2.73 cm2 AoV Area (VTI): 2.91 cm2, 2.91 cm2 Peak Velocity(Antegr vivian Flow): 0.97 m/s Peak Gradient(Antegr vivian Flow): 3.77 mm[Hg] Mean Velocity(Antegr vivian Flow): 0.64 m/s Mean Gradient(Antegr vivian Flow): 1.93 mm[Hg] Velocity Time Integr al: 21.13 cm Tricuspid Valve Peak Velocity (Regurgitant Flow): 3.69 m/s Pulmonic Valve Peak Gradient: 2.42 mm[Hg], 2.78 mm[Hg] Right Atrium Right Atrium Systoli c Pressure: 46.54 ml, 46.54 ml Dictated by: Kulwant Peralta M.D. on 02/04/2025 at 17:56 Approved by: Kulwant Peralta M.D. on 02/04/2025 at 18:02 Dictated By: KULWANT PERALTA Signed By: 02/04/251803 DD/ 02 TD/TT: Radiography Technician: [facility] Reviewed date:09/01/2024 08:29:29 PM Interpretation: Performing Lab: Notes/Report: Source Facility: [place] [address] [place] [address] Ultrasound Report Signed Patient: LINNEA CULP MR#: [id number] : 1950 Acct:[id number] Age/Sex: 73 / F ADM Date: 08/29/24 Loc: US Attending Dr: Dorita Marie M.D. Ordering Physician: Dorita Marie M.D. Date of Service: 08/29/24 Procedure(s): US right upper quadrant Accession Number(s): [id number] cc: Dorita Marie M.D. [facility] [place] [address] Patient Name: LINNEA CULP MRN: [id number] date: 1950 Sex: F Assigned Patient Location: US Current Patient Location: Accession/Order Number: [id number] Exam Date: 08/29/2024 10:29 Report Date: 09/01/2024 13:40 At the request of: DORITA MARIE Procedure: US right upper quadrant EXAM: US right upper quadrant HISTORY: Fatty Liver K76.0 COMPARISON: 06/11/2024 TECHNIQUE: Grayscale and color FINDINGS: The visualized pancreas is normal The liver is normal in size and contour measuring 14.0 cm in length. Stable slight increase in overall hepatic echotexture. There is flow in the portal vein with velocity of 25 cm/s. The gallbladder is surgically absent. The common bile duct measures 7.1 mm. The right kidney measures 8.4 x 4.3 x 4.3 cm. The cortex measures 1.1 cm. No solid mass or hydronephrosis US/US right upper quadrant IMPRESSION: Stable slight increase in hepatic echotexture suggestive of hepatic steatosis Electronically authenticated by: ASHLEY CHU Date: 09/01/2024 13:40 Dictated By: Ashley Chu M.D. Signed By: 09/01/24 134 DD/ 134 TD/TT: Radiography Technician: The [address] [address] Ultrasound Report Signed Patient: MAURY CULP MR#: [id number] : 1950 Acct:[id number] Age/Sex: 73 / F ADM Date: 08/29/24 Loc: US Attending Dr: Lowell Marie M.D. Ordering Physician: Dorita Marie M.D. Date of Service: 08/29/24 Procedure(s): US rig ht upper quadrant Accession Number(s): [id number] cc: Dorita Marie M.D. [address] [address] Patient Name: LINNEA CULP MRN: [id number] date: 1950 Sex: F Assigned Patient Location: US Current Patient Location: Accession/Order Numb er: [id number] Exam Date: 10:29 Report Date: 09/01/2024 13:40 At the request of: DORITA MARIE Procedure: US right upper quadrant EXAM: US right upper quadrant HISTORY: Fatty Liver K76.0 COMPARISON: 06/11/2024 TECHNIQUE: Grayscale and color FINDINGS: The visualized pancr eas is normal The liver is normal in size and contour measuring 14.0 cm in length. Stable slight increase in overall hepatic echotexture. There is flow in the portal vein with velocity o f 25 cm/s. The gallbladder is surgically absent. The common bile duct measures 7.1 mm. The right kidney measures 8.4 x 4.3 x 4.3 cm. The cortex measures 1.1 cm. No solid mass or hydronephrosis U S/US right upper quadrant IMPRESSION: Stable slight increa se in hepatic echotexture suggestive of hepatic steatosis Electronically authenticated by: ASHLEY CHU Date: 09/01/2024 13:40 Dictated By: Srinivas Chu M.D. Signed By: 09/01/24 1342 DD/ 1340 TD/TT: Radiography Technician: Troponin I High Sensitivity Reviewed date:03/25/2025 07:26:21 PM Interpretation: Performing Lab: Notes/Report: [facility] Troponin I High Sensitivity 9.3 4.0-51.3 pg/mL CUT-OFF POINTS HAVE BEEN ESTABLISHED BASED ON THE FOURTH UNIVERSAL DEFINITION OF MYOCARDIAL INFARCTION. THE UPPER REFERENCE LIMIT (URL) OF TROPONIN, DEFINED THE 99TH PERCENTILE OF cTnI DISTRIBUTION IN A REFERENCE POPULATION, HAS BEEN CONFIRMED THE DECISION THRESHOLD FOR PR DIAGNOSIS. 99TH PERCENTILE = 51.4 PG/ML NOTE: HIGH-SENSITIVITY TROPONIN ASSAY IS NOT INTENDED TO BE USED IN ISOLATION BUT SHOULD BE INTERPRETED IN CONJUNCTION WITH OTHER DIAGNOSTIC AND CLINICAL INFORMATION. Performing Lab: see note ML - [facility] PROF 14(COMP METB) Reviewed date:03/25/2025 07:26:21 PM Interpretation: Performing Lab: Notes/Report: [facility] Sodium 143 136-145 mmol/L Potassium 3.5 3.5-5.1 mmol/L Chloride 108 98-107 mmol/L Carbon Dioxide 29.5 21.0-32.0 mmol/L Anion Gap 9.0 Glucose 106 74-106 mg/dL Blood Urea Nitrogen 20.0 7.0-18.0 mg/dL Creatinine 1.03 0.55-1.02 mg/dL Estimated GFR ( Zenaida >60 >=60 mL/min/1.73m 2 Estimated GFR (Non- Marta 53 >=60 mL/min/1.73m 2 BUN Creatinine Ratio 19.4 Calcium 8.4 8.5-10.1 mg/dL Bilirubin Total 0.4 0.2-1.0 mg/dL Aspartate Amino Transferase 22 15-37 U/L Alanine Aminotransferase 26 14-59 U/L Alkaline Phosphatase 68 46-116 U/L Total Protein 5.8 6.4-8.2 g/dL Albumin Level 3.0 3.4-5.0 g/dL Globulin 2.8 Albumin Globulin Ratio 1.1 Performing Lab: see note ML - [facility] Reason For Referral No Information Medications Medication SIG (Take, Route, Frequency, Duration) Notes Start Date End Date Status Ondansetron 4 MG 1 tablet on the tong ue and allow to dissolve Orally qid for 5 days 12/22/2024 Active predniSONE 20 MG 3 tablets Orally Onc e a day for 5 days 03/23/2025 Active Metoprolol Succinate ER 50 MG 1 tablet O ral Once a day for 90 days Active Neurontin 100 MG 1 capsule at bedtime Orally Once a day for 30 day(s) Active Atorvastatin Calcium 80 MG 1 tablet Oral once daily for 90 days Active predniSONE 20 MG 2 tablets Orally Onc e a day for 5 days 04/14/2025 Active Celecoxib 200 MG 1 tablet Oral Twice Daily for 90 days Active Triamcinolone Acetonide 0.1 % 1 applicat ion Externally Twice a day for 30 03/27/2024 Active Pantoprazole Sodium 40 MG 1 tablet Oral once daily for 90 days Active amLODIPine Besylate 5 MG 1 Tablet Oral O nce Daily for 90 days Active Levothyroxine Sodium 88 MCG 1 Tablet Ora l Once Daily for 90 days Active Liothyronine Sodium 5 MCG 2 tablet on an empty stomach Orally Once a day for 90 days Active Colestipol HCl 1 GM 1 tablet Oral twice daily for 90 days Active Triamcinolone Acetonide 0.1 % 1 applicat ion Externally bid 04/14/2025 Active Hydroxychloroquine Sulfate 2 00 MG 1 tablet Oral twice daily for 90 days Active Ventolin HFA 108 (90 Base) MCG/ACT 2 puff as needed Inhalation every 4 hrs for 30 days 03/25/2025 Active Social History Tobacco Use: Social History Observation Description Date Details (start date - stop date) Never Smoker NA - NA Tobacco Use/Smoking Question Answer Notes Patient is a nonsmoker Alcohol Screen (Audit-C) Question Answer Notes Did you have a drink containing alcohol in the p ast year? No Points 0 Interpretation Negative Tobacco Control (Standard) Question Answer Notes Tobacco use: Nonsmoker AUDIT-C (Standard) Question Answer Notes Did you have a drink containing alcohol in the p ast year? 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) Active confirmed Problem 986942506 Atherosclerotic heart disease of [place] coronary artery without angina pectoris (I25.10) Active confirmed Problem 92624368 Pulmonary heart disease, unspecified (I27.9) Active confirmed Problem 556331340 Systemic involvement of connective tissue, 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) Active confirmed Problem 35300635 Other cervical d isc degeneration, unspecified cervical region (M50.30) Active confirmed Problem 82963651 Fibromyalgia (M79.7) Active confirmed Problem Fatty liver (228449260) Fatty liver (K76.0) Active confirmed Problem Contact dermatitis (96183485) Contact dermatitis (L25.9) Active confirmed Problem Right upper quadrant pain (529956132) Right upper quadrant abdominal pain (R10.11) Active confirmed Problem Radial styloid tenosynovitis (45167744) De Quervain's disease (tenosynovitis) (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) Active confirmed Problem 12429913 Other hyperlipidemia (E78.49) Active confirmed Problem COVID-19 (857614688) COVID-19 (U07.1) Active confirmed Vital Signs Heart Rate 82 /min 03/23/2025 Temperature 98.9 degrees Fahrenheit 03/23/2025 Oximetry 96 % 03/23/2025 Blood pressure diastolic 68 mm Hg 06/29/2025 Height 65 in 06/29/2025 Blood pressure systolic 118 mm Hg 06/29/2025 Weight 188 lbs 06/29/2025 BMI 31.28 kg/m2 06/29/2025 Encounters Encounter Location Date Provider Diagnosis [facility] [address] [place] [address] 04/02/2025 Refugio Marie Acute bronchitis, unspecified organism J20.9 [facility] [address] [place] [address] 04/14/2025 [facility] [address] [place] [address] 12/22/2024 [facility] [address] [place] [address] 12/23/2024 Refugio [facility] [address] [place] [address] 12/23/2024 [facility] [address] [place] [address] 12/29/2024 Refugio Marie COVID-19 U07.1 and F ever R50.9 [facility] [address] [place] [facility] [place] [address] 03/25/2025 Refugio Hoy Fatigue R53.83 ; SOB (shortness of breath) R06.02 and Essential (primary) hypertension [address] [place] [address] 03/25/2025 Refugio Hoy [address] [place] [address] 08/26/2024 Refugio Hoy Fatty liver K76.0 an d Right upper quadrant abdominal pain R10.11 [address] [address] [place] [address] 09/01/2024 Refugio Hoy [address] [place] [address] 12/22/2024 Refugio Hoy Fever R50.9 and Influenza J11.[address] [address] 12/26/2024 Refugio Hoy COVID-[address] [id number] 06/29/2025 Refugio Hoy Contact dermatitis L 25.[address] [address] 03/23/2025 Refugio Hoy Acute bronchitis, unspecified organism J20.9 Assessments Encounter Date Diagnosis (ICD Code) Assessment Notes Treatment Notes Treatment Clinical Notes Section Notes 12/26/2024 COVID-19 (ICD-10 - U07.1) 03/23/2025 Acute bronchitis, unspecified organism (ICD-10 - J20.9) Rest and drink more liquids, especially water. You may use a humidifier or vaporizer to help keep the drainage moist. Nzfm-mvu-aksauds Nasal Saline may help the stuffy and runny nose. Use Ibuprofen and or Tylenol as needed for fever, chills, body aches or pain. Children 5 years old should not be given nllk-gcw-ygvdicq cough and cold medications such as guaifenesin and dextromethorphan. If you're over age 5, you may try hslj-qfd-bwtlmir cold medications such as guaifenesin and dextromethorphan, or multi-symptom cold reliever such as Dayquil to help reduce the symptoms. Antibiotics have been prescribed. You should take these until completed and follow the directions. Antibiotics can sometimes cause upset stomach, and in rare cases, serious allergic reactions or serious gastrointestinal problems. If you start having severe abdominal pain, severe vomiting, or bloody diarrhea, you should be reevaluated by your physician or urgent care immediately. Follow up with your Primary Care Provider or return to clinic if symptoms do not improve within 3-5 days. If you develop severe symptoms such as shortness of breath, repeated vomiting, coughing up blood, or chest pain you should go to the emergency room or call 911 Rest and drink more liquids, especially water. You may use a humidifier or vaporizer to help keep the drainage moist. Cvgp-zjo-azflpfz Nasal Saline may help the stuffy and runny nose. Use Ibuprofen and or Tylenol as needed for fever, chills, body aches or pain. Children 5 years old should not be given vllf-ehi-tgiwmzl cough and cold medications such as guaifenesin and dextromethorphan. If you're over age 5, you may try eroh-iin-tsotrik cold medications such as guaifenesin and dextromethorphan, or multi-symptom cold reliever such as Dayquil to help reduce the symptoms. Antibiotics have been prescribed. You should take these until completed and follow the directions. Antibiotics can sometimes cause upset stomach, and in rare cases, serious allergic reactions or serious gastrointestinal problems. If you start having severe abdominal pain, severe vomiting, or bloody diarrhea, you should be reevaluated by your physician or urgent care immediately. Follow up with your Primary Care Provider or return to clinic if symptoms do not improve within 3-5 days. If you develop severe symptoms such as shortness of breath, repeated vomiting, coughing up blood, or chest pain you should go to the emergency room or call 911 06/29/2025 Contact dermatitis (ICD-10 - L25.9) 08/26/2024 Fatty liver (ICD-10 - K76.0) 08/26/2024 Right upper quadrant abdominal pain (ICD-10 - R10.11) 12/29/2024 COVID-19 (ICD-10 - U07.1) 12/22/2024 Fever (ICD-10 - R50.9) 03/25/2025 Fatigue (ICD-10 - R53.83) 03/25/2025 SOB (shortness of breath) (ICD-10 - R06.02) 04/02/2025 Acute bronchitis, unspecified organism (ICD-10 - J20.9) 12/22/2024 Influenza (ICD-10 - J11.1) 12/29/2024 Fever (ICD-10 - R50.9) 03/25/2025 Essential (primary) hypertension (ICD-10 - I10) 12/22/2024 Other Rest and drink more liquids, especially water. You may use a humidifier or vaporizer to help keep the drainage moist. Arto-hxz-ruibwzk Nasal Saline may help the stuffy and runny nose. Use Ibuprofen and or Tylenol as needed for fever, chills, body aches or pain. Children 5 years old should not be given jtvk-qrc-yglgora cough and cold medications such as guaifenesin and dextromethorphan. If you're over age 5, you may try lffn-mxf-nrnizme cold medications such as guaifenesin and dextromethorphan, or multi-symptom cold reliever such as Dayquil to help reduce the symptoms. Follow up with your Primary Care Provider or return to clinic if symptoms do not improve within 3-5 days. If you develop severe symptoms such as shortness of breath, repeated vomiting, coughing up blood, or chest pain you should go to the emergency room or call 911. Plan Of Treatment Pending Test Test Name Order Date UA (URINALYSIS, COMPLETE) 09/05/2023 US Lower Extremity LT 03/27/2024 US Gallbladder 08/26/2024 US Liver and Pancreas 08/26/2024 CMP - Comprehensive Metabolic Panel 03/12 High Sensitivity Troponin 03/25/2025 LIVER PROFILE 06/11/2024 US ABD 06/03/2024 Insurance Providers Payer Name Payer Address Payer Phone Subscriber Number Group Number Insured Name Patient Relationship to Insured Coverage Start Date Coverage End Date [place] [address] [place] [address] [phone] [id number] Linnea Culp Self - patient is the insured [employer] [address] [place] [address] [id number] Linnea Culp Self - patient is the insured Medications Administered Medication Instructions Date of Administration Dosage Notes Kenalog-40 11/07/2023 80 mg 80 Kenalog-40 03/27/2024 80 mg 80 Ketorolac Tromethamine 11/07/2023 30 mg 30 Medical (General) History Medical History History ICD Code CAD (coronary artery disease) I25.10 COVID-19 U07.1 Degenerative disc disease, cervical M50. 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
--- OUTSIDE RECORDS SUMMARY | 2025-07-22 12:57 | XMS_ITS | Clinical Summary ---
Author Organization [facility] Address [address] [facility] [place] [address] Care Team Providers Care Technical Professional Name Role Phone Rafael Bashir MD Primary Care Provider [phone] Amber Acharya MD Unavailable [phone] Alfredito Sims MD Unavailable [phone] Source Comments The following information is NOT included in Care Everywhere downloads:Psychiatric notes, ECG results, Cardiac Rehab notes, Pulmonary Function notes, data from [employer] (includes but not limited toPregnancy data,audiograms, eye exams, pre-surgical evaluation notes, well-child exam data).[facility] Allergies Active Allergy Reactions Criticality Noted Date Comments Nirmatrelvir-Ritonavir Rash 02/18/2025 Medications metoprolol XL (TOPROL-XL) 100 MG XL tablet Take 50 mg by mouth daily. Active Cholecalciferol (VITAMIN D3) 1000 UNITS CAPS Take 1 Capsule by mouth daily. 90 Capsule 1 7 Active amLODIPine (NORVASC) 10 MG tablet Take 5 mg by mouth daily. 0 Active atorvastatin (LIPITOR) 80 mg tablet 0 Active aspirin 81 MG enteric coated tablet Take 81 mg by mouth daily. Active hydroxychloroqu ine (PLAQUENIL) 200 MG tablet TAKE 2 TABLETS BY MOUTH DAILY 180 Tablet 1 0 Active liothyronine (CYTOMEL) 5 MCG tablet 1 Active celecoxib (CeleBREX) 200 MG capsule 200 mg 2 times daily. 2 Active levothyroxine (SYNTHROID) 88 MCG tablet 2 Active Cyanocobalamin (B-12) 5000 MCG CAPS Take 5,000 mcg by mouth daily. Active Cranberry 500 MG CAPS Take 500 mg by mouth daily. Active vitamin E 180 MG (400 UNIT) CAPS capsule Take 180 mg by mouth daily. Active gabapentin (NEURONTIN) 100 MG capsule Take 100 mg by mouth 3 times daily. Active Cholecalciferol (Vitamin D3) 75 MCG (3000 UT) TABS Take 75 mcg by mouth daily. Active diclofenac (Voltaren) 1 % GEL topical gel Apply 2 g topically 4 times daily. 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 free, 30 mcg/0.3mL dose, jordi-sucrose (AWI=865) 02/18/2025 Influenza, Injectable, Triva lent, Adjuvanted, Preservative Free (WEX=404) 08/25/2020,11/27/2018(Deferred: Patient Decision - ptto get it at her PCP) Influenza, injectable, adjuv anted, quadrivalent, preservative free (WIG=808) 10/11/2022 Influenza, injectable, high- dose seasonal, quadrivalent, preservative free (YRT=406) 09/07/2021 Influenza, injectable, quadr ivalent, preservative free (ADF=155) 11/24/2015 Influenza, unspecified formu lation (CVX=88) 08/29/2017 Pfizer Monovalent (12+ yrs) SARS-COV-2 (COVID-19) vaccine, mRNA, spike protein, LNP, pres. free, 30 mcg/0.3mL dose (COF=053) 01/13/2021,12/23/2020 Pfizer Monovalent (12+ yrs) SARS-COV-2 (COVID-19) vaccine, mRNA, spike protein, LNP, pres. free, 30 mcg/0.3mL dose, jordi-sucrose (AVE=775) 04/17/2022 Pneumococcal conjugate 13 va lent (PCV13) (REY=476) 11/24/2015 Td (adult), 5 Lf tetanus tox oid, preservative free, adsorbed (IJA=539) 12/07/2016 Family History Medical History Relation Name Comments Stroke Brother Arthritis Father ?RA Diabetes Mellitus Father Hypertension Father Myocardial Infarction Father f ollowing incarcerated gb Breast Cancer Mother Diabetes Mellitus Sister x2 bowl perf [Other] Sister diverticul itis cerebral ane [Other] Sister had mul t tia no psoriasis [Other] Other Relation Name Status Comments Brother Father Mother Sister Other Social History Tobacco Use Types Packs/Day Years Used Date Smoking Tobacco: Never Smokeless Tobacco: Never Tobacco Cessation:Counseling Given: Not Answered Alcohol Use Standard Drinks/Week Comments No 0 (1 standard drink = 0.6 oz pur e alcohol) Humiliation, Afraid, Rape, and Kick questionnair e Answer Date Recorded Within the last year, have y ou been afraid of your partner or ex-partner? No 04/18/2023 Within the last year, have y ou been humiliated or emotionally abused in other ways by your partner or ex-partner? No Within the last year, have y ou been kicked, hit, slapped, or otherwise physically hurt by your partner or ex-partner? No 04/18/2023 Within the last year, have y ou been raped or forced to have any kind of sexual activity by your partner or ex-partner? No 04/18/2023 Social Connection and Isolat ion Panel [NHANES] Answer Date Recorded In a typical week, how many times do you talk on the phone with family, friends, or neighbors? More than three times a week 04/18/2023 How often do you get togethe r with friends or relatives? More than three times a week 04/18/2023 How often do you attend chur ch or scientologist services? More than 4 times per year 04/18/2023 Do you belong to any clubs o r organizations such as synagogue groups, unions, fraternal or athletic groups, or school groups? Yes 04/18/2023 How often do you attend meet ings of the clubs or organizations you belong to? More than 4 times per year 04/18/2023 Are you , , di vorced, , never , or living with a partner? 04/18/2023 Overall Financial Resource Strain (CARDIA) Answe r Date Recorded How hard is it for you to pa y for the very basics like food, housing, medical care, and heating? Not hard at all 04/18/2023 PHQ-2 Answer Date Recorded PHQ-2 Total 0 02/18/2025 [facility] - Occupational Stress Questionnaire Answer Date Recorded Do you feel stress - tense, restless, nervous, or anxious, or unable to sleep at night because your mind is troubled all the time - these days? Not at all 04/18/2023 Exercise Vital Sign Answer Date Recorde d On average, how many days pe r week do you engage in moderate to strenuous exercise (like a brisk walk)? 0 days 04/18/2023 On average, how many minutes do you engage in exercise at this level? 0 min 04/18/2023 Hunger Vital Sign Answer Date Recorded Within the past 12 months, y ou worried that your food would run out before you got the money to buy more. Never true 04/18/20 23 Within the past 12 months, t he food you bought just didn't last and you didn't have money to get more. Never true 04/18/2023 PRAPARE - Transportation Answer Date Re corded In the past 12 months, has l ack of transportation kept you from medical appointments or from getting medications? No 05/2023 In the past 12 months, has l ack of transportation kept you from meetings, work, or from getting things needed for daily living? No 04/18/2023 Housing Stability Vital Sign Answer Uziel e Recorded In the last 12 months, was t here a time when you were not able to pay the mortgage or rent on time? No 04/18/2023 In the last 12 months, how many places have you lived? 1 04/18/2023 In the last 12 months, was t here a time when you did not have a steady place to sleep or slept in a chcf (including now)? No 04/18/2023 Education Answer Date Recorded What is the highest level of school you have completed or the highest degree you have received? Bachelor's degree (e.g., BA, AB, BS) 04/18/2023 Sexually Active Control Partners Comments Yes Male [...] file Not on file Not on file Last Filed Vital Signs Vital Sign Reading Time Taken Comments Blood Pressure 138/63 02/18/2025 10:52 AM EDT Pulse 68 02/18/2025 10:52 AM EDT Temperature 36.7 C (98 F) 04/25/2023 1:45 PM EDT Respiratory Rate 17 02/18/2025 10:52 AM EDT Oxygen Saturation 99% 02/18/2025 10:52 AM EDT Inhaled Oxygen Concentration - - Weight 85.7 kg (189 lb) 02/18/2025 10:52 AM EDT Height 165.1 cm (5' 5 ) 02/18/2025 10:52 AM EDT Body Mass Index 31.45 02/18/2025 10:52 AM EDT Plan of Treatment Upcoming Encounters Date Type Department Care Team (Late st Contact Info) Description 07/29/2025 11:00 AM EDT Office Visit [facility] Rheumatology [address] [facility] [address] [place], [place] [id number] Amber Acharya MD [address] [id number] Health Maintenance Due Date Last Done Comments Colonoscopy 1951 Ejection Fraction 1951 Hepatitis C Antibody 1969 Tdap Booster 1969 Hepatitis A (HAV) Vaccine (optional start 19+ years) 1970 Mammography 1991 CRC Screening 1996 Cologuard (Stool DNA) 1996 FIT 1996 Shingles (RZV) Vaccine (1 of 2) 2001 Hepatitis B (HBV) Vaccine (optional start 60+ years) 2011 RSV vaccine (adult) (1 - Ris k 60-74 years 1-dose series) 2011 Pneumococcal Vaccine(s) (50+ yrs) (2 of 2 - PPSV23) 01/19/2016 11/24/2015 Annual Wellness Visit (G0438) 11/12/2017 TSH 03/08/2023 03/08/2022 Influenza Vaccine (#1) 2025 , 09/07/2021, 08/25/2020, Additional history exists COVID-19 Vaccine (2023-2 5 season) 2025 02/18/2025, 10/31/2023, 10/11/2022, Additional history exists Basic Metabolic Panel 02/18/2026 02/18/2025 , 09/17/2024, 05/28/2024, Additional history exists Cholesterol 05/30/2029 05/30/2024 Bone Densitometry Completed 09/22/2021 Pap Smear Discontinued Procedures Procedure Name Priority Date/Time Associated Diagnosis Comments BASIC METABOLIC PANEL Routine 02/18/2025 12:07 PM EDT SLE (systemic lupus erythematosus related syndrome) (HCC) TSH Routine 03/08/2022 1:29 PM EDT Hypothyroidism, unspecified type BD BONE DENSITY SURVEY Routine 09/22/2021 10:25 AM EST Other specified disorders of bone density and structure, left forearm from Last 3 Months or Most Recently Relevant to Health Maintenance Results * (ABNORMAL) BASIC METABOLIC PANEL (02/18/2025 12:07 PM EDT) Glucose 88 74 - 109 mg/dL 02/18/2025 4:51 PM EDT [facility] Sodium 143 136 - 145 mmol/L 02/18/2025 4:51 PM EDT [facility] Potassium 4.7 3.5 - 5.0 mmol/L 02/18/2025 4:51 PM EDT [facility] Carbon Dioxide 27 21 - 31 mmol/L 02/18/2025 4:51 PM EDT [facility] Chloride 108(H) 98 - 107 mmol/L 02/18/2025 4:51 PM EDT [facility] Blood Urea Nitrogen 15 7 - 25 mg/dL 02/18/2025 4:51 PM EDT [facility] Creatinine 0.72 0.60 - 1.20 mg/dL 02/18/2025 4:51 PM EDT [facility] Calcium 9.2 8.6 - 10.3 mg/dL 02/18/2025 4:51 PM EDT [facility] Anion Gap 13 10 - 20 02/18/2025 4:51 PM EDT [facility] Estimated GFR (CKD-EPI) 88 >=60 mL/min/1. 73sqm 02/18/2025 4:51 PM EDT [facility] Comment: 2020 CKD EPI Equation using Creatinine [...] Inclusion of Race in Diagnosing Kidney Disease. Australian Journal of Kidney Diseases 202;79(2):268- 88.e1. 2. N Engl J Med 2021 Vol. 385 Issue 19 Pages [id number] Blood BLOOD SPECIMEN / Unknown Venipuncture / Unknown 02/18/2025 12:07 PM EDT 02/18/2025 4:33 PM EDT Amber Acharya MD [address] [facility] Final Result Performing Organization Address City/[facility] Co de Phone Number [facility] [address] [place] [phone] * TSH (03/08/2022 1:29 PM EDT) TSH 3.256 0.450 - 5.330 uIU/mL 03/08/2022 7:28 PM EDT [facility] Comment: Referance range for women as applicable: First Trimester: 0. 050 to 3.700 uIU/mL Second Trimester: 0. 310 to 4.350 uIU/mL Third Trimester: 0. 410 to 5.180 uIU/mL Blood BLOOD SPECIMEN / Unknown Venipuncture / Unknown 03/08/2022 1:29 PM EDT 03/08/2022 5:41 PM EDT Amber Acharya MD [address] [facility] Final Result Performing Organization Address [facility] de Phone Number [facility] [address] [place] [phone] * BD BONE DENSITY SURVEY (09/22/2021 10:25 AM EST) Anatomical Region Laterality Modality Bone Density N/A Radiographic Olya ging 09/22/2021 4:41 PM EST Narrative 09/22/2021 4:44 PM EST EXAMINATION: BD BONE DENSITY SURVEY CLINICAL HISTORY: Reason for Exam: elbow fracture ASSOCIATED DIAGNOSIS: Other specified disorders of bone density and structure, left forearm ADDITIONAL CLINICAL INFORMATION:Indications: Hyperthyroid, lupus, Osteoarthritis, post menopausal, History of Fracture (Adult) TREATMENTS:Treatments: AMLODIPINE, atorvastatin, lasix, levothyroxine, Vitamin D TECHNOLOGISTS NOTE: TECHNIQUE: Quantitative digital radiography for DEXA bone mineral assessment was performed using the [employer] densitometer. Following are the results for your patient. The T-score describes the number of standard deviations above or below the mean the patient's bone mineral density is in comparison to a reference population of young adults. FINDINGS: T score is -0.3 for the bone mineral density of 1.158 g/cm2 for the lumbar spine (L1-L4). T score is -1.6 for the bone mineral density of 0.819 g/cm2 for the left femoral neck. T score is -1.9 for the bone mineral density of 0.775 g/cm2 for the right femoral neck. T score is -0.9 for the bone mineral density of 0.897 g/cm2 for the total left hip. T score is -1.4 for the bone mineral density of 0.836 g/cm2 for the total right hip. IMPRESSION: 1. The lowest measured bone mineral density site is the right femoral neck and is osteopenia based on its T score of -1.9. The fracture risk is moderate. 2. The FRAX model estimates the ten year probability of an osteoporotic related fracture to be 16.8 % and the ten year probability of a hip fracture to be 2.9 %, based on the bone mineral density of the right femoral neck and history of adult fracture. DEFINITIONS: Guidelines for DXA interpretation from the National Osteoporosis Foundation: 1) Consider FDA-approved osteoporosis therapies if: A. Patient has osteoporosis by WHO criteria (T-score at hip or spine less than - 2.5 or less). B. Patient has low bone mass (T-score at hip or spine between -2.4 and -1.1) and a high predicted probability of fracture (10-year probability > 3% for hip fracture or > 20% for any major osteoporotic fracture) as estimated by the FRAX model (see below). 2) FDA-approved pharmacologic therapies include bisphosphonates, calcitonin, parathyroid hormone, Raloxifene and estrogens. 3) Consider evaluation for causes of secondary osteoporosis in appropriate clinical settings. 4) Patients taking medication for osteoporosis should have bone density re- evaluation after 2 years or when medically appropriate. 5) These guidelines are based on cost-effectiveness analysis, and may not apply to the individual clinical circumstances. FRAX statistical model: Developed by the WHO, available online (www.shef.ac.uk/FRAX via a link on the Sw[employer] screen. The model calculates the 10-yr probability of hip fracture or any major osteoporotic fracture (vertebral, hip, forearm, or humerus fracture), using clinical populations, and applies only to previously-untreated patients. (FRAX-friendly) T-scores, as calculated using the Chatterfly link, should be used in the model. Definitions: Osteoporosis: by World Health Organization (WHO) criteria, defined as a T-score equal to or less than -2.5 at the hip or spine. Osteoporosis can be diagnoses by the BMD alone in menopausal and postmenopausal women and in men 50 years and older. Low bone mass: (osteopenia): T-score between -1.0 and -2.0. Low bone mass does not necessarily imply a high fracture risk. To assess the significance of low bone mass, it is necessary to consider the clinical context. The FRAX model (see below) allows estimation of 10-year absolute fracture risk for individual patients based on clinical criteria. T-score: difference, in standard deviation units, between the patient's bone density and the mean density of a reference population of healthy, young adults. T- scores are appropriate for diagnosis of osteoporosis in menopausal and postmenopausal women and in men 50 years and older. Z-score: the difference, in standard deviations units, between the patient's bone density and the mean density of a reference population of age and sex-matched, healthy adults. Z-scores are used to assess bone mineral density in pre- menopausal women and in men younger than 50 years. A Z-score less than -2.0 means that the bone mineral density is below the expected range for age. Procedure Note King Aguilar MD - 09/22/2021 EXAMINATION: BD BONE DENSITY SURVEY CLINICAL HISTORY: Reason for Exam: elbow fracture ASSOCIATED DIAGNOSIS: Other specified disorders of bone density andstructure, left forearm ADDITIONAL CLINICAL INFORMATION:Indications: Hyperthyroid, lupus,Osteoarthritis, post menopausal, History of Fracture (Adult) TREATMENTS:Treatments: AMLODIPINE, atorvastatin, lasix, levothyroxine,Vitamin D TECHNOLOGISTS NOTE: TECHNIQUE: Quantitative digital radiography for DEXA bone mineral assessment wasperformed using the [employer] densitometer. Following are theresults for your patient. The T-score describes the number of standarddeviations above or below the mean the patient's bone mineral density isin comparison to a reference population of young adults. FINDINGS: T score is -0.3 for the bone mineral density of 1.158 g/cm2 for the lumbarspine (L1-L4). T score is -1.6 for the bone mineral density of 0.819 g/cm2 for the leftfemoral neck. T score is -1.9 for the bone mineral density of 0.775 g/cm2 for the rightfemoral neck. T score is -0.9 for the bone mineral density of 0.897 g/cm2 for the totalleft hip. T score is -1.4 for the bone mineral density of 0.836 g/cm2 for the totalright hip. IMPRESSION: 1. The lowest measured bone mineral density site is the right femoralneck and is osteopenia based on its T score of -1.9. The fracture risk ismoderate. 2. The FRAX model estimates the ten year probability of an osteoporoticrelated fracture to be 16.8 % and the ten year probability of a hipfracture to be 2.9 %, based on the bone mineral density of the rightfemoral neck and history of adult fracture. DEFINITIONS: Guidelines for DXA interpretation from the National OsteoporosisFoundation: 1) Consider FDA-approved osteoporosis therapies if: A. Patient has osteoporosis by WHO criteria (T-score at hip or spine lessthan - 2.5 or less). B. Patient has low bone mass (T-score at hip or spine between -2.4 and-1.1) and a high predicted probability of fracture (10-year probability >3% for hip fracture or > 20% for any major osteoporotic fracture) asestimated by the FRAX model (see below). 2) FDA-approved pharmacologic therapies include bisphosphonates,calcitonin, parathyroid hormone, Raloxifene and estrogens. 3) Consider evaluation for causes of secondary osteoporosis in appropriateclinical settings. 4) Patients taking medication for osteoporosis should have bone densityre- evaluation after 2 years or when medically appropriate. 5) Theseguidelines are based on cost-effectiveness analysis, and may not apply tothe individual clinical circumstances. FRAX statistical model: Developed by the WHO, available online(www.shef.ac.uk/FRAX via a link on the SwarmBuild screen. The modelcalculates the 10-yr probability of hip fracture or any major osteoporoticfracture (vertebral, hip, forearm, or humerus fracture), using clinicalpopulations, and applies only to previously-untreated patients.(FRAX-friendly) T-scores, as calculated using the Chatterfly link, should beused in the model. Definitions: Osteoporosis: by World Health Organization (WHO) criteria,defined as a T-score equal to or less than -2.5 at the hip or spine.Osteoporosis can be diagnoses by the BMD alone in menopausal andpostmenopausal women and in men 50 years and older. Low bone mass: (osteopenia): T-score between -1.0 and -2.0. Low bone massdoes not necessarily imply a high fracture risk. To assess thesignificance of low bone mass, it is necessary to consider the clinicalcontext. The FRAX model (see below) allows estimation of 10-year absolutefracture risk for individual patients based on clinical criteria. T-score: difference, in standard deviation units, between the patient'sbone density and the mean density of a reference population of healthy,young adults. T-scores are appropriate for diagnosis of osteoporosis inmenopausal and postmenopausal women and in men 50 years and older. Z-score: the difference, in standard deviations units, between thepatient's bone density and the mean density of a reference population ofage and sex-matched, healthy adults. Z-scores are used to assess bonemineral density in pre-menopausal women and in men younger than 50 years.A Z-score less than -2.0 means that the bone mineral density is below theexpected range for age. Amber Acharya MD EC BONE DENSITY Final Result from Last 3 Months or Most Recently Relevant to Health Maintenance Insurance MEDICARE COMMERCIAL INSURANCE - OTHER Care Teams Technical Professional Relationship Specialty Start Date End Date Rafael Bashir MD [address] [place] [address] PCP - General Family Medicine 03/30/14 Amber Acharya MD [address] [place] [id number] Physician Rheumatology 08/17/20 Alfredito Sims MD [address] [place] [address] Physician Anesthesiology 08/12/22
== END 2025-07-22 12:54 | disposition home or self-care (01) ==
LOC: MAMMO 12:53
PROVIDERS: PCP Family Medicine; Visit Provider Family Medicine
DX: Z12.31 Encounter for screening mammogram for malignant neoplasm of breast (principal); Z80.3 Family history of malignant neoplasm of breast
CPT/HCPCS: 77063; 77067